=== PATIENT | female | born 1980 | race Caucasian/White ===

== ENCOUNTER 2023-12-03 14:47 | Outpatient (OUT) | payer OTHER, SELFPAY ==
--- NOTE | 2023-12-03 | XR_ITS ---
The [address] [address] Patient Name: EZRA STERN MRN: [id number] date: 1980 Sex: F Assigned Patient Location: [facility] Current Patient Location: Accession/Order Number: [id number] Exam Date: 12/03/2023 15:10 Report Date: 12/04/2023 08:06 At the request of: MILADYS COOK Procedure: XR ankle LT min 3V EXAMINATION: XR foot ISMAEL min 3V, XR ankle LT min 3V HISTORY: BILAT FOOT PAIN COMPARISON: No relevant comparison available. FINDINGS: RIGHT FOOT FINDINGS: BONES: No acute fracture or dislocation. Mild enthesopathic spurring plantar calcaneus SOFT TISSUES: Negative. No visible soft tissue swelling. OTHER: Negative. LEFT FOOT AND ANKLE FINDINGS: BONES: No acute fracture or dislocation. Mild enthesopathic spurring plantar calcaneus SOFT TISSUES: Lateral ankle soft tissue swelling OTHER: Negative. XR/XR ankle LT min 3V IMPRESSION: RIGHT CONCLUSION: Mild calcaneal enthesopathy LEFT CONCLUSION: Mild calcaneal enthesopathy, lateral ankle soft tissue swelling Electronically authenticated by: SHER LO Date: 12/04/2023 08:06
--- NOTE | 2023-12-03 | XR_ITS ---
The [address] [address] Patient Name: EZRA STERN MRN: [id number] date: 1980 Sex: F Assigned Patient Location: [facility] Current Patient Location: Accession/Order Number: [id number] Exam Date: 12/03/2023 15:10 Report Date: 12/04/2023 08:06 At the request of: MILADYS COOK Procedure: XR foot ISMAEL min 3V EXAMINATION: XR foot ISMAEL min 3V, XR ankle LT min 3V HISTORY: BILAT FOOT PAIN COMPARISON: No relevant comparison available. FINDINGS: RIGHT FOOT FINDINGS: BONES: No acute fracture or dislocation. Mild enthesopathic spurring plantar calcaneus SOFT TISSUES: Negative. No visible soft tissue swelling. OTHER: Negative. LEFT FOOT AND ANKLE FINDINGS: BONES: No acute fracture or dislocation. Mild enthesopathic spurring plantar calcaneus SOFT TISSUES: Lateral ankle soft tissue swelling OTHER: Negative. XR/XR foot ISMAEL min 3V IMPRESSION: RIGHT CONCLUSION: Mild calcaneal enthesopathy LEFT CONCLUSION: Mild calcaneal enthesopathy, lateral ankle soft tissue swelling Electronically authenticated by: SHER LO Date: 12/04/2023 08:06
== END 2023-12-03 14:48 | disposition home or self-care (01) ==
LOC: RAD 14:48
PROVIDERS: PCP Nurse Practitioner; Visit Provider Physician Assistant
DX: M25.572 Pain in left ankle and joints of left foot (principal); M72.2 Plantar fascial fibromatosis
CPT/HCPCS: 73610; 73630

== ENCOUNTER 2023-12-11 16:34 | Outpatient (RCR) | payer OTHER, SELFPAY | END 2024-01-09 15:48 | disposition home or self-care (01) | LOC: PT 16:34 | PROVIDERS: PCP Nurse Practitioner; Visit Provider Physician Assistant | DX: M72.2 Plantar fascial fibromatosis (principal) | CPT/HCPCS: 20561; 97035; 97110; 97140; 97161 ==

== ENCOUNTER 2024-02-26 08:27 | Outpatient (OUT) | payer OTHER, SELFPAY ==
--- OUTSIDE RECORDS SUMMARY | 2024-02-26 08:33 | XMS_ITS | CCD ---
Author Organization [facility] Care Team Providers Care Manager Event Name Role Phone MD Dylan Fuentes Primary Care UnavailMD Alfredo Stokes Attending Unavailable MD Alfredo Daly Attending Unavailable MD Dylan Fuentes Primary Care Unavailallen Reynoso CALL CENTER ANALYST-Savanah MUÑOZ Primary Care Provider MATTHEW JARA Referring Unavailable SAVANAH REYNOSO Primary Care Unavailable MATTHEW JARA Referring Unavailable SAVANAH REYNOSO Primary Care Unavailable MATTHEW JARA Referring Unavailable SAVANAH REYNOSO Primary Care Unavailable Medications Current Medications Medication Drug Class(es) Dates Sig (Normalized) Sig (Original) azelastine hydrochloride 0.5 mg/ml ophthalmic solution (4 sources) Histamine-1 Receptor Antagonist take 1 drop(s) into the eye(s) in the morning azelastine (OPTIVAR) 0.05 % ophthalmic solution Administer 1 drop to both eyes in the morning and 1 drop before bedtime. 0 Active cetirizine hydrochloride 10 mg oral tablet (4 sources) Histamine-1 Receptor Antagonist take 1 tablet by mouth in the morning cetirizine (ZyrTEC) 10 mg tablet Take 1 tablet (10 mg total) by mouth in the morning. 0 Active PARoxetine hydrochloride 10 mg oral tablet (4 sources) Serotonin Reuptake Inhibitor Start: 05-28-2023 take 1 tablet by mouth in the morning PARoxetine (PAXIL) 10 mg tablet Indications: Menopausal symptoms Take 1 tablet (10 mg total) by mouth in the morning. 30 tablet 2 05/28/2023 Active triamcinolone acetonide 0.055 mg/actuat metered dose nasal spray (4 sources) Corticosteroid take 2 spray(s) nasal route in the morning triamcinolone (NASACORT) 55 mcg nasal inhaler Administer 2 sprays into each nostril in the morning. 0 Active Completed/Discontinued Medications Medication Drug Class(es) Dates Sig (Normalized) Sig (Original) ferumoxytoL (FERAHEME) 510 mg in sodium chloride 0.9 % 100 mL IVPB (2 sources) Start: 01-01-2024 End: 01-01-2024 ferumoxytoL (FERAHEME) 510 mg in sodium chloride 0.9 % 100 mL IVPB Start: 12-25-2023 End: 12-25-2023 ferumoxytoL (FERAHEME) 510 m g in sodium chloride 0.9 % 100 mL IVPB 1000 ml sodium chloride 9 mg /ml injection (2 sources) Start: 01-01-2024 End: 01-01-2024 sodium chloride 0.9 % infusi on Start: 12-25-2023 End: 12-25-2023 sodium chloride 0.9 % infusi on Problems Active Problems Problem Classification Problem Date Documented Da te Episodic/Chronic Allergic reactions (4 sources) Allergic disorder; Translations: [Allergy, unspecified, initial encounter] 01-04-2021 Episodic Deficiency and other anemia (3 sources) Iron deficiency anemia due to blood loss; Translations: [Iron deficiency anemia secondary to blood loss (chronic)] 12-19-2023 Chronic Deficiency and other anemia (1 source) Iron deficiency anemia secondary to blood loss (chronic); Translations: [Iron deficiency anemia secondary to blood loss (chronic)] Onset: 12-13-2022 Chronic Other ear and sense organ disorders (4 sources) Deafness of left ear; Translations: [Unspecified hearing loss, left ear] 01-04-2021 Chronic Unclassified (1 source) Outpatient Infusion Onset: 12-25-2023 Past or Other Problems Problem Classification Problem Date Documented Da te Episodic/Chronic Deficiency and other anemia (4 sources) Anemia; Translations: [Anemia, unspecified] Onset: 12-13-2022 12-13-2022 Episodic Deficiency and other anemia (4 sources) Iron deficiency anemia; Translations: [Iron deficiency anemia, unspecified] Onset: 12-13-2022 12-13-2022 Episodic Deficiency and other anemia (1 source) Other iron deficiency anemias; Translations: [Other iron deficiency anemias] Onset: 12-13-2022 Episodic Mood disorders (4 sources) Mood disorders Onset: 05-16-2023 05-16-2023 Unclassified (4 sources) Onset: 05-16-2023 05-16-2023 Results Test Name Value Interpretation Reference Range Facil ity CBC AND AUTO DIFFon 12-17-19 24 ABSOLUTE BASOPHIL 0.1 X10E9/L Normal 0.0-0.2 [facility] Comment on above: Performed By: #### Angel MARIN, FEPR, 2275-4 #### [facility] ([id number]) [address], [facility] [address] [place] [address] ABSOLUTE NEUTROPHIL 3.3 X10E9/L Normal 1.5-6.6 [facility] Comment on above: Performed By: #### Angel MARIN, FEPR, 2275-4 #### [facility] ([id number]) [address], [facility] [address] [place] [address] Basophils/100 WBC (Bld) 1.0 % Normal [facility] Comment on above: Performed By: #### Angel MARIN, FEPR, 2275-4 #### [facility] ([id number]) [address], [facility] [address] [place] [address] Eosinophils (Bld) [#/Vol] 0.3 10*3/uL Normal 0.0-0.4 [facility] Comment on above: Performed By: #### Angel MARIN, FEPR, 2275-4 #### [facility] ([id number]) [address], [facility] [address] [place] [address] Eosinophils/100 WBC (Bld) 4.9 % Normal [facility] Comment on above: Performed By: #### Angel MARIN, FEPR, 2275-4 #### [facility] ([id number]) [address] [address] [place] [address] Erythrocyte distribution width (RBC) [Ratio] 15.4 % High 11.5-15.0 [facility] Comment on above: Performed By: #### Angel MARIN, FEPR, 2275-4 #### [facility] ([id number]) [address], [address] [place] [address] Hematocrit (Bld) [Volume fraction] 40.1 % Normal 35-47 [facility] Comment on above: Performed By: #### Angel MARIN, FEPR, 2275-4 #### [facility] ([id number]) [address], [address] [place] [address] Hemoglobin (Bld) [Mass/Vol] 13.1 g/dL Normal 11.7-15.5 [facility] Comment on above: Performed By: #### Angel MARIN, FEPR, 2275-4 #### [facility] ([id number]) [address], [address] [place] [address] Lymphocytes (Bld) [#/Vol] 1.8 10*3/uL Normal 1.0-3.5 [facility] Comment on above: Performed By: #### Angel MARIN, FEPR, 2275-4 #### [facility] ([id number]) [address], [address] [place] [address] Lymphocytes/100 WBC (Bld) 30.6 % Normal [facility] Comment on above: Performed By: #### Angel BCA, FEPR, 4 #### [facility] ([id number]) [address], [address] [place] [address] MCH (RBC) [Entitic mass] 27.9 pg Normal 27-34 [facility] Comment on above: Performed By: #### Angel BCA, FEPR, 2275-4 #### [facility] ([id number]) [address], [address] [place] [address] MCHC (RBC) [Mass/Vol] 32.7 g/dL Normal 32-36 [facility] Comment on above: Performed By: #### Angel BCA, FEPR, 2275-4 #### [facility] ([id number]) [address], [address] [place] [address] MCV (RBC) [Entitic vol] 85 fL Normal 80-100 [facility] Comment on above: Performed By: #### Angel MARIN, FEPR, 2276-03 #### [facility] ([id number]) [address], [address] [place] [address] Monocytes (Bld) [#/Vol] 0.5 10*3/uL Normal 0-0.9 [facility] Comment on above: Performed By: #### Angel MARIN, FEPR, 2275- #### [facility] ([id number]) [address], [facility] [address] [place] [address] Monocytes/100 WBC (Bld) 8.5 % Normal [facility] Comment on above: Performed By: #### Angel MARIN, FEPR, 2276-03 #### [facility] ([id number]) [address], [facility] [address] [place] [address] Neutrophils/100 WBC (Bld) 55.0 % Normal [facility] Comment on above: Performed By: #### Angel MARIN, FEPR, 2276-03 #### [facility] ([id number]) [address], [address] [place] [address] Platelet mean volume (Bld) [Entitic vol] 9.5 fL Normal 7-12 [facility] Comment on above: Performed By: #### Angel MARIN, FEPR, 2276-03 #### [facility] ([id number]) [address], [facility] [address] [place] [address] Platelets (Bld) [#/Vol] 282 10*3/uL Normal 150-450 [facility] Comment on above: Performed By: #### Angel BCA, FEPR, 2276-03 #### [facility] ([id number]) [address] [place] [address] RBC COUNT 4.70 X10E12/L Normal 3.80-5.20 [facility] Comment on above: Performed By: #### C BCA, FEPR, 6-4 #### [facility] ([id number]) [address], [facility] [address] [place] [address] WBC (Bld) [#/Vol] 6.0 10*3/uL Normal 4.0-11.0 [facility] Comment on above: Performed By: #### C BCA, FEPR, 6-4 #### [facility] ([id number]) [address] [place] [address] FERRITINon 12-17-2023 Ferritin [Mass/Vol] 8 ng/mL Low 11-307 [facility] Comment on above: Performed By: #### C BCA, FEPR, 6-4 #### [facility] ([id number]) [address] [place] [address] IRON PROFILEon 12-17-2023 Iron [Mass/Vol] 30 ug/dL Low 50-170 [facility] Comment on above: Performed By: #### C BCA, FEPR, 6-4 #### [facility] ([id number]) [address], [address] [place] [address] IRON BINDING 465 ug/dL High 250-425 [facility] Comment on above: Performed By: #### Angel BCA, FEPR, 6-4 #### [facility] ([id number]) [address] [address] [place] [address] IRON SATURATION 6 % SATURATION Low 15-50 [facility] Comment on above: Performed By: #### C BCA, FEPR, 6-4 #### [facility] ([id number]) [address] [place] [address] CNOVon 06-27-2021 CNOV Office Visit ([facility] ) HILLARY STERN ([id number]) 1980 F Date Time Provider Department 06/27/21 11:00 AM EZRA HOGAN During your visit today, we recorded the following information about you: ADRIAN Khan, CCC-A 06/27/2021 1:14 PM Signed [facility] HEARING AID CHECK Name: Hillary Stern CCF#: [id number] Date of Service: 06/27/2021 Date of : 1980 Age: [age] year old RIGHT: AUDEO [id number] SN: [id number] Pediatric Critical Care Nurse/Dome: #2 small LEFT: CROS B-312 SN: [id number] Tubing/Dome: #2 small CERUSTOP Repair Warranty Expiration Date: ? Loss/Damage Expiration Date: ? Fitting Date: 1-2 years ago at an outside facility Fitting Roofer Metal: Outside gasket notcher Hillary was seen today for a hearing aid check/problem. The patient had complaints of hearing outside noises too much in the right ear which is bothersome to her. 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 Patient counseled re: the need to wear the device daily and consistently. Right aid adjusted, increased noise reduction and adjusted for sound relax. RIGHT EAR: Otoscopic inspection revealed clear ear canal, Tympanic Membrane intact. LEFT EAR: Otoscopic inspection revealed clear ear canal, Tympanic Membrane intact. Hillary was taken to the Funeral Home Attendant to cover today's appointment fee of $50.00. Recommendations 1. Patient advised to wear the aid daily. 2. Return in 2-3 weeks for follow up HAC if needed. Betty Khan, KOSTAS/A Clinical Roofer Metal Referring Provider: SELF [200] Allergies As of Date: 06/27/2021 (Not on File) Date Reviewed: Never Reviewed Reason for Visit: Problem With Hearing Aid(s) [1124] Hearing Aid Check [1340] Primary Visit Diagnosis:Sensorineur al hearing loss, asymmetrical [H90.3] Problem List As Of Date: 06/27/2021 (None) Encounter Status:Closed by EZRA HOGAN on 06/27/21 [facility] CNOVon 06-07-2021 CNOV Office Visit ([facility] ) HILLARY STERN ([id number]) 1980 F Date Time Provider Department 06/07/21 10:00 AM LATRICE HOUSTON During your visit today, we recorded the following information about you: ADRIAN Mcneil 06/07/2021 11:14 AM Signed [facility] AUDIOLOGIC EVALUATION REPORT Name: Hillary Stern CC#: [id number] Date of Service: 06/07/2021 Date of : 1980 Age: [age] year old Referred by: Antwon Sarah NP [address] [facility] [address] Referred for: Evaluation of the cause of disorder of hearing, tinnitus, or balance. Referral documented: No referral on file Patient's major complaints: Ms. Stern was seen today because she feels her hearing in her right ear is getting worse. She has long-standing profound hearing loss in her left ear and a prior audio evaluation from 2008 showed a moderate rising to mild sensorineural hearing loss in the right ear. She has a CROS hearing aid that she received several years ago and she wears it but finds wind noise bothersome. She also frequently adjusts her hair and can hear that easily with the hearing aid in. She denied tinnitus, dizziness, ear infections, and noise exposure. The remaining case history was unremarkable. Hillary was seen for an initial audiologic evaluation. See SmartForm Audiogram for additional reported history and symptoms. INTERPRETATION OF HEARING STATUS RIGHT EAR: Sensorineural hearing loss LEFT EAR: Sensorineural hearing loss TESTING, AND RESULTS Following is a brief interpretation of the obtained findings from the audiologic evaluation. Refer to the Auditory Test Record for complete audiometric results. The patient was counseled about the test findings and appropriate audiologic recommendations were made. SUMMARY: Audiogram can be viewed under Forms/Audiology/Smart Form. OTOSCOPIC INSPECTION RIGHT EAR: Otoscopic inspection revealed ear canal was clear with an identifiable cone of light. LEFT EAR: Otoscopic inspection revealed ear canal was clear with an identifiable cone of light. ACOUSTIC IMMITTANCE RESULTS RIGHT EAR PROBE EAR: Tympanometry: Normal ME function. Acoustic Reflex Pattern (ipsi is right stimulus ear; contralateral is left stimulus ear): Did not test Acoustic Reflex Decay (left stimulus ear): Did not test. LEFT EAR PROBE EAR: Tympanometry: Normal ME function. Acoustic Reflex Pattern (ipsi is left stimulus ear; contralateral is right stimulus ear): Did not test Acoustic Reflex Decay (right stimulus ear):Did not test. AUDIOMETRIC RESULTS RIGHT EAR: Hearing Sensitivity: Moderate rising to mild sensorineural hearing loss. Word Recognition Score: Excellent (90-100%). Words were presented at 70 dB HL NU-6 word list (25 words) was used. LEFT EAR: Hearing Sensitivity: Profound sensorineural hearing loss. Word Recognition Score: Did not test. Hearing loss is consistent with results obtained in 2009. MANAGEMENT PLAN: -- Continue with current amplification. -- Annual audiologic evaluation Adrian Mcneil CCC-A Roofer Metal TEIXEIRA Abbrev- iation Definition Degree of hearing sensitivity dB range WNL within normal limits WNL 0 - 20 SNHL sensorineural hearing loss Mild 20-40 CHL conductive hearing loss Moderate 40-55 MHL mixed hearing loss Moderately-Severe 55-70 WRS word recognition score Severe 70-90 ME middle ear Profound 90 + TM tympanic membrane Referring Provider: ANTWON SARAH [[id number]] Allergies As of Date: 06/07/2021 (Not on File) Date Reviewed: Never Reviewed Reason for Visit: Hearing Loss [1119] Primary Visit Diagnosis:Sensorineur al hearing loss, asymmetrical [H90.5] Problem List As Of Date: 06/07/2021 (None) Classic SmartForms filed during this visit: Audiometry Encounter Status:Closed by LATRICE HOUSTON on 06/07/21 Normal [facility] Vital Signs Date Time Vital Sign Value Performing Clinician Facility 01-01-2024 15:42-0500 Body temperature 98.2 [degF] Pfo 3 [facility] 01-01-2024 15:42-0500 Diastolic blood pressure 73 mm[Hg] Pfo 3 [facility] 01-01-2024 15:42-0500 Heart rate 72 /min Pfo 3 [facility] 01-01-2024 15:42-0500 Respiratory rate 16 /min Pfo 3 [facility] 01-01-2024 15:42-0500 SaO2% (BldA) [Mass fraction] 100 % Pfo 3 [facility] 01-01-2024 15:42-0500 Systolic blood pressure 111 mm[Hg] Pfo 3 [facility] 01-01-2024 14:53-0500 Body height 157.5 cm Pfo 3 [facility] 01-01-2024 14:53-0500 Body mass index (BMI) [Ratio] 31.45 kg/m2 Pfo 3 [facility] 01-01-2024 14:53-0500 Body weight 78.02 kg Pfo 3 [facility] 12-25-2023 15:57-0500 Diastolic blood pressure 73 mm[Hg] Pfo 3 [facility] 12-25-2023 15:57-0500 Heart rate 76 /min Pfo 3 [facility] 12-25-2023 15:57-0500 Respiratory rate 16 /min Pfo 3 [facility] 12-25-2023 15:57-0500 Systolic blood pressure 113 mm[Hg] Pfo 3 [facility] 12-25-2023 15:12-0500 Body height 157.5 cm Pfo 3 [facility] 12-25-2023 15:12-0500 Body mass index (BMI) [Ratio] 31.83 kg/m2 Pfo 3 [facility] 12-25-2023 15:12-0500 Body temperature 98.49 [degF] Pfo 3 [facility] 12-25-2023 15:12-0500 Body weight 78.93 kg Pfo 3 [facility] 12-25-2023 15:12-0500 SaO2% (BldA) [Mass fraction] 100 % Pfo 3 [facility] Encounters Encounter Date Encounter Type Care Provider Facility Start: 01-01-2024 End: 01-02-2024 ambulatory Pfo Infusion Chair 3 Ifrah L Avila [facility] Comment on above: Iron deficiency anem ia due to chronic blood loss (Primary Dx) Start: 12-25-2023 End: 01-02-2024 ambulatory Pfo Infusion Chair 3 Ifrah Rauschn [facility] Comment on above: Iron deficiency anem ia due to chronic blood loss (Primary Dx) Start: 12-19-2023 Orders Only Roxana Humphrey RN Ifrah L [facility] Comment on above: Iron deficiency anem ia due to chronic blood loss (Primary Dx) Start: 12-17-2023 End: 12-18-2023 ambulatory MATTHEW Manning [facility] Start: 11-22-2022 End: 11-23-2022 ambulatory MD Alfredo Daly Facility:[facility] Start: 10-18-2022 End: 10-19-2022 ambulatory MD Dylan Fuentes Facility:[facility] Procedures Date Procedure Procedure Detail Performing Clinician Start: 05-16-2023 Adult depression scr eening assessment Roxana Humphrey RN Start: 05-10-2023 Mammography Roxana gramajo RN Start: 05-08-2022 Microscopic observat ion [Identifier] in Cervix by Cyto stain Roxana Humphrey RN Plan of Treatment Date Care Activity Detail Author Start: 05-08-2025 Screening for malign ant neoplasm of cervix Pap Smear [facility] Start: 01-01-2025 Adult BMI Screening Adult BMI Screen ing [facility] Start: 12-25-2024 Tobacco Screening Tobacco Screening [facility] Start: 05-16-2024 Adult BMI Follow Up Plan Adult BMI Follow Up Plan [facility] Start: 05-16-2024 Adult BMI Screening Adult BMI Screen ing [facility] Start: 05-16-2024 Depression Screening Depression Scre ening [facility] Start: 05-16-2024 Tobacco Screening Tobacco Screening [facility] Start: 05-10-2024 Screening for malign ant neoplasm of breast Mammogram [facility] Start: 05-07-2024 End: 05-07-2024 Patient encounter procedure 05/07/2024 9:15 AM EDT Office Visit Ifrah Gramajo [facility] [address] [place] [address] Matthew Jara MD [address] [facility] [address] [place] [address] Ifrah Gramajo [facility] Start: 04-01-2024 End: 12-19-2024 CBC W Auto Differential panel - Blood CBC auto differential Lab Routine Iron deficiency anemia due to chronic blood loss Expected: 04/01/2024, Expires: 12/19/2024 [facility] Work Phone: Comment on above: Expected: 04/01/2024 , Expires: 12/19/2024 Start: 04-01-2024 End: 04-01-2025 Iron and TIBC Iron and TIBC Lab Routine Iron deficiency anemia due to chronic blood loss Expected: 04/01/2024, Expires: 04/01/2025 [facility] Comment on above: Expected: 04/01/2024 , Expires: 04/01/2025 Start: 01-01-2024 End: 01-01-2024 ambulatory 01/01/2024 3:00 PM EST Infusion Ifrah Gramajo [facility] [place] [address] Ifrah Orantes Pettis [facility] Start: 08-02-2023 COVID-19 Vaccine ( season) COVID-19 Vaccine ( season) [facility] Start: 08-02-2023 Influenza vaccination Influenza Vacc ine [facility] Start: 02-19-2021 DTaP,Tdap and Td Vaccines (2 - Td or Tdap) DTaP,Tdap and Td Vaccines (2 - Td or Tdap) [facility] End: 12-19-2024 Ferritin [Mass/volume] in Serum or Plasma Ferritin Lab Routine Iron deficiency anemia due to chronic blood loss 1 Occurrences starting 12/19/2023 until 12/19/2024 [facility] Comment on above: 1 Occurrences starti ng 12/19/2023 until 12/19/2024 Immunizations Immunization Date Immunization Notes Care Provider Vero bob 11-11-2022 influenza virus vacc ine, unspecified formulation Roxana Humphrey RN [facility] 12-09-2021 Seasonal, quadrivale nt, recombinant, injectable influenza vaccine, preservative free Roxana Humphrey RN [facility] Work Phone: 09-03-2019 influenza, injectabl e, quadrivalent, preservative free Roxana Humphrey RN [facility] 09-03-2018 influenza, injectabl e, quadrivalent, preservative free Roxana Humphrey RN [facility] 09-03-2018 seasonal influenza, intradermal, preservative free Roxana Humphrey RN [facility] 02-19-2011 tetanus toxoid, redu noemy diphtheria toxoid, and acellular pertussis vaccine, adsorbed Roxana Humphrey RN [facility] Payers Date Payer Category Payer Unknown [employer] [id number] 2023-Present [phone] [address] [place] [address] [id number] 2023 Unknown [id number] 2022 Private Health Insurance 1980 Unknown [id number] 1980 Unknown [id number] 1980 Unknown [id number] 1980 Unknown [id number] 1980 Unknown [id number] Social History Date Type Detail Facility Start: 02-01-2023 Tobacco smoking stat us SCIS Never smoked tobacco [facility] Start: 02-01-2023 Tobacco use and exposure Smoke less tobacco non-user [facility] Start: 05-16-2023 End: 12-25-2023 Alcohol intake Current drinker of alcohol (finding) [facility] Start: 01-04-2021 End: 05-08-2022 History of Social function [facility] Work Phone: Start: 01-04-2021 End: 05-08-2022 Alcohol Use Disorder Identification Test - Consumption [AUDIT-C] [facility] Work Phone: How often to you hav e a drink containing alcohol? 2-4 times a month [facility] Work Phone: How many standard dr inks containing alcohol do you have on a typical day? 1 or 2 [facility] How often do you hav e 6 or more drinks on 1 occasion? Never [facility] Adolescent depressio n screening assessment 2 [facility] Start: 01-04-2021 Alcohol Comment socially [facility] Start: 1980 Sex Assigned At Not on file P [facility] Clinical Notes 06-07-2021 to 01-01-2024 Brent Parra RN - 01/01/2024 3:00 PM Kadeem Zimmerman RN - 12/25/2023 3:00 PM Amairani Humphrey RN - 12/19/2023 8:54 AM EST Note Date & Type Note Facility 01-01-2024 History of Present illness Narrative Patient is here for IV Feraheme as scheduled. She has received in the past and denies any issues from medication. PIV initiated in LAC without incident. Brisk blood return verified and line flushes with ease. NS initiated as mainline at KVO rate. Feraheme infused over 30 minutes without incident and patient tolerated well. Upon completion, IV flushed and patient declined to remain on unit for 30 minutes post infusion for observation. VS stable. PIV discontinued and pressure dressing applied. Patient discharged in stable condition to private vehicle. documented in this encounter [facility] 12-25-2023 History of Present illness Narrative Patient is here for IV Feraheme as scheduled. She has received in the past and denies any issues from medication. PIV initiated in left forearm without incident. Brisk blood return verified and line flushes with ease. NS initiated as mainline at KVO rate. Feraheme infused over 30 minutes without incident and patient tolerated well. Upon completion, IV flushed and patient declined to remained on unit for 30 minutes post infusion for observation. VS stable. PIV discontinued and pressure dressing applied. Treatment calendar provided. Patient discharged in stable condition to private vehicle. documented in this encounter [facility] 12-19-2023 History of Present illness Narrative Reviewed labs with patient. She would like to have iv iron again. Message sent to Dr. Jara to order. Will call to schedule once approved by insurance. Follow up scheduled with Dr. Jara in May. She will get labs rechecked prior. documented in this encounter [facility] 06-27-2021 Note HNO ID: [id number] Author: ADRIAN Khan, [facility] Service: ? Author Type: [employer] Type: Progress Notes Filed: 06/27/2021 1:14 PM Note Text: Head and Neck [place] HEARING AID CHECK Name: Hillary Stern CCF#: [id number] Date of Service: 06/27/2021 Date of : 1980 Age: [age] year old RIGHT: AUDEO [id number] SN: [id number] Pediatric Critical Care Nurse/Dome: #2 small LEFT: CROS B-312 SN: [id number] Tubing/Dome: #2 small CERUSTOP Repair Warranty Expiration Date: ? Loss/Damage Expiration Date: ? Fitting Date: 1-2 years ago at an outside facility Fitting Roofer Metal: Outside gasket notcher Hillary was seen today for a hearing aid check/problem. The patient had complaints of hearing outside noises too much in the right ear which is bothersome to her. 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 Patient counseled re: the need to wear the device daily and consistently. Right aid adjusted, increased noise reduction and adjusted for sound relax. RIGHT EAR: Otoscopic inspection revealed clear ear canal, Tympanic Membrane intact. LEFT EAR: Otoscopic inspection revealed clear ear canal, Tympanic Membrane intact. Hillary was taken to the Funeral Home Attendant to cover today's appointment fee of $50.00. Recommendations 1. Patient advised to wear the aid daily. 2. Return in 2-3 weeks for follow up HAC if needed. Betty Khan, KOSTAS/A Clinical Roofer [employer] [facility] 06-07-2021 Note HNO ID: [id number] Author: ADRIAN Mcneil Service: ? Author Type: [employer]er [employer] Type: Progress Notes Filed: 06/07/2021 11:14 AM Note Text: Head and Neck [place] AUDIOLOGIC EVALUATION REPORT Name: Hillary Stern CC#: [id number] Date of Service: 06/07/2021 Date of : 1980 Age: [age] year old Referred by: Antwon Sarah NP [id number] [facility] [id number] Referred for: Evaluation of the cause of disorder of hearing, tinnitus, or balance. Referral documented: No referral on file Patient's major complaints: Ms. Stern was seen today because she feels her hearing in her right ear is getting worse. She has long-standing profound hearing loss in her left ear and a prior audio evaluation from 2008 showed a moderate rising to mild sensorineural hearing loss in the right ear. She has a CROS hearing aid that she received several years ago and she wears it but finds wind noise bothersome. She also frequently adjusts her hair and can hear that easily with the hearing aid in. She denied tinnitus, dizziness, ear infections, and noise exposure. The remaining case history was unremarkable. Hillary was seen for an initial audiologic evaluation. See SmartForm Audiogram for additional reported history and symptoms. INTERPRETATION OF HEARING STATUS RIGHT EAR: Sensorineural hearing loss LEFT EAR: Sensorineural hearing loss TESTING, AND RESULTS Following is a brief interpretation of the obtained findings from the audiologic evaluation. Refer to the Auditory Test Record for complete audiometric results. The patient was counseled about the test findings and appropriate audiologic recommendations were made. SUMMARY: Audiogram can be viewed under Forms/Audiology/SmartForm. OTOSCOPIC INSPECTION RIGHT EAR: Otoscopic inspection revealed ear canal was clear with an identifiable cone of light. LEFT EAR: Otoscopic inspection revealed ear canal was clear with an identifiable cone of light. ACOUSTIC IMMITTANCE RESULTS RIGHT EAR PROBE EAR: Tympanometry: Normal ME function. Acoustic Reflex Pattern (ipsi is right stimulus ear; contralateral is left stimulus ear): Did not test Acoustic Reflex Decay (left stimulus ear): Did not test. LEFT EAR PROBE EAR: Tympanometry: Normal ME function. Acoustic Reflex Pattern (ipsi is left stimulus ear; contralateral is right stimulus ear): Did not test Acoustic Reflex Decay (right stimulus ear):Did not test. AUDIOMETRIC RESULTS RIGHT EAR: Hearing Sensitivity: Moderate rising to mild sensorineural hearing loss. Word Recognition Score: Excellent (90-100%). Words were presented at 70 dB HL NU-6 word list (25 words) was used. LEFT EAR: Hearing Sensitivity: Profound sensorineural hearing loss. Word Recognition Score: Did not test. Hearing loss is consistent with results obtained in 2009. MANAGEMENT PLAN: -- Continue with current amplification. -- Annual audiologic evaluation Adrian Mcneil, KOST[facility]-A [employer]er [employer] TEIXEIRA Abbrev- iation Definition Degree of hearing sensitivity dB range WNL within normal limits WNL 0 - 20 SNHL sensorineural hearing loss Mild 20-40 CHL conductive hearing loss Moderate 40-55 MHL mixed hearing loss Moderately-Severe 55-70 WRS word recognition score Severe 70-90 ME middle ear Profound 90 + TM tympanic membrane [facility] Evaluation note Diagnosis Iron deficiency anemia due to chronic blood loss- Primary Iron deficiency anemia secondary to blood loss (chronic) [facility] Diagnosis Iron deficiency anemia due to chronic blood loss- Primary Iron deficiency anemia secondary to blood loss (chronic) [facility] Diagnosis Iron deficiency anemia due to chronic blood loss- Primary Iron deficiency anemia secondary to blood loss (chronic) [facility] filedocumented in this encounter [facility] on filedocumented in this encounter [facility] Summary Purpose Family History No Family History Records FoundNo Family History Records FoundNo Family History Records Found Advance Directives No Advanced Directives Records FoundNo Advanced Directives Records FoundNo Advanced Directives Records Found Additional Source Comments INFORMATION SOURCE (unrecogn ized section and content) DATE CREATED AUTHOR 01/04/2022 [facility] DATE CREATED AUTHOR AUTHOR'S ORGANIZ ATION 11/29/2022 [facility] DATE CREATED AUTHOR AUTHOR'S ORGANIZ ATION 01/05/2024 [facility] Care Teams (unrecognized sec tion and content) Manager Event Relationship Specialty Start Date End Date [facility] [address] [place] [address] PCP - General Nurse Practitioner 12/17/23 Manager Event Relationship Specialty Start Date End Date Savanah Reynoso APRNTONI [address] [place] [address] PCP - General Nurse Practitioner 12/17/23 Manager Event Relationship Specialty Start Date End Date Savanah Reynoso APRNTONI [address] [place] [address] PCP - General Nurse Practitioner 12/17/23 Manager Event Relationship Specialty Start Date End Date [facility] [address] [place] [address] PCP - General Nurse Practitioner 12/17/23 Reason for Visit (unrecogniz ed section and content) Reason Comments Outpatient Infusion Feraheme Specialty Diagnoses / Procedures Referred By Contac t Referred To Contact Diagnoses Iron deficiency anemia due to chronic blood loss Procedures LA FERUMOXYTOL, NON-ESRD Matthew Jara MD [address] [place] [address] Pfo Med Onc [facility] [place] [address] Referral ID Status Reason Start Date Expiration Date V isits Requested Visits Authorized [id number] Authorized 12/19/2023 12/18/2024 2 2 Reason Comments Outpatient Infusion feraheme FOR RECORDS PERTAINING TO PATIENTS WHO ARE OR HAVE BEEN ENROLLED IN A CHEMICAL DEPENDENCY/SUBSTANCEABUSE PROGRAM, SOME INFORMATION MAY BE OMITTED. This clinical summary was aggregated from multiple sources. Caution should be exercised in using it in the provision of clinical care. This summary normalizes information from multiple sources, and as a consequence, information in this document may materially change the coding, format and clinical context of patient data. In addition, data may be omitted in some cases. CLINICAL DECISIONS SHOULD BE BASED ON THE PRIMARY CLINICAL RECORDS. [employer] provides no warranty or guarantee of the accuracy or completeness of information in this document.
--- NOTE | 2024-02-26 08:36 | MR_ITS ---
The [address] [address] Patient Name: EZRA STERN MRN: [id number] date: 1980 Sex: F Assigned Patient Location: MRI Current Patient Location: MRI Accession/Order Number: [id number] Exam Date: 02/26/2024 08:45 Report Date: 02/26/2024 12:45 At the request of: MILADYS COOK Procedure: MR ankle RT wo con EXAM: MR ankle RT wo con REASON FOR EXAM: Plantar Fascial Fibromatosis M72.2. TECHNIQUE: Multiplanar, multisequence imaging of the right ankle was performed without contrast COMPARISON: Radiographs 12/03/2023. FINDINGS: There is fusiform thickening and intermediate signal of the Achilles tendon consistent with tendinosis. No tear identified. There is moderate thickening and intermediate signal involving the medial cord of the plantar fascia with mild surrounding edema. A discrete tear not identified. Inferior calcaneal spur is noted. No masslike thickening of the plantar fascia identified to suggest plantar fibromatosis. Laterally, the peroneal tendons demonstrate grossly normal thickness and signal without tendinosis or tear. The superficial peroneal retinaculum is intact. Lateral ligaments are grossly intact. Medially, the medial flexor tendons demonstrate normal thickness and signal without tendinosis or tear. The deep deltoid ligament is intact. The spring ligament is intact. Anteriorly, the anterior extensor tendons demonstrate normal thickness and signal without tendinosis or tear. The bone marrow signal is without fracture or displaced fracture. There is bone marrow edema involving the third metatarsal base and proximal diaphysis. This could potentially reflect a low-grade stress response due to altered biomechanics. The talar dome appears congruent. The subtalar joints intact. The sinus tarsi is mildly edematous. The midfoot is congruent with mild joint space narrowing marginal osteophytes of the talonavicular joint. The plantar musculature demonstrates normal bulk and signal. Remaining soft tissues are unremarkable. MR/MR ankle RT wo con IMPRESSION: 1. Moderate chronic plantar fasciopathy without evidence of acute tear. No masslike thickening identified to suggest fibromatosis. 2. Partially imaged bone marrow edema involving the proximal third metatarsal, this could be degenerative or could reflect a low-grade stress response potentially due to altered biomechanics. 3. Achilles tendinosis without tear. 4. Mild midfoot osteoarthritis Electronically authenticated by: LISET GARCIA Date: 02/26/2024 12:45
== END 2024-02-26 08:28 | disposition home or self-care (01) ==
LOC: MRI 08:30
PROVIDERS: PCP Nurse Practitioner; Visit Provider Physician Assistant
DX: M72.2 Plantar fascial fibromatosis (principal)
CPT/HCPCS: 73721

== ENCOUNTER 2024-04-28 09:59 | Outpatient (OUT) | payer OTHER, SELFPAY ==
--- NOTE | 2024-04-28 10:27 | PM.PRESUREVA ---
History of Present Illness History of Present Illness Chief complaint: plantar fasciitis right foot, rt ankle contracture Narrative: Patient presents for preadmission testing. The patient reports a long history of right foot and heel pain. She has more pain after resting after longer periods of standing and activity. The patient states she has used prednisone, ibuprofen, meloxicam, injections, physical therapy, and home exercise programs along with shoe modification but is still having intermittent pain. She denies numbness, tingling, weakness, or any other complaints. Review of Systems ROS Narrative REVIEW OF SYSTEMS: Negative except as stated in HPI, ten or more systems reviewed. Constitutional: No fever, chills, weakness ENT: No sore throat or epistaxis Cardiovascular: No edema, chest pain, palpitations, or activity intolerance Respiratory: No shortness of breath, cough, or wheezing Gastrointestinal: No abdominal pain, constipation, diarrhea, or vomiting Genitourinary: No dysuria or hematuria Neurological: No numbness, tingling, weakness, or headache Psychiatric: No mood changes PFSH PFS Medical History (Updated 04/28/24 @ 10:15 by Roxana Rene NP) COVID-19 ?U07.1 - COVID-19 (ICD-10) Seasonal allergies ?J30.2 - Other seasonal allergic rhinitis (ICD-10) Right foot pain ?M79.671 - Pain in right foot (ICD-10) Contracture, right ankle ?M24.571 - Contracture, right ankle (ICD-10) Plantar fasciitis of right foot ?M72.2 - Plantar fascial fibromatosis (ICD-10) Carpal tunnel syndrome ?G56.00 - Carpal tunnel syndrome, unspecified upper limb (ICD-10) Deafness in left ear ?H91.92 - Unspecified hearing loss, left ear (ICD-10) GERD (gastroesophageal reflux disease) ?K21.9 - Gastro-esophageal reflux disease without esophagitis (ICD-10) Anemia ?D64.9 - Anemia, unspecified (ICD-10) Surgical History (Updated 04/28/24 @ 10:07 by Roxana Rene NP) History of carpal tunnel release ?Z98.890 - Other specified postprocedural states (ICD-10) Family History (Updated 04/28/24 @ 10:15 by Roxana Rene NP) Other Family history of cancer Family history of diabetes mellitus Family history of hypertension Family history of myocardial infarction Family history of stroke Heart disease Social History (Updated 04/28/24 @ 10:11 by Roxana Rene NP) Within the past year, how often did you have a drink containing alcohol: monthly or less Smoking status: Never smoker Non-prescribed substance use: denies use 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 Highest level of school completed/degree received: Master's degree Meds Home Medications and Allergies Home Medications ?Medication ?Instructions ?Recorded ?Confirmed ?Type azelastine 0.05 % eye drops drp ophthalmic (eye) DAILY 04/28/24 History cetirizine 10 mg tablet 10 mg PO DAILY 04/28/24 04/28/24 History fluticasone propionate 50 1 spray intranasal DAILY PRN 04/28/24 04/28/24 History mcg/actuation nasal allergy symptoms spray,suspension (24 Hour Allergy Relief) Allergies Allergy/AdvReac Type Severity Reaction Status Date / Time No Known Drug Allergies Allergy Verified 04/28/24 10:09 Exam Narrative Exam Narrative: Constitutional: Awake, alert, comfortable, well-appearing, nontoxic, interactive, vital signs as charted Head: Normocephalic, atraumatic Neck: Supple, normal appearance, normal range of motion, no meningeal signs, no lymphadenopathy Respiratory: No respiratory distress, breath sounds clear Cardiovascular: Regular rate and rhythm, strong and regular heart tones Musculoskeletal: Normal gait, no swelling or edema, tenderness with palpation of the right medial instep of the foot, good capillary refill, sensation intact Skin: No rashes or induration, no lesions, only visible skin inspected Neuro: No neurological deficits, normal sensation Psychiatric: Oriented ?3, normal affect Assessment and Plan Assessment and Plan (1) Plantar fasciitis of right foot: (2) Contracture, right ankle: (3) Right foot pain: Plan Right endoscopic plantar fasciotomy and gastrocnemius recession scheduled with Dr. Fields May 11, 2024.
[2024-04-28 10:34] LABS: Basophils Absolute Auto 0.1 10^3/uL (0.0-0.1); Basophils Percent Auto 0.7 % (0.2-2.0); Eosinophils Absolute Auto 0.3 10^3/uL (0.0-0.7); Eosinophils Percent Auto 3.5 % (0.9-7.0); Hematocrit 41.6 % (36.0-48.0); Hemoglobin 14.1 g/dL (12.0-16.0); Immature Granulocytes Abs Auto 0.02 10^3/uL (0.00-0.03); Immature Granulocytes Pct Auto 0.3 % (0.0-0.5); Lymphocytes Absolute Auto 1.7 10^3/uL (1.2-3.8); Lymphocytes Percent Auto 22.9 % (20.5-60.0); Mean Corpuscular HGB Conc 33.9 g/dL (29.9-35.2); Mean Corpuscular Hemoglobin 32.9 pg (26.7-34.0); Mean Platelet Volume 10.5 fL (9.5-13.5); Monocytes Absolute Auto 0.5 10^3/uL (0.3-0.8); Monocytes Percent Auto 6.4 % (1.7-12.0); Neutrophils Absolute Auto 4.9 10^3/uL (1.4-6.5); Neutrophils Percent Auto 66.2 % (43.0-75.0); Platelet Count 270 10^3/uL (150-450); Red Blood Count 4.29 10^6/uL (4.20-5.40); Red Cell Distribution Width 13.2 % (11.0-15.0); White Blood Count 7.5 10^3/uL (4.0-11.0)
== END 2024-04-28 10:00 | disposition home or self-care (01) ==
LOC: PST 10:00
PROVIDERS: PCP Nurse Practitioner; Visit Provider Podiatrist Foot & Ankle Surgery
DX: Z01.812 Encounter for preprocedural laboratory examination (principal); Z01.818 Encounter for other preprocedural examination; M72.2 Plantar fascial fibromatosis; M24.571 Contracture, right ankle
CPT/HCPCS: 85025; G0463

== ENCOUNTER 2024-05-11 06:20 | Day surgery (SDC) | payer OTHER, SELFPAY ==
[2024-04-28 10:24] VITALS: BP 116/72; PULSE 77; TEMP 36.3; O2SAT 97; BMI 32.2
[2024-05-11] VITALS (8 sets, daily range): BP systolic 95–116; BP diastolic 64–84; PULSE 65–78; TEMP 36.1–36.3; O2SAT 94–100
--- OUTSIDE RECORDS SUMMARY | 2024-05-11 06:22 | XMS_ITS ---
Patient Summarization (C-CDA 2.1 CCD) Created on: May 11, 2024 HILLARY STERN : 1980 Sex: Undifferentiated Author Organization Sample organization Care Team Providers Care Belt And Link Shop Supervisor Name Role Phone MD Dylan Fuentes Primary Care UnavailMD Alfredo Stokes Attending Unavailable MD Alfredo Daly Attending Unavailable MD Dylan Fuentes Primary Care Unavailaleln Reynoso COLLEGE OR UNIVERSITY DEPARTMENT HEAD-Savanah MUÑOZ Primary Care Provider MATTHEW JARA Attending Unavailable ANTWON SARAH Referring Unavailable SAVANAH REYNOSO Primary Care Unavailable MATTHEW JARA Referring Unavailable SAVANAH REYNOSO Primary Care Unavailable MATTHEW JARA Referring Unavailable SAVANAH REYNOSO Primary Care Unavailable MATTHEW JARA Referring Unavailable SAVANAH REYNOSO Primary Care Unavailable Encounters Encounter Date Encounter Type Care Provider Facility Start: 02-07-2024 End: 03-02-2024 ambulatory [facility] Start: 01-01-2024 End: 01-02-2024 ambulatory Pfo Infusion Chair 3 Ifrah Gramajo [facility] Comment on above: Iron deficiency anem ia due to chronic blood loss (Primary Dx) Start: 12-25-2023 End: 01-02-2024 ambulatory Pfo Infusion Chair 3 Ifrah Gramajo [facility] Comment on above: Iron deficiency anem ia due to chronic blood loss (Primary Dx) Start: 12-19-2023 Orders Only Roxana Orantes Maury [facility] On[facility] Comment on above: Iron deficiency anem ia due to chronic blood loss (Primary Dx) Start: 12-17-2023 End: 12-18-2023 ambulatory [facility] Start: 11-22-2022 End: 11-23-2022 ambulatory MD Alfredo Daly Facility:[facility] Start: 10-18-2022 End: 10-19-2022 ambulatory MD Dylan Fuentes Facility:[facility] Immunizations Immunization Date Immunization Notes Care Provider Vero bob 11-11-2022 influenza virus vacc ine, unspecified formulation Roxana Humphrey RN [facility] 12-09-2021 Seasonal, quadrivale nt, recombinant, injectable influenza vaccine, preservative free Roxana Humphrey RN [facility] Work Phone: 09-03-2019 influenza, injectabl e, quadrivalent, preservative free Roxana Humphrey RN [facility] 09-03-2018 influenza, injectabl e, quadrivalent, preservative free Roxana Humphrey RN [facility] 09-03-2018 seasonal influenza, intradermal, preservative free Roxana Humphrey RN [facility] 02-19-2011 tetanus toxoid, redu noemy diphtheria toxoid, and acellular pertussis vaccine, adsorbed Roxana Humphrey RN [facility] Medications Current Medications Medication Drug Class(es) Dates [...] 12-25-2023 sodium chloride 0.9 % infusi on Payers Date Payer Category Payer Unknown [employer] [id number] 2023-Present [phone] [address] [place] [address] [id number] 2023 Unknown [id number] 2022 Private Health Insurance 1980 Unknown [id number] 1980 Unknown [id number] 1980 Unknown [id number] 1980 Unknown [id number] 1980 Unknown [id number] 1980 Unknown [id number] Plan of Treatment Date Care Activity Detail Author Start: 05-08-2025 Screening for malign ant neoplasm of cervix Pap Smear [facility] Start: 01-01-2025 Adult BMI Screening Adult BMI Screen ing [facility] Start: 12-25-2024 Tobacco Screening Tobacco Screening [facility] Start: 05-16-2024 Adult BMI Follow Up Plan Adult BMI Follow Up Plan [facility] Start: 05-16-2024 Adult BMI Screening Adult BMI Screen ing [facility] Start: 05-16-2024 Depression Screening Depression Scre ening [facility] Start: 05-16-2024 Tobacco Screening Tobacco Screening [facility] Start: 05-10-2024 Screening for malign ant neoplasm of breast Mammogram [facility] Start: 05-07-2024 End: 05-07-2024 Patient encounter procedure 05/07/2024 9:15 AM EDT Office Visit Ifrah Gramajo [facility] [address] [place] [phone] Matthew Jara MD [address] [place] [address] [address] [place] [address] Ifrah Gramajo [facility] Start: 04-01-2024 End: 12-19-2024 CBC W Auto Differential panel - Blood CBC auto differential Lab Routine Iron deficiency anemia due to chronic blood loss Expected: 04/01/2024, Expires: 12/19/2024 [facility] Work Phone: Comment on above: Expected: 04/01/2024 , Expires: 12/19/2024 Start: 04-01-2024 End: 04-01-2025 Iron and TIBC Iron and TIBC Lab Routine Iron deficiency anemia due to chronic blood loss Expected: 04/01/2024, Expires: 04/01/2025 [facility] Comment on above: Expected: 04/01/2024 , Expires: 04/01/2025 Start: 01-01-2024 End: 01-01-2024 ambulatory 01/01/2024 3:00 PM EST Infusion Ifrah Gramajo [facility] [address] [place] [phone] [facility] Start: 08-02-2023 COVID-19 Vaccine ( season) COVID-19 Vaccine () [facility] Start: 08-02-2023 Influenza vaccination Influenza Vacc ine [facility] Start: 02-19-2021 DTaP,Tdap and Td Vaccines (2 - Td or Tdap) DTaP,Tdap and Td Vaccines (2 - Td or Tdap) [facility] End: 12-19-2024 Ferritin [Mass/volume] in Serum or Plasma Ferritin Lab Routine Iron deficiency anemia due to chronic blood loss 1 Occurrences starting 12/19/2023 until 12/19/2024 [facility] Comment on above: 1 Occurrences starti ng 12/19/2023 until 12/19/2024 Problems Active Problems Problem Classification Problem Date [...] 05-16-2023 Unclassified (4 sources) Onset: 05-16-2023 05-16-2023 Procedures Date Procedure Procedure Detail Performing Clinician Start: 05-16-2023 Adult depression scr eening assessment Roxana Humphrey RN Start: 05-10-2023 Mammography Roxana gramajo RN Start: 05-08-2022 Microscopic observat ion [Identifier] in Cervix by Cyto stain Roxana Humphrey RN Results Test Name Value Interpretation Reference Range Facil ity CBC AND AUTO DIFFon 12-17-19 ABSOLUTE BASOPHIL 0.1 X10E9/L Normal 0.0-0.2 [facility] Comment on above: Performed By: #### Angel BCA, FEPR, 6-4 #### [facility] ([id number]) [address], [address] [place] [address] ABSOLUTE NEUTROPHIL 3.3 X10E9/L Normal 1.5-6.6 [facility] Comment on above: Performed By: #### Angel BCA, FEPR, 2275-4 #### [facility] ([id number]) [address], [address] [place] [address] Basophils/100 WBC (Bld) 1.0 % Normal [facility] Comment on above: Performed By: #### Angel BCA, FEPR, 2275-4 #### [facility] ([id number]) [address], [address] [place] [address] Eosinophils (Bld) [#/Vol] 0.3 10*3/uL Normal 0.0-0.4 [facility] Comment on above: Performed By: #### Angel BCA, FEPR, 2275-4 #### [facility] ([id number]) [address], [address] [place] [address] Eosinophils/100 WBC (Bld) 4.9 % Normal [facility] Comment on above: Performed By: #### Angel BCA, FEPR, 2275-4 #### [facility] ([id number]) [address], [address] [place] [address] Erythrocyte distribution width (RBC) [Ratio] 15.4 % High 11.5-15.0 [facility] Comment on above: Performed By: #### MENA Ortiz BCA, 2275-4 #### [facility] ([id number]) [address], [address] [place] [address] Hematocrit (Bld) [Volume fraction] 40.1 % Normal 35-47 [facility] Comment on above: Performed By: #### Angel MARIN FEPR, 2275-4 #### [facility] ([id number]) [address], [facility] [address] [place] [address] Hemoglobin (Bld) [Mass/Vol] 13.1 g/dL Normal 11.7-15.5 [facility] Comment on above: Performed By: #### Angel MARIN FEPR, 2275-4 #### [facility] ([id number]) [address], [facility] [address] [place] [address] Lymphocytes (Bld) [#/Vol] 1.8 10*3/uL Normal 1.0-3.5 [facility] Comment on above: Performed By: #### Angel MARIN FEPR, 4 #### [facility] ([id number]) [address] [address] [place] [address] Lymphocytes/100 WBC (Bld) 30.6 % Normal [facility] Comment on above: Performed By: #### Angel MARIN FEPR, 4 #### [facility] ([id number]) [address], [address] [place] [address] MCH (RBC) [Entitic mass] 27.9 pg Normal 27-34 [facility] Comment on above: Performed By: #### Angel MARIN FEPR, 4 #### [facility] ([id number]) [address], [address] [place] [address] MCHC (RBC) [Mass/Vol] 32.7 g/dL Normal 32-36 [facility] Comment on above: Performed By: #### Angel MARIN FEPR, 2275- #### [facility] ([id number]) [address], [address] [place] [address] MCV (RBC) [Entitic vol] 85 fL Normal 80-100 [facility] Comment on above: Performed By: #### Angel MARIN, FEPR, 2275-4 #### [facility] ([id number]) [address], [address] [place] [address] Monocytes (Bld) [#/Vol] 0.5 10*3/uL Normal 0-0.9 [facility] Comment on above: Performed By: #### Angel MARIN, FEPR, 2275- #### [facility] ([id number]) [address], [address] [place] [address] Monocytes/100 WBC (Bld) 8.5 % Normal [facility] Comment on above: Performed By: #### Angel MARIN, FEPR, 2276-03 #### [facility] ([id number]) [address], [address] [place] [address] Neutrophils/100 WBC (Bld) 55.0 % Normal [facility] Comment on above: Performed By: #### Angel MARIN FEPR, 2275- #### [facility] ([id number]) [address], [address] [place] [address] Platelet mean volume (Bld) [Entitic vol] 9.5 fL Normal 7-12 [facility] Comment on above: Performed By: #### Angel MARIN, FEPR, 2275- #### [facility] ([id number]) [address], [address] [place] [address] Platelets (Bld) [#/Vol] 282 10*3/uL Normal 150-450 [facility] Comment on above: Performed By: #### Angel MARIN, FEPR, 6-4 #### [facility] ([id number]) [address], [address] [place] [address] RBC COUNT 4.70 X10E12/L Normal 3.80-5.20 [facility] Comment on above: Performed By: #### C BCA, FEPR, 2275-4 #### [facility] ([id number]) [address], [address] [place] [address] WBC (Bld) [#/Vol] 6.0 10*3/uL Normal 4.0-11.0 [facility] Comment on above: Performed By: #### C BCA, FEPR, 2275-4 #### [facility] ([id number]) [address], [address] [place] [address] FERRITINon 12-17-2023 Ferritin [Mass/Vol] 8 ng/mL Low 11-307 [facility] Comment on above: Performed By: #### C BCA, FEPR, 4 #### [facility] ([id number]) [address], [address] [place] [address] IRON PROFILEon 12-17-2023 Iron [Mass/Vol] 30 ug/dL Low 50-170 [facility] Comment on above: Performed By: #### C BCA, FEPR, 2275-4 #### [facility] ([id number]) [address], [address] [place] [address] IRON BINDING 465 ug/dL High 250-425 [facility] Comment on above: Performed By: #### C BCA, FEPR, 2275-4 #### [facility] ([id number]) [address], [address] [place] [address] IRON SATURATION 6 % SATURATION Low 15-50 [facility] Comment on above: Performed By: #### C BCA, FEPR, 2275-4 #### [facility] ([id number]) [address] [facility], [address] [place] [address] Son 06-27-2021 CN Office Visit ([facility] ) HILLARY STERN ([id number]) 1980 F Date Time Provider Department 06/27/21 11:00 AM MAIDA HOGAN [facility] During your visit today, we recorded the following information about you: Maida Mcclain AUD, CCC-A 06/27/2021 1:14 PM Signed [facility] [place] HEARING AID CHECK Name: Hillary Aleta CCF#: [id number] Date of Service: 06/27/2021 Date of : 1980 Age: [age] year old RIGHT: AUDEO [id number] SN: [id number] Supervisor Beam Department/Dome: #2 small LEFT: CROS [id number] SN: [id number] Tubing/Dome: #2 small CERUSTOP Repair Warranty Expiration Date: ? Loss/Damage Expiration Date: ? Fitting Date: 1-2 years ago at an outside facility Fitting Generator Operator Straight Bevel Gear: Outside database management specialist Hillary was seen today for a hearing [...] Membrane intact. Hillary was taken to the Vocal Music Teacher to cover today's appointment fee of $50.00. Recommendations 1. Patient advised to wear the aid daily. 2. Return in 2-3 weeks for follow up HAC if needed. 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] Problem List As Of Date: 06/27/2021 (None) Encounter Status:Closed by MAIDA HOGAN on 06/27/21 Normal [facility] CNOVon 06-07-2021 CNOV Office Visit ([facility] ) HILLARY STERN ([id number]) 1980 F Date Time Provider Department 06/07/21 10:00 AM [facility] During your visit today, we recorded the following information about you: ADRIAN Mcneil 06/07/2021 11:14 AM Signed [facility] [place] AUDIOLOGIC EVALUATION REPORT Name: Hillary Stern [facility]#: [id number] Date of Service: 06/07/2021 Date of : 1980 Age: [age] year old Referred by: Antwon Sarah NP [address] [facility] [address] Referred for: Evaluation of the cause of [...] loss is consistent with results obtained in 2008. MANAGEMENT PLAN: -- Continue with current amplification. -- Annual audiologic evaluation Adrian Mcneil, [facility]-A Generator Operator Straight Bevel Gear TEIXEIRA Abbrev- iation Definition Degree of hearing sensitivity dB range WNL within normal limits WNL 0 - 20 SNHL sensorineural hearing loss Mild 20-40 CHL conductive hearing loss Moderate 40-55 MHL mixed hearing loss Moderately-Severe 55-70 WRS word recognition score Severe 70-90 ME middle ear Profound 90 + TM tympanic membrane Referring Provider: ANTWON SARAH [[id number]] Allergies As of Date: 06/07/2021 (Not on File) Date Reviewed: Never Reviewed Reason for Visit: Hearing Loss [1119] Primary Visit Diagnosis:Sensorineur al hearing loss, asymmetrical [H90.5] Problem List As Of Date: 06/07/2021 (None) Classic SmartForms filed during this visit: Audiometry Encounter Status:Closed by LATRICE [place] on 06/07/21 [facility] Social History Date Type Detail Facility Start: 05-16-2023 End: 12-25-2023 Alcohol intake Current drinker of alcohol (finding) [facility] Start: 02-01-2023 Tobacco smoking stat [facility] Never smoked tobacco [facility] Start: 02-01-2023 Tobacco use and exposure Smoke less tobacco non-user [facility] Start: 01-04-2021 End: 05-08-2022 History of Social function [facility] Work Phone: Start: 01-04-2021 End: 05-08-2022 Alcohol Use Disorder Identification Test - Consumption [AUDIT-C] [facility] Work Phone: Start: 01-04-2021 Alcohol Comment socially [facility] Start: 1980 Sex Assigned At Not on file P [facility] How often to you hav e a drink containing alcohol? 2-4 times a month [facility] Work Phone: How many standard dr inks containing alcohol do you have on a typical day? 1 or 2 [facility] How often do you hav e 6 or more drinks on 1 occasion? Never [facility] Adolescent depressio n screening assessment 2 [facility] Vital Signs Date Time Vital Sign Value Performing Clinician Facility 01-01-2024 15:42-0500 Body temperature 98.2 [degF] Pfo 3 [facility] 01-01-2024 15:42-0500 Diastolic blood pressure 73 mm[Hg] Pfo 3 [facility] 01-01-2024 15:42-0500 Heart rate 72 /min Pfo 3 [facility] 01-01-2024 15:42-0500 Respiratory rate 16 /min Pfo 3 [facility] 01-01-2024 15:42-0500 SaO2% (BldA) [Mass fraction] 100 % Pfo 3 [facility] 01-01-2024 15:42-0500 Systolic blood pressure 111 mm[Hg] Pfo 3 [facility] 01-01-2024 14:53-0500 Body height 157.5 cm Pfo 3 [facility] 01-01-2024 14:53-0500 Body mass index (BMI) [Ratio] 31.45 kg/m2 Pfo 3 [facility] 01-01-2024 14:53-0500 Body weight 78.02 kg Pfo 3 [facility] 12-25-2023 15:57-0500 Diastolic blood pressure 73 mm[Hg] Pfo 3 [facility] 12-25-2023 15:57-0500 Heart rate 76 /min Pfo 3 [facility] 12-25-2023 15:57-0500 Respiratory rate 16 /min Pfo 3 [facility] 12-25-2023 15:57-0500 Systolic blood pressure 113 mm[Hg] Pfo 3 [facility] 12-25-2023 15:12-0500 Body height 157.5 cm Pfo 3 [facility] 12-25-2023 15:12-0500 Body mass index (BMI) [Ratio] 31.83 kg/m2 Pfo 3 [facility] 12-25-2023 15:12-0500 Body temperature 98.49 [degF] Pfo 3 [facility] 12-25-2023 15:12-0500 Body weight 78.93 kg Pfo 3 [facility] 12-25-2023 15:12-0500 SaO2% (BldA) [Mass fraction] 100 % Pfo 3 [facility] Clinical Notes 06-07-2021 to 01-01-2024 Brent Parra, RN - 01/01/2024 3:00 PM Kadeem Zimmerman [...] to private vehicle. documented in this encounter [facility] 12-25-2023 History of Present illness Narrative [...] to private vehicle. [facility]-19-2023 History of Present illness Narrative Reviewed labs with patient. She would like to have iv iron again. Message sent to Dr. Jara to order. Will call to schedule once approved by insurance. Follow up scheduled with Dr. Jara in May. She will get labs rechecked prior. documented [facility] this [facility] 06-27-2021 Note HNO ID: [id number] Author: ADRIAN Khan, [facility] Service: ? Author Type: Generator Operator Straight Bevel Gear Type: Progress Notes Filed: 06/27/2021 1:14 PM Note Text: [facility] [place] HEARING AID CHECK Name: Hillarylaura Stern CCF#: [id number] Date of Service: 06/27/2021 Date of : 1980 Age: [age] year old RIGHT: AUDEO [id number] SN: [id number] Supervisor Beam Department/Dome: #2 small LEFT: CROS B-312 SN: [id number] Tubing/Dome: #2 small CERUSTOP Repair Warranty Expiration Date: ? Loss/Damage Expiration Date: ? Fitting Date: 1-2 years ago at an outside facility Fitting Generator Operator Straight Bevel Gear: Outside database management specialist Hillary was seen today for a hearing [...] Membrane intact. Hillary was taken to the Vocal Music Teacher to cover today's appointment fee of $50.00. Recommendations 1. Patient advised to wear the aid daily. 2. Return in 2-3 weeks for follow up HAC if needed. Betty Khan, [facility]/A Clinical Generator Operator Straight Bevel Gear [facility] 06-07-2021 Note HNO ID: [id number] Author: ADRIAN Mcneil Service: ? Author Type: Generator Operator Straight Bevel Gear Type: Progress Notes Filed: 06/07/2021 11:14 AM Note Text: [facility] [place] AUDIOLOGIC EVALUATION REPORT Name: Hillary Stern CC#: [id number] Date of Service: 06/07/2021 Date of : 1980 Age: [age] year old Referred by: Antwon Sarah, LOUANN [address] [facility] [address] Referred for: Evaluation of the cause of disorder of hearing, tinnitus, or balance. Referral documented: No referral on file Patient's major complaints: Ms. Stern was seen today because she feels her hearing in her right ear is getting worse. She has long-standing profound hearing loss in her left ear and a prior audio evaluation from 2009 showed a moderate rising to mild sensorineural [...] amplification. -- Annual audiologic evaluation Adrian Mcneil, [facility] Generator Operator Straight Bevel Gear TEIXEIRA Abbrev- iation Definition Degree of hearing sensitivity dB range WNL within normal limits WNL 0 - 20 SNHL sensorineural hearing loss Mild 20-40 CHL conductive hearing loss Moderate 40-55 MHL mixed hearing loss Moderately-Severe 55-70 WRS word recognition score Severe 70-90 ME middle ear Profound 90 + TM tympanic membrane [facility] Evaluation note Diagnosis Iron deficiency anemia due to chronic blood loss- Primary Iron deficiency anemia secondary to blood loss (chronic) [facility] Diagnosis Iron deficiency anemia due to chronic blood loss- Primary Iron deficiency anemia secondary to blood loss (chronic) [facility] Diagnosis Iron deficiency anemia due to chronic blood loss- Primary Iron deficiency anemia secondary to blood loss (chronic) [facility] filedocumented in this encounter [facility] filedocumented in this encounter [facility] Summary Purpose Family History No Family History Records FoundNo Family History Records FoundNo Family History Records Found Advance Directives No Advanced Directives Records FoundNo Advanced Directives Records FoundNo Advanced Directives Records Found Additional Source Comments INFORMATION SOURCE (unrecogn ized section and content) DATE CREATED AUTHOR 01/04/2022 [facility] DATE CREATED AUTHOR AUTHOR'S ORGANIZ ATION 11/29/[address] [facility] DATE CREATED AUTHOR AUTHOR'S ORGANIZ ATION 03/02/2024 [facility] Care Teams (unrecognized sec tion and content) Belt And Link Shop Supervisor Relationship Specialty Start Date End Date Savanah Reynoso APRN-HEAD LOADER [address] [place] [phone] PCP - General Nurse Practitioner 12/17/23 [employer] Link [employer] Supervisor Relationship Specialty Start Date End Date Savanah Reynoso APRN-HEAD LOADER [address] [place] [id number] PCP - General Nurse Practitioner 12/17/23 [employer] And Link Shop Supervisor Relationship Specialty Start Date End Date Savanah Reynoso APRN-HEAD LOADER [address] [place] [phone] PCP - General Nurse Practitioner 12/17/23 [employer] And Link Shop Supervisor Relationship Specialty Start Date End Date LupillolisaileanaSavanah cheek, [employer] HEAD-HEAD LOADER [address] [place] [address] PCP - General Nurse Practitioner 12/17/23 Reason for Visit (unrecogniz ed section and content) Reason Comments Outpatient Infusion [facility] Specialty Diagnoses / Procedures Referred By Contac t Referred To Contact Diagnoses Iron deficiency anemia due to chronic blood loss Procedures AL FERUMOXYTOL, NON-ESRD Matthew Jara MD [address] [address] [place] [address] Pfo Med Onc [address] [place] [phone] Referral ID Status Reason Start Date Expiration Date V isits Requested Visits Authorized [id number] Authorized 12/19/2023 12/18/2024 2 2 Reason Comments [...] BE BASED ON THE PRIMARY CLINICAL RECORDS. [facility]. provides no warranty or guarantee of the accuracy or completeness of information in this document.
[2024-05-11 06:29] LABS: Basophils Absolute Auto 0.1 10^3/uL (0.0-0.1); Basophils Percent Auto 1.1 % (0.2-2.0); Eosinophils Absolute Auto 0.3 10^3/uL (0.0-0.7); Eosinophils Percent Auto 6.3 % (0.9-7.0); Hematocrit 40.9 % (36.0-48.0); Hemoglobin 13.9 g/dL (12.0-16.0); Immature Granulocytes Abs Auto 0.01 10^3/uL (0.00-0.03); Immature Granulocytes Pct Auto 0.2 % (0.0-0.5); Mean Corpuscular Hemoglobin 32.8 pg (26.7-34.0); Mean Corpuscular Volume 96.5 fL (81.0-99.0); Mean Platelet Volume 9.9 fL (9.5-13.5); Monocytes Absolute Auto 0.5 10^3/uL (0.3-0.8); Monocytes Percent Auto 8.9 % (1.7-12.0); Neutrophils Absolute Auto 2.6 10^3/uL (1.4-6.5); Neutrophils Percent Auto 47.5 % (43.0-75.0); Platelet Count 251 10^3/uL (150-450); Red Blood Count 4.24 10^6/uL (4.20-5.40); Red Cell Distribution Width 12.9 % (11.0-15.0); White Blood Count 5.4 10^3/uL (4.0-11.0)
[2024-05-11 06:51] LABS: Glucometer 97 mg/dL (74-106)
[2024-05-11] MEDS: LACTATED RINGER'S SOLUTION 1,000 ML 50 ML IV (06:58)
[2024-05-11 07:12] LABS: HCG Qualitative NEGATIVE (NEGATIVE)
[2024-05-11] MEDS: CEFAZOLIN SODIUM/DEXTROSE,ISO 2 GM/50 ML PIGGYBACK IV (07:29)
[2024-05-11] MEDS: LIDOCAINE HCL 1% 100 MG/10 ML MDV INJ (08:14)
[2024-05-11] MEDS: BUPIVACAINE HCL 0.5% PF 50 MG/10 ML VIAL INJ (08:15)
[2024-05-11] MEDS: BETAMETHASONE ACE/BETAMETHASONE SOD PHOS 30 MG/5 ML 6 MG INJ (08:16)
[2024-05-11 08:53] LABS: Glucometer 81 mg/dL (74-106)
--- NOTE | 2024-05-11 09:00 | PM.ORONB ---
Brief Operative Note Date of procedure: 05/11/24 Pre-op diagnosis general: Right plantar fasciitis and equinus Post-op diagnosis: same as pre-op Procedure: Procedures performed: Endoscopic plantar fasciotomy and Letty gastrocnemius recession, right Indications for procedure: Patient is a 43-year-old female who has had persistent right heel pain for at least a year and relates to similar symptoms on and off for several years. Patient had failed to respond to corticosteroid injections, physical therapy, home stretching, shoe and activity modifications as well as NSAIDs including ibuprofen and meloxicam. An MRI was obtained which confirmed thickening of the proximal medial band of the plantar fascia with associated bone marrow edema of the calcaneus near the plantar fascial attachment. Due to failure to respond to nonsurgical care patient elected to undergo the above procedures. Intraoperative findings: Medial band of the plantar fascia was significantly thickened and scarred as compared to the central band. Reduced ankle joint dorsiflexion with no perceivable Achilles tendon thickening or irregularity. Procedure in detail: Patient was identified in preoperative holding by myself which time correct side and site were marked and consent was reviewed. Preoperative antibiotics were started and patient was brought to the operating theater placed on table in supine position. General anesthesia was performed and the right lower extremity was prepped and draped in usual sterile fashion with a thigh tourniquet placed. Formal timeout was performed and the operative extremity was exsanguinated and tourniquet inflated. A longitudinal incision over the medial aspect of the calf to see her breadths posterior to the posterior aspect of tibia was performed. Combination sharp and blunt dissection with all bleeders being coagulated gained access to the gastrocnemius aponeurosis. Once the aponeurosis was isolated a speculum was inserted from the medial to lateral position just superficial to the aponeurosis. The speculum allowed full visualization of the aponeurosis and the foot was held in maximal dorsiflexed position. A fifteen blade was used to transversely incise the gastrocnemius fascia to two separate location (one proximal and one distal) followed by release of the soleus fascia. 10 degrees of ankle joint dorsiflexion was obtained. The area was flushed with copious sterile saline and skin was closed in layers. Stab incision over the medial aspect of the in-step at the glabrous skin junction was used followed by blunt dissection and the medial band of the plantar fascia was identified. Trochar and cannula were then placed medial to lateral. A lateral stab incision was made to allow passage of the trochar and cannula. Camera was inserted into the lateral portal and a hook blade was placed into the medial portal. 50% of the plantar fascia was released and healthy muscle was noted. The site was flushed with saline and instrumentation was removed. Closure with nylon suture was then undertaken. Tourniquet was deflated with a prompt hyperemic response A dry sterile dressing was placed followed by CAM boot. Patient tolerated the procedure and anesthesia well and patient was transported to the recovery room with vital signs stable and brisk capillary refill to the right toes. Postoperative plan: Discharge home under family's care Weightbearing as tolerated in cam boot Patient should sleep in night splint or cam boot for the next 2 to 3 weeks Prescriptions were sent to her pharmacy electronically by Dr. Smith Daily dressing change after washing the areas with soap and water Patient is to follow-up in 1 week Anesthesia: General-LMA Surgeon: [employer] Associate Merchant: Alber Smith Estimated blood loss (mL): 10 Pathology: none sent Condition: stable Disposition: PACU
--- NOTE | 2024-05-11 09:21 | PC.NURSE ---
CAM boot applied by doctor; ice placed behind knee and extremity elevated
--- NOTE | 2024-05-11 09:28 | PC.NURSE ---
Up to bathroom with CAM boot on; voids without difficulty and returns to cart
[2024-05-11] MEDS: OXYCODONE HCL/ACETAMINOPHEN 5MG/325MG 1 TAB PO (09:31)
== END 2024-05-11 10:01 | disposition home or self-care (01) ==
PROVIDERS: Anesthesiology; PCP Nurse Practitioner; Visit Provider Podiatrist Foot & Ankle Surgery
PROC: (CPT 1464; principal; 2024-05-11 07:30)
DX: M72.2 Plantar fascial fibromatosis (principal); M24.571 Contracture, right ankle
CPT/HCPCS: 27687; 29893; 36415; 82948; 84703; 85025; J0702; J1094; J2704

== ENCOUNTER 2024-12-28 15:10 | Outpatient (REF) | payer OTHER, SELFPAY ==
--- OUTSIDE RECORDS SUMMARY | 2024-12-31 15:15 | XMS_ITS | CCD ---
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 Name Role Phone MD Dylan Fuentes Primary Care Unavailabl MD Alfredo Balderrama Attending Unavailable MD Alfredo Daly Attending Unavailable MD Dylan Fuentes Primary Care Unavailabl e [employer] REHAB THERAPY MANAGER-TOLL TEST DESK WORKER, Savanah Saul Primary Care Provider Aicchip SCALE ADJUSTER, Savanah Unavailable Spencer Mane MD Primary Care Provider [employer] REHAB THERAPY MANAGER-TOLL TEST DESK WORKER, Savanah Saul Primary Care Provider MATTHEW JARA [...] Gillian Attending Unavailable Gillian Hay Admitting Unavailable Gillian Hay DO Attending Provider [phone] Medications Current Medications Medication Drug Class(es) Dates [...] once daily cholecalciferol (Vitamin D-3) 50 MCG (1999 UT) tablet Indications: Vitamin D deficiency Take 1 tablet (50 mcg) by mouth Daily 30 tablet 2 10/19/2024 11/18/2024 Active 1 ml EPINEPHrine 1 mg/ml injection (1 source) alpha-Adrenergic Agonist, beta-Adrenergic Agonist, Catecholamine Start: 4 End: 4 0.3 mg, intramuscular, Every 5 min PRN, [...] oral tablet (6 sources) Start: 4 End: 4 take 1 tablet by mouth at mealtime [...] [Unspecified hearing loss, 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 Other ear and sense organ disorders [...] Interpretation and review of laboratory results Normal [facility] Work Phone: Preg Test, Ur Negative Negative [facility] Work Phone: [facility] Work Phone: URINALYSISon 11-30-2024 Bilirubin Ql (U) Negative Normal NEG [facility] Comment on above: Performed By: #### C BCA, FEPR, 2275-4 #### [facility] ([id number]) [address], [address] [place] [address] BLOOD/HGB Negative Normal NEG [facility] Comment on above: Performed By: #### C BCA, FEPR, 2275- #### [facility] ([id number]) [address], [address] [place] [address] Color (U) YELLOW Normal YELLOW [facility] Comment on above: Performed By: #### C BCA, FEPR, 2275-4 #### [facility] ([id number]) [address], [address] [place] [address] Glucose Ql (U) Negative Normal NEG [facility] Comment on above: Performed By: #### C BCA, FEPR, 2275-4 #### [facility] ([id number]) [address], [address] [place] [address] Ketones Ql (U) Negative Normal NEG [facility] Comment on above: Performed By: #### C BCA, FEPR, 2276-03 #### [facility] ([id number]) [address], [address] [place] [address] Leukocyte esterase Test strip Ql (U) Trace Abnormal NEG [facility] Comment on above: Performed By: #### Angel BCA, FEPR, 2275-4 #### [facility] ([id number]) [address], [address] [place] [address] MUCOUS PRESENT Abnormal NONE [facility] Comment on above: Performed By: #### C BCA, FEPR, 2275-4 #### [facility] ([id number]) [address], [address] [place] [address] Nitrite Ql (U) Negative Normal NEG [facility] Comment on above: Performed By: #### C BCA, FEPR, 2275- #### [facility] ([id number]) [address], [address] [place] [address] pH (U) 5.5 [pH] Normal 5.0-8.5 [facility] Comment on above: Performed By: #### Angel MARIN, FEPR, 6-4 #### [facility] ([id number]) [address], [address] [place] [address] Protein Ql (U) Negative Normal NEG [facility] Comment on above: Performed By: #### Angel MARIN, FEPR, 2275-4 #### [facility] ([id number]) [address], [address] [place] [address] R.B.CELLS <1 Normal 0-5 [facility] Comment on above: Performed By: #### Angel MARIN FEPR, 2275-4 #### [facility] ([id number]) [address], [address] [place] [address] Specific gravity (U) [Rel density] 1.015 Normal 1.003-1.035 [facility] Comment on above: Performed By: #### Angel MARIN, FEPR, 2275-4 #### [facility] ([id number]) [address], [address] [place] [address] SQUAMOUS EPITHELIUM 3 /hpf Normal 0-5 [facility] Comment on above: Performed By: #### Angel MARIN, FEPR, 2275-4 #### [facility] ([id number]) [address], [address] [place] [address] TURBIDITY CLEAR Normal CLEAR [facility] Comment on above: Performed By: #### Angel MARIN, FEPR, 2275-4 #### [facility] ([id number]) [address], [address] [place] [address] Urobilinogen (U) [Mass/Vol] mg/dL Normal <1.1 [facility] Comment on above: Performed By: #### C BCA, FEPR, 2276-4 #### [facility] ([id number]) [address], [address] [place] [address] W.B.CELLS 1 /hpf Normal 0-5 [facility] Comment on above: Performed By: #### C BCA, FEPR, 2275-4 #### [facility] ([id number]) [address], [address] [place] [address] 25-hydroxyvitamin D3 [Mass/V ol]on 10-17-2024 Vitamin D+Metabolites [Mass/Vol] 24 ng/mL Low 30 - 100 ng/mL [facility] Comment on above: Vitamin D status 25 [place] Vitamin D Deficiency <20 ng/mL Insufficiency 20-29 ng/mL Sufficiency 30-100 ng/mL Toxicity >100 ng/mL NOTE: A pediatric reference range has not been established by the parts runner of this kit. The [employer] recommends a Vitamin D level of = or >20ng/mL in infants and children. PERFORMED AT [facility] [address],[place] [address] CBC AND AUTO DIFFon 10-17-20 24 ABSOLUTE BASOPHIL 0.0 X10E9/L Normal 0.0-0.2 [facility] Comment on above: Performed By: #### C BCA, CMP, FEPR, 89908-6, 20151-7, 3034-6, THYR, 2276-4, 2-9, 43976-4, HA1C #### [facility] ([id number]) [address], [address] [place] [address] ABSOLUTE NEUTROPHIL 2.6 X10E9/L Normal 1.5-6.6 [facility] Comment on above: Performed By: #### C BCA, CMP, FEPR, 05042-5, 22630-7, 3034-6, THYR, 2276-4, 2132-9, 12520-2, HA1C #### [facility] ([id number]) [address], [address] [place] [address] Basophils/100 WBC (Bld) 0.6 % Normal [facility] Comment on above: Performed By: #### C BCA, CMP, FEPR, 52212-5, 40752-7, 3034-6, THYR, 2276-4, 2-9, 29349-6, HA1C #### [facility] ([id number]) [address], [address] [place] [address] Eosinophils (Bld) [#/Vol] 0.2 10*3/uL Normal 0.0-0.4 [facility] Comment on above: Performed By: #### C BCA, CMP, FEPR, 29150-2, 67470-9, 3034-6, THYR, 2276-4, 2-9, 47736-8, HA1C #### [facility] ([id number]) [address], [address] [place] [address] Eosinophils/100 WBC (Bld) 4.7 % Normal [facility] Comment on above: Performed By: #### C BCA, CMP, FEPR, 27660-7, 78650-8, 3034-6, THYR, 2276-4, 2-9, 14240-3, HA1C #### [facility] ([id number]) [address], [address] [place] [address] Erythrocyte distribution width (RBC) [Ratio] 13.4 % Normal 11.5-15.0 [facility] Comment on above: Performed By: #### C BCA, CMP, FEPR, 70571-3, 69058-4, 3034-6, THYR, 2276-4, 2132-9, 97745-2, HA1C #### [facility] ([id number]) [address], [address] [place] [address] Hematocrit (Bld) [Volume fraction] 41.4 % Normal 35-47 [facility] Comment on above: Performed By: #### C BCA, CMP, FEPR, 32368-4, 07751-9, 3034-6, THYR, 2276-4, 2132-9, 79503-8, HA1C #### [facility] ([id number]) [address], [address] [place] [address] Hemoglobin (Bld) [Mass/Vol] 14.1 g/dL Normal 11.7-15.5 [facility] Comment on above: Performed By: #### C BCA, CMP, FEPR, 76612-3, 29868-6, 3034-6, THYR, 2276-4, 2-9, 35261-0, HA1C #### [facility] ([id number]) [address], [address] [place] [address] Lymphocytes (Bld) [#/Vol] 1.3 10*3/uL Normal 1.0-3.5 [facility] Comment on above: Performed By: #### C BCA, CMP, FEPR, 24869-6, 01192-7, 3034-6, THYR, 2276-4, 2132-9, 63892-0, HA1C #### [facility] ([id number]) [address] [place] [address] Lymphocytes/100 WBC (Bld) 28.1 % Normal [facility] Comment on above: Performed By: #### C BCA, CMP, FEPR, 02885-9, 54601-6, 3034-6, THYR, 2276-4, 2-9, 41956-9, HA1C #### [facility] ([id number]) [address], [address] [place] [address] MCH (RBC) [Entitic mass] 31.8 pg Normal 27-34 [facility] Comment on above: Performed By: #### C BCA, CMP, FEPR, 33485-2, 77311-0, 3034-6, THYR, 2276-4, 2-9, 50438-0, HA1C #### [facility] ([id number]) [address], [address] [place] [address] MCHC (RBC) [Mass/Vol] 34.1 g/dL Normal 32-36 [facility] Comment on above: Performed By: #### C BCA, CMP, FEPR, 24206-7, 58365-2, 3034-6, THYR, 2276-4, 2131-9, 25695-0, HA1C #### [facility] ([id number]) [address], [address] [place] [address] MCV (RBC) [Entitic vol] 93 fL Normal 80-100 [facility] Comment on above: Performed By: #### C BCA, CMP, FEPR, 14144-3, 30892-2, 3034-6, THYR, 2276-4, 2131-9, 47363-2, HA1C #### [facility] ([id number]) [address], [address] [place] [address] Monocytes (Bld) [#/Vol] 0.4 10*3/uL Normal 0-0.9 [facility] Comment on above: Performed By: #### C BCA, CMP, FEPR, 08107-7, 38022-7, 3034-6, THYR, 2276-4, 2131-9, 02501-9, HA1C #### [facility] ([id number]) [address], [address] [place] [address] Monocytes/100 WBC (Bld) 9.2 % Normal [facility] Comment on above: Performed By: #### C BCA, CMP, FEPR, 93092-5, 68741-5, 3034-6, THYR, 2276-4, 2-9, 38432-0, HA1C #### [facility] ([id number]) [address], [address] [place] [address] Neutrophils/100 WBC (Bld) 57.4 % Normal [facility] Comment on above: Performed By: #### C BCA, CMP, FEPR, 25617-6, 10655-2, 3034-6, THYR, 2276-4, 2131-9, 77174-1, HA1C #### [facility] ([id number]) [address], [address] [place] [address] Platelet mean volume (Bld) [Entitic vol] 9.4 fL Normal 7-12 [facility] Comment on above: Performed By: #### C BCA, CMP, FEPR, 81201-1, 77896-1, 3034-6, THYR, 2276-4, 2131-9, 26458-4, HA1C #### [facility] ([id number]) [address], [address] [place] [address] Platelets (Bld) [#/Vol] 254 10*3/uL Normal 150-450 [facility] Comment on above: Performed By: #### C BCA, CMP, FEPR, 25142-6, 82784-0, 3034-6, THYR, 2276-4, 2131-9, 16392-7, HA1C #### [facility] ([id number]) [address], [address] [place] [address] RBC COUNT 4.44 X10E12/L Normal 3.80-5.20 [facility] Comment on above: Performed By: #### C BCA, CMP, FEPR, 54026-9, 57433-0, 3034-6, THYR, 2276-4, 2131-9, 85214-9, HA1C #### [facility] ([id number]) [address], [address] [place] [address] WBC (Bld) [#/Vol] 4.6 10*3/uL Normal 4.0-11.0 [facility] Comment on above: Performed By: #### C BCA, CMP, FEPR, 79581-2, 02916-1, 3034-6, THYR, 2276-4, 2132-9, 04563-5, HA1C #### [facility] ([id number]) [address], [address] [place] [address] CBC W Auto Differential pane l (Bld)on 10-17-2024 ABSOLUTE BASOPHIL 0 [facility] Comment on above: PERFORMED AT [facility] [address],[place] [address] Basophils/100 WBC (Bld) 0.6 % [facility] Eosinophils (Bld) [#/Vol] 0.2 10*3/[facility]L [facility] Eosinophils/100 WBC (Bld) 4.7 % [facility] Erythrocyte distribution width (RBC) [Ratio] 13.4 % 11.5 - 15.0 % [facility] Hematocrit (Bld) [Volume fraction] 41.4 % 35 - 47 % [facility] Hemoglobin (Bld) [Mass/Vol] 14.1 g/dL 11.7 - 15.5 g/dL [facility] Lymphocytes (Bld) [#/Vol] 1.3 10*3/uL [facility] Lymphocytes/100 WBC (Bld) 28.1 % [facility] MCH (RBC) [Entitic mass] 31.8 pg 27 - 34 pg [facility] MCHC (RBC) [Mass/Vol] 34.1 g/dL 32 - 36 g/dL [facility] MCV (RBC) [Entitic vol] 93 fL 80 - 100 fL [facility] Monocytes (Bld) [#/Vol] 0.4 10*3/uL [facility] Monocytes/100 WBC (Bld) 9.2 % [facility] Neutrophils (Bld) [#/Vol] 2.6 10*3/uL [facility] Neutrophils/100 WBC (Bld) 57.4 % [facility] Platelet mean volume (Bld) [Entitic vol] 9.4 fL 7 - 12 fL [facility] Platelets (Bld) [#/Vol] 254 10*3/uL [facility] RBC (Bld) [#/Vol] 4.44 10*6/uL [facility] WBC corrected for nucl RBC Auto (Bld) [#/Vol] 4.6 [facility] COMPREHENSIVE METABOLIC PANE Flo 10-17-2024 Albumin [Mass/Vol] 4.2 g/dL Normal 3.2-5.3 [facility] Comment on above: Performed By: #### C BCA, CMP, FEPR, 34728-7, 91087-1, 3034-6, THYR, 2276-4, 2132-9, 08491-7, HA1C #### [facility] ([id number]) [address], [address] [place] [address] ALP [Catalytic activity/Vol] 55 U/L Normal 39-130 [facility] Comment on above: Performed By: #### C BCA, CMP, FEPR, 12681-5, 76777-4, 3034-6, THYR, 2276-4, 2132-9, 22882-2, HA1C #### [facility] ([id number]) [address], [address] [place] [address] ALT [Catalytic activity/Vol] 14 U/L Normal 0-31 [facility] Comment on above: Performed By: #### C BCA, CMP, FEPR, 58332-6, 17174-8, 3034-6, THYR, 2276-4, 2132-9, 79652-4, HA1C #### [facility] ([id number]) [address], [address] [place] [address] Anion gap [Moles/Vol] 7 mmol/L Normal 5-15 [facility] Comment on above: Performed By: #### C BCA, CMP, FEPR, 09830-7, 08751-9, 3034-6, THYR, 2276-4, 2132-9, 31654-8, HA1C #### [facility] ([id number]) [address], [address] [place] [address] AST [Catalytic activity/Vol] 17 U/L Normal 0-41 [facility] Comment on above: Performed By: #### C BCA, CMP, FEPR, 45249-5, 64958-3, 3034-6, THYR, 2276-4, 2-9, 39120-6, HA1C #### [facility] ([id number]) [address], [address] [place] [address] Bilirubin [Mass/Vol] 0.3 mg/dL Normal 0.3-1.2 [facility] Comment on above: Performed By: #### C BCA, CMP, FEPR, 28527-1, 74134-5, 3034-6, THYR, 6-4, 2131-9, 98259-2, HA1C #### [facility] ([id number]) [address], [address] [place] [address] Calcium [Mass/Vol] 9.2 mg/dL Normal 8.5-10.5 [facility] Comment on above: Performed By: #### C BCA, CMP, FEPR, 99457-1, 46192-9, 4-6, THYR, 6-4, 2131-9, 31267-8, HA1C #### [facility] ([id number]) [address], [address] [place] [address] Chloride [Moles/Vol] 106 mmol/L Normal 98-109 [facility] Comment on above: Performed By: #### C BCA, CMP, FEPR, 01601-2, 22259-4, 3034-6, THYR, 2276-4, 2131-9, 56207-6, HA1C #### [facility] ([id number]) [address], [address] [place] [address] CO2 [Moles/Vol] 26 mmol/L Normal 22-32 [facility] Comment on above: Performed By: #### C BCA, CMP, FEPR, 65716-8, 37389-0, 3034-6, THYR, 2276-4, 2132-9, 18424-8, HA1C #### [facility] ([id number]) [address], [address] [place] [address] Creatinine [Mass/Vol] 0.85 mg/dL Normal 0.40-1.00 [facility] Comment on above: Result Comment: METH OD TRACEABLE TO IDMS STANDARD Performed By: #### C BCA, CMP, FEPR, 80124-2, 14589-3, 3034-6, THYR, 2276-4, 2132-9, 03458-0, HA1C #### [facility] ([id number]) [address], [address] [place] [address] GFR/1.73 sq M.predicted among non-blacks MDRD (S/P/Bld) [Vol rate/Area] 88 mL/min/{1.73_m2} Normal >59 [facility] Comment on above: Result Comment: Reported eGFR is based on the CKD-EPI 2020 equation that does not use a race coefficient. Performed By: #### C BCA, CMP, FEPR, 59805-9, 16020-2, 3034-6, THYR, 2276-4, 2-9, 28407-5, HA1C #### [facility] ([id number]) [address], [address] [place] [address] Glucose [Mass/Vol] 97 mg/dL Normal 65-99 [facility] Comment on above: Performed By: #### C BCA, CMP, FEPR, 39730-9, 58302-4, 3034-6, THYR, 2276-4, 2132-9, 09905-2, HA1C #### [facility] ([id number]) [address] [place] [address] Potassium [Moles/Vol] 4.1 mmol/L Normal 3.5-5.0 [facility] Comment on above: Performed By: #### C BCA, CMP, FEPR, 16294-5, 83768-7, 3034-6, THYR, 2276-4, 2132-9, 61853-8, HA1C #### [facility] ([id number]) [address], [address] [place] [address] Protein [Mass/Vol] 6.9 g/dL Normal 6.0-8.0 [facility] Comment on above: Performed By: #### C BCA, CMP, FEPR, 04108-5, 21568-0, 3034-6, THYR, 2276-4, 2132-9, 79981-0, HA1C #### [facility] ([id number]) [address] [place] [address] Sodium [Moles/Vol] 139 mmol/L Normal 134-146 [facility] Comment on above: Performed By: #### C BCA, CMP, FEPR, 47536-7, 99166-0, 3034-6, THYR, 2276-4, 2132-9, 36878-4, HA1C #### [facility] ([id number]) [address] [place] [address] Urea nitrogen [Mass/Vol] 15 mg/dL Normal 5-23 [facility] Comment on above: Performed By: #### C BCA, CMP, FEPR, 85597-5, 33967-9, 3034-6, THYR, 2276-4, 2132-9, 34396-3, HA1C #### [facility] ([id number]) [address], [address] [place] [address] Comprehensive metabolic pane flo 10-17-2024 Albumin [Mass/Vol] 4.2 g/dL 3.2 - 5.3 g/dL [facility] ALP [Catalytic activity/Vol] 55 U/L 39 - 130 U/L [facility] ALT No additional P-5'-P [Catalytic activity/Vol] 14 U/L 0 - 31 U/L [facility] Anion gap [Moles/Vol] 7 mmol/L 5 - 15 mmol/L [facility] AST [Catalytic activity/Vol] 17 U/L 0 - 41 U/L [facility] Bilirubin [Mass/Vol] 0.3 mg/dL 0.3 - 1 .2 mg/dL [facility] Calcium [Mass/Vol] 9.2 mg/dL 8.5 - 10. 5 mg/dL [facility] Chloride [Moles/Vol] 106 mmol/L 98 - 10 9 mmol/L [facility] CO2 [Moles/Vol] 26 mmol/L 22 - 32 mmol/L [facility] Creatine [Mass/Vol] 0.85 mg/dL 0.40 - 1 .00 mg/dL [facility] Comment on above: METHOD TRACEABLE TO IDID STANDARD GFR/1.73 sq M.predicted among non-blacks MDRD (S/P/Bld) [Vol rate/Area] 88 mL/min/{1.73_m2} - PINF [facility] Comment on above: Reported eGFR is based on the CKD-EPI 2020 equation that does not use a race coefficient. PERFORMED AT [address],[place] [address] Glucose [Mass/Vol] 97 mg/dL 65 - 99 mg/dL [facility] Potassium [Moles/Vol] 4.1 mmol/L 3.5 - 5.0 mmol/L [facility] Protein [Mass/Vol] 6.9 g/dL 6.0 - 8.0 g/dL [facility] Sodium [Moles/Vol] 139 mmol/L 134 - 146 mmol/L [facility] Urea nitrogen [Mass/Vol] 15 mg/dL 5 - 23 mg/dL [facility] FERRITINon 10-17-2024 Ferritin [Mass/Vol] 12 ng/mL Normal 11-307 [facility] Comment on above: Performed By: #### C BCA, FEPR, 2276-4 #### [facility] ([id number]) [address] [place] [address], [address] [place] [address] Ferritinon 10-17-2024 Ferritin [Mass/Vol] 12 ng/mL 11 - 307 ng/mL [facility] Comment on above: PERFORMED AT [address],[place] [address] HGB A1C (GLYCO-HGB)on 2023 Glucose [Mass/Vol] 100 mg/dL Normal [facility] Comment on above: Performed By: #### Angel MARIN, MENA, 2276-4 #### [facility] ([id number]) [address], [address] [place] [address] HbA1c (Bld) [Mass fraction] 5.1 % Normal 4.4-5.6 [facility] Comment on above: Result Comment: NOTE ADA Guidelines Result HgbA1c Normal : less than 5.7 % Prediabetes : 5.7 % to 6.4 % Diabetes : > 6.4 % Use with caution in patients with abnormal hemoglobin variants as the half-life of red blood cells and in vivo glycation rates are affected. Performed By: #### C TANIA, FEPR, 2276-4 #### [facility] ([id number]) [address], [address] [place] [address] HbA1c (Bld) [Mass fraction]o n 10-17-2024 Average glucose Estimated from glycated hemoglobin (Bld) [Mass/Vol] 100 mg/dL [facility] Comment on above: PERFORMED AT [facility] [address] [address] Hemoglobin A1con 10-17-2024 HbA1c (Bld) [Mass fraction] 5.1 % 4.4 - 5.6 % [facility] Comment on above: NOTE ADA Guidelines Result HgbA1c Normal : less than 5.7 % Prediabetes : 5.7 % to 6.4 % Diabetes : > 6.4 % Use with caution in patients with abnormal hemoglobin variants as the half-life of red blood cells and in vivo glycation rates are affected. IRON PROFILEon 10-17-2024 Iron [Mass/Vol] 37 ug/dL Low 50-170 [facility] Comment on above: Performed By: #### C BCA, CMP, FEPR, 89029-0, 95035-8, 3034-6, THYR, 2276-4, 2132-9, 48524-6, HA1C #### [facility] ([id number]) [address], [address] [place] [address] IRON BINDING 386 ug/dL Normal 250-425 [facility] Comment on above: Performed By: #### C BCA, CMP, FEPR, 62977-6, 04068-7, 3034-6, THYR, 2276-4, 2-9, 14135-0, HA1C #### [facility] ([id number]) [address], [address] [place] [address] IRON SATURATION 10 % SATURATION Low 15-50 [facility] Comment on above: Performed By: #### C BCA, CMP, FEPR, 87844-2, 79800-9, 3034-6, THYR, 2276-4, 2-9, 43149-3, HA1C #### [facility] ([id number]) [address], [address] [place] [address] Iron and Iron binding capaci ty panelon 10-17-2024 Iron [Mass/Vol] 37 ug/dL Low 50 - 170 ug/dL [facility] Iron binding capacity [Mass/Vol] 386 ug/dL 250 - 425 ug/dL [facility] Iron saturation [Mass fraction] 10 Low [facility] Comment on above: PERFORMED AT [facility] [address],[place] [address] Lipid 1996 panelon Cholesterol [Mass/Vol] 134 mg/dL Low 150 - 200 mg/dL [facility] Cholesterol in HDL [Mass/Vol] 41 mg/dL 39 - PINF mg/dL [facility] Comment on above: HDL <40 mg/dL - High Risk HDL > or = 40mg/dL- Desirable HDL >60 mg/dL - Negative Risk Cholesterol in HDL/Total Cholesterol [Mass ratio] 3.3 {ratio} 1.0 - 5.0 [facility] Comment on above: PERFORMED AT [place] [address] [facility]. [address],[place] [address] Cholesterol in LDL [Mass/Vol] 80 mg/dL NINF - 130 mg/dL [facility] Comment on above: LDL <100 mg/dL - Desirable LDL >160 mg/dL - High Risk Cholesterol in VLDL [Mass/Vol] 13 mg/dL 0 - 30 mg/dL [facility] Triglyceride [Mass/Vol] 63 mg/dL 27 - 150 mg/dL [facility] Cholesterol [Mass/Vol] 134 mg/dL Low 150-200 [facility] Comment on above: Performed By: #### C BCA, CMP, FEPR, 26472-1, 21201-4, 3034-6, THYR, 2276-4, 2-9, 02442-1, HA1C #### [facility] ([id number]) [address] [place] [address], [facility] [address] [place] [address] Cholesterol in HDL [Mass/Vol] 41 mg/dL Normal >39 [facility] Comment on above: Result Comment: HDL <40 mg/dL - High Risk HDL > or = 40mg/dL- Desirable HDL >60 mg/dL - Negative Risk Performed By: #### C BCA, CMP, FEPR, 87950-1, 67360-6, 3034-6, THYR, 2276-4, 2132-9, 79847-4, HA1C #### [facility] ([id number]) [facility], [address] [place] [address] Cholesterol in LDL [Mass/Vol] 80 mg/dL Normal <130 [facility] Comment on above: Result Comment: LDL <100 mg/dL - Desirable LDL >160 mg/dL - High Risk Performed By: #### C BCA, CMP, FEPR, 76251-7, 30010-3, 3034-6, THYR, 2276-4, 2132-9, 60070-9, HA1C #### [facility] ([id number]) [address], [address] [place] [address] Cholesterol in VLDL [Mass/Vol] 13 mg/dL Normal 0-30 [facility] Comment on above: Performed By: #### C BCA, CMP, FEPR, 55868-3, 76575-7, 3034-6, THYR, 2276-4, 2132-9, 45204-0, HA1C #### [facility] ([id number]) [address], [address] [place] [address] CHOLESTEROL:HDL 3.3 Normal 1.0-5.0 [facility] Comment on above: Performed By: #### C BCA, CMP, FEPR, 17213-3, 91954-4, 3034-6, THYR, 2276-4, 2132-9, 00708-5, HA1C #### [facility] ([id number]) [address], [address] [place] [address] Triglyceride [Mass/Vol] 63 mg/dL Normal 27-150 [facility] Comment on above: Performed By: #### C BCA, CMP, FEPR, 19004-2, 95960-6, 3034-6, THYR, 2276-4, 2132-9, 41988-4, HA1C #### [facility] ([id number]) [address], [address] [place] [address] MAGNESIUMon 10-17-2024 Magnesium [Mass/Vol] 1.8 mg/dL Normal 1.8-2.6 [facility] Comment on above: Performed By: #### Angel MARIN FEPR, 6-4 #### [facility] ([id number]) [address], [address] [place] [address] Magnesiumon 10-17-2024 Magnesium [Mass/Vol] 1.8 mg/dL 1.8 - 2 .6 mg/dL [facility] Comment on above: PERFORMED AT [facility] [address],[place] [address] No Panel Informationon 10-17 Interpretation and review of laboratory results Abnormal [facility] THYROID PROFILEon 10-17-2024 Free T4 [Mass/Vol] 0.90 ng/dL Normal 0.61-1.60 [facility] Comment on above: Performed By: #### Angel MARIN, FEPR, 2275-4 #### [facility] ([id number]) [address], [address] [place] [address] TSH 0.50 uIU/mL Normal 0.49-4.67 [facility] Comment on above: Performed By: #### Angel MARIN, FEPR, 2275-4 #### [facility] ([id number]) [address], [address] [place] [address] TRANSFERRINon 10-17-2024 Transferrin [Mass/Vol] 276 mg/dL Normal 168-336 [facility] Comment on above: Performed By: #### Angel MARIN, FEPR, 2275-4 #### [facility] ([id number]) [address], [address] [place] [address] TSHon 10-17-2024 Free T4 [Mass/Vol] 0.9 ng/dL 0.61 - 1. 60 ng/dL [facility] Comment on above: PERFORMED AT [facility] [address],[place] [address] TSH Qn 0.5 m[IU]/L [facility] Transferrinon 10-17-2024 Transferrin [Mass/Vol] 276 mg/dL 168 - 336 mg/dL [facility] Comment on above: PERFORMED AT [facility] [address],[place] [address] URINALYSISon 10-17-2024 Bilirubin Ql (U) Negative Normal NEG [facility] Comment on above: Performed By: #### C TANIA, FEPR, 6-4 #### [facility] ([id number]) [address], [address] [place] [address] BLOOD/HGB Large Abnormal NEG [facility] Comment on above: Performed By: #### Angel MARIN, FEPR, 6-4 #### [facility] ([id number]) [address], [address] [place] [address] Color (U) ORANGE Abnormal YELLOW [facility] Comment on above: Performed By: #### Angel BCA, FEPR, 6-4 #### [facility] ([id number]) [address], [address] [place] [address] Glucose Ql (U) Negative Normal NEG [facility] Comment on above: Performed By: #### Angel BCA, FEPR, 6-4 #### [facility] ([id number]) [address], [address] [place] [address] Ketones Ql (U) Negative Normal NEG [facility] Comment on above: Performed By: #### Angel BCA, FEPR, 6-4 #### [facility] ([id number]) [address], [address] [place] [address] Leukocyte esterase Test strip Ql (U) Negative Normal NEG [facility] Comment on above: Performed By: #### Angel BCA, FEPR, 6-4 #### [facility] ([id number]) [address], [address] [place] [address] MUCOUS PRESENT Abnormal NONE [facility] Comment on above: Performed By: #### C TANIA, FEPR, 6-4 #### [facility] ([id number]) [address], [address] [place] [address] Nitrite Ql (U) Negative Normal NEG [facility] Comment on above: Performed By: #### Angel BCA, FEPR, 2275-4 #### [facility] ([id number]) [address], [address] [place] [address] pH (U) 5.5 [pH] Normal 5.0-8.5 [facility] Comment on above: Performed By: #### Angel MARIN, FEPR, 2275-4 #### [facility] ([id number]) [address], [address] [place] [address] Protein Ql (U) 50 mg/dL Abnormal NEG [facility] Comment on above: Performed By: #### Angel MARIN, FEPR, 2275- #### [facility] ([id number]) [address], [facility] [address] [place] [address] R.B.CELLS 5 /hpf Normal 0-5 [facility] Comment on above: Performed By: #### Angel MARIN, FEPR, 2275-4 #### [facility] ([id number]) [address], [address] [place] [address] Specific gravity (U) [Rel density] 1.029 Normal 1.003-1.035 [facility] Comment on above: Performed By: #### Angel MARIN, FEPR, 2275-4 #### [facility] ([id number]) [address] [address] [place] [address] SQUAMOUS EPITHELIUM 4 /hpf Normal 0-5 [facility] Comment on above: Performed By: #### Angel MARIN, FEPR, 2275-4 #### [facility] ([id number]) [address], [address] [place] [address] TURBIDITY CLEAR Normal CLEAR [facility] Comment on above: Performed By: #### Angel MARIN, FEPR, 2276-4 #### [facility] ([id number]) [address], [address] [place] [address] Urobilinogen (U) [Mass/Vol] mg/dL Normal <1.1 [facility] Comment on above: Performed By: #### Angel MARIN, FEPR, 2276-4 #### [facility] ([id number]) [address], [address] [place] [address] W.B.CELLS 4 /hpf Normal 0-5 [facility] Comment on above: Performed By: #### Angel MARIN, FEPR, 2276-4 #### [facility] ([id number]) [address], [address] [place] [address] Urinalysis, manual onlyon Bilirubin Ql (U) Negative [...] [facility] Comment on above: PERFORMED AT [facility] [address],[place] [address] VITAMIN B12on 10-17-2024 Cobalamin (Vitamin B12) [Mass/Vol] 307 pg/mL Normal 180-914 [facility] Comment on above: Performed By: #### C TANIA, FEPR, 2276-4 #### [facility] ([id number]) [address], [address] [place] [address] Vitamin B12on 10-17-2024 Cobalamin (Vitamin B12) [Mass/Vol] 307 pg/mL 180 - 914 pg/mL [facility] Comment on above: PERFORMED AT [facility] [address],[place] [address] Vitamin D+Metabolites [Mass/ Vol]on 10-17-2024 VITAMIN D 25 HYD TOT 24.0 ng/mL Low 30-100 [facility] Comment on above: Result Comment: Vitamin D status 25 [place] Vitamin D Deficiency <20 ng/mL Insufficiency 20-29 ng/mL Sufficiency 30-100 ng/mL Toxicity >100 ng/mL NOTE: A pediatric reference range has not been established by the parts runner of this kit. The [employer] recommends a Vitamin D level of = or >20ng/mL in infants and children. Performed By: #### C TANIA, FEPR, 6-4 #### [facility] ([id number]) [address], [address] [place] [address] CBC AND AUTO DIFFon 06-08-20 24 ABSOLUTE BASOPHIL 0.1 X10E9/L Normal 0.0-0.2 [facility] Comment on above: Performed By: #### C TANIA, FEPR, 2276-4 #### [facility] ([id number]) [address], [address] [place] [address] ABSOLUTE NEUTROPHIL 6.5 X10E9/L Normal 1.5-6.6 [facility] Comment on above: Performed By: #### C TANIA, FEPR, 6-4 #### [facility] ([id number]) [address], [address] [place] [address] Basophils/100 WBC (Bld) 0.7 % Normal [facility] Comment on above: Performed By: #### C TANIA, FEPR, 2275-4 #### [facility] ([id number]) [address], [address] [place] [address] Eosinophils (Bld) [#/Vol] 0.1 10*3/uL Normal 0.0-0.4 [facility] Comment on above: Performed By: #### Angel MARIN, FEPR, 2275- #### [facility] ([id number]) [address], [address] [place] [address] Eosinophils/100 WBC (Bld) 1.5 % Normal [facility] Comment on above: Performed By: #### Angel MARIN, FEPR, 4 #### [facility] ([id number]) [address], [address] [place] [address] Erythrocyte distribution width (RBC) [Ratio] 13.2 % Normal 11.5-15.0 [facility] Comment on above: Performed By: #### Angel MARIN, FEPR, 2275-4 #### [facility] ([id number]) [address], [address] [place] [address] Hematocrit (Bld) [Volume fraction] 41.6 % Normal 35-47 [facility] Comment on above: Performed By: #### Angel MARIN, FEPR, 4 #### [facility] ([id number]) [address], [address] [place] [address] Hemoglobin (Bld) [Mass/Vol] 14.4 g/dL Normal 11.7-15.5 [facility] Comment on above: Performed By: #### Angel MARIN FEPR, 2276-03 #### [facility] ([id number]) [address] [address] [place] [address] Lymphocytes (Bld) [#/Vol] 1.2 10*3/uL Normal 1.0-3.5 [facility] Comment on above: Performed By: #### Angel MARIN, FEPR, 2275-4 #### [facility] ([id number]) [address], [facility] [address] [place] [address] Lymphocytes/100 WBC (Bld) 14.5 % Normal [facility] Comment on above: Performed By: #### Angel MARIN FEPR, 2276-03 #### [facility] ([id number]) [address], [facility] [address] [place] [address] MCH (RBC) [Entitic mass] 33.1 pg Normal 27-34 [facility] Comment on above: Performed By: #### Angel MARIN, FEPR, 2276-03 #### [facility] ([id number]) [address], [address] [place] [address] MCHC (RBC) [Mass/Vol] 34.6 g/dL Normal 32-36 [facility] Comment on above: Performed By: #### Angel MARIN FEPR, 2276-03 #### [facility] ([id number]) [address], [address] [place] [address] MCV (RBC) [Entitic vol] 96 fL Normal 80-100 [facility] Comment on above: Performed By: #### Angel MARIN, FEPR, 4 #### [facility] ([id number]) [address], [address] [place] [address] Monocytes (Bld) [#/Vol] 0.5 10*3/uL Normal 0-0.9 [facility] Comment on above: Performed By: #### Angel MARIN FEPR, 2275-4 #### [facility] ([id number]) [address], [address] [place] [address] Monocytes/100 WBC (Bld) 5.6 % Normal [facility] Comment on above: Performed By: #### C BCA, FEPR, 2275-4 #### [facility] ([id number]) [address], [address] [place] [address] Neutrophils/100 WBC (Bld) 77.7 % Normal [facility] Comment on above: Performed By: #### C BCA, FEPR, 2275-4 #### [facility] ([id number]) [address], [address] [place] [address] Platelet mean volume (Bld) [Entitic vol] 8.9 fL Normal 7-12 [facility] Comment on above: Performed By: #### Angel BCA, FEPR, 2275-4 #### [facility] ([id number]) [address], [address] [place] [address] Platelets (Bld) [#/Vol] 264 10*3/uL Normal 150-450 [facility] Comment on above: Performed By: #### Angel BCA, FEPR, 2275-4 #### [facility] ([id number]) [address], [address] [place] [address] RBC COUNT 4.36 X10E12/L Normal 3.80-5.20 [facility] Comment on above: Performed By: #### C BCA, FEPR, 2275-4 #### [facility] ([id number]) [address], [address] [place] [address] WBC (Bld) [#/Vol] 8.4 10*3/uL Normal 4.0-11.0 [facility] Comment on above: Performed By: #### Angel BCA, FEPR, 2275- #### [facility] ([id number]) [address], [address] [place] [address] FERRITINon 06-08-2024 Ferritin [Mass/Vol] 26 ng/mL Normal 11-307 [facility] Comment on above: Performed By: #### C BCA, FEPR, 6-4 #### [facility] ([id number]) [address], [address] [place] [address] IRON PROFILEon 06-08-2024 Iron [Mass/Vol] 92 ug/dL Normal 50-170 [facility] Comment on above: Performed By: #### C BCA, FEPR, 6-4 #### [facility] ([id number]) [address], [facility] [address] [place] [address] IRON BINDING 354 ug/dL Normal 250-425 [facility] Comment on above: Performed By: #### C BCA, FEPR, 6-4 #### [facility] ([id number]) [address], [address] [place] [address] IRON SATURATION 26 % SATURATION Normal 15-50 [facility] Comment on above: Performed By: #### C BCA, FEPR, 6-4 #### [facility] ([id number]) [address] [address] [place] [address] CBC AND AUTO DIFFon 12-17-19 24 ABSOLUTE BASOPHIL 0.1 X10E9/L Normal 0.0-0.2 [facility] Comment on above: Performed By: #### C BCA, FEPR, 6-4 #### [facility] ([id number]) [address] [address] [place] [address] ABSOLUTE NEUTROPHIL 3.3 X10E9/L Normal 1.5-6.6 [facility] Comment on above: Performed By: #### C BCA, FEPR, 6-4 #### [facility] ([id number]) [address], [address] [place] [address] Basophils/100 WBC (Bld) 1.0 % Normal [facility] Comment on above: Performed By: #### C BCA, FEPR, 2275-4 #### [facility] ([id number]) [address], [facility] [address] [place] [address] Eosinophils (Bld) [#/Vol] 0.3 10*3/uL Normal 0.0-0.4 [facility] Comment on above: Performed By: #### C BCA, FEPR, 2275-4 #### [facility] ([id number]) [address], [facility] [address] [place] [address] Eosinophils/100 WBC (Bld) 4.9 % Normal [facility] Comment on above: Performed By: #### Angel MARIN, FEPR, 4 #### [facility] ([id number]) [address], [address] [place] [address] Erythrocyte distribution width (RBC) [Ratio] 15.4 % High 11.5-15.0 [facility] Comment on above: Performed By: #### Angel BCA, FEPR, 4 #### [facility] ([id number]) [address] [address] [place] [address] Hematocrit (Bld) [Volume fraction] 40.1 % Normal 35-47 [facility] Comment on above: Performed By: #### Angel BCA, FEPR, 2275-4 #### [facility] ([id number]) [address], [facility] [address] [place] [address] Hemoglobin (Bld) [Mass/Vol] 13.1 g/dL Normal 11.7-15.5 [facility] Comment on above: Performed By: #### Angel BCA, FEPR, 2275-4 #### [facility] ([id number]) [address], [address] [place] [address] Lymphocytes (Bld) [#/Vol] 1.8 10*3/uL Normal 1.0-3.5 [facility] Comment on above: Performed By: #### MENA Ortiz BCA, 2275- #### [facility] ([id number]) [address], [address] [place] [address] Lymphocytes/100 WBC (Bld) 30.6 % Normal [facility] Comment on above: Performed By: #### MENA Ortiz BCA, 2275- #### [facility] ([id number]) [address], [address] [place] [address] MCH (RBC) [Entitic mass] 27.9 pg Normal 27-34 [facility] Comment on above: Performed By: #### MENA Ortiz BCA, 2275- #### [facility] ([id number]) [address], [address] [place] [address] MCHC (RBC) [Mass/Vol] 32.7 g/dL Normal 32-36 [facility] Comment on above: Performed By: #### MENA Ortiz BCA, 2276-03 #### [facility] ([id number]) [address], [address] [place] [address] MCV (RBC) [Entitic vol] 85 fL Normal 80-100 [facility] Comment on above: Performed By: #### MENA Ortiz BCA, 2276-03 #### [facility] ([id number]) [address], [address] [place] [address] Monocytes (Bld) [#/Vol] 0.5 10*3/uL Normal 0-0.9 [facility] Comment on above: Performed By: #### Angel MARIN FEPR, 2275- #### [facility] ([id number]) [address], [address] [place] [address] Monocytes/100 WBC (Bld) 8.5 % Normal [facility] Comment on above: Performed By: #### C BCA, FEPR, 6-4 #### [facility] ([id number]) [address], [facility] [address] [place] [address] Neutrophils/100 WBC (Bld) 55.0 % Normal [facility] Comment on above: Performed By: #### Angel BCA, FEPR, 2275-4 #### [facility] ([id number]) [address], [facility] [address] [place] [address] Platelet mean volume (Bld) [Entitic vol] 9.5 fL Normal 7-12 [facility] Comment on above: Performed By: #### Angel BCA, FEPR, 2275-4 #### [facility] ([id number]) [address], [facility] [address] [place] [address] Platelets (Bld) [#/Vol] 282 10*3/uL Normal 150-450 [facility] Comment on above: Performed By: #### Angel BCA, FEPR, 2275-4 #### [facility] ([id number]) [address], [facility] [address] [place] [address] RBC COUNT 4.70 X10E12/L Normal 3.80-5.20 [facility] Comment on above: Performed By: #### Angel BCA, FEPR, 2275-4 #### [facility] ([id number]) [address], [facility] [address] [place] [address] WBC (Bld) [#/Vol] 6.0 10*3/uL Normal 4.0-11.0 [facility] Comment on above: Performed By: #### Angel BCA, FEPR, 2275-4 #### [facility] ([id number]) [address], [address] [place] [address] FERRITINon 12-17-2023 Ferritin [Mass/Vol] 8 ng/mL Low 11-307 [facility] Comment on above: Performed By: #### C BCA, FEPR, 2276-4 #### [facility] ([id number]) [address], [address] [place] [address] IRON PROFILEon 12-17-2023 Iron [Mass/Vol] 30 ug/dL Low 50-170 [facility] Comment on above: Performed By: #### C BCA, FEPR, 2276-4 #### [facility] ([id number]) [address], [address] [place] [address] IRON BINDING 465 ug/dL High 250-425 [facility] Comment on above: Performed By: #### C BCA, FEPR, 2276-4 #### [facility] ([id number]) [address], [address] [place] [address] IRON SATURATION 6 % SATURATION Low 15-50 [facility] Comment on above: Performed By: #### C BCA, FEPR, 2276-4 #### [facility] ([id number]) [address], [address] [place] [address] CNOVon 06-27-2021 CNOV Office Visit ([facility] ) HILLARY STERN ([id number]) 1980 F Date Time Provider Department 06/27/21 11:00 AM EZRA HOGAN [facility] During your visit today, we recorded the following information about you: ADRIAN Khan, CCC-A 06/27/2021 1:14 PM Signed [facility] [place] [place] HEARING AID CHECK Name: Hillary Stern [facility]#: [id number] Date of Service: 06/27/2021 Date of : 1980 Age: [age] year old RIGHT: AUDEO [id number] SN: [id number] 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 Loss/Damage Expiration Date: ? 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 Hillary was taken to the Patient Financial Rep to cover today's appointment fee of $50.00. Recommendations 1. Patient advised to wear the aid daily. 2. Return in 2-3 weeks for follow up HAC if needed. 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] Problem List As Of Date: 06/27/2021 (None) Encounter Status:Closed by EZRA HOGAN on 06/27/21 Normal [facility] CNOVon 06-07-2021 CNOV Office Visit ([facility] ) HILLARY STERN ([id number]) 1980 F Date Time Provider Department 06/07/21 10:00 AM [facility] During your visit today, we recorded the following information about you: Latrice ADRIAN [place] 06/07/2021 11:14 AM Signed [place] AUDIOLOGIC EVALUATION REPORT Name: Hillary Stren CC#: [id number] Date of Service: 06/07/2021 Date of : 1980 Age: [age] year old Referred by: Antwon Sarah, SCALE ADJUSTER [address] [facility] [address] Referred for: Evaluation of the cause of [...] amplification. -- Annual audiologic evaluation Adrian Mcneil, [facility] Clinical Application Manager TEIXEIRA Abbrev- iation Definition Degree of hearing sensitivity dB range WNL within normal limits WNL 0 - 20 SNHL sensorineural hearing loss Mild 20-40 CHL conductive hearing loss Moderate 40-55 MHL mixed hearing loss Moderately-Severe 55-70 WRS word recognition score Severe 70-90 ME middle ear Profound 90 + TM tympanic membrane Referring Provider: ANTWON SARAH [[id number]] Allergies As of Date: 06/07/2021 (Not on File) Date Reviewed: Never Reviewed Reason for Visit: Hearing Loss [1119] Primary Visit Diagnosis:Sensorineur al hearing loss, asymmetrical [H90.5] Problem List As Of Date: 06/07/2021 (None) Classic SmartForms filed during this visit: Audiometry Encounter Status:Closed by LATRICE HOUSTON on 06/07/21 Normal [facility] Vital Signs Date Time Vital Sign Value Performing Clinician Facility 12-28-2024 16:17-0500 Body mass index (BMI) [Ratio] 33.03 kg/m2 [employer] Work Phone: [facility] 12-28-2024 16:17-0500 Body weight 81.92 kg [employer] Work Phone: [facility] 12-28-2024 16:17-0500 Diastolic blood pressure 84 mm[Hg] [employer] Work Phone: [facility] 12-28-2024 16:17-0500 Systolic blood pressure 120 mm[Hg] Gillian Satnam DO Work Phone: [facility] 12-08-2024 13:24-0500 Body mass index (BMI) [Ratio] 32.37 kg/m2 Gillian Satnam DO Work Phone: [facility] 12-08-2024 13:24-0500 Body weight 80.29 kg Gillian Satnam DO Work Phone: [facility] 12-08-2024 13:24-0500 Diastolic blood pressure 72 mm[Hg] Gillian Satnam DO Work Phone: [facility] 12-08-2024 13:24-0500 Systolic blood pressure 130 mm[Hg] Gillian Satnam DO Work Phone: [facility] 11-20-2024 08:05-0500 Body height 157.5 cm Pfo 2 [facility] 11-20-2024 08:05-0500 Body mass index (BMI) [Ratio] 32.07 kg/m2 Pfo 2 [facility] 11-20-2024 08:05-0500 Body temperature 97.2 [degF] Pfo 2 [facility] 11-20-2024 08:05-0500 Body weight 79.56 kg Pfo 2 [facility] 11-20-2024 08:05-0500 Diastolic blood pressure 62 mm[Hg] Pfo 2 [facility] 11-20-2024 08:05-0500 Heart rate 73 /min Pfo 2 [facility] 11-20-2024 08:05-0500 Respiratory rate 18 /min Pfo 2 [facility] 11-20-2024 08:05-0500 SaO2% (BldA) [Mass fraction] 100 % Pfo 2 [facility] 11-20-2024 08:05-0500 Systolic blood pressure 117 mm[Hg] Pfo 2 [facility] 11-13-2024 08:50-0500 Diastolic blood pressure 74 mm[Hg] Pfo 2 [facility] 11-13-2024 08:50-0500 Heart rate 76 /min Pfo 2 [facility] 11-13-2024 08:50-0500 Respiratory rate 16 /min Pfo 2 [facility] 11-13-2024 08:50-0500 Systolic blood pressure 112 mm[Hg] Pfo 2 [facility] 11-13-2024 08:07-0500 Body temperature 97.9 [degF] Pfo 2 [facility] 11-13-2024 08:07-0500 SaO2% (BldA) [Mass fraction] 100 % Pfo 2 [facility] 11-03-2024 15:57-0500 Body height 157.5 cm Savanah Wesleyhuangz SCALE ADJUSTER Work Phone: [facility] 11-03-2024 15:57-0500 Body mass index (BMI) [Ratio] 31.97 kg/m2 Savanahjackelyn Wesleyhuangz SCALE ADJUSTER Work Phone: [facility] 11-03-2024 15:57-0500 Body temperature 97.81 [degF] Savanah Lupillohuangz SCALE ADJUSTER Work Phone: [facility] 11-03-2024 15:57-0500 Body weight 79.29 kg Savanah Tapanholz SCALE ADJUSTER Work Phone: [facility] 11-03-2024 15:57-0500 Diastolic blood pressure 88 mm[Hg] Savanah Tapanholz SCALE ADJUSTER Work Phone: [facility] 11-03-2024 15:57-0500 Heart rate 84 /min Savanah Tapanholz SCALE ADJUSTER Work Phone: [facility] 11-03-2024 15:57-0500 Respiratory rate 20 /min Savanah Lupillohholz SCALE ADJUSTER Work Phone: [facility] 11-03-2024 15:57-0500 SaO2% (BldA) [Mass fraction] 99 % Savanah Lupillolisaholz SCALE ADJUSTER Work Phone: [facility] 11-03-2024 15:57-0500 Systolic blood pressure 132 mm[Hg] Savanah Aichholz SCALE ADJUSTER Work Phone: [facility] 10-06-2024 15:48-0500 Body height 157.5 cm Savanah Reynoso SCALE ADJUSTER Work Phone: [facility] 10-06-2024 15:48-0500 Body mass index (BMI) [Ratio] 31.79 kg/m2 Savanah Reynoso SCALE ADJUSTER Work Phone: [facility] 10-06-2024 15:48-0500 Body temperature 98.01 [degF] Savanah Reynoso SCALE ADJUSTER Work Phone: [facility] 10-06-2024 15:48-0500 Body weight 78.83 kg Savanah Reynoso SCALE ADJUSTER Work Phone: [facility] 10-06-2024 15:48-0500 Diastolic blood pressure 84 mm[Hg] Savanah Reynoso SCALE ADJUSTER Work Phone: [facility] 10-06-2024 15:48-0500 Heart rate 78 /min Savanah Reynoso SCALE ADJUSTER Work Phone: [facility] 10-06-2024 15:48-0500 Respiratory rate 18 /min Savanah Reynoso SCALE ADJUSTER Work Phone: [facility] 10-06-2024 15:48-0500 SaO2% (BldA) [Mass fraction] 98 % Savanah Reynoso SCALE ADJUSTER Work Phone: [facility] 10-06-2024 15:48-0500 Systolic blood pressure 128 mm[Hg] Savanah Reynoso SCALE ADJUSTER Work Phone: [facility] 01-01-2024 15:42-0500 Body temperature 98.2 [degF] Pfo 3 [facility] 01-01-2024 15:42-0500 Diastolic blood pressure 73 mm[Hg] Pfo 3 [facility] 01-01-2024 15:42-0500 Heart rate 72 /min Pfo 3 [facility] 01-01-2024 15:42-0500 Respiratory rate 16 /min Pfo 3 [facility] 01-01-2024 15:42-0500 SaO2% (BldA) [Mass fraction] 100 % Pfo 3 [facility] 01-01-2024 15:42-0500 Systolic blood pressure 111 mm[Hg] Pfo 3 [facility] 01-01-2024 14:53-0500 Body height 157.5 cm Pfo 3 [facility] 01-01-2024 14:53-0500 Body mass index (BMI) [Ratio] 31.45 kg/m2 Pfo 3 [facility] 01-01-2024 14:53-0500 Body weight 78.02 kg Pfo 3 [facility] 12-25-2023 15:57-0500 Diastolic blood pressure 73 mm[Hg] Pfo 3 [facility] 12-25-2023 15:57-0500 Heart rate 76 /min Pfo 3 [facility] 12-25-2023 15:57-0500 Respiratory rate 16 /min Pfo 3 [facility] 12-25-2023 15:57-0500 Systolic blood pressure 113 mm[Hg] Pfo 3 [facility] 12-25-2023 15:12-0500 Body height 157.5 cm Pfo 3 [facility] 12-25-2023 15:12-0500 Body mass index (BMI) [Ratio] 31.83 kg/m2 Pfo 3 [facility] 12-25-2023 15:12-0500 Body temperature 98.49 [degF] Pfo 3 [facility] 12-25-2023 15:12-0500 Body weight 78.93 kg Pfo 3 [facility] 12-25-2023 15:12-0500 SaO2% (BldA) [Mass fraction] 100 % Pfo 3 [facility] Encounters Encounter Date Encounter Type Care Provider Facility Start: 12-28-2024 End: 12-28-2024 Patient encounter procedure Gillian Hay BIMA Phone: [facility] Comment on above: Pre-op examination; Menorrhagia with regular cycle; Abnormal uterine bleeding; Pelvic pain in female Start: 12-28-2024 End: 12-28-2024 Preprocedural examination done Gillian Julian Phone: [facility] Start: 12-28-2024 End: 12-28-2024 ambulatory GILLIAN SATNAM Not Available Start: 12-28-2024 End: 12-28-2024 Departed Referred Gillian Satnam DO Work Phone: [facility] Start: 12-08-2024 End: 12-08-2024 Bamboo flowsheet Gillian [...] Available Start: 11-30-2024 End: 11-30-2024 ambulatory SAVANAH REYNOSO [facility] Start: 11-20-2024 End: 11-20-2024 ambulatory Pfo Infusion Chair 2 Ifrah Gramajo [facility] Comment on above: Iron deficiency anem ia due to chronic blood loss (Primary Dx) Start: 11-13-2024 End: 11-13-2024 ambulatory Pfo Infusion Chair 2 Ifrah Gramajo [facility] Comment on above: Iron deficiency anem ia due to chronic blood loss (Primary Dx) Start: 11-05-2024 End: 11-05-2024 Orders Only Matthew Jara MD Work Phone: Ifrah Gramajo [facility] Comment on above: Iron deficiency anem ia due to chronic blood loss (Primary Dx) Start: 11-03-2024 End: 11-03-2024 Office outpatient visit 15 minutes Savanah Reynoso SCALE ADJUSTER Work Phone: [facility] Comment on above: Iron deficiency anem ia, unspecified iron deficiency anemia type (Primary Dx); Vitamin D deficiency; Dizziness and giddiness Start: 11-03-2024 End: 11-03-2024 ambulatory SAVANAH REYNOSO Not Available Start: 11-03-2024 End: 11-03-2024 Bamboo flowsheet Savanah Reynoso SCALE ADJUSTER Work Phone: [facility] Start: 11-03-2024 End: 11-03-2024 Bamboo flowsheet Savanah Reynoso SCALE ADJUSTER Work Phone: [facility] Start: 10-20-2024 End: 10-20-2024 Refill Savanah Reynoso SCALE ADJUSTER Work Phone: [facility] Comment on above: Acute cystitis witho ut hematuria (Primary Dx) Yeast infection of t he vagina (Primary Dx) Start: 10-19-2024 End: 10-19-2024 Orders Only Savanah Reynoso SCALE ADJUSTER Work Phone: [facility] Comment on above: Iron deficiency anem ia, unspecified iron deficiency anemia type (Primary Dx); Asymptomatic microscopic hematuria; Vitamin D deficiency Start: 10-17-2024 End: 10-17-2024 External Result Encounter Savanah Reynoso SCALE ADJUSTER Work Phone: [facility] Unsolicited Start: 10-17-2024 End: 10-17-2024 External Result Encounter Savanah Reynoso SCALE ADJUSTER Work Phone: [facility] Unsolicited Start: 10-17-2024 End: 10-17-2024 ambulatory SAVANAH REYNOSO [facility] Start: 10-06-2024 End: 10-06-2024 Office outpatient visit 25 minutes Savanah Reynoso SCALE ADJUSTER Work Phone: [facility] Comment on above: Dizziness and giddin ess (Primary Dx); Other fatigue; Iron deficiency anemia, unspecified iron deficiency anemia type Start: 10-06-2024 End: 10-06-2024 ambulatory SAVANAH REYNOSO Not Available Start: 10-06-2024 End: 10-06-2024 Bamboo flowsheet Savanah Reynoso SCALE ADJUSTER Work Phone: [facility] Start: 10-06-2024 End: 10-06-2024 Bamboo flowsheet Savanah Angeles SCALE ADJUSTER Work Phone: [facility] Start: 07-16-2024 End: 07-16-2024 ambulatory SAVANAH ANGELES Not Available Start: 06-12-2024 End: 06-12-2024 ambulatory [facility] Start: 06-08-2024 End: 06-08-2024 [facility] Start: 02-07-2024 End: 03-02-2024 [facility] Start: 01-01-2024 End: 01-02-2024 ambulatory Pfo Infusion Chair 3 [facility] Comment on above: Iron deficiency anem ia due to chronic blood loss (Primary Dx) Start: 12-25-2023 End: 01-02-2024 ambulatory Pfo Infusion Chair 3 [facility] Comment on above: Iron deficiency anem ia due to chronic blood loss (Primary Dx) Start: 12-19-2023 Orders Only Roxana Humphrey RN [facility] Comment on above: Iron deficiency anem ia due to chronic blood loss (Primary Dx) Start: 12-17-2023 End: 12-17-2023 ambulatory [facility] Start: 11-22-2022 End: 11-23-2022 ambulatory MD Alfredo Daly Facility:[facility] Start: 10-18-2022 End: 10-19-2022 ambulatory MD Dylan Fuentes Facility:[facility] Procedures Date Procedure Procedure Detail Performing Clinician Start: 12-30-2024 Urine test visual color cmprsn meths Gillian Satnam DO Work Phone: Start: 10-17-2024 Complete blood count with white cell differential, automated Savanah Reynoso SCALE ADJUSTER Work Phone: Start: 10-17-2024 Comprehensive metabo lic panel Savanah Reynoso SCALE ADJUSTER Work Phone: Start: 10-17-2024 Lipid panel Savanah hernandezham SCALE ADJUSTER Work Phone: Start: 10-17-2024 Urnls dip stick/tabl et rgnt non-auto w/o micrscp Savanah Reynoso SCALE ADJUSTER Work Phone: Start: 06-12-2024 Follow-up visit Follow-up MATTHEW JARA Start: 05-16-2023 Adult depression scr eening assessment Roxana Humphrey RN Start: 05-10-2023 Mammography Roxana gramajo RN Start: 05-08-2022 Microscopic observat ion [Identifier] in Cervix by Cyto stain Roxana Humphrey RN Plan of Treatment Date Care Activity Detail Author Start: 06-12-2025 Adult [facility] Start: 05-08-2025 Screening for malign ant neoplasm of cervix [facility] Start: 01-19-2025 End: 10-19-2025 25-hydroxyvitamin D3 [Mass/volume] in Serum or Plasma Vitamin D 25 hydroxy Lab Routine Vitamin D deficiency Expected: 01/19/2025 (Approximate), Expires: 10/19/2025 [facility] Comment on above: Expected: 01/19/2025 (Approximate), Expires: 10/19/2025 Start: 01-19-2025 End: 10-19-2025 CBC W Auto Differential panel - Blood CBC and differential Lab Routine Iron deficiency anemia, unspecified iron deficiency anemia type Expected: 01/19/2025 (Approximate), Expires: 10/19/2025 [facility] Comment on above: Expected: 01/19/2025 (Approximate), Expires: 10/19/2025 Start: 01-19-2025 End: 10-19-2025 Iron + transferrin + TIBC Iron + transferrin + TIBC Lab Routine Iron deficiency anemia, unspecified iron deficiency anemia type Expected: 01/19/2025 (Approximate), Expires: 10/19/2025 [facility] Comment on above: Expected: 01/19/2025 (Approximate), Expires: 10/19/2025 Start: 01-12-2025 End: 01-12-2025 Professional / ancillary services management 01/12/2025 9:30 AM EST Ancillary Procedure [facility] [address] [place] [id number] [facility] Start: 01-06-2025 End: 01-06-2025 Patient encounter procedure 01/06/2025 6:00 PM EST Office Visit [facility] [address] [place] [address] Savanah Reynoso, SCALE ADJUSTER [address] [place] [address] [facility] Start: 01-01-2025 Adult BMI Screening Adult BMI Screen ing [facility] Start: 12-25-2024 Tobacco Screening Tobacco Screening [facility] Start: 12-21-2024 Screening for malign ant neoplasm of cervix [facility] Start: 12-08-2024 End: 12-08-2025 US Pelvis US Pelvis w/ TV Imaging Routine Menorrhagia with regular cycle Expected: 12/08/2024, Expires: 12/08/2025 [facility] Work Phone: Comment on above: Expected: 12/08/2024 , Expires: 12/08/2025 Start: 12-08-2024 End: 12-08-2024 Patient encounter procedure [facility] Comment on above: Perimenopausal sympt oms Start: 11-20-2024 End: 11-20-2024 ambulatory 11/20/2024 8:00 AM EST Infusion Ifrah L [facility] [address] [place] [address] Ifrah [facility] Start: 11-18-2024 End: 10-19-2025 Urinalysis complete panel - Urine Urinalysis with reflex microscopic (clean catch) Lab Routine Asymptomatic microscopic hematuria Expected: 11/18/2024 (Approximate), Expires: 10/19/2025 [facility] Work Phone: Comment on above: Expected: 11/18/2024 (Approximate), Expires: 10/19/2025 Start: 11-13-2024 End: 11-13-2024 ambulatory 11/13/2024 8:00 AM EST Infusion Ifrah Orantes Turner [facility] [address] [place] [address] Ifrah Gramajo [facility] Start: 11-03-2024 End: 11-03-2024 Patient encounter procedure [facility] Comment on above: Vitamin D deficiency (Primary Dx); Dizziness and giddiness Start: 10-06-2024 End: 10-06-2024 Patient encounter procedure 10/06/2024 3:40 PM EST Office Visit [facility] [address] [place] [address] Savanah Reynoso NP [address] [place] [address] [facility] Comment on above: Arrived Start: 10-06-2024 End: 10-06-2025 25-hydroxyvitamin D3 [Mass/volume] in Serum or Plasma Vitamin D 25 hydroxy Lab Routine Other fatigue Dizziness and giddiness Expected: 10/06/2024 (Approximate), Expires: 10/06/2025 [facility] Comment on above: Expected: 10/06/2024 (Approximate), Expires: 10/06/2025 Start: 10-06-2024 End: 10-06-2025 CBC W Auto Differential panel - Blood CBC and differential Lab Routine Iron deficiency anemia, unspecified iron deficiency anemia type Expected: 10/06/2024 (Approximate), Expires: 10/06/2025 [facility] Work Phone: Comment on above: Expected: 10/06/2024 (Approximate), Expires: 10/06/2025 Start: 10-06-2024 End: 10-06-2025 Cobalamin (Vitamin B12) [Mass/volume] in Serum or Plasma Vitamin B12 Lab Routine Iron deficiency anemia, unspecified iron deficiency anemia type Expected: 10/06/2024 (Approximate), Expires: 10/06/2025 [facility] Comment on above: Expected: 10/06/2024 (Approximate), Expires: 10/06/2025 Start: 10-06-2024 End: 10-06-2025 Comprehensive metabolic 2000 panel - Serum or Plasma Comprehensive metabolic panel Lab Routine Other fatigue Dizziness and giddiness Expected: 10/06/2024 (Approximate), Expires: 10/06/2025 [facility] Comment on above: Expected: 10/06/2024 (Approximate), Expires: 10/06/2025 Start: 10-06-2024 End: 10-06-2025 Ferritin [Mass/volume] in Serum or Plasma Ferritin Lab Routine Iron deficiency anemia, unspecified iron deficiency anemia type Expected: 10/06/2024 (Approximate), Expires: 10/06/2025 [facility] Comment on above: Expected: 10/06/2024 (Approximate), Expires: 10/06/2025 Start: 10-06-2024 End: 10-06-2025 Iron + transferrin + TIBC Iron + transferrin + TIBC Lab Routine Iron deficiency anemia, unspecified iron deficiency anemia type Expected: 10/06/2024 (Approximate), Expires: 10/06/2025 [facility] Comment on above: Expected: 10/06/2024 (Approximate), Expires: 10/06/2025 Start: 10-06-2024 End: 10-06-2025 Lipid 1996 panel - Serum or Plasma Lipid panel Lab Routine Other fatigue Expected: 10/06/2024 (Approximate), Expires: 10/06/2025 [facility] Comment on above: Expected: 10/06/2024 (Approximate), Expires: 10/06/2025 Start: 10-06-2024 End: 10-06-2025 Magnesium [Mass/volume] in Serum or Plasma Magnesium Lab Routine Other fatigue Dizziness and giddiness Expected: 10/06/2024 (Approximate), Expires: 10/06/2025 [facility] Comment on above: Expected: 10/06/2024 (Approximate), Expires: 10/06/2025 Start: 10-06-2024 End: 10-06-2025 Thyrotropin [Units/volume] in Serum or Plasma TSH Lab Routine Other fatigue Dizziness and giddiness Expected: 10/06/2024 (Approximate), Expires: 10/06/2025 [facility] Comment on above: Expected: 10/06/2024 (Approximate), Expires: 10/06/2025 Start: 10-06-2024 End: 10-06-2025 Thyroxine (T4) free [Mass/volume] in Serum or Plasma T4, free Lab Routine Other fatigue Dizziness and giddiness Expected: 10/06/2024 (Approximate), Expires: 10/06/2025 [facility] Comment on above: Expected: 10/06/2024 (Approximate), Expires: 10/06/2025 Start: 10-06-2024 End: 10-06-2025 Urinalysis complete panel - Urine Urinalysis with reflex microscopic (clean catch) Lab Routine Other fatigue Iron deficiency anemia, unspecified iron deficiency anemia type Expected: 10/06/2024 (Approximate), Expires: 10/06/2025 [facility] Comment on above: Expected: 10/06/2024 (Approximate), Expires: 10/06/2025 Start: 08-02-2024 COVID-19 Vaccine ( season) COVID-19 Vaccine ( season) [facility] Start: 08-02-2024 Influenza vaccination Influenza Vacc ine [facility] Start: 05-16-2024 Adult BMI Follow Up Plan Adult BMI Follow Up Plan [facility] Start: 05-16-2024 Adult BMI Screening Adult BMI Screen ing [facility] Start: 05-16-2024 Depression Screening Depression Scre ening [facility] Start: 05-16-2024 Tobacco Screening Tobacco Screening [facility] Start: 05-10-2024 Screening for malign ant neoplasm of breast Mammogram [facility] Start: 05-07-2024 End: 05-07-2024 Patient encounter procedure 05/07/2024 9:15 AM EDT Office Visit Ifrah Gramajo [facility] [address] [place] [phone] Matthew Jara MD [address] [facility] [address] [place] [address] Ifrah Gramajo [facility] Start: 04-01-2024 End: 12-19-2024 CBC W Auto Differential panel - Blood CBC auto differential Lab Routine Iron deficiency anemia due to chronic blood loss Expected: 04/01/2024, Expires: 12/19/2024 [facility] Work Phone: Comment on above: Expected: 04/01/2024 , Expires: 12/19/2024 Start: 04-01-2024 End: 04-01-2025 Iron and TIBC Iron and TIBC Lab Routine Iron deficiency anemia due to chronic blood loss Expected: 04/01/2024, Expires: 04/01/2025 [facility] Comment on above: Expected: 04/01/2024 , Expires: 04/01/2025 Start: 01-01-2024 End: 01-01-2024 ambulatory 01/01/2024 3:00 PM EST Infusion Ifrah L [facility] [place] [address] Ifrah L [facility] Start: 08-02-2023 COVID-19 Vaccine ( season) COVID-19 Vaccine ( season) [facility] Start: 08-02-2023 Influenza vaccination Influenza Vacc ine [facility] Start: 02-19-2021 DTaP,Tdap and Td Vaccines (2 - Td or Tdap) DTaP,Tdap and Td Vaccines (2 - Td or Tdap) [facility] Start: 2002 Screening for malign ant neoplasm of cervix Pap Smear [facility] Endometrial biopsy Endometrial b iopsy Procedures Routine Menorrhagia with regular cycle Abnormal uterine bleeding Pelvic pain in female Ordered: 12/28/2024 [facility] [employer] Work Phone: Comment on above: Ordered: 12/28/2024 End: 12-19-2024 Ferritin [Mass/volume] in Serum or Plasma Ferritin Lab Routine Iron deficiency anemia due to chronic blood loss 1 Occurrences starting 12/19/2023 until 12/19/2024 [facility] Comment on above: 1 Occurrences starti ng 12/19/2023 until 12/19/2024 End: 11-14-2024 Oxygen Therapy - Maintain SpO2: 90% or greater; *SENIOR ASSISTANT MANAGER Guidelines for O2: Yes; Document: [email or web address] ders/Respiratory%[email or web address] 20Guidelines/CPG%20Oxyge [email or web address] Oxygen Therapy - Maintain SpO2: 90% or greater; *SENIOR ASSISTANT MANAGER Guidelines for O2: Yes; Document: [email or web address]/Respiratory%20Ca [email or web address]/CPG%20O [email or web address] Respiratory Care STAT Iron deficiency anemia due to chronic blood loss As Needed for 1 Occurrences starting 11/13/2024 until 11/14/2024 [facility] Work Phone: Comment on above: As Needed for 1 Occu rrences starting 11/13/2024 until 11/14/2024 Immunizations Immunization Date Immunization Notes Care Provider [facility] 11-11-2022 Seasonal, quadrivale nt, recombinant, injectable influenza vaccine, preservative free Savanah Reynoso SCALE ADJUSTER Work Phone: [facility] 11-11-2022 influenza virus vaccine, unspecified formulation Roxana Humphrey RN [facility] 12-09-2021 Seasonal, quadrivale nt, recombinant, injectable influenza vaccine, preservative free Roxana Humphrey RN [facility] Work Phone: 09-03-2019 influenza, injectabl e, quadrivalent, preservative free Roxana Humphrey RN [facility] 09-03-2018 influenza, injectabl e, quadrivalent, preservative free Roxana Humphrey RN [facility] 09-03-2018 seasonal influenza, intradermal, preservative free Roxana Humphrey RN [facility] 02-19-2011 tetanus toxoid, redu noemy diphtheria toxoid, and acellular pertussis vaccine, adsorbed Roxana Humphrey RN [facility] Payers Date Payer Category Payer Self-pay 2024 Managed Care Other (unspecified) [employer] [id number] 2023 Unknown [employer] M [place] [employer] [id number] 2023- [phone] [address] [place] [address] [id number] 2023 Unknown [id number] 2022 Private Health Insurance 1980 Unknown [id number] 2.16840.1.641050.3.579.2. 196 1981 Unknown [id number] 2.16840.1.226787.3.579.2. 196 1981 Unknown [id number] 2.16840.1.462850.3.579.2. 1285 1981 Unknown [id number] 2.16840.1.818443.3.579.2. 128 1981 Unknown [id number] 2.16840.1.488628.3.579.2. 1285 1981 Unknown [id number] 2.16840.1.574785.3.579.2. 128 1981 Unknown [id number] 2.16840.1.644995.3.579.2. 1285 1981 Unknown [id number] 2.16840.1.060509.3.579.2. 1285 1981 Unknown [id number] 2.16840.1.745255.3.579.2. 128 1981 Unknown [id number] 2.16.840.1.689985.3.579.2. 1286 1981 Unknown [id number] 2.16.840.1.410314.3.579.2. 1286 1981 Unknown [id number] 2.16.840.1.501680.3.579.2. 1286 1981 Unknown [id number] 2.16.840.1.627257.3.579.2. 1259 1981 Unknown [id number] 2.16.840.1.356478.3.579.2. 1259 1981 Unknown [id number] 2.16.840.1.949353.3.579.2. 9 1981 Unknown [id number] 2.16.840.1.692301.3.579.2. 9 1981 Unknown [id number] 2.16.840.1.084794.3.579.2. 1259 Unknown [facility] [place] [place] [id number] Social History Date Type Detail Facility Start: 02-01-2023 End: 10-08-2023 Tobacco smoking status NHIS Never smoked tobacco [facility] Start: 02-01-2023 End: 10-08-2023 Tobacco use and exposure Smokeless tobacco non-user [facility] Start: 05-16-2023 End: 11-20-2024 Alcohol intake Current drinker of alcohol (finding) [facility] Start: 05-08-2022 End: 11-03-2024 History of Social function [facility] Work Phone: Start: 05-08-2022 End: 11-03-2024 Alcohol Use Disorder Identification Test - Consumption [AUDIT-C] [facility] Work Phone: How often to you hav e a drink containing alcohol? 2-4 times a month [facility] Work Phone: How many standard dr inks containing alcohol do you have on a typical day? 1 or 2 [facility] How often do you hav e 6 or more drinks on 1 occasion? Never [facility] Adolescent depressio n screening assessment 2 [facility] Start: 01-04-2021 Alcohol Comment socially [facility] Start: 1980 Sex Assigned At Not on file [facility] Start: 07-16-2024 End: 12-28-2024 Alcoholic beverage intake Ex-drinker (finding) [facility] Start: 02-13-2023 Gender identity Identifies as female gender (finding) [facility] Start: 07-07-2015 End: 12-30-2024 Sex Female (finding) [facility] Tobacco smoking stat [facility] Unknown if ever smoked [facility] Work Phone: Start: 1980 Sex Assigned At Female [facility] Clinical Notes 06-07-2021 to 12-28-2024 Mary Beth [...] on 01/22/[address] Hay at [facility]. MEDICATIONS Current Outpatient Medications Medication Instructions azelastine [...] nursing note reviewed. Exam conducted with a meat wrapper present. Vitals: Estimated body mass index is [...] reviewed, and patient is to proceed to [facility] OR. Follow Up: Patient is to follow up between 1-2 weeks post op to assess proper healing and recovery from procedure. Documented by: Faye Ayala LPN on behalf of Gillian Hay D.O. documented in this encounter [facility] 12-08-2024 History of Present illness Narrative Reason [...] nursing note reviewed. Exam conducted with a meat wrapper present. Vitals: Estimated body mass index is 32.37 kg/m as calculated from the following: Height as of 24: 5' 2 . Weight as of this [...] Gillian Hay DO documented in this encounter [facility] 11-20-2024 History of Present illness Narrative Patient here for feraheme as scheduled. Patient has had iron before and denies any issues. IV started, blood return noted and flushed. Feraheme given over 30 minutes per order, patient tolerated well. IV flushed, discontinued, and pressure dressing applied. Patient discharged in stable condition documented in this encounter [facility] 11-13-2024 History of Present illness Narrative Patient [...] vehicle. documented in this encounter [facility] 11-03-2024 History of Present illness Narrative Associated [...] used to take IV iron infusions at [facility] Would like a referral back to there. Also reports that she saw an ortho at [facility] in the past that said it looked [...] pt sign record release for [facility] in [place] to get records Vitamin D deficiency - Primary Level 10/17/24, started on supplement Associated Problem(s): Dizziness and giddiness No acute findings in labs to suggest cause of dizziness, does have some low iron Resolved Remote hx of possible abnormal MRI brain, will have pt sign record release for [facility] in [place] to get records Associated Problem(s): Vitamin D deficiency Level 10/17/24 24, started on supplement documented in this encounter [facility] 11-03-2024 Instructions Savanah Reynoso NP - 11/03/2024 3:40 PM EST Iron: will refer to Hematolgy at [facility] doctor Dr Jara Obtain copies of records from [facility], please sign a record release documented in this encounter [facility] 10-06-2024 History of Present illness Narrative Associated [...] ct/mri done a couple years ago at [facility] in [place] where she was told she had a [...] D 25 hydroxy documented in this encounter [facility] 01-01-2024 History of Present illness Narrative Patient [...] vehicle. documented in this encounter [facility] 12-25-2023 History of Present illness Narrative Patient [...] vehicle. documented in this encounter [facility] 12-19-2023 History of Present illness Narrative Reviewed labs with patient. She would like to have iv iron again. Message sent to Dr. Jara to order. Will call to schedule once approved by insurance. Follow up scheduled with Dr. Jara in May. She will get labs rechecked prior. documented in this encounter [facility] 06-27-2021 Note HNO ID: [id number] Author: ADRIAN Khan, KOSTAS-Jackelyn Service: ? Author Type: Clinical Application Manager Type: Progress Notes Filed: 06/27/2021 1:14 PM Note Text: [facility] HEARING AID CHECK Name: Hillary Stern CCF#: [id number] Date of Service: 06/27/2021 Date of : 1980 Age: [age] year old RIGHT: AUDEO [id number] SN: [id number] Real Estate Economist/Dome: #2 small LEFT: CROS [id number] SN: [id number] Tubing/Dome: #2 small CERUSTOP Repair Warranty Expiration Date: ? Loss/Damage Expiration Date: ? 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 Hillary was taken to the Patient Financial Rep to cover today's appointment fee of $50.00. Recommendations 1. Patient advised to wear the aid daily. 2. Return in 2-3 weeks for follow up HAC if needed. Betty Khan, KOSTAS/A Clinical Clinical Application Manager [facility] 06-07-2021 Note HNO ID: [id number] Author: ADRIAN Mcneil Service: ? Author Type: Clinical Application Manager Type: Progress Notes Filed: 06/07/2021 11:14 AM Note Text: [facility] AUDIOLOGIC EVALUATION REPORT Name: Hillary Stern CCF#: [id number] Date of Service: 06/07/2021 Date of : 1980 Age: [age] year old Referred by: Antwon Sarah, SCALE ADJUSTER [address] [facility] [id number] Referred for: Evaluation of the cause of [...] -- Annual audiologic evaluation Adrian Mcneil, KOSTAS-A Clinical Application Manager TEIXEIRA Abbrev- iation Definition Degree of hearing sensitivity dB range WNL within normal limits WNL 0 - 20 SNHL sensorineural hearing loss Mild 20-40 CHL conductive hearing loss Moderate 40-55 MHL mixed hearing loss Moderately-Severe 55-70 WRS word recognition score Severe 70-90 ME middle ear Profound 90 + TM tympanic membrane [facility] Evaluation note Diagnosis Iron deficiency anemia due to chronic blood loss- Primary Iron deficiency anemia secondary to blood loss (chronic) [facility] Diagnosis Iron deficiency anemia due to chronic blood loss- Primary Iron deficiency anemia secondary to blood loss (chronic) [facility] Diagnosis Iron deficiency anemia due to chronic blood loss- Primary Iron deficiency anemia secondary to blood loss (chronic) documented in this encounter [facility]* Diagnosis Seasonal allergic rhinitis, unspecified [...] without hematuria- Primary [facility] Diagnosis Seasonal allergic rhinitis, unspecified trigger- Primary Encounter for screening mammogram for malignant neoplasm of breast Dizziness and giddiness- Primary Other fatigue Iron deficiency anemia, unspecified iron deficiency anemia type Perimenopausal symptoms Yeast infection of the vagina- Primary Candidiasis of vulva and vagina [facility] Diagnosis Seasonal allergic rhinitis, unspecified trigger- Primary Encounter for screening mammogram for malignant neoplasm of breast Dizziness and giddiness- Primary Other fatigue Iron deficiency anemia, unspecified iron deficiency anemia type Perimenopausal symptoms Iron deficiency anemia, unspecified iron deficiency anemia type- Primary Asymptomatic microscopic hematuria Vitamin D deficiency [facility] Diagnosis Seasonal allergic rhinitis, unspecified trigger- Primary Encounter for screening mammogram for malignant neoplasm of breast Dizziness and giddiness- Primary Other fatigue Iron deficiency anemia, unspecified iron deficiency anemia type Perimenopausal symptoms Iron deficiency anemia, unspecified iron deficiency anemia type- Primary Vitamin D deficiency Dizziness and giddiness documented in this encounter [facility]* Diagnosis Iron deficiency anemia due to chronic blood loss- Primary Iron deficiency anemia secondary to blood loss (chronic) [facility] Diagnosis Iron deficiency anemia due to chronic blood loss- Primary Iron deficiency anemia secondary to blood loss (chronic) [facility] Diagnosis Iron deficiency anemia due to chronic blood loss- Primary Iron deficiency anemia secondary to blood loss (chronic) documented in this encounter [facility]* Diagnosis Seasonal allergic rhinitis, unspecified [...] with regular cycle documented in this encounter [facility]* Diagnosis Seasonal allergic rhinitis, unspecified [...] female genital organs documented in this encounter [facility] noteNo assessment information available[facility] Work Phone: InstructionsNot on filedocumented in this encounter [facility] filedocumented in this encounter [facility] filed[facility] in [facility] Summary Purpose Family History No Family History Records FoundNo Family History Records FoundNo Family History Records FoundNo Family History Records FoundNo Family History Records Found Advance Directives No Advanced Directives Records FoundNo Advanced Directives Records FoundNo Advanced Directives Records FoundNo Advanced Directives Records FoundNo Advanced Directives Records Found Additional Source Comments INFORMATION SOURCE (unrecogn ized section and content) DATE CREATED AUTHOR 01/04/2022 [facility] DATE CREATED AUTHOR AUTHOR'S ORGANIZ ATION 11/29/2022 [facility] DATE CREATED AUTHOR AUTHOR'S ORGANIZ ATION 12/01/2024 [facility] DATE CREATED AUTHOR AUTHOR'S ORGANIZ ATION 12/29/2024 [facility] DATE CREATED AUTHOR AUTHOR'S ORGANIZ ATION 12/30/2024 [facility] Care Teams (unrecognized sec tion and content) Mechanical Product Design Engineer Relationship Specialty Start Date End Date Savanah Reynoso APRN-TOLL TEST DESK WORKER [address] [place] [address] PCP - General Nurse Practitioner 12/17/23 Mechanical Product Design Engineer Relationship Specialty Start Date End Date Savanah Reynoso APRN-TOLL TEST DESK WORKER [address] [place] [address] PCP - General Nurse Practitioner 12/17/23 Mechanical Product Design Engineer Relationship Specialty Start Date End Date Savanah Reynoso APRNTONI [address] [place] [address] PCP - General Nurse Practitioner 12/17/23 Mechanical Product Design Engineer Relationship Specialty Start Date End Date Savanah Reynoso APRN-TOLL TEST DESK WORKER [address] [place] [address] PCP - General Nurse Practitioner 12/17/23 Mechanical Product Design Engineer Relationship Specialty Start Date End Date Spencer Mane MD [address] [place] [address] PCP - General Family Medicine 07/16/24 Savanah Reynoso NP [address] [place] [phone] Referring Physician Nurse Practitioner 06/28/23 Mechanical Product Design Engineer Relationship Specialty Start Date End Date Spencer Mane MD [address] [place] [phone] PCP - General Family Medicine 07/16/24 Savanah Reynoso NP [address] [place] [phone] Referring Physician Nurse Practitioner 06/28/23 Mechanical Product Design Engineer Relationship Specialty Start Date End Date Spencer Mane MD [address] [place] [phone] PCP - General Family Medicine 07/16/24 Savanah Reynoso NP [address] [place] [phone] Referring Physician Nurse Practitioner 06/28/23 Mechanical Product Design Engineer Relationship Specialty Start Date End Date Spencer Mane MD [address] [place] [phone] PCP - General Family Medicine 07/16/24 Savanah Reynoso NP [address] [place] [phone] Referring Physician Nurse Practitioner 06/28/23 Mechanical Product Design Engineer Relationship Specialty Start Date End Date Spencer Mane MD [address] [place] [phone] PCP - General Family Medicine 07/16/24 Savanah Reynoso NP [address] [place] [address] Referring Physician Nurse Practitioner 06/28/23 Mechanical Product Design Engineer Relationship Specialty Start Date End Date Spencer Mane MD [address] [place] [phone] PCP - General Family Medicine 07/16/24 Savanah Reynoso NP [address] [place] [phone] Referring Physician Nurse Practitioner 06/28/23 Mechanical Product Design Engineer Relationship Specialty Start Date End Date Spencer Mane MD [address] [place] [phone] PCP - General Family Medicine 07/16/24 Savanah Reynoso NP [address] [place] [phone] Referring Physician Nurse Practitioner 06/28/23 Mechanical Product Design Engineer Relationship Specialty Start Date End Date Savanah Reynoso APRN-TOLL TEST DESK WORKER PCP - General Nurse Practitioner 12/17/23 Mechanical Product Design Engineer Relationship Specialty Start Date End Date Savanah Reynoso APRN-TOLL TEST DESK WORKER PCP - General Nurse Practitioner 12/17/23 Mechanical Product Design Engineer Relationship Specialty Start Date End Date Savanah Reynoso J, REHAB THERAPY MANAGER-TOLL TEST DESK WORKER PCP - General Nurse Practitioner 12/17/23 Mechanical Product Design Engineer Relationship Specialty Start Date End Date Spencer Mane MD [address] [place] [phone] PCP - General Family Medicine 07/16/24 Savanah Reynoso NP [address] [place] [phone] Referring Physician Nurse Practitioner 06/28/23 Mechanical Product Design Engineer Relationship Specialty Start Date End Date Spencer Mane MD [address] [place] [phone] PCP - General Family Medicine 07/16/24 Savanah Reynoso NP [address] [place] [phone] Referring Physician Nurse Practitioner 06/28/23 Team Status: Inactive Member Role Status Dates Gillian Hay DO Attending Provider Active Start : December 28, 2024 End: December 28, 2024 Reason for Visit (unrecogniz ed section and content) Reason Comments Outpatient Infusion Feraheme Specialty Diagnoses / Procedures Referred By Contac t Referred To Contact Diagnoses Iron deficiency anemia due to chronic blood loss Procedures ID FERUMOXYTOL, NON-ESRD Matthew Jara MD [address] [place] [id number] Pfo Med Onc [address] [place] [phone] Referral ID Status Reason Start Date Expiration Date V isits Requested Visits Authorized [id number] Authorized 12/19/2023 12/18/2024 2 2 Reason Comments Outpatient Infusion feraheme Reason Comments Iron Deficiency Specialty Diagnoses / Procedures Referred By Contac t Referred To Contact Diagnoses Iron deficiency anemia due to chronic blood loss Procedures ID FERUMOXYTOL, NON-ESRD Matthew Jara MD [address] [place] [address] Phone: tel: fax: [facility] Medical Oncology [address] [place] [phone] Phone: tel: fax: Referral ID Status Reason Start Date Expiration Date V isits Requested Visits Authorized [id number] Authorized 11/05/2024 11/05/2025 2 2 Reason Comments Menopause Pt present today for perimenopausal symptoms Specialty Diagnoses / Procedures Referred By Contac t Referred To Contact Obstetrics and Gynecology Diagnoses Perimenopausal symptoms Procedures ID OFFICE/OUTPATIENT NEW HIGH MDM 60 MINUTES Savanah Reynoso, LOUANN [address] [place] [address] Phone: tel: fax: Gillian Hay, [address] [place] [address] Phone: tel: fax: Referral ID Status Reason Start Date Expiration Date V isits Requested Visits Authorized [id number] Closed Specialty Services Required 10/06/2024 04/04/2025 1 1 Reason Comments Pre-op Visit Endometrial Biopsy Goals (unrecognized section and content) Goals may be documented in a n alternate section FOR RECORDS PERTAINING TO PATIENTS WHO ARE [...] BE BASED ON THE PRIMARY CLINICAL RECORDS. [facility], [facility]. provides no warranty or guarantee of the accuracy or completeness of information in this document.
== END 2024-12-28 15:11 | disposition home or self-care (01) ==
LOC: LAB 15:10
PROVIDERS: PCP Nurse Practitioner; Visit Provider Obstetrics & Gynecology
DX: N92.0 Excessive and frequent menstruation with regular cycle (principal)
CPT/HCPCS: 88305

== ENCOUNTER 2024-12-31 07:04 | Outpatient (OUT) | payer OTHER, SELFPAY ==
--- NOTE | 2024-12-31 07:06 | US_ITS ---
The [address] [address] Patient Name: EZRA STERN MRN: [id number] date: 1980 Sex: F Assigned Patient Location: Current Patient Location: Accession/Order Number: [id number] Exam Date: 12/31/2024 07:07 Report Date: 12/31/2024 07:54 At the request of: GILLIAN DUDLEY Procedure: US pelvis w/ transvaginal EXAMINATION: US pelvis w/ transvaginal HISTORY: Menorrhagia with regular cycle COMPARISON: No relevant comparison available. TECHNIQUE: Transabdominal and/or transvaginal sonographic examination was performed as indicated by examination type. FINDINGS: UTERUS: Normal size and appearance. Uterus size: 10.6 x 6.5 x 6.2 cm ENDOMETRIUM: Thickened, but normal homogeneous echotexture. Endometrial thickness: 15.4 mm RIGHT OVARY: Normal size and appearance. Duplex Doppler demonstrates normal waveform and flow; resistive index 0.5. Ovary size: 2.8 x 1.5 x 1.4 cm LEFT OVARY: Normal size and appearance. Duplex Doppler demonstrates normal waveform and flow; resistive index 0.4. Ovary size: 2.7 x 1.7 x 2.2 cm CUL-DE-SAC: Unremarkable. No significant free fluid. BLADDER: Unremarkable. OTHER: None. US/US pelvis w/ transvaginal IMPRESSION: 1. Endometrial thickness just exceeds upper limits of normal, but is otherwise normal echotexture. Endometrial hyperplasia? 2. Otherwise no suspicious findings. Electronically authenticated by: SHANIA LENTZ Date: 12/31/2024 07:54
--- OUTSIDE RECORDS SUMMARY | 2024-12-31 07:07 | XMS_ITS | CCD ---
Author Organization [facility] Care Team Providers Care Primer Supervisor Name Role Phone MD Dylan Fuentes Primary Care Unavailabl MD Alfredo Balderrama Attending Unavailable MD Alfredo Daly Attending Unavailable MD Dylan Fuentes Primary Care Unavailabl e Aichholz MAGNETIC PROSPECTOR-RESIDENT ENGINEER, Savanah Saul Primary Care Provider Aicchip CARPENTER LABOR SUPERVISOR, Savanah Unavailable Spencer Mane MD Primary Care Provider Aichholham MAGNETIC PROSPECTOR-RESIDENT ENGINEER, Savanah Saul Primary Care Provider MATTHEW JARA Attending Unavailable ANTWON SARAH Referring Unavailable AICHHOLZ, SAVANAH J Primary Care Unavailable ESTEFANI, MATTHEW N Referring Unavailable AICHHOLZ, SAVANAH J Primary Care Unavailable MATTHEW JARA N Referring Unavailable AICHHOLZ, SAVANAH J Primary Care Unavailable MATTHEW JARA Attending Unavailable ANTWON SARAH Referring Unavailable AICHHOLZ, SAVANAH J Primary Care Unavailable AICHHOLZ, SAVANAH J Referring Unavailable AICHHOLZ, SAVANAH J Primary Care Unavailable MATTHEW JARA N Referring Unavailable AICHHOLZ, SAVANAH J Primary Care Unavailable ESTEFANI, MATTHEW N Referring Unavailable AICHHOLZ, SAVANAH J Primary Care Unavailable MATTHEW JARA N Referring Unavailable AICHHOLZ, SAVANAH J Primary Care Unavailable ESTEFANI, MATTHEW N Referring Unavailable AICHHOLZ, SAVANAH J Primary Care Unavailable AICHHOLZ, SAVANAH J Referring Unavailable AICHHOLZ, SAVANAH J Primary Care Unavailable GILLIAN HAY Attending Unavailable AICHHOLZ, SAVANAH Attending Unavailable AICHHOLZ, SAVANAH Attending Unavailable AICHHOLZ, SAVANAH Attending Unavailable PIPPA HAYY Attending Unavailable AICHHOLZ, SAVANAH Referring Unavailable Satnam, Gillian Attending Unavailable Gillian Hay Admitting Unavailable Medications Current Medications Medication Drug Class(es) Dates Sig (Normalized) Sig (Original) azelastine hydrochloride 0.5 mg/ml ophthalmic solution (20 sources) Histamine-1 Receptor Antagonist take 1 drop(s) into the eye(s) in the morning azelastine (Optivar) 0.05 % ophthalmic solution Administer 1 drop into affected eye(s) in the morning and 1 drop in the evening. Active cetirizine hydrochloride 10 mg oral tablet (20 sources) Histamine-1 Receptor Antagonist take 1 tablet by mouth in the morning cetirizine (ZyrTEC) 10 MG tablet Take 10 mg by mouth in the morning. Active cholecalciferol 0.05 mg oral tablet (6 sources) Vitamin D Start: 4 End: 4 take 1 tablet by mouth once daily cholecalciferol (Vitamin D-3) 50 MCG (2000 UT) tablet Indications: Vitamin D deficiency Take 1 tablet (50 mcg) by mouth Daily 30 tablet 2 10/19/2024 11/18/2024 Active 1 ml EPINEPHrine 1 mg/ml injection (1 source) alpha-Adrenergic Agonist, beta-Adrenergic Agonist, Catecholamine Start: 4 End: 0.3 mg, intramuscular, Every 5 min PRN, emergency use for dypsnea, wheezing, stridor, or hypotension (at least 30% decrease in systolic BP) (from treatment/therapy plan)., Starting on Sat11/13/24 at 0800, For 3 doses, Give IM into the anterolateral aspect of the middle third of the thigh (preferred) up to 3 doses (total of 0.9 mg). Activate emergency response Look-alike/sound-al carlos medication - verify indication for use. ferrous sulfate 325 mg delayed release oral tablet (6 sources) Start: 4 End: take 1 tablet by mouth at mealtime ferrous sulfate 325 (65 Fe) MG EC tablet Indications: Iron deficiency anemia, unspecified iron deficiency anemia type Take 1 tablet (325 mg) by mouth in the morning. Take with meals. Do not crush, chew, or split.. 30 tablet 2 10/19/2024 11/18/2024 Active methylPREDNISolone 125 mg injection (1 source) Corticosteroid Start: 4 End: 4 125 mg, intravenous, As needed, emergency use for adverse reactions (from treatment/therapy plan)., Starting on Sat11/13/24 at 0800, For 2 doses, Should not be used as initial management of anaphylaxis but may prevent a prolonged or recurrent reaction. May alter blood glucose or insulin requirements. Look-alike/sound-al carlos medication - verify indication for use. PARoxetine hydrochloride 10 mg oral tablet (4 sources) Serotonin Reuptake Inhibitor Start: 3 take 1 tablet by mouth in the morning PARoxetine (PAXIL) 10 mg tablet Indications: Menopausal symptoms Take 1 tablet (10 mg total) by mouth in the morning. 30 tablet 2 05/28/2023 Active 125 ml sodium chloride 9 mg/ml prefilled syringe (6 sources) Start: 4 3 mL, intravenous, As needed, line care, Starting on Sat11/20/24 at 0759 Start: 11-13-2024 3 mL, intraven ous, As needed, line care, Starting on Sat11/13/24 at 0800 Start: 11-13-2024 End: 11-14-2024 500 mL, intravenous, at 3,00 0 mL/hr, Administer over 10 Minutes, As needed, decrease of systolic BP greater than 30% from baseline., Starting on Sat11/13/24 at 0800, For 1 dose, wide open off of the IV pump. Call provider for additional bolus', if needed. Start: 11-13-2024 take 25 mL intraveno usly every hour as needed 25 mL/hr, intravenous, Continuous PRN, When mainline IV needed., Starting on Sat11/13/24 at 0800, Match IVF to base solution of product being administered to ensure compatibility. Start: 01-01-2024 End: 01-01-2024 sodium chloride 0.9 % infusi on Start: 12-25-2023 End: 12-25-2023 sodium chloride 0.9 % infusi on triamcinolone acetonide 0.055 mg/actuat metered dose nasal spray (20 sources) Corticosteroid take 2 spray(s) nasal route in the morning triamcinolone (Nasacort) 55 MCG/ACT nasal inhaler Administer 2 sprays into each nostril in the morning. Active Completed/Discontinued Medications Medication Drug Class(es) Dates Sig (Normalized) Sig (Original) ferumoxytoL (FERAHEME) 510 mg in sodium chloride 0.9 % 100 mL IVPB (4 sources) Start: 11-20-2024 End: 11-20-2024 510 mg, intravenous, at 234 mL/hr, Administer over 30 Minutes, Once, On Sat11/20/24 at 0800, For 1 dose, Patient in reclined or semi-reclined position. Monitor for at least 30 min after infusion. AVOID the use of H1 antihistamines, such as diphenhydramine, as this may worsen hypersensitivity reactions., Indications: iron deficiency anemia Start: 11-13-2024 End: 11-13-2024 510 mg, intravenous, at 234 mL/hr, Administer over 30 Minutes, Once, On Sat11/13/24 at 0815, For 1 dose, Patient in reclined or semi-reclined position. Monitor for at least 30 min after infusion. AVOID the use of H1 antihistamines, such as diphenhydramine, as this may worsen hypersensitivity reactions., Indications: iron deficiency anemia Start: 01-01-2024 End: 01-01-2024 ferumoxytoL (FERAHEME) 510 m g in sodium chloride 0.9 % 100 mL IVPB Start: 12-25-2023 End: 12-25-2023 ferumoxytoL (FERAHEME) 510 m g in sodium chloride 0.9 % 100 mL IVPB fluconazole 150 mg oral tablet (3 sources) Azole Antifungal Start: 10-20-2024 End: 11-03-2024 fluconazole (Diflucan) 150 MG tablet Indications: Yeast infection of the vagina One time dose, repeat again in 3 days 2 tablet 10/20/2024 11/03/2024 Discontinued (Therapy completed) nitrofurantoin, macrocrystals 25 mg / nitrofurantoin, monohydrate 75 mg oral capsule (4 sources) Nitrofuran Antibacterial Start: 10-20-2024 End: 11-03-2024 take 1 capsule by mouth in the morning nitrofurantoin, macrocrystal-monoh ydrate, (Macrobid) 100 MG capsule Indications: Acute cystitis without hematuria Take 1 capsule (100 mg) by mouth in the morning and 1 capsule (100 mg) before bedtime. Do all this for 7 days. 14 capsule 10/20/2024 11/03/2024 Discontinued (Therapy completed) Problems Active Problems Problem Classification Problem Date Documented Date Episodic/Chronic Abdominal pain (1 source) Pain in female pelvis; Translations: [Pelvic and perineal pain] 12-28-2024 Episodic Conditions associated with dizziness or vertigo (17 sources) Dizziness and giddiness; Translations: [Dizziness and giddiness] Onset: 10-06-2024 10-06-2024 Episodic Deficiency and other anemia (6 sources) Iron deficiency anemia due to blood loss; Translations: [Iron deficiency anemia secondary to blood loss (chronic)] 12-19-2023 Chronic Deficiency and other anemia (1 source) Iron deficiency anemia secondary to blood loss (chronic); Translations: [Iron deficiency anemia secondary to blood loss (chronic)] Onset: 12-13-2022 Chronic Deficiency and other anemia (1 source) Iron deficiency anemia, unspecified; Translations: [Iron deficiency anemia, unspecified] Onset: 10-17-2024 Episodic Genitourinary symptoms and ill-defined conditions (12 sources) Asymptomatic microscopic hematuria; Translations: [Asymptomatic microscopic hematuria] Onset: 10-19-2024 10-19-2024 Episodic Malaise and fatigue (15 sources) Fatigue; Translations: [Other fatigue] Onset: 10-06-2024 10-06-2024 Episodic Menopausal disorders (11 sources) Menopause finding; Translations: [Menopausal and female climacteric states] Onset: 10-06-2024 10-06-2024 Chronic Menstrual disorders (15 sources) Menorrhagia; Translations: [Excessive and frequent menstruation with regular cycle] Onset: 10-08-2023 10-08-2023 Chronic Nutritional deficiencies (12 sources) Vitamin D deficiency; Translations: [Vitamin D deficiency, unspecified] Onset: 10-19-2024 10-19-2024 Chronic Other congenital anomalies (13 sources) Congenital anomaly of inner ear; 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] Onset: 10-08-2023 10-08-2023 Chronic Other ear and sense organ disorders (20 sources) Deafness of left ear; Translations: [Unspecified hearing loss, left ear] Onset: 10-08-2023 1 Chronic Other ear and sense organ disorders (13 sources) Congenital deafness; Translations: [Unspecified sensorineural hearing loss] Onset: 10-08-2023 10-08-2023 Chronic Other ear and sense organ disorders (13 sources) Sensorineural hearing loss; Translations: [Unspecified sensorineural hearing loss] Onset: 10-08-2023 10-08-2023 Chronic Other female genital disorders (1 source) Abnormal uterine bleeding; Translations: [Abnormal uterine and vaginal bleeding, unspecified] 12-28-2024 Chronic Other nervous system disorders (13 sources) Chronic pain; Translations: [Other chronic pain] Onset: 10-08-2023 Resolved: 10-08-2023 10-08-2023 Chronic Other upper respiratory disease (13 sources) Seasonal allergic rhinitis; Translations: [Other seasonal allergic rhinitis] Onset: 10-08-2023 10-08-2023 Chronic Unclassified (1 source) Outpatient Infusion Onset: 11-13-2024 Urinary tract infections (9 sources) Acute cystitis; Translations: [Acute cystitis without hematuria] Onset: 10-20-2024 10-20-2024 Episodic Past or Other Problems Problem Classification Problem Date Documented Da te Episodic/Chronic Allergic reactions (20 sources) Allergic disorder; Translations: [Allergy, unspecified, initial encounter] Onset: 10-08-2023 01-04-2021 Episodic Deficiency and other anemia (20 sources) Anemia; Translations: [Anemia, unspecified] Onset: 12-13-2022 Resolved: 11-03-2024 12-13-2022 Episodic Deficiency and other anemia (20 sources) Iron deficiency anemia; Translations: [Iron deficiency anemia, unspecified] Onset: 12-13-2022 12-13-2022 Episodic Deficiency and other anemia (13 sources) Microcytic hypochromic anemia; Translations: [Iron deficiency anemia, unspecified] Onset: 10-08-2023 10-08-2023 Episodic Deficiency and other anemia (1 source) Other iron deficiency anemias; Translations: [Other iron deficiency anemias] Onset: 12-13-2022 Episodic Mood disorders (7 sources) Mood disorders Onset: 05-16-2023 05-16-2023 Mycoses (14 sources) Candidiasis of vagina; Translations: [Yeast infection of the vagina] Onset: 02-27-2024 02-27-2024 Episodic Other ear and sense organ disorders (13 sources) Tinnitus; Translations: [Tinnitus, unspecified ear] Onset: 10-08-2023 10-08-2023 Episodic Other ear and sense organ disorders (13 sources) Does use hearing aid; Translations: [Presence of external hearing-aid] Onset: 10-08-2023 Resolved: 10-08-2023 10-08-2023 Episodic Other nervous system disorders (13 sources) Skin sensation disturbance; Translations: [Other disturbances of skin sensation] Onset: 10-08-2023 Resolved: 10-08-2023 10-08-2023 Episodic Other screening for suspected conditions (not mental disorders or infectious disease) (13 sources) Patient encounter status; Translations: [Encounter for screening mammogram for malignant neoplasm of breast] Onset: 07-16-2024 07-16-2024 Episodic Other skin disorders (13 sources) Skin tag; Translations: [Other hypertrophic disorders of the skin] Onset: 10-08-2023 Resolved: 10-08-2023 10-08-2023 Episodic Residual codes; unclassified (10 sources) Cancer cervix screening - not needed; Translations: [Procedure and treatment not carried out for other reasons] Onset: 10-06-2024 Resolved: 10-06-2024 10-06-2024 Episodic Spondylosis; intervertebral disc disorders; other back problems (20 sources) Acute back pain with sciatica; Translations: [Lumbago with sciatica, right side] Onset: 10-08-2023 10-08-2023 Episodic Unclassified (7 sources) Onset: 05-16-2023 05-16-2023 Results Test Name Value Interpretation Reference Range Facility HCG ( test) Ql (U)O rdered By: Shima Tubbs on 12-30-2024 Interpretation and review of laboratory results Normal [facility] Work Phone: Preg Test, Ur Negative Negative [facility] Work Phone: [facility] Work Phone: URINALYSISon 11-30-2024 Bilirubin Ql (U) Negative Normal NEG [facility] Comment on above: Performed By: #### C BCA, FEPR, 2275- #### [facility] ([id number]) [address], [address] [place] [address] BLOOD/HGB Negative Normal NEG [facility] Comment on above: Performed By: #### C BCA, FEPR, 2275-4 #### [facility] ([id number]) [address], [address] [place] [address] Color (U) YELLOW Normal YELLOW [facility] Comment on above: Performed By: #### C BCA, FEPR, 2275-4 #### [facility] ([id number]) [address], [address] [place] [address] Glucose Ql (U) Negative Normal NEG [facility] Comment on above: Performed By: #### C BCA, FEPR, 2275- #### [facility] ([id number]) [address], [address] [place] [address] Ketones Ql (U) Negative Normal NEG [facility] Comment on above: Performed By: #### C BCA, FEPR, 2276-03 #### [facility] ([id number]) [address], [address] [place] [address] Leukocyte esterase Test strip Ql (U) Trace Abnormal NEG [facility] Comment on above: Performed By: #### C BCA, FEPR, 2275-4 #### [facility] ([id number]) [address], [address] [place] [address] MUCOUS PRESENT Abnormal NONE [facility] Comment on above: Performed By: #### C BCA, FEPR, 2275-4 #### [facility] ([id number]) [address], [address] [place] [address] Nitrite Ql (U) Negative Normal NEG [facility] Comment on above: Performed By: #### C BCA, FEPR, 2275-4 #### [facility] ([id number]) [address], [address] [place] [address] pH (U) 5.5 [pH] Normal 5.0-8.5 [facility] Comment on above: Performed By: #### C TANIA FEPR, 6-4 #### [facility] ([id number]) [address], [address] [place] [address] Protein Ql (U) Negative Normal NEG [facility] Comment on above: Performed By: #### C TANIA FEPR, 2275-4 #### [facility] ([id number]) [address], [address] [place] [address] R.B.CELLS <1 Normal 0-5 [facility] Comment on above: Performed By: #### Angel MARIN FEPGary, 2275-4 #### [facility] ([id number]) [address], [address] [place] [address] Specific gravity (U) [Rel density] 1.015 Normal 1.003-1.035 [facility] Comment on above: Performed By: #### Angel MARIN FEPR, 2275-4 #### [facility] ([id number]) [address], [address] [place] [address] SQUAMOUS EPITHELIUM 3 /hpf Normal 0-5 [facility] Comment on above: Performed By: #### Angel MARIN FEPR, 2275-4 #### [facility] ([id number]) [address], [address] [place] [address] TURBIDITY CLEAR Normal CLEAR [facility] Comment on above: Performed By: #### Angel MARIN FEPR, 2275-4 #### [facility] ([id number]) [address], [address] [place] [address] Urobilinogen (U) [Mass/Vol] mg/dL Normal <1.1 [facility] Comment on above: Performed By: #### Angel MARIN, FEPR, 2275-4 #### [facility] ([id number]) [address], [address] [place] [address] W.B.CELLS 1 /hpf Normal 0-5 [facility] Comment on above: Performed By: #### C BCA, FEPR, 6-4 #### [facility] ([id number]) [address], [facility] [address] [place] [address] 25-hydroxyvitamin D3 [Mass/V ol]on 10-17-2024 Vitamin D+Metabolites [Mass/Vol] 24 ng/mL Low 30 - 100 ng/mL [facility] Comment on above: Vitamin D status 25 [place] Vitamin D Deficiency <20 ng/mL Insufficiency 20-29 ng/mL Sufficiency 30-100 ng/mL Toxicity >100 ng/mL NOTE: A pediatric reference range has not been established by the pawn broker of this kit. The [place] [employer] recommends a Vitamin D level of = or >20ng/mL in infants and children. PERFORMED AT [facility] [address],[place] [address] CBC AND AUTO DIFFon 10-17-20 24 ABSOLUTE BASOPHIL 0.0 X10E9/L Normal 0.0-0.2 [facility] Comment on above: Performed By: #### C BCA, CMP, FEPR, 98940-7, 37883-9, 4-6, THYR, 2275-4, 2131-9, 93335-7, HA1C #### [facility] ([id number]) [address], [address] [place] [address] ABSOLUTE NEUTROPHIL 2.6 X10E9/L Normal 1.5-6.6 [facility] Comment on above: Performed By: #### C BCA, CMP, FEPR, 55107-1, 04611-6, 4-6, THYR, 2275-, 2132-9, 54117-9, HA1C #### [facility] ([id number]) [address], [address] [place] [address] Basophils/100 WBC (Bld) 0.6 % Normal [facility] Comment on above: Performed By: #### C BCA, CMP, FEPR, 72735-1, 86170-5, 3034-6, THYR, 2276-4, 2-9, 10095-4, HA1C #### [facility] ([id number]) [address], [address] [place] [address] Eosinophils (Bld) [#/Vol] 0.2 10*3/uL Normal 0.0-0.4 [facility] Comment on above: Performed By: #### C BCA, CMP, FEPR, 12045-8, 80755-1, 3034-6, THYR, 2276-4, 2-9, 99398-7, HA1C #### [facility] ([id number]) [address], [address] [place] [address] Eosinophils/100 WBC (Bld) 4.7 % Normal [facility] Comment on above: Performed By: #### C BCA, CMP, FEPR, 72742-5, 62313-4, 3034-6, THYR, 2276-4, 2-9, 46527-7, HA1C #### [facility] ([id number]) [address], [address] [place] [address] Erythrocyte distribution width (RBC) [Ratio] 13.4 % Normal 11.5-15.0 [facility] Comment on above: Performed By: #### C BCA, CMP, FEPR, 45274-9, 74912-4, 3034-6, THYR, 2276-4, 2132-9, 49272-7, HA1C #### [facility] ([id number]) [address], [address] [place] [address] Hematocrit (Bld) [Volume fraction] 41.4 % Normal 35-47 [facility] Comment on above: Performed By: #### C BCA, CMP, FEPR, 44483-6, 17681-4, 3034-6, THYR, 2276-4, 2-9, 40367-9, HA1C #### [facility] ([id number]) [address], [address] [place] [address] Hemoglobin (Bld) [Mass/Vol] 14.1 g/dL Normal 11.7-15.5 [facility] Comment on above: Performed By: #### C BCA, CMP, FEPR, 84115-8, 22926-5, 3034-6, THYR, 6-4, 2131-9, 09424-5, HA1C #### [facility] ([id number]) [address], [address] [place] [address] Lymphocytes (Bld) [#/Vol] 1.3 10*3/uL Normal 1.0-3.5 [facility] Comment on above: Performed By: #### C BCA, CMP, FEPR, 11157-0, 46204-6, 4-6, THYR, 6-4, 2131-9, 87209-9, HA1C #### [facility] ([id number]) [address], [address] [place] [address] Lymphocytes/100 WBC (Bld) 28.1 % Normal [facility] Comment on above: Performed By: #### C BCA, CMP, FEPR, 85730-0, 74967-3, 3034-6, THYR, 6-4, 2131-9, 34722-5, HA1C #### [facility] ([id number]) [address], [address] [place] [address] MCH (RBC) [Entitic mass] 31.8 pg Normal 27-34 [facility] Comment on above: Performed By: #### C BCA, CMP, FEPR, 98625-7, 47013-8, 3034-6, THYR, 2276-4, 2132-9, 21675-6, HA1C #### [facility] ([id number]) [address], [address] [place] [address] MCHC (RBC) [Mass/Vol] 34.1 g/dL Normal 32-36 [facility] Comment on above: Performed By: #### C BCA, CMP, FEPR, 77160-7, 35927-0, 3034-6, THYR, 2276-4, 2132-9, 39622-9, HA1C #### [facility] ([id number]) [address], [address] [place] [address] MCV (RBC) [Entitic vol] 93 fL Normal 80-100 [facility] Comment on above: Performed By: #### C BCA, CMP, FEPR, 73455-3, 38506-9, 3034-6, THYR, 2276-4, 2-9, 52178-4, HA1C #### [facility] ([id number]) [address], [address] [place] [address] Monocytes (Bld) [#/Vol] 0.4 10*3/uL Normal 0-0.9 [facility] Comment on above: Performed By: #### C BCA, CMP, FEPR, 33533-9, 38606-5, 3034-6, THYR, 2276-4, 2-9, 53374-0, HA1C #### [facility] ([id number]) [address], [address] [place] [address] Monocytes/100 WBC (Bld) 9.2 % Normal [facility] Comment on above: Performed By: #### C BCA, CMP, FEPR, 31783-2, 75415-2, 3034-6, THYR, 2276-4, 2132-9, 03530-1, HA1C #### [facility] ([id number]) [address], [address] [place] [address] Neutrophils/100 WBC (Bld) 57.4 % Normal [facility] Comment on above: Performed By: #### C BCA, CMP, FEPR, 54888-4, 88592-5, 3034-6, THYR, 2276-4, 2132-9, 21836-5, HA1C #### [facility] ([id number]) [address], [address] [place] [address] Platelet mean volume (Bld) [Entitic vol] 9.4 fL Normal 7-12 [facility] Comment on above: Performed By: #### C BCA, CMP, FEPR, 27589-7, 10202-6, 3034-6, THYR, 2276-4, 2132-9, 46066-0, HA1C #### [facility] ([id number]) [address] [place] [address] Platelets (Bld) [#/Vol] 254 10*3/uL Normal 150-450 [facility] Comment on above: Performed By: #### C BCA, CMP, FEPR, 74341-1, 38290-4, 3034-6, THYR, 2276-4, 2132-9, 50501-6, HA1C #### [facility] ([id number]) [address], [address] [place] [address] RBC COUNT 4.44 X10E12/L Normal 3.80-5.20 [facility] Comment on above: Performed By: #### C BCA, CMP, FEPR, 46627-2, 90145-0, 3034-6, THYR, 2276-4, 2132-9, 86348-8, HA1C #### [facility] ([id number]) [address], [address] [place] [address] WBC (Bld) [#/Vol] 4.6 10*3/uL Normal 4.0-11.0 [facility] Comment on above: Performed By: #### C BCA, CMP, FEPR, 24302-7, 21019-7, 3034-6, THYR, 2276-4, 2132-9, 29048-4, HA1C #### [facility] ([id number]) [address] [place] [address] CBC W Auto Differential pane l (Bld)on 10-17-2024 ABSOLUTE BASOPHIL 0 [facility] Comment on above: PERFORMED AT [facility] [address],[place] [address] Basophils/100 WBC (Bld) 0.6 % [facility] Eosinophils (Bld) [#/Vol] 0.2 10*3/uL [facility] Eosinophils/100 WBC (Bld) 4.7 % [facility] Erythrocyte distribution width (RBC) [Ratio] 13.4 % 11.5 - 15.0 % [facility] Hematocrit (Bld) [Volume fraction] 41.4 % 35 - 47 % [facility] Hemoglobin (Bld) [Mass/Vol] 14.1 g/dL 11.7 - 15.5 g/dL [facility] Lymphocytes (Bld) [#/Vol] 1.3 10*3/uL [facility] Lymphocytes/100 WBC (Bld) 28.1 % [facility] MCH (RBC) [Entitic mass] 31.8 pg 27 - 34 pg [facility] MCHC (RBC) [Mass/Vol] 34.1 g/dL 32 - 36 g/dL [facility] MCV (RBC) [Entitic vol] 93 fL 80 - 100 fL [facility] Monocytes (Bld) [#/Vol] 0.4 10*3/uL [facility] Monocytes/100 WBC (Bld) 9.2 % [facility] Neutrophils (Bld) [#/Vol] 2.6 10*3/uL [facility] Neutrophils/100 WBC (Bld) 57.4 % [facility] Platelet mean volume (Bld) [Entitic vol] 9.4 fL 7 - 12 fL [facility] Plate[facility] (Bld) [#/Vol] 254 10*3/uL [facility] RBC (Bld) [#/Vol] 4.44 10*6/uL [facility] WBC corrected for nucl RBC Auto (Bld) [#/Vol] 4.6 [facility] COMPREHENSIVE METABOLIC PANE Flo 10-17-2024 Albumin [Mass/Vol] 4.2 g/dL Normal 3.2-5.3 [facility] Comment on above: Performed By: #### C BCA, CMP, FEPR, 84110-7, 10695-0, 3034-6, THYR, 2276-4, 2132-9, 26895-4, HA1C #### [facility] ([id number]) [address], [address] [place] [address] ALP [Catalytic activity/Vol] 55 U/L Normal 39-130 [facility] Comment on above: Performed By: #### C BCA, CMP, FEPR, 32808-9, 07790-3, 3034-6, THYR, 2276-4, 2132-9, 39093-8, HA1C #### [facility] ([id number]) [address], [address] [place] [address] ALT [Catalytic activity/Vol] 14 U/L Normal 0-31 [facility] Comment on above: Performed By: #### C BCA, CMP, FEPR, 67620-4, 55958-3, 3034-6, THYR, 2276-4, 2132-9, 00496-7, HA1C #### [facility] ([id number]) [address], [address] [place] [address] Anion gap [Moles/Vol] 7 mmol/L Normal 5-15 [facility] Comment on above: Performed By: #### C BCA, CMP, FEPR, 54516-1, 05543-0, 3034-6, THYR, 2276-4, 2132-9, 65217-5, HA1C #### [facility] ([id number]) [address], [address] [place] [address] AST [Catalytic activity/Vol] 17 U/L Normal 0-41 [facility] Comment on above: Performed By: #### C BCA, CMP, FEPR, 08491-6, 44996-5, 3034-6, THYR, 2276-4, 2131-9, 63687-8, HA1C #### [facility] ([id number]) [address], [address] [place] [address] Bilirubin [Mass/Vol] 0.3 mg/dL Normal 0.3-1.2 [facility] Comment on above: Performed By: #### C BCA, CMP, FEPR, 63808-5, 23548-7, 3034-6, THYR, 2276-4, 2131-9, 07391-9, HA1C #### [facility] ([id number]) [address], [address] [place] [address] Calcium [Mass/Vol] 9.2 mg/dL Normal 8.5-10.5 [facility] Comment on above: Performed By: #### C BCA, CMP, FEPR, 05911-1, 45944-1, 3034-6, THYR, 2276-4, 2131-9, 59856-0, HA1C #### [facility] ([id number]) [address], [address] [place] [address] Chloride [Moles/Vol] 106 mmol/L Normal 98-109 [facility] Comment on above: Performed By: #### C BCA, CMP, FEPR, 80374-8, 34202-4, 3034-6, THYR, 2276-4, 2131-9, 91904-7, HA1C #### [facility] ([id number]) [address], [address] [place] [address] CO2 [Moles/Vol] 26 mmol/L Normal 22-32 [facility] Comment on above: Performed By: #### C BCA, CMP, FEPR, 67945-7, 61582-5, 3034-6, THYR, 2276-4, 2-9, 55976-1, HA1C #### [facility] ([id number]) [address], [address] [place] [address] Creatinine [Mass/Vol] 0.85 mg/dL Normal 0.40-1.00 [facility] Comment on above: Result Comment: METH OD TRACEABLE TO IDMS STANDARD Performed By: #### C BCA, CMP, FEPR, 26162-1, 39043-9, 3034-6, THYR, 2276-4, 2131-9, 91396-5, HA1C #### [facility] ([id number]) [address], [address] [place] [address] GFR/1.73 sq M.predicted among non-blacks MDRD (S/P/Bld) [Vol rate/Area] 88 mL/min/{1.73_m2} Normal >59 [facility] Comment on above: Result Comment: Reported eGFR is based on the CKD-EPI 2020 equation that does not use a race coefficient. Performed By: #### C BCA, CMP, FEPR, 66133-5, 39268-6, 3034-6, THYR, 2276-4, 2131-9, 81295-6, HA1C #### [facility] ([id number]) [address], [address] [place] [address] Glucose [Mass/Vol] 97 mg/dL Normal 65-99 [facility] Comment on above: Performed By: #### C BCA, CMP, FEPR, 35269-6, 38498-9, 3034-6, THYR, 2276-4, 2-9, 34819-2, HA1C #### [facility] ([id number]) [address], [address] [place] [address] Potassium [Moles/Vol] 4.1 mmol/L Normal 3.5-5.0 [facility] Comment on above: Performed By: #### C BCA, CMP, FEPR, 18333-0, 05520-1, 3034-6, THYR, 2276-4, 2132-9, 29999-6, HA1C #### [facility] ([id number]) [address], [address] [place] [address] Protein [Mass/Vol] 6.9 g/dL Normal 6.0-8.0 [facility] Comment on above: Performed By: #### C BCA, CMP, FEPR, 46605-3, 07160-3, 3034-6, THYR, 2276-4, 2132-9, 05644-3, HA1C #### [facility] ([id number]) [address] [facility], [address] [place] [address] Sodium [Moles/Vol] 139 mmol/L Normal 134-146 [facility] Comment on above: Performed By: #### C BCA, CMP, FEPR, 89115-5, 29248-8, 3034-6, THYR, 2276-4, 2132-9, 25427-9, HA1C #### [facility] ([id number]) [address] [facility], [address] [place] [address] Urea nitrogen [Mass/Vol] 15 mg/dL Normal 5-23 [facility] Comment on above: Performed By: #### C BCA, CMP, FEPR, 53990-6, 34518-6, 3034-6, THYR, 2276-4, 2132-9, 82618-0, HA1C #### [facility] ([id number]) [address], [address] [place] [address] Comprehensive metabolic pane flo 10-17-2024 Albumin [Mass/Vol] 4.2 g/dL 3.2 - 5.3 g/dL [facility] ALP [Catalytic activity/Vol] 55 U/L 39 - 130 U/L [facility] ALT No additional P-5'-P [Catalytic activity/Vol] 14 U/L 0 - 31 U/L [facility] Anion gap [Moles/Vol] 7 mmol/L 5 - 15 mmol/L [facility] AST [Catalytic activity/Vol] 17 U/L 0 - 41 U/L [facility] Bilirubin [Mass/Vol] 0.3 mg/dL 0.3 - 1 .2 mg/dL [facility] Calcium [Mass/Vol] 9.2 mg/dL 8.5 - 10. 5 mg/dL [facility] Chloride [Moles/Vol] 106 mmol/L 98 - 10 9 mmol/L [facility] CO2 [Moles/Vol] 26 mmol/L 22 - 32 mmol/L [facility] Creatine [Mass/Vol] 0.85 mg/dL 0.40 - 1 .00 mg/dL [facility] Comment on above: METHOD TRACEABLE TO IDID STANDARD GFR/1.73 sq M.predicted among non-blacks MDRD (S/P/Bld) [Vol rate/Area] 88 mL/min/{1.73_m2} - PINF [facility] Comment on above: Reported eGFR is based on the CKD-EPI 2020 equation that does not use a race coefficient. PERFORMED AT [address],[place] [address] Glucose [Mass/Vol] 97 mg/dL 65 - 99 mg/dL [facility] Potassium [Moles/Vol] 4.1 mmol/L 3.5 - 5.0 mmol/L [facility] Protein [Mass/Vol] 6.9 g/dL 6.0 - 8.0 g/dL NO [facility] Sodium [Moles/Vol] 139 mmol/L 134 - 146 mmol/L [facility] Urea nitrogen [Mass/Vol] 15 mg/dL 5 - 23 mg/dL [facility] FERRITINon 10-17-2024 Ferritin [Mass/Vol] 12 ng/mL Normal 11-307 [facility] Comment on above: Performed By: #### C BCA, FEPR, 2276-4 #### [facility] ([id number]) [facility] [place] [address] Ferritinon 10-17-2024 Ferritin [Mass/Vol] 12 ng/mL 11 - 307 ng/mL [facility] Comment on above: PERFORMED AT [address],[place] [address] HGB A1C (GLYCO-HGB)on 2023 Glucose [Mass/Vol] 100 mg/dL Normal [facility] Comment on above: Performed By: #### C TANIA, FEPR, 2276-4 #### [facility] ([id number]) [address], [address] [place] [address] HbA1c (Bld) [Mass fraction] 5.1 % Normal 4.4-5.6 [facility] Comment on above: Result Comment: NOTE ADA Guidelines Result HgbA1c Normal : less than 5.7 % Prediabetes : 5.7 % to 6.4 % Diabetes : > 6.4 % Use with caution in patients with abnormal hemoglobin variants as the half-life of red blood cells and in vivo glycation rates are affected. Performed By: #### C TANIA, FEPR, 2276-4 #### [facility] ([id number]) [address], [address] [place] [address] HbA1c (Bld) [Mass fraction]o n 10-17-2024 Average glucose Estimated from glycated hemoglobin (Bld) [Mass/Vol] 100 mg/dL [facility] Comment on above: PERFORMED AT [facility] [address] [facility],[place] [address] Hemoglobin A1con 10-17-2024 HbA1c (Bld) [Mass fraction] 5.1 % 4.4 - 5.6 % [facility] Comment on above: NOTE ADA Guidelines Result HgbA1c Normal : less than 5.7 % Prediabetes : 5.7 % to 6.4 % Diabetes : > 6.4 % Use with caution in patients with abnormal hemoglobin variants as the half-life of red blood cells and in vivo glycation rates are affected. IRON PROFILEon 10-17-2024 Iron [Mass/Vol] 37 ug/dL Low 50-170 [facility] Comment on above: Performed By: #### C TANIA, CMP, FEPR, 41185-2, 13201-0, 3034-6, THYR, 2276-4, 2132-9, 71849-5, HA1C #### [facility] ([id number]) [address], [address] [place] [address] IRON BINDING 386 ug/dL Normal 250-425 [facility] Comment on above: Performed By: #### C BCA, CMP, FEPR, 19256-6, 94953-9, 3034-6, THYR, 2276-4, 2132-9, 78857-9, HA1C #### [facility] ([id number]) [address], [address] [place] [address] IRON SATURATION 10 % SATURATION Low 15-50 [facility] Comment on above: Performed By: #### C BCA, CMP, FEPR, 67277-4, 05754-9, 3034-6, THYR, 2276-4, 2-9, 72100-1, HA1C #### [facility] ([id number]) [address], [address] [place] [address] Iron and Iron binding capaci ty panelon 10-17-2024 Iron [Mass/Vol] 37 ug/dL Low 50 - 170 ug/dL [facility] Iron binding capacity [Mass/Vol] 386 ug/dL 250 - 425 ug/dL [facility] Iron saturation [Mass fraction] 10 Low [facility] Comment on above: PERFORMED AT [facility] [address],[place] [address] Lipid 1996 panelon Cholesterol [Mass/Vol] 134 mg/dL Low 150 - 200 mg/dL [facility] Cholesterol in HDL [Mass/Vol] 41 mg/dL 39 - PINF mg/dL [facility] Comment on above: HDL <40 mg/dL - High Risk HDL > or = 40mg/dL- Desirable HDL >60 mg/dL - Negative Risk Cholesterol in HDL/Total Cholesterol [Mass ratio] 3.3 {ratio} 1.0 - 5.0 [facility] Comment on above: PERFORMED AT [place] [address] [facility],[place] [address] Cholesterol in LDL [Mass/Vol] 80 mg/dL NINF - 130 mg/dL [facility] Comment on above: LDL <100 mg/dL - Desirable LDL >160 mg/dL - High Risk Cholesterol in VLDL [Mass/Vol] 13 mg/dL 0 - 30 mg/dL [facility] Triglyceride [Mass/Vol] 63 mg/dL 27 - 150 mg/dL [facility] Cholesterol [Mass/Vol] 134 mg/dL Low 150-200 [facility] Comment on above: Performed By: #### C TANIA, CMP, FEPR, 82584-4, 32435-7, 4-6, THYR, 6-4, 2132-08, 12381-0, HA1C #### [facility] ([id number]) [address] [place] [address], [address] [place] [address] Cholesterol in HDL [Mass/Vol] 41 mg/dL Normal >39 [facility] Comment on above: Result Comment: HDL <40 mg/dL - High Risk HDL > or = 40mg/dL- Desirable HDL >60 mg/dL - Negative Risk Performed By: #### C BCA, CMP, FEPR, 55887-5, 29881-1, 4-6, THYR, 6-4, 9, 95138-5, HA1C #### [facility] ([id number]) [facility], [address] [place] [address] Cholesterol in LDL [Mass/Vol] 80 mg/dL Normal <130 [facility] Comment on above: Result Comment: LDL <100 mg/dL - Desirable LDL >160 mg/dL - High Risk Performed By: #### C BCA, CMP, FEPR, 39179-1, 58755-4, 3034-6, THYR, 2276-4, 2132-9, 00047-8, HA1C #### [facility] ([id number]) [address], [address] [place] [address] Cholesterol in VLDL [Mass/Vol] 13 mg/dL Normal 0-30 [facility] Comment on above: Performed By: #### C BCA, CMP, FEPR, 83852-0, 09642-3, 3034-6, THYR, 2276-4, 2132-9, 79908-8, HA1C #### [facility] ([id number]) [address], [address] [place] [address] CHOLESTEROL:HDL 3.3 Normal 1.0-5.0 [facility] Comment on above: Performed By: #### C BCA, CMP, FEPR, 03217-4, 21976-3, 3034-6, THYR, 2276-4, 2132-9, 77886-8, HA1C #### [facility] ([id number]) [address], [address] [place] [address] Triglyceride [Mass/Vol] 63 mg/dL Normal 27-150 [facility] Comment on above: Performed By: #### C BCA, CMP, FEPR, 09609-9, 98891-8, 3034-6, THYR, 2276-4, 2132-9, 28876-6, HA1C #### [facility] ([id number]) [address], [address] [place] [address] MAGNESIUMon 10-17-2024 Magnesium [Mass/Vol] 1.8 mg/dL Normal 1.8-2.6 [facility] Comment on above: Performed By: #### Angel MARIN, FEPR, 6-4 #### [facility] ([id number]) [address], [address] [place] [address] Magnesiumon 10-17-2024 Magnesium [Mass/Vol] 1.8 mg/dL 1.8 - 2 .6 mg/dL [facility] Comment on above: PERFORMED AT [facility] [address],[place] [address] No Panel Informationon 10-17 Interpretation and review of laboratory results Abnormal [facility] THYROID PROFILEon 10-17-2024 Free T4 [Mass/Vol] 0.90 ng/dL Normal 0.61-1.60 [facility] Comment on above: Performed By: #### Angel MARIN, FEPR, 6-4 #### [facility] ([id number]) [address], [address] [place] [address] TSH 0.50 uIU/mL Normal 0.49-4.67 [facility] Comment on above: Performed By: #### Angel MARIN, FEPR, 6-4 #### [facility] ([id number]) [address], [address] [place] [address] TRANSFERRINon 10-17-2024 Transferrin [Mass/Vol] 276 mg/dL Normal 168-336 [facility] Comment on above: Performed By: #### Angel MARIN, FEPR, 6-4 #### [facility] ([id number]) [address], [address] [place] [address] TSHon 10-17-2024 Free T4 [Mass/Vol] 0.9 ng/dL 0.61 - 1. 60 ng/dL [facility] Comment on above: PERFORMED AT [facility] [address],[place] [address] TSH Qn 0.5 m[IU]/L [facility] re Transferrinon 10-17-2024 Transferrin [Mass/Vol] 276 mg/dL 168 - 336 mg/dL [facility] Comment on above: PERFORMED AT [facility] [address],[place] [address] URINALYSISon 10-17-2024 Bilirubin Ql (U) Negative Normal NEG [facility] Comment on above: Performed By: #### C BCA, FEPR, 6-4 #### [facility] ([id number]) [address], [address] [place] [address] BLOOD/HGB Large Abnormal NEG [facility] Comment on above: Performed By: #### Angel BCA, FEPR, 2275-4 #### [facility] ([id number]) [address], [address] [place] [address] Color (U) ORANGE Abnormal YELLOW [facility] Comment on above: Performed By: #### Angel BCA, FEPR, 2275-4 #### [facility] ([id number]) [address], [address] [place] [address] Glucose Ql (U) Negative Normal NEG [facility] Comment on above: Performed By: #### C BCA, FEPR, 2275-4 #### [facility] ([id number]) [address], [address] [place] [address] Ketones Ql (U) Negative Normal NEG [facility] Comment on above: Performed By: #### Angel BCA, FEPR, 2275-4 #### [facility] ([id number]) [address], [address] [place] [address] Leukocyte esterase Test strip Ql (U) Negative Normal NEG [facility] Comment on above: Performed By: #### C BCA, FEPR, 2275-4 #### [facility] ([id number]) [address], [address] [place] [address] MUCOUS PRESENT Abnormal NONE [facility] Comment on above: Performed By: #### C BCA, FEPR, 2275-4 #### [facility] ([id number]) [address], [address] [place] [address] Nitrite Ql (U) Negative Normal NEG [facility] Comment on above: Performed By: #### C TANIA, FEPR, 2275-4 #### [facility] ([id number]) [address], [address] [place] [address] pH (U) 5.5 [pH] Normal 5.0-8.5 [facility] Comment on above: Performed By: #### Angel MARIN, FEPR, 2275-4 #### [facility] ([id number]) [address], [address] [place] [address] Protein Ql (U) 50 mg/dL Abnormal NEG [facility] Comment on above: Performed By: #### Angel MARIN, FEPR, 2275-4 #### [facility] ([id number]) [address] [place] [address] R.B.CELLS 5 /hpf Normal 0-5 [facility] Comment on above: Performed By: #### Angel MARIN, FEPR, 4 #### [facility] ([id number]) [address] [place] [address] Specific gravity (U) [Rel density] 1.029 Normal 1.003-1.035 [facility] Comment on above: Performed By: #### Angel MARIN, FEPR, 2275-4 #### [facility] ([id number]) [address], [address] [place] [address] SQUAMOUS EPITHELIUM 4 /hpf Normal 0-5 [facility] Comment on above: Performed By: #### Angel AMRIN, FEPR, 2275-4 #### [facility] ([id number]) [address] [place] [address] TURBIDITY CLEAR Normal CLEAR [facility] Comment on above: Performed By: #### C BCA, FEPR, 2276-4 #### [facility] ([id number]) [address] [place] [address] Urobilinogen (U) [Mass/Vol] mg/dL Normal <1.1 [facility] Comment on above: Performed By: #### C TANIA, FEPR, 2276-4 #### [facility] ([id number]) [address], [address] [place] [address] W.B.CELLS 4 /hpf Normal 0-5 [facility] Comment on above: Performed By: #### Angel BCA, FEPR, 2276-4 #### [facility] ([id number]) [address] [place] [address] Urinalysis, manual onlyon Bilirubin Ql (U) Negative Negative [facility] Color (U) ORANGE Abnormal YELLOW [facility] Epithelial cells Auto (Urine sed) [#/Area] 4 [facility] Glucose (U) [Mass/Vol] Negative Negative mg/dL [facility] Hemoglobin Auto test strip Ql (U) Large Abnormal Negative [facility] Ketones (U) [Mass/Vol] Negative Negative mg/dL [facility] Leukocyte esterase Auto test strip Ql (U) Negative Negative [facility] Mucus Ql (Urine sed) PRESENT Abnormal NONE [facility] Nitrite Auto test strip Ql (U) Negative Negative [facility] pH (U) 5.5 [pH] 5.0 - 8.5 [facility] Protein (U) [Mass/Vol] 50 mg/dL Abnormal Negative [facility] RBC Auto (Urine sed) [#/Area] 5 [facility] Specific gravity Refractometry automated (U) [Rel density] 1.029 1.003 - 1.035 [facility] Turbidity Ql (U) CLEAR CLEAR [facility] Urobilinogen Qn (U) <1.1 NINF [facility] WBC Auto (Urine sed) [#/Area] 4 [facility] Comment on above: PERFORMED AT [facility] [address],[place] [address] VITAMIN B12on 10-17-2024 Cobalamin (Vitamin B12) [Mass/Vol] 307 pg/mL Normal 180-914 [facility] Comment on above: Performed By: #### MENA Ortiz BCA, 6-4 #### [facility] ([id number]) [address] [place] [address] Vitamin B12on 10-17-2024 Cobalamin (Vitamin B12) [Mass/Vol] 307 pg/mL 180 - 914 pg/mL [facility] Comment on above: PERFORMED AT [facility] [address],[place] [address] Vitamin D+Metabolites [Mass/ Vol]on 10-17-2024 VITAMIN D 25 HYD TOT 24.0 ng/mL Low 30-100 [facility] Comment on above: Result Comment: Vitamin D status 25 [place] Vitamin D Deficiency <20 ng/mL Insufficiency 20-29 ng/mL Sufficiency 30-100 ng/mL Toxicity >100 ng/mL NOTE: A pediatric reference range has not been established by the pawn broker of this kit. The [employer] recommends a Vitamin D level of = or >20ng/mL in infants and children. Performed By: #### MENA Ortiz BCA, 6-4 #### [facility] ([id number]) [address] [place] [address] CBC AND AUTO DIFFon 06-08-20 24 ABSOLUTE BASOPHIL 0.1 X10E9/L Normal 0.0-0.2 [facility] Comment on above: Performed By: #### MENA Ortiz BCA, 6-4 #### [facility] ([id number]) [address] [place] [address] ABSOLUTE NEUTROPHIL 6.5 X10E9/L Normal 1.5-6.6 [facility] Comment on above: Performed By: #### C BCA, FEPR, 2275- #### [facility] ([id number]) [address] [place] [address] Basophils/100 WBC (Bld) 0.7 % Normal [facility] Comment on above: Performed By: #### C BCA, FEPR, 2275-4 #### [facility] ([id number]) [address] [place] [address] Eosinophils (Bld) [#/Vol] 0.1 10*3/uL Normal 0.0-0.4 [facility] Comment on above: Performed By: #### C BCA, FEPR, 2275-4 #### [facility] ([id number]) [address] [place] [address] Eosinophils/100 WBC (Bld) 1.5 % Normal [facility] Comment on above: Performed By: #### C BCA, FEPR, 4 #### [facility] ([id number]) [address], [address] [place] [address] Erythrocyte distribution width (RBC) [Ratio] 13.2 % Normal 11.5-15.0 [facility] Comment on above: Performed By: #### Angel BCA, FEPR, 2275-4 #### [facility] ([id number]) [address], [address] [place] [address] Hematocrit (Bld) [Volume fraction] 41.6 % Normal 35-47 [facility] Comment on above: Performed By: #### C BCA, FEPR, 2275-4 #### [facility] ([id number]) [address], [address] [place] [address] Hemoglobin (Bld) [Mass/Vol] 14.4 g/dL Normal 11.7-15.5 [facility] Comment on above: Performed By: #### Angel BCA, FEPR, 2276-03 #### [facility] ([id number]) [address], [facility] [address] [place] [address] Lymphocytes (Bld) [#/Vol] 1.2 10*3/uL Normal 1.0-3.5 [facility] Comment on above: Performed By: #### Angel MARIN, FEPR, 2275- #### [facility] ([id number]) [address], [facility] [address] [place] [address] Lymphocytes/100 WBC (Bld) 14.5 % Normal [facility] Comment on above: Performed By: #### Angel MARIN, FEPR, 2276-03 #### [facility] ([id number]) [address], [facility] [address] [place] [address] MCH (RBC) [Entitic mass] 33.1 pg Normal 27-34 [facility] Comment on above: Performed By: #### Angel MARIN, FEPR, 2276-03 #### [facility] ([id number]) [address], [address] [place] [address] MCHC (RBC) [Mass/Vol] 34.6 g/dL Normal 32-36 [facility] Comment on above: Performed By: #### Angel MARIN, FEPR, 2276-03 #### [facility] ([id number]) [address], [facility] [address] [place] [address] MCV (RBC) [Entitic vol] 96 fL Normal 80-100 [facility] Comment on above: Performed By: #### Angel MARIN, FEPR, 2276-03 #### [facility] ([id number]) [address] [place] [address] Monocytes (Bld) [#/Vol] 0.5 10*3/uL Normal 0-0.9 [facility] Comment on above: Performed By: #### Angel MARIN, FEPR, 2276-03 #### [facility] ([id number]) [address], [address] [place] [address] Monocytes/100 WBC (Bld) 5.6 % Normal [facility] Comment on above: Performed By: #### Angel BCA, FEPR, 2275-4 #### [facility] ([id number]) [address], [address] [place] [address] Neutrophils/100 WBC (Bld) 77.7 % Normal [facility] Comment on above: Performed By: #### C BCA, FEPR, 2275-4 #### [facility] ([id number]) [address], [address] [place] [address] Platelet mean volume (Bld) [Entitic vol] 8.9 fL Normal 7-12 [facility] Comment on above: Performed By: #### Angel MARIN, FEPR, 2275-4 #### [facility] ([id number]) [address], [address] [place] [address] Platelets (Bld) [#/Vol] 264 10*3/uL Normal 150-450 [facility] Comment on above: Performed By: #### Angel BCA, FEPR, 2275-4 #### [facility] ([id number]) [address], [address] [place] [address] RBC COUNT 4.36 X10E12/L Normal 3.80-5.20 [facility] Comment on above: Performed By: #### Angel BCA, FEPR, 2275-4 #### [facility] ([id number]) [address], [address] [place] [address] WBC (Bld) [#/Vol] 8.4 10*3/uL Normal 4.0-11.0 [facility] Comment on above: Performed By: #### Angel BCA, FEPR, 2275-4 #### [facility] ([id number]) [address], [address] [place] [address] FERRITINon 06-08-2024 Ferritin [Mass/Vol] 26 ng/mL Normal 11-307 [facility] Comment on above: Performed By: #### Angle BCA, FEPR, 6-4 #### [facility] ([id number]) [address], [facility] [address] [place] [address] IRON PROFILEon 06-08-2024 Iron [Mass/Vol] 92 ug/dL Normal 50-170 [facility] Comment on above: Performed By: #### C BCA, FEPR, 2275-4 #### [facility] ([id number]) [address], [facility] [address] [place] [address] IRON BINDING 354 ug/dL Normal 250-425 [facility] Comment on above: Performed By: #### Angel BCA, FEPR, 2275-4 #### [facility] ([id number]) [address], [address] [address] IRON SATURATION 26 % SATURATION Normal 15-50 [facility] Comment on above: Performed By: #### Angel BCA, FEPR, 6-4 #### [facility] ([id number]) [address] [place] [address] CBC AND AUTO DIFFon 16 24 ABSOLUTE BASOPHIL 0.1 X10E9/L Normal 0.0-0.2 [facility] Comment on above: Performed By: #### Angel BCA, FEPR, 6-4 #### [facility] ([id number]) [address] [address] ABSOLUTE NEUTROPHIL 3.3 X10E9/L Normal 1.5-6.6 [facility] Comment on above: Performed By: #### C BCA, FEPR, 6-4 #### [facility] ([id number]) [address] [place] [address] Basophils/100 WBC (Bld) 1.0 % Normal [facility] Comment on above: Performed By: #### Angel MARIN FEPR, 6-4 #### [facility] ([id number]) [address] [place] [address] Eosinophils (Bld) [#/Vol] 0.3 10*3/uL Normal 0.0-0.4 [facility] Comment on above: Performed By: #### Angel MARIN FEPR, 2275-4 #### [facility] ([id number]) [address] [place] [address] Eosinophils/100 WBC (Bld) 4.9 % Normal [facility] Comment on above: Performed By: #### Angel MARIN, FEPR, 2275-4 #### [facility] ([id number]) [address], [facility] [address] [place] [address] Erythrocyte distribution width (RBC) [Ratio] 15.4 % High 11.5-15.0 [facility] Comment on above: Performed By: #### Angel MARIN, FEPR, 2275-4 #### [facility] ([id number]) [address] [place] [address] Hematocrit (Bld) [Volume fraction] 40.1 % Normal 35-47 [facility] Comment on above: Performed By: #### Angel MARIN, FEPR, 2275-4 #### [facility] ([id number]) [address] [place] [address] Hemoglobin (Bld) [Mass/Vol] 13.1 g/dL Normal 11.7-15.5 [facility] Comment on above: Performed By: #### Angel MARIN, FEPR, 2275-4 #### [facility] ([id number]) [address] [place] [address] Lymphocytes (Bld) [#/Vol] 1.8 10*3/uL Normal 1.0-3.5 [facility] Comment on above: Performed By: #### Angel MARIN FEPR, 2276-03 #### [facility] ([id number]) [address] [place] [address] Lymphocytes/100 WBC (Bld) 30.6 % Normal [facility] Comment on above: Performed By: #### Angel MARIN FEPR, 2276-03 #### [facility] ([id number]) [address] [place] [address] MCH (RBC) [Entitic mass] 27.9 pg Normal 27-34 [facility] Comment on above: Performed By: #### Angel MARIN FEPR, 2276-03 #### [facility] ([id number]) [address] [place] [address] MCHC (RBC) [Mass/Vol] 32.7 g/dL Normal 32-36 [facility] Comment on above: Performed By: #### Angel MARIN FEPR, 2276-03 #### [facility] ([id number]) [address] [place] [address] MCV (RBC) [Entitic vol] 85 fL Normal 80-100 [facility] Comment on above: Performed By: #### Angel MARIN FEPR, 2276-03 #### [facility] ([id number]) [address] [place] [address] Monocytes (Bld) [#/Vol] 0.5 10*3/uL Normal 0-0.9 [facility] Comment on above: Performed By: #### Angel MARIN, FEPR, 2276-03 #### [facility] ([id number]) [address], [address] [place] [address] Monocytes/100 WBC (Bld) 8.5 % Normal [facility] Comment on above: Performed By: #### C BCA, FEPR, 2275-4 #### [facility] ([id number]) [address], [facility] [address] [place] [address] Neutrophils/100 WBC (Bld) 55.0 % Normal [facility] Comment on above: Performed By: #### Angel BCA, FEPR, 2275-4 #### [facility] ([id number]) [address] [place] [address] Platelet mean volume (Bld) [Entitic vol] 9.5 fL Normal 7-12 [facility] Comment on above: Performed By: #### Angel MARIN, FEPR, 2275-4 #### [facility] ([id number]) [address] [place] [address] Platelets (Bld) [#/Vol] 282 10*3/uL Normal 150-450 [facility] Comment on above: Performed By: #### Angel BCA, FEPR, 4 #### [facility] ([id number]) [address] [place] [address] RBC COUNT 4.70 X10E12/L Normal 3.80-5.20 [facility] Comment on above: Performed By: #### Angel BCA, FEPR, 2275-4 #### [facility] ([id number]) [address] [place] [address] WBC (Bld) [#/Vol] 6.0 10*3/uL Normal 4.0-11.0 [facility] Comment on above: Performed By: #### Angel BCA, FEPR, 2275-4 #### [facility] ([id number]) [address] [place] [address] FERRITINon 12-17-2023 Ferritin [Mass/Vol] 8 ng/mL Low 11-307 [facility] Comment on above: Performed By: #### Angel BCA, FEPR, 2275-4 #### [facility] ([id number]) [address] [place] [address] IRON PROFILEon 12-17-2023 Iron [Mass/Vol] 30 ug/dL Low 50-170 [facility] Comment on above: Performed By: #### C BCA, FEPR, 2276-4 #### [facility] ([id number]) [address] [place] [address] IRON BINDING 465 ug/dL High 250-425 [facility] Comment on above: Performed By: #### C BCA, FEPR, 2276-4 #### [facility] ([id number]) [address] [place] [address] IRON SATURATION 6 % SATURATION Low 15-50 [facility] Comment on above: Performed By: #### C BCA, FEPR, 2276-4 #### [facility] ([id number]) [address] [place] [address] CNOVon 06-27-2021 CNOV Office Visit ([facility] ) HILLARY STERN ([id number]) 1980 F Date Time Provider Department 06/27/21 11:[address] 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 Loss/Damage Expiration Date: ? Fitting Date: 1-2 years ago at an outside facility Fitting Account Specialist: Outside c.o.d. 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 Hillary was taken to the Mate Chief to cover today's appointment fee of $50.00. Recommendations 1. Patient advised to wear the aid daily. 2. Return in 2-3 weeks for follow up HAC if needed. 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] Problem List As Of Date: 06/27/2021 (None) Encounter Status:Closed by EZRA HOGAN on 06/27/21 [facility] CNOVon 06-07-2021 [facility] HILLARY STERN ([id number]) 1980 F Date Time Provider Department 06/07/21 10:00 AM LATRICE HOUSTON During your visit today, we recorded the following information about you: ADRIAN Mcneil 06/07/2021 11:14 AM Signed [facility] AUDIOLOGIC EVALUATION REPORT Name: Hillary Stern PSYCHIATRIC#: [id number] Date of Service: 06/07/2021 Date of : 1980 Age: [age] year old Referred by: Antwon Sarah, [employer] SUPERVISOR [address] [facility] [address] Referred for: Evaluation of the cause of [...] amplification. -- Annual audiologic evaluation Adrian Mcneil, [facility]-A Account Specialist TEIXEIRA Abbrev- iation Definition Degree of hearing sensitivity dB range WNL within normal limits WNL 0 - 20 SNHL sensorineural hearing loss Mild 20-40 CHL conductive hearing loss Moderate 40-55 MHL mixed hearing loss Moderately-Severe 55-70 WRS word recognition score Severe 70-90 ME middle ear Profound 90 + TM tympanic membrane Referring Provider: ANTWON SARAH [[id number]] Allergies As of Date: 06/07/2021 (Not on File) Date Reviewed: Never Reviewed Reason for Visit: Hearing Loss [1119] Primary Visit Diagnosis:Sensorineur al hearing loss, asymmetrical [H90.5] Problem List As Of Date: 06/07/2021 (None) Classic SmartForms filed during this visit: Audiometry Encounter Status:Closed by LATRICE HOUSTON on 06/07/21 Normal [facility] Vital Signs Date Time Vital Sign Value Performing Clinician Facility 12-28-2024 16:17-0500 Body mass index (BMI) [Ratio] 33.03 kg/m2 [email or web address] Work Phone: [facility] 12-28-2024 16:17-0500 Body weight 81.92 kg [email or web address] Work Phone: [facility] 12-28-2024 16:17-0500 Diastolic blood pressure 84 mm[Hg] [email or web address] Work Phone: [facility] 12-28-2024 16:17-0500 Systolic blood pressure 120 mm[Hg] [email or web address] Work Phone: [facility] 12-08-2024 13:24-0500 Body mass index (BMI) [Ratio] 32.37 kg/m2 Gillian Satnam DO Work Phone: [facility] 12-08-2024 13:24-0500 Body weight 80.29 kg Gillian Satnam DO Work Phone: [facility] 12-08-2024 13:24-0500 Diastolic blood pressure 72 mm[Hg] Gillian Satnam DO Work Phone: [facility] 12-08-2024 13:24-0500 Systolic blood pressure 130 mm[Hg] Gillian Satnam DO Work Phone: [facility] 11-20-2024 08:05-0500 Body height 157.5 cm Pfo 2 [facility] 11-20-2024 08:05-0500 Body mass index (BMI) [Ratio] 32.07 kg/m2 Pfo 2 [facility] 11-20-2024 08:05-0500 Body temperature 97.2 [degF] Pfo 2 [facility] 11-20-2024 08:05-0500 Body weight 79.56 kg Pfo 2 [facility] 11-20-2024 08:05-0500 Diastolic blood pressure 62 mm[Hg] Pfo 2 [facility] 11-20-2024 08:05-0500 Heart rate 73 /min Pfo 2 [facility] 11-20-2024 08:05-0500 Respiratory rate 18 /min Pfo 2 [facility] 11-20-2024 08:05-0500 SaO2% (BldA) [Mass fraction] 100 % Pfo 2 [facility] 11-20-2024 08:05-0500 Systolic blood pressure 117 mm[Hg] Pfo 2 [facility] 11-13-2024 08:50-0500 Diastolic blood pressure 74 mm[Hg] Pfo 2 [facility] 11-13-2024 08:50-0500 Heart rate 76 /min Pfo 2 [facility] 11-13-2024 08:50-0500 Respiratory rate 16 /min Pfo 2 [facility] 11-13-2024 08:50-0500 Systolic blood pressure 112 mm[Hg] Pfo 2 [facility] 11-13-2024 08:07-0500 Body temperature 97.9 [degF] Pfo 2 [facility] 11-13-2024 08:07-0500 SaO2% (BldA) [Mass fraction] 100 % Pfo 2 [facility] 11-03-2024 15:57-0500 Body height 157.5 cm Savanah Lupillohuangz [employer] SUPERVISOR Work Phone: [facility] 11-03-2024 15:57-0500 Body mass index (BMI) [Ratio] 31.97 kg/m2 Savanah Lupillolisaholz [employer] SUPERVISOR Work Phone: [facility] 11-03-2024 15:57-0500 Body temperature 97.81 [degF] Savanah Lupillohholz [employer] SUPERVISOR Work Phone: [facility] 11-03-2024 15:57-0500 Body weight 79.29 kg Savanah Lupillohholz [employer] SUPERVISOR Work Phone: [facility] 11-03-2024 15:57-0500 Diastolic blood pressure 88 mm[Hg] Savanah Lupillohholz [employer] SUPERVISOR Work Phone: [facility] 11-03-2024 15:57-0500 Heart rate 84 /min Savanah Aichholz [employer] SUPERVISOR Work Phone: [facility] 11-03-2024 15:57-0500 Respiratory rate 20 /min Savanah Aichholz [employer] SUPERVISOR Work Phone: [facility] 11-03-2024 15:57-0500 SaO2% (BldA) [Mass fraction] 99 % Savanah Aichholz [employer]OR SUPERVISOR Work Phone: [facility] 11-03-2024 15:57-0500 Systolic blood pressure 132 mm[Hg] Savanah Aichholz [employer]OR SUPERVISOR Work Phone: [facility] 10-06-2024 15:48-0500 Body height 157.5 cm Savanah Aichholz [employer] SUPERVISOR Work Phone: [facility] 10-06-2024 15:48-0500 Body mass index (BMI) [Ratio] 31.79 kg/m2 Savanah Reynoso [employer] SUPERVISOR Work Phone: [facility] 10-06-2024 15:48-0500 Body temperature 98.01 [degF] Savanah Reynoso [employer] SUPERVISOR Work Phone: [facility] 10-06-2024 15:48-0500 Body weight 78.83 kg Savanah Reynoso [employer] SUPERVISOR Work Phone: [facility] 10-06-2024 15:48-0500 Diastolic blood pressure 84 mm[Hg] Savanah Reynoso [employer] SUPERVISOR Work Phone: [facility] 10-06-2024 15:48-0500 Heart rate 78 /min Savanah Reynoso [employer] SUPERVISOR Work Phone: [facility] 10-06-2024 15:48-0500 Respiratory rate 18 /min Savanah Reynoso [employer] SUPERVISOR Work Phone: [facility] 10-06-2024 15:48-0500 SaO2% (BldA) [Mass fraction] 98 % Savanah eRynoso [employer]OR SUPERVISOR Work Phone: [facility] 10-06-2024 15:48-0500 Systolic blood pressure 128 mm[Hg] Savanah Reynoso [employer]OR SUPERVISOR Work Phone: [facility] 01-01-2024 15:42-0500 Body temperature 98.2 [degF] Pfo 3 [facility] 01-01-2024 15:42-0500 Diastolic blood pressure 73 mm[Hg] Pfo 3 [facility] 01-01-2024 15:42-0500 Heart rate 72 /min Pfo 3 [facility] 01-01-2024 15:42-0500 Respiratory rate 16 /min Pfo 3 [facility] 01-01-2024 15:42-0500 SaO2% (BldA) [Mass fraction] 100 % Pfo 3 [facility] 01-01-2024 15:42-0500 Systolic blood pressure 111 mm[Hg] Pfo 3 [facility] 01-01-2024 14:53-0500 Body height 157.5 cm Pfo 3 [facility] 01-01-2024 14:53-0500 Body mass index (BMI) [Ratio] 31.45 kg/m2 Pfo 3 [facility] 01-01-2024 14:53-0500 Body weight 78.02 kg Pfo 3 [facility] 12-25-2023 15:57-0500 Diastolic blood pressure 73 mm[Hg] Pfo 3 [facility] 12-25-2023 15:57-0500 Heart rate 76 /min Pfo 3 [facility] 12-25-2023 15:57-0500 Respiratory rate 16 /min Pfo 3 [facility] 12-25-2023 15:57-0500 Systolic blood pressure 113 mm[Hg] Pfo 3 [facility] 12-25-2023 15:12-0500 Body height 157.5 cm Pfo 3 [facility] 12-25-2023 15:12-0500 Body mass index (BMI) [Ratio] 31.83 kg/m2 Pfo 3 [facility] 12-25-2023 15:12-0500 Body temperature 98.49 [degF] Pfo 3 [facility] 12-25-2023 15:12-0500 Body weight 78.93 kg Pfo 3 [facility] 12-25-2023 15:12-0500 SaO2% (BldA) [Mass fraction] 100 % Pfo 3 [facility] Encounters Encounter Date Encounter Type Care Provider Facility Start: 12-28-2024 End: 12-28-2024 Patient encounter procedure Consultant Marketplace[employer] DO Work Phone: [facility] Comment on above: Pre-op examination; Menorrhagia with regular cycle; Abnormal uterine bleeding; Pelvic pain in female Start: 12-28-2024 End: 12-28-2024 Preprocedural examination done Consultant [employer] DO Work Phone: [facility] Start: 12-28-2024 End: 12-28-2024 ambulatory GILLIAN SATNAM Not Available Start: 12-08-2024 End: 12-08-2024 Bamboo flowsheet Gillian Satnam DO Work Phone: [facility] Start: 12-08-2024 End: 12-08-2024 Bamboo flowsheet Gillian Satnam DO Work Phone: [facility] Start: 12-08-2024 End: 12-08-2024 Office outpatient visit 15 minutes Gillian Satnam DO Work Phone: [facility] Comment on above: Perimenopausal sympt oms; History of recurrent UTI (urinary tract infection); Menorrhagia with regular cycle Start: 12-08-2024 End: 12-08-2024 ambulatory GILLIAN SATNAM Not Available Start: 11-30-2024 End: 11-30-2024 ambulatory SAVANAH SAULADRIENNE [facility] Start: 11-20-2024 End: 11-20-2024 ambulatory Pfo Infusion Chair 2 [facility] Comment on above: Iron deficiency anem ia due to chronic blood loss (Primary Dx) Start: 11-13-2024 End: 11-13-2024 ambulatory Pfo Infusion Chair 2 [facility] Comment on above: Iron deficiency anem ia due to chronic blood loss (Primary Dx) Start: 11-05-2024 End: 11-05-2024 Orders Only Matthew Jara MD Work Phone: [facility] Comment on above: Iron deficiency anem ia due to chronic blood loss (Primary Dx) Start: 11-03-2024 End: 11-03-2024 Office outpatient visit 15 minutes Savanah Reynoso [employer] SUPERVISOR Work Phone: [facility] Comment on above: Iron deficiency anem ia, unspecified iron deficiency anemia type (Primary Dx); Vitamin D deficiency; Dizziness and giddiness Start: 11-03-2024 End: 11-03-2024 ambulatory SAVANAH REYNOSO Not Available Start: 11-03-2024 End: 11-03-2024 Bamboo flowsheet Savanah Reynoso [employer] SUPERVISOR Work Phone: [facility] Start: 11-03-2024 End: 11-03-2024 Bamboo flowsheet Savanah Reynoso [employer]OR SUPERVISOR Work Phone: [facility] Start: 10-20-2024 End: 10-20-2024 Refill Savanah Reynoso [employer] SUPERVISOR Work Phone: [facility] Comment on above: Acute cystitis witho ut hematuria (Primary Dx) Yeast infection of t he vagina (Primary Dx) Start: 10-19-2024 End: 10-19-2024 Orders Only Savanah Reynoso [employer] SUPERVISOR Work Phone: [facility] Comment on above: Iron deficiency anem ia, unspecified iron deficiency anemia type (Primary Dx); Asymptomatic microscopic hematuria; Vitamin D deficiency Start: 10-17-2024 End: 10-17-2024 External Result Encounter Savanah Reynoso [employer] SUPERVISOR Work Phone: [facility] Unsolicited Start: 10-17-2024 End: 10-17-2024 External Result Encounter Savanah Reynoso [employer] SUPERVISOR Work Phone: [facility] Unsolicited Start: 10-17-2024 End: 10-17-2024 ambulatory SAVANAH REYNOSO [facility] Start: 10-06-2024 End: 10-06-2024 Office outpatient visit 25 minutes Savanah Reynoso [employer] SUPERVISOR Work Phone: [facility] Comment on above: Dizziness and giddin ess (Primary Dx); Other fatigue; Iron deficiency anemia, unspecified iron deficiency anemia type Start: 10-06-2024 End: 10-06-2024 ambulatory SAVANAH REYNOSO Not Available Start: 10-06-2024 End: 10-06-2024 Bamboo flowsheet Savanah Reynoso [employer] SUPERVISOR Work Phone: [facility] Start: 10-06-2024 End: 10-06-2024 Bamboo flowsheet Savanah Reynoso [employer] SUPERVISOR Work Phone: [facility] Start: 07-16-2024 End: 07-16-2024 ambulatory SAVANAH REYNOSO Not Available Start: 06-12-2024 End: 06-12-2024 [facility] Start: 06-08-2024 End: 06-08-2024 [facility] Start: 02-07-2024 End: 03-02-2024 ambulatory [facility] Start: 01-01-2024 End: 01-02-2024 ambulatory Pfo Infusion Chair 3 [facility] Comment on above: Iron deficiency anem ia due to chronic blood loss (Primary Dx) Start: 12-25-2023 End: 01-02-2024 ambulatory Pfo Infusion Chair 3 [facility] Comment on above: Iron deficiency anem ia due to chronic blood loss (Primary Dx) Start: 12-19-2023 Orders Only Roxana Humphrey RN [facility] Comment on above: Iron deficiency anem ia due to chronic blood loss (Primary Dx) Start: 12-17-2023 End: 12-17-2023 [facility] Start: 11-22-2022 End: 11-23-2022 ambulatory MD Alfredo Daly Facility:[facility] Start: 10-18-2022 End: 10-19-2022 ambulatory MD Dylan Fuentes Facility:[facility] Procedures Date Procedure Procedure Detail Performing Clinician Start: 12-30-2024 Urine test visual color cmprsn meths Gillian Satnam DO Work Phone: Start: 10-17-2024 Complete blood count with white cell differential, automated Savanah Reynoso [employer] SUPERVISOR Work Phone: Start: 10-17-2024 Comprehensive metabo lic panel Savanah Reynoso [employer] SUPERVISOR Work Phone: Start: 10-17-2024 Lipid panel Savanah avila [employer] SUPERVISOR Work Phone: Start: 10-17-2024 Urnls dip stick/tabl et rgnt non-auto w/o micrscp Savanah Reynoso [employer] SUPERVISOR Work Phone: Start: 06-12-2024 Follow-up visit Follow-up MATTHEW JARA Start: 05-16-2023 Adult depression scr eening assessment Roxana Humphrey RN Start: 05-10-2023 Mammography Roxana gramajo RN Start: 05-08-2022 Microscopic observat ion [Identifier] in Cervix by Cyto stain Roxana Humphrey RN Plan of Treatment Date Care Activity Detail Author Start: 06-12-2025 Adult [facility] Start: 05-08-2025 Screening for malign ant neoplasm of cervix [facility] Start: 01-19-2025 End: 10-19-2025 25-hydroxyvitamin D3 [Mass/volume] in Serum or Plasma Vitamin D 25 hydroxy Lab Routine Vitamin D deficiency Expected: 01/19/2025 (Approximate), Expires: 10/19/2025 [facility] Comment on above: Expected: 01/19/2025 (Approximate), Expires: 10/19/2025 Start: 01-19-2025 End: 10-19-2025 CBC W Auto Differential panel - Blood CBC and differential Lab Routine Iron deficiency anemia, unspecified iron deficiency anemia type Expected: 01/19/2025 (Approximate), Expires: 10/19/2025 [facility] Comment on above: Expected: 01/19/2025 (Approximate), Expires: 10/19/2025 Start: 01-19-2025 End: 10-19-2025 Iron + transferrin + TIBC Iron + transferrin + TIBC Lab Routine Iron deficiency anemia, unspecified iron deficiency anemia type Expected: 01/19/2025 (Approximate), Expires: 10/19/2025 [facility] Comment on above: Expected: 01/19/2025 (Approximate), Expires: 10/19/2025 Start: 01-12-2025 End: 01-12-2025 Professional / ancillary services management 01/12/2025 9:30 AM EST Ancillary Procedure [facility] [address] [place] [id number] [facility] Start: 01-06-2025 End: 01-06-2025 Patient encounter procedure 01/06/2025 6:00 PM EST Office Visit [facility] [address] [place] [address] Savanah Reynoso, [employer] [address] [place] [address] [facility] Start: 01-01-2025 Adult BMI Screening Adult BMI Screen ing [facility] Start: 12-25-2024 Tobacco Screening Tobacco Screening [facility] Start: 12-21-2024 Screening for malign ant neoplasm of cervix [facility] Start: 12-08-2024 End: 12-08-2025 US Pelvis US Pelvis w/ TV Imaging Routine Menorrhagia with regular cycle Expected: 12/08/2024, Expires: 12/08/2025 [facility] Work Phone: Comment on above: Expected: 12/08/2024 , Expires: 12/08/2025 Start: 12-08-2024 End: 12-08-2024 Patient encounter procedure [facility] Comment on above: Perimenopausal sympt oms Start: 11-20-2024 End: 11-20-2024 ambulatory 11/20/2024 8:00 AM EST Infusion Ifrah Gramajo [facility] [address] [place] [phone] Ifrah Orantes Mcminn [facility] Start: 11-18-2024 End: 10-19-2025 Urinalysis complete panel - Urine Urinalysis with reflex microscopic (clean catch) Lab Routine Asymptomatic microscopic hematuria Expected: 11/18/2024 (Approximate), Expires: 10/19/2025 [facility] Work Phone: Comment on above: Expected: 11/18/2024 (Approximate), Expires: 10/19/2025 Start: 11-13-2024 End: 11-13-2024 ambulatory 11/13/2024 8:00 AM EST Infusion Ifrah Gramajo [facility] [address] [place] [phone] Ifrah Lamberto [facility] Start: 11-03-2024 End: 11-03-2024 Patient encounter procedure [facility] Comment on above: Vitamin D deficiency (Primary Dx); Dizziness and giddiness Start: 10-06-2024 End: 10-06-2024 Patient encounter procedure 10/06/2024 3:40 PM EST Office Visit [facility] [address] [place] [address] Savanah Reynoso NP [address] [place] [address] Arrived [facility] Comment on above: Arrived Start: 10-06-2024 End: 10-06-2025 25-hydroxyvitamin D3 [Mass/volume] in Serum or Plasma Vitamin D 25 hydroxy Lab Routine Other fatigue Dizziness and giddiness Expected: 10/06/2024 (Approximate), Expires: 10/06/2025 [facility] Comment on above: Expected: 10/06/2024 (Approximate), Expires: 10/06/2025 Start: 10-06-2024 End: 10-06-2025 CBC W Auto Differential panel - Blood CBC and differential Lab Routine Iron deficiency anemia, unspecified iron deficiency anemia type Expected: 10/06/2024 (Approximate), Expires: 10/06/2025 [facility] Work Phone: Comment on above: Expected: 10/06/2024 (Approximate), Expires: 10/06/2025 Start: 10-06-2024 End: 10-06-2025 Cobalamin (Vitamin B12) [Mass/volume] in Serum or Plasma Vitamin B12 Lab Routine Iron deficiency anemia, unspecified iron deficiency anemia type Expected: 10/06/2024 (Approximate), Expires: 10/06/2025 [facility] Comment on above: Expected: 10/06/2024 (Approximate), Expires: 10/06/2025 Start: 10-06-2024 End: 10-06-2025 Comprehensive metabolic 2000 panel - Serum or Plasma Comprehensive metabolic panel Lab Routine Other fatigue Dizziness and giddiness Expected: 10/06/2024 (Approximate), Expires: 10/06/2025 [facility] Comment on above: Expected: 10/06/2024 (Approximate), Expires: 10/06/2025 Start: 10-06-2024 End: 10-06-2025 Ferritin [Mass/volume] in Serum or Plasma Ferritin Lab Routine Iron deficiency anemia, unspecified iron deficiency anemia type Expected: 10/06/2024 (Approximate), Expires: 10/06/2025 [facility] Comment on above: Expected: 10/06/2024 (Approximate), Expires: 10/06/2025 Start: 10-06-2024 End: 10-06-2025 Iron + transferrin + TIBC Iron + transferrin + TIBC Lab Routine Iron deficiency anemia, unspecified iron deficiency anemia type Expected: 10/06/2024 (Approximate), Expires: 10/06/2025 [facility] Comment on above: Expected: 10/06/2024 (Approximate), Expires: 10/06/2025 Start: 10-06-2024 End: 10-06-2025 Lipid 1996 panel - Serum or Plasma Lipid panel Lab Routine Other fatigue Expected: 10/06/2024 (Approximate), Expires: 10/06/2025 [facility] Comment on above: Expected: 10/06/2024 (Approximate), Expires: 10/06/2025 Start: 10-06-2024 End: 10-06-2025 Magnesium [Mass/volume] in Serum or Plasma Magnesium Lab Routine Other fatigue Dizziness and giddiness Expected: 10/06/2024 (Approximate), Expires: 10/06/2025 [facility] Comment on above: Expected: 10/06/2024 (Approximate), Expires: 10/06/2025 Start: 10-06-2024 End: 10-06-2025 Thyrotropin [Units/volume] in Serum or Plasma TSH Lab Routine Other fatigue Dizziness and giddiness Expected: 10/06/2024 (Approximate), Expires: 10/06/2025 [facility] Comment on above: Expected: 10/06/2024 (Approximate), Expires: 10/06/2025 Start: 10-06-2024 End: 10-06-2025 Thyroxine (T4) free [Mass/volume] in Serum or Plasma T4, free Lab Routine Other fatigue Dizziness and giddiness Expected: 10/06/2024 (Approximate), Expires: 10/06/2025 [facility] Comment on above: Expected: 10/06/2024 (Approximate), Expires: 10/06/2025 Start: 10-06-2024 End: 10-06-2025 Urinalysis complete panel - Urine Urinalysis with reflex microscopic (clean catch) Lab Routine Other fatigue Iron deficiency anemia, unspecified iron deficiency anemia type Expected: 10/06/2024 (Approximate), Expires: 10/06/2025 [facility] Comment on above: Expected: 10/06/2024 (Approximate), Expires: 10/06/2025 Start: 08-02-2024 COVID-19 Vaccine ( season) COVID-19 Vaccine () [facility] Start: 08-02-2024 Influenza vaccination Influenza Vacc ine [facility] Start: 05-16-2024 Adult BMI Follow Up Plan Adult BMI Follow Up Plan [facility] Start: 05-16-2024 Adult BMI Screening Adult BMI Screen ing [facility] Start: 05-16-2024 Depression Screening Depression Scre ening [facility] Start: 05-16-2024 Tobacco Screening Tobacco Screening [facility] Start: 05-10-2024 Screening for malign ant neoplasm of breast Mammogram [facility] Start: 05-07-2024 End: 05-07-2024 Patient encounter procedure 05/07/2024 9:15 AM EDT Office Visit Ifrah Gramajo [facility] [address] [place] [phone] Matthew Jara MD [facility] [address] [place] [address] Ifrah Gramajo [facility] Start: 04-01-2024 End: 12-19-2024 CBC W Auto Differential panel - Blood CBC auto differential Lab Routine Iron deficiency anemia due to chronic blood loss Expected: 04/01/2024, Expires: 12/19/2024 [facility] Work Phone: Comment on above: Expected: 04/01/2024 , Expires: 12/19/2024 Start: 04-01-2024 End: 04-01-2025 Iron and TIBC Iron and TIBC Lab Routine Iron deficiency anemia due to chronic blood loss Expected: 04/01/2024, Expires: 04/01/2025 [facility] Comment on above: Expected: 04/01/2024 , Expires: 04/01/2025 Start: 01-01-2024 End: 01-01-2024 ambulatory 01/01/2024 3:00 PM EST Infusion Ifrah L [facility] [address] [place] [address] Ifrah L Mcminn [facility] Start: 08-02-2023 COVID-19 Vaccine ( season) COVID-19 Vaccine () [facility] Start: 08-02-2023 Influenza vaccination Influenza Vacc ine [facility] Start: 02-19-2021 DTaP,Tdap and Td Vaccines (2 - Td or Tdap) DTaP,Tdap and Td Vaccines (2 - Td or Tdap) [facility] Start: 2002 Screening for malign ant neoplasm of cervix Pap Smear [facility] Endometrial biopsy Endometrial b iopsy Procedures Routine Menorrhagia with regular cycle Abnormal uterine bleeding Pelvic pain in female Ordered: 12/28/2024 [facility] Work Phone: Comment on above: Ordered: 12/28/2024 End: 12-19-2024 Ferritin [Mass/volume] in Serum or Plasma Ferritin Lab Routine Iron deficiency anemia due to chronic blood loss 1 Occurrences starting 12/19/2023 until 12/19/2024 [facility] Comment on above: 1 Occurrences starti ng 12/19/2023 until 12/19/2024 End: 11-14-2024 Oxygen Therapy - Maintain SpO2: 90% or greater; *SPREADER Guidelines for O2: Yes; Document: [email or web address]/Or ders/Respiratory%20Care% 20Guidelines/CPG%20Oxyge [id number] Oxygen Therapy - Maintain SpO2: 90% or greater; *SPREADER Guidelines for O2: Yes; Document: [email or web address]_Reference/ Orders/Respiratory%20Ca re%20Guidelines/CPG%20O [email or web address] Respiratory Care STAT Iron deficiency anemia due to chronic blood loss As Needed for 1 Occurrences starting 11/13/2024 until 11/14/2024 [facility]: Comment on above: As Needed for 1 Occu rrences starting 11/13/2024 until 11/14/2024 Immunizations Immunization Date Immunization Notes Care Provider Fa [facility] 11-11-2022 Seasonal, quadrivale nt, recombinant, injectable influenza vaccine, preservative free Savanah Reynoso [employer] Work Phone: [facility] 11-11-2022 influenza virus vaccine, unspecified formulation Roxana Humphrey RN [facility] 12-09-2021 Seasonal, quadrivale nt, recombinant, injectable influenza vaccine, preservative free Roxana Humphrey RN [facility] Work Phone: 09-03-2019 influenza, injectabl e, quadrivalent, preservative free Roxana Humphrey RN [facility] 09-03-2018 influenza, injectabl e, quadrivalent, preservative free Roxana Humphrey RN [facility] 09-03-2018 seasonal influenza, intradermal, preservative free Roxana Humphrey RN [facility] 02-19-2011 tetanus toxoid, redu noemy diphtheria toxoid, and acellular pertussis vaccine, adsorbed Roxana Humphrey RN [facility] Payers Date Payer Category Payer Self-pay 2024 Managed Care Other (unspecified) [employer] [id number] 2023 Unknown [employer] Sanjay DIALLO [id number] 2023-Present [phone] [address] [place] [address] [id number] 2023 Unknown [id number] 2022 Private Health Insurance 1981 Unknown [id number] [id number]. 196 1981 Unknown [id number] 2.16840.1.393982.3.579.2. 196 1981 Unknown [id number] 2.16840.1.496409.3.579.2. 1286 1981 Unknown [id number] 2.16.840.1.161098.3.579.2. 128 1981 Unknown [id number] 2.16.840.1.783040.3.579.2. 1285 1981 Unknown [id number] 2.16.840.1.338980.3.579.2. 1285 1981 Unknown [id number] 2.16.840.1.446773.3.579.2. 128 1981 Unknown [id number] 2.16.840.1.867008.3.579.2. 128 1981 Unknown [id number] 2.16.840.1.022490.3.579.2. 1285 1981 Unknown [id number] 2.16.840.1.657889.3.579.2. 1286 1981 Unknown [id number] 2.16.840.1.364084.3.579.2. 1286 1981 Unknown [id number] 2.16.840.1.591852.3.579.2. 1286 1981 Unknown [id number] 2.16.840.1.522999.3.579.2. 1259 1981 Unknown [id number] 2.16.840.1.323656.3.579.2. 1259 1981 Unknown [id number] 2.16.840.1.203596.3.579.2. 1259 1981 Unknown [id number] 2.16.840.1.815397.3.579.2. 1259 1981 Unknown [id number] 2.16.840.1.325955.3.579.2. 1259 Social History Date Type Detail Facility Start: 02-01-2023 End: 10-08-2023 Tobacco smoking status NHIS Never smoked tobacco [facility] Start: 02-01-2023 End: 10-08-2023 Tobacco use and exposure Smokeless tobacco non-user [facility] Start: 05-16-2023 End: 11-20-2024 Alcohol intake Current drinker of alcohol (finding) [facility] Start: 05-08-2022 End: 11-03-2024 History of Social function [facility] Work Phone: Start: 05-08-2022 End: 11-03-2024 Alcohol Use Disorder Identification Test - Consumption [AUDIT-C] [facility] Work Phone: How often to you hav e a drink containing alcohol? 2-4 times a month [facility] Work Phone: How many standard dr inks containing alcohol do you have on a typical day? 1 or 2 [facility] How often do you hav e 6 or more drinks on 1 occasion? Never [facility] Adolescent depressio n screening assessment 2 [facility] Start: 01-04-2021 Alcohol Comment socially [facility] Start: 1980 Sex Assigned At Not on file [facility] Start: 07-16-2024 End: 12-28-2024 Alcoholic beverage intake Ex-drinker (finding) [facility] Start: 02-13-2023 Gender identity Identifies as female gender (finding) [facility] Start: 07-07-2015 Sex Female (finding) [facility] Clinical Notes 06-07-2021 to 12-28-2024 Mary Beth Ngo - 12/28/2024 3:30 PM Simona Gomez LPN - 12/08/2024 1:10 PM Sudhir Rollins RN - 11/20/2024 8:00 AM Kadeem Zimmerman RN - 11/13/2024 8:00 AM ESTPatient Instructions Note Date & Type Note Facility 12-28-2024 History of Present illness Narrative Reason for Appointment: Patient ID: Hillary Stern is a 44 y.o. female who presents for Pre-op Visit and Endometrial Biopsy Patient presents today for Pre Op appointment. Patient is scheduled to undergo Endometrial Ablation with [facility] on 01/22/[address] Hay at [facility]. 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 Iron deficiency anemia 12/13/2022 Menorrhagia with regular cycle 10/08/2023 Microcytic hypochromic anemia 10/08/2023 Sciatica of right side 10/08/2023 Seasonal allergic rhinitis 10/08/2023 Sensorineural hearing loss (SNHL) 10/08/2023 Tinnitus 10/08/2023 Yeast infection of the vagina 02/27/2024 Encounter for screening mammogram for malignant neoplasm of breast 07/16/2024 Other fatigue 10/06/2024 Dizziness and giddiness 10/06/2024 Perimenopausal symptoms 10/06/2024 Vitamin D deficiency 10/19/2024 Asymptomatic microscopic hematuria 10/19/2024 Acute cystitis without hematuria 10/20/2024 Resolved Ambulatory Problems Diagnosis Date Noted Absolute anemia 12/13/2022 Other chronic pain 10/08/2023 Other disturbances of skin sensation 10/08/2023 Skin tag 10/08/2023 Uses hearing aid 10/08/2023 Pap smear of cervix not needed 10/06/2024 Past Medical History: Diagnosis Date Acute conjunctivitis, unspecified acute conjunctivitis type, unspecified laterality Environmental allergies H/O being hospitalized Hayfever History of medical problems Sinusitis, unspecified chronicity, unspecified location HISTORY PAST MEDICAL HISTORY SOCIAL HISTORY Past Medical History: Diagnosis Date Acute conjunctivitis, unspecified acute conjunctivitis type, unspecified laterality Congenital deafness left ear Environmental allergies H/O being hospitalized childbirth x3 Hayfever History of medical problems of son (03/20/12), asthma attack Other chronic pain 10/08/2023 Other disturbances of skin sensation 10/08/2023 Seasonal allergic rhinitis unspecified trigger Sinusitis, unspecified chronicity, unspecified location Skin tag 10/08/2023 Social History Tobacco Use Smoking status: Never Smokeless tobacco: Never Substance Use Topics Alcohol use: Not Currently Alcohol/week: 0.0 - 1.0 standard drinks of alcohol Drug use: Never FAMILY HISTORY Family History Problem Relation Name Age of Onset Hypertension Mother Hyperlipidemia Mother Colon polyps Mother dysplastic Hearing loss Mother Hyperlipidemia Father Hypertension Father Heart failure Father Deafness Sister No Known Problems Sister Hypertension Maternal Grandmother Heart failure Maternal Grandmother Diabetes Maternal Grandmother Brain cancer Maternal Grandmother Cancer Maternal Grandfather Heart disease Maternal Grandfather Breast cancer Paternal Grandmother Stroke Paternal Grandfather Hypertension Mother's Sister Deafness Mother's Sister Asthma Child Hirschsprung's disease Child Deafness Child congenital, w/ cochlear implants Heart disease Father's Brother SURGICAL HISTORY Past Surgical History: Procedure Laterality Date CARPAL TUNNEL RELEASE x 2 REVIEW OF SYSTEMS Review of Systems: Review of Systems Constitutional: Negative. HENT: Negative. Eyes: Negative. Respiratory: Negative. Cardiovascular: Negative. Gastrointestinal: Negative. Genitourinary: Positive for menstrual problem and pelvic pain. Musculoskeletal: Negative. Skin: Negative. Neurological: Negative. All other systems reviewed and are negative. Hematological: Negative. Endocrine: Negative. Allergic/Immunologic: Negative. OBJECTIVE Objective: Physical Exam Constitutional: Appearance: Normal appearance. She is well-developed. Genitourinary: Vulva normal. Cardiovascular: Rate and Rhythm: Normal rate and regular rhythm. Pulmonary: Effort: Pulmonary effort is normal. Breath sounds: Normal breath sounds. Abdominal: General: Bowel sounds are normal. There is no distension. Palpations: Abdomen is soft. Tenderness: There is no abdominal tenderness. There is no guarding or rebound. Musculoskeletal: General: No swelling. Normal range of motion. Right lower leg: No edema. Left lower leg: No edema. Neurological: Mental Status: She is alert and oriented to person, place, and time. Skin: General: Skin is warm and dry. Psychiatric: Mood and Affect: Mood normal. Behavior: Behavior normal. Vitals and nursing note reviewed. Exam conducted with a sporting goods sales associate present. Vitals: Estimated body mass index is 32.37 kg/m as calculated from the following: Height as of 11/03/24: 5' 2 . Weight as of 12/08/24: 177 lb. BP: Patient's last menstrual period was 11/07/2024. ASSESSMENT & PLAN ICD-10-CM 1. Pre-op examination Z01.818 2. Menorrhagia with regular cycle N92.0 3. Abnormal uterine bleeding N93.9 4. Pelvic pain in female R10.2 EMBX: Patient was placed in dorsal lithotomy position with feet in stirrups. A sterile speculum was placed into the vagina and the cervix was visualized. The cervix was grasped with a single tooth tenaculum. The endometrial pipette was placed through the cervix into the uterus, endometrial curettage was performed and sampling was obtained, endometrial curettings were placed in formalin, and single tooth tenaculum was removed. Excellent hemostasis was assured. All instruments were removed from vagina. Pre Op: Patient is doing well but has complaints of bleeding and pelvic pain. Patient has tried hormone therapy in the past but all attempts to subside patients issues have failed. I have discussed conservative management vs. surgical management with the patient in detail and patient desires surgical management at this time. Patient will undergo Endometrial Ablation with [facility] on 01/22/2025. Surgical consents were signed, mmc was reviewed, and patient is to proceed to [facility] OR. Follow Up: Patient is to follow up between 1-2 weeks post op to assess proper healing and recovery from procedure. Documented by: Faye Ayala LPN on behalf of Gillian Hay D.O. documented in this encounter [facility] 12-08-2024 History of Present illness Narrative Reason for Appointment: Patient ID: Hillary Stern is a 44 y.o. female who presents for Menopause (Pt present today for perimenopausal symptoms) Patient presents today for Acute Visit. 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 Iron deficiency anemia 12/13/2022 Menorrhagia with regular cycle 10/08/2023 Microcytic hypochromic anemia 10/08/2023 Sciatica of right side 10/08/2023 Seasonal allergic rhinitis 10/08/2023 Sensorineural hearing loss (SNHL) 10/08/2023 Tinnitus 10/08/2023 Yeast infection of the vagina 02/27/2024 Encounter for screening mammogram for malignant neoplasm of breast 07/16/2024 Other fatigue 10/06/2024 Dizziness and giddiness 10/06/2024 Perimenopausal symptoms 10/06/2024 Vitamin D deficiency 10/19/2024 Asymptomatic microscopic hematuria 10/19/2024 Acute cystitis without hematuria 10/20/2024 Resolved Ambulatory Problems Diagnosis Date Noted Absolute anemia 12/13/2022 Other chronic pain 10/08/2023 Other disturbances of skin sensation 10/08/2023 Skin tag 10/08/2023 Uses hearing aid 10/08/2023 Pap smear of cervix not needed 10/06/2024 Past Medical History: Diagnosis Date Acute conjunctivitis, unspecified acute conjunctivitis type, unspecified laterality Environmental allergies H/O being hospitalized Hayfever History of medical problems Sinusitis, unspecified chronicity, unspecified location HISTORY PAST MEDICAL HISTORY SOCIAL HISTORY Past Medical History: Diagnosis Date Acute conjunctivitis, unspecified acute conjunctivitis type, unspecified laterality Congenital deafness left ear Environmental allergies H/O being hospitalized childbirth x3 Hayfever History of medical problems of son (03/20/12), asthma attack Other chronic pain 10/08/2023 Other disturbances of skin sensation 10/08/2023 Seasonal allergic rhinitis unspecified trigger Sinusitis, unspecified chronicity, unspecified location Skin tag 10/08/2023 Social History Tobacco Use Smoking status: Never Smokeless tobacco: Never Substance Use Topics Alcohol use: Not Currently Alcohol/week: 0.0 - 1.0 standard drinks of alcohol Drug use: Never FAMILY HISTORY Family History Problem Relation Name Age of Onset Hypertension Mother Hyperlipidemia Mother Colon polyps Mother dysplastic Hearing loss Mother Hyperlipidemia Father Hypertension Father Heart failure Father Deafness Sister No Known Problems Sister Hypertension Maternal Grandmother Heart failure Maternal Grandmother Diabetes Maternal Grandmother Brain cancer Maternal Grandmother Cancer Maternal Grandfather Heart disease Maternal Grandfather Breast cancer Paternal Grandmother Stroke Paternal Grandfather Hypertension Mother's Sister Deafness Mother's Sister Asthma Child Hirschsprung's disease Child Deafness Child congenital, w/ cochlear implants Heart disease Father's Brother SURGICAL HISTORY Past Surgical History: Procedure Laterality Date CARPAL TUNNEL RELEASE x 2 REVIEW OF SYSTEMS Review of Systems: Review of Systems Constitutional: Negative. HENT: Negative. Eyes: Negative. Respiratory: Negative. Cardiovascular: Negative. Gastrointestinal: Negative. Genitourinary: Positive for frequency and menstrual problem. Musculoskeletal: Negative. Skin: Negative. Neurological: Negative. All other systems reviewed and are negative. Hematological: Negative. Endocrine: Negative. Allergic/Immunologic: Negative. OBJECTIVE Objective: Physical Exam Constitutional: Appearance: Normal appearance. She is well-developed. Cardiovascular: Rate and Rhythm: Normal rate and regular rhythm. Pulmonary: Effort: Pulmonary effort is normal. Breath sounds: Normal breath sounds. Abdominal: General: Bowel sounds are normal. There is no distension. Palpations: Abdomen is soft. Tenderness: There is no abdominal tenderness. There is no guarding or rebound. Musculoskeletal: General: No swelling. Normal range of motion. Right lower leg: No edema. Left lower leg: No edema. Neurological: Mental Status: She is alert and oriented to person, place, and time. Skin: General: Skin is warm and dry. Psychiatric: Mood and Affect: Mood normal. Behavior: Behavior normal. Vitals and nursing note reviewed. Exam conducted with a sporting goods sales associate present. Vitals: Estimated body mass index is 32.37 kg/m as calculated from the following: Height as of 11/03/24: 5' 2 . Weight as of this encounter: 177 lb. BP: 130/72 Patient's last menstrual period was 11/07/2024. ASSESSMENT & PLAN ICD-10-CM 1. Perimenopausal symptoms N95.1 Ambulatory referral to Obstetrics / Gynecology 2. History of recurrent UTI (urinary tract infection) Z87.440 3. Menorrhagia with regular cycle N92.0 Pt has complaints of recurrent UTIs, hot flashes, night sweats, low iron, and heavy periods. Pt advised to use premarin cream pea sized amount over urethral opening. Pt has complaints of heavy periods, pt had vasectomy. Pt to be set up for ablation. Pt to return for embx/preop. Pt started Wellbutrin two weeks ago. Pt advised to bring in dosage next visit. Pt given ultrasound order to have obtained. Documented by Elvi Gomez LPN on behalf of: Gillian Hay DO documented in this encounter [facility] 11-20-2024 History of Present illness Narrative Patient here for feraheme as scheduled. Patient has had iron before and denies any issues. IV started, blood return noted and flushed. Feraheme given over 30 minutes per order, patient tolerated well. IV flushed, discontinued, and pressure dressing applied. Patient discharged in stable condition documented in this encounter [facility] 11-13-2024 History of Present illness Narrative Patient is here for IV Feraheme as scheduled. She has received in the past and denies any issues from medication. PIV initiated in right forearm without incident. Brisk blood return verified [...] to private vehicle. documented in this encounter [facility] 11-03-2024 History of Present illness Narrative Associated Problem(s): Iron deficiency anemia Would like referral to Hematology for possible iron infusion Pt is unable to tolerate the iron medication she has had infusions in the past and would rather go that route, she is continuing to take the vitamin d tho Pt states that she has been starting to get restless legs at night, she knows that has to do with her iron since that usually happens like it did before when her iron was low. Images from the original note were not included. Hillary Stern is a 43 y.o. female presents with chief complaint of Iron Deficiency HPI: Here for recheck and to review labs She denies any dizziness at all or balance issues what so ever She cannot tolerate oral iron, and used to take IV iron infusions at [facility] Would like a referral back to there. Also reports that she saw an ortho at [facility] in the past that said it looked like she had some iron issues with her bones as well, had an MRI brain, told white matter changes more than should be for her age, was supposed to see neurology, never fu on that. Somewhat vague history given for this SUBJECTIVE: MEDICATIONS: Current Outpatient Medications Medication Instructions azelastine (Optivar) 0.05 % ophthalmic solution 1 drop, Ophthalmic, 2 times daily cetirizine (ZYRTEC) 10 mg, Oral, Daily RT cholecalciferol (VITAMIN D-3) 50 mcg, Oral, Daily ferrous sulfate 325 mg, Oral, Daily with breakfast, Do not crush, chew, or split. triamcinolone (Nasacort) 55 MCG/ACT nasal inhaler 2 sprays, Each Nostril, Daily RT ALLERGIES: No Known Allergies REVIEW OF SYMPTOMS: Review of Systems Constitutional: Positive for fatigue. Negative for appetite change, chills and fever. HENT: Negative for congestion, ear pain and sore throat. Eyes: Negative for pain, discharge, redness and visual disturbance. Respiratory: Negative for cough, shortness of breath and wheezing. Cardiovascular: Negative for chest pain, palpitations and leg swelling. Gastrointestinal: Negative for abdominal pain, blood in stool, constipation, diarrhea, nausea and vomiting. Genitourinary: Negative for difficulty urinating, dysuria and frequency. Musculoskeletal: Negative for arthralgias, back pain, joint swelling and myalgias. Skin: Negative for rash and wound. Neurological: Negative for dizziness, tremors, seizures, syncope and headaches. Psychiatric/Behavioral: Negative for behavioral problems, self-injury and suicidal ideas. The patient is not nervous/anxious. Hematological: Does not bruise/bleed easily. Endocrine: Negative for polydipsia, polyphagia and polyuria. Allergic/Immunologic: Negative for environmental allergies and food allergies. PAST MEDICAL HISTORY Past Medical History: Diagnosis Date Acute conjunctivitis, unspecified acute conjunctivitis type, unspecified laterality Congenital deafness left ear Environmental allergies H/O being hospitalized childbirth x3 Hayfever History of medical problems of son (03/20/12), asthma attack Other chronic pain 10/08/2023 Other disturbances of skin sensation 10/08/2023 Seasonal allergic rhinitis unspecified trigger Sinusitis, unspecified chronicity, unspecified location Skin tag 10/08/2023 Past Surgical History: Procedure Laterality Date CARPAL TUNNEL RELEASE x 2 family history includes Asthma in her child; Brain cancer in her maternal grandmother; Breast cancer in her paternal grandmother; Cancer in her maternal grandfather; Colon polyps in her mother; Deafness in her child, mother's sister, and sister; Diabetes in her maternal grandmother; Hearing loss in her mother; Heart disease in her father's brother and maternal grandfather; Heart failure in her father and maternal grandmother; Hirschsprung's disease in her child; Hyperlipidemia in her father and mother; Hypertension in her father, maternal grandmother, mother, and mother's sister; No Known Problems in her sister; Stroke in her paternal grandfather. OBJECTIVE: Visit Vitals BP 132/88 (BP Location: Left arm, Patient Position: Sitting, BP Cuff Size: Adult long) Pulse 84 Temp 97.8 F (Temporal) Resp 20 Ht 5' 2 Wt 174 lb 12.8 oz SpO2 99% BMI 31.97 kg/m Smoking Status Never BSA 1.86 m Physical Exam Vitals and nursing note reviewed. Constitutional: General: She is not in acute distress. Appearance: Normal appearance. HENT: Head: Normocephalic and atraumatic. Right Ear: External ear normal. Left Ear: External ear normal. Nose: Nose normal. Mouth/Throat: Mouth: Mucous membranes are moist. Eyes: Extraocular Movements: Extraocular movements intact. Conjunctiva/sclera: Conjunctivae normal. Cardiovascular: Rate and Rhythm: Normal rate and regular rhythm. Pulses: Normal pulses. Heart sounds: Normal heart sounds. Pulmonary: Effort: Pulmonary effort is normal. Breath sounds: Normal breath sounds. Abdominal: General: Bowel sounds are normal. There is no distension. Palpations: Abdomen is soft. There is no mass. Tenderness: There is no abdominal tenderness. Musculoskeletal: General: Normal range of motion. Cervical back: Normal range of motion and neck supple. Right lower leg: No edema. Left lower leg: No edema. Skin: General: Skin is warm and dry. Capillary Refill: Capillary refill takes 2 to 3 seconds. Findings: No rash. Neurological: General: No focal deficit present. Mental Status: She is alert and oriented to person, place, and time. Psychiatric: Mood and Affect: Mood normal. Behavior: Behavior normal. Thought Content: Thought content normal. Judgment: Judgment normal. ASSESSMENT AND PLAN: Follow up in about 2 months (around 01/04/2025) for Recheck. Problem List Items Addressed This Visit Iron deficiency anemia Would like referral to Hematology for possible iron infusion Relevant Orders Ambulatory referral to Hematology / Oncology Dizziness and giddiness No acute findings in labs to suggest cause of dizziness, does have some low iron Resolved Remote hx of possible abnormal MRI brain, will have pt sign record release for [facility] in [place] to get records Vitamin D deficiency - Primary Level 10/17/24 24, started on supplement Associated Problem(s): Dizziness and giddiness No acute findings in labs to suggest cause of dizziness, does have some low iron Resolved Remote hx of possible abnormal MRI brain, will have pt sign record release for [facility] in [place] to get records Associated Problem(s): Vitamin D deficiency Level 10/17/24 24, started on supplement documented in this encounter [facility] 11-03-2024 Instructions Savanah Reynoso NP - 11/03/2024 3:40 PM EST Iron: will refer to Hematolgy at [facility] doctor Dr Jara Obtain copies of records from [facility], please sign a record release documented in this encounter [facility] 10-06-2024 History of Present illness Narrative Associated Problem(s): Other fatigue Check labs Associated Problem(s): Dizziness and giddiness No clear etiology, and has grossly normal neuro exam Start with labs If normal, consider neuro Associated Problem(s): Iron deficiency anemia No iron infusion for some time Check labs Pt has been having dizzy spells for a week in a half now mainly in the morning and a couple times at night. No other symptoms other than fatigue. Pt is wanting to get her iron checked, possible diabetes (maternal gma has diabetes and mother has pre diabetes) pt is also checking for pre menopause and labs like thyroid due to fatigue, spotting, gaining weight. Pt had gotten a ct/mri done a couple years ago at [facility] in [place] where she was told she had a lot of white tissue Images from the original note were not included. Hillary Stern is a 43 y.o. female presents with chief complaint of No chief complaint on file. HPI: Dizziness: no recent URI, no new meds, no stroke type symptoms Feels like on boat. No definitely related to position changes either +more stress recently as well Dizziness This is a new problem. The current episode started 1 to 4 weeks ago. The problem occurs intermittently. The problem has been waxing and waning. Associated symptoms include fatigue. Pertinent negatives include no abdominal pain, anorexia, arthralgias, change in bowel habit, chest pain, chills, congestion, coughing, diaphoresis, fever, headaches, joint swelling, myalgias, nausea, neck pain, numbness, rash, sore throat, swollen glands, urinary symptoms, vertigo, visual change, vomiting or weakness. Nothing aggravates the symptoms. She has tried nothing for the symptoms. SUBJECTIVE: MEDICATIONS: Current Outpatient Medications Medication Instructions azelastine (Optivar) 0.05 % ophthalmic solution 1 drop, Ophthalmic, 2 times daily cetirizine (ZYRTEC) 10 mg, Oral, Daily RT triamcinolone (Nasacort) 55 MCG/ACT nasal inhaler 2 sprays, Each Nostril, Daily RT ALLERGIES: No Known Allergies REVIEW OF SYMPTOMS: Review of Systems Constitutional: Positive for fatigue. Negative for chills, diaphoresis and fever. HENT: Positive for hearing loss. Negative for congestion and sore throat. Eyes: Negative. Respiratory: Negative. Negative for cough. Cardiovascular: Negative. Negative for chest pain. Gastrointestinal: Negative. Negative for abdominal pain, anorexia, change in bowel habit, nausea and vomiting. Genitourinary: Spotting between periods Musculoskeletal: Negative for arthralgias, joint swelling, myalgias and neck pain. Skin: Negative. Negative for rash. Neurological: Positive for dizziness. Negative for vertigo, weakness, numbness and headaches. Psychiatric/Behavioral: Negative. Hematological: Negative. PAST MEDICAL HISTORY Past Medical History: Diagnosis Date Acute conjunctivitis, unspecified acute conjunctivitis type, unspecified laterality Congenital deafness left ear Environmental allergies H/O being hospitalized childbirth x3 Hayfever History of medical problems of son (03/20/12), asthma attack Other chronic pain 10/08/2023 Other disturbances of skin sensation 10/08/2023 Seasonal allergic rhinitis unspecified trigger Sinusitis, unspecified chronicity, unspecified location Skin tag 10/08/2023 Past Surgical History: Procedure Laterality Date CARPAL TUNNEL RELEASE x 2 family history includes Asthma in her child; Brain cancer in her maternal grandmother; Breast cancer in her paternal grandmother; Cancer in her maternal grandfather; Colon polyps in her mother; Deafness in her child, mother's sister, and sister; Diabetes in her maternal grandmother; Hearing loss in her mother; Heart disease in her father's brother and maternal grandfather; Heart failure in her father and maternal grandmother; Hirschsprung's disease in her child; Hyperlipidemia in her father and mother; Hypertension in her father, maternal grandmother, mother, and mother's sister; No Known Problems in her sister; Stroke in her paternal grandfather. OBJECTIVE: Visit Vitals BP 128/84 (BP Location: Left arm, Patient Position: Sitting, BP Cuff Size: Adult long) Pulse 78 Temp 98 F (Temporal) Resp 18 Ht 5' 2 Wt 173 lb 12.8 oz SpO2 98% BMI 31.79 kg/m Smoking Status Never BSA 1.86 m Physical Exam Vitals and nursing note reviewed. Constitutional: General: She is not in acute distress. Appearance: Normal appearance. She is not ill-appearing. HENT: Head: Normocephalic and atraumatic. Right Ear: Tympanic membrane, ear canal and external ear normal. Left Ear: Tympanic membrane, ear canal and external ear normal. Nose: Nose normal. No congestion or rhinorrhea. Mouth/Throat: Mouth: Mucous membranes are moist. Pharynx: No oropharyngeal exudate or posterior oropharyngeal erythema. Eyes: General: No scleral icterus. Extraocular Movements: Extraocular movements intact. Conjunctiva/sclera: Conjunctivae normal. Pupils: Pupils are equal, round, and reactive to light. Neck: Vascular: No carotid bruit. Cardiovascular: Rate and Rhythm: Normal rate and regular rhythm. Pulses: Normal pulses. Heart sounds: Normal heart sounds. Pulmonary: Effort: Pulmonary effort is normal. Breath sounds: Normal breath sounds. No wheezing or rales. Abdominal: General: Bowel sounds are normal. There is no distension. Palpations: Abdomen is soft. There is no mass. Tenderness: There is no abdominal tenderness. Musculoskeletal: General: Normal range of motion. Cervical back: Normal range of motion and neck supple. Right lower leg: No edema. Left lower leg: No edema. Lymphadenopathy: Cervical: No cervical adenopathy. Skin: General: Skin is warm and dry. Capillary Refill: Capillary refill takes 2 to 3 seconds. Findings: No rash. Neurological: General: No focal deficit present. Mental Status: She is alert and oriented to person, place, and time. Cranial Nerves: No cranial nerve deficit. Gait: Gait normal. Deep Tendon Reflexes: Reflexes normal. Comments: Neg romberg, neg ulnar drift Psychiatric: Mood and Affect: Mood normal. Behavior: Behavior normal. Thought Content: Thought content normal. Judgment: Judgment normal. ASSESSMENT AND PLAN: No follow-ups on file. Problem List Items Addressed This Visit Iron deficiency anemia No iron infusion for some time Check labs Relevant Orders CBC and differential Iron + transferrin + TIBC Ferritin Urinalysis with reflex microscopic (clean catch) Vitamin B12 Other fatigue Check labs Relevant Orders Comprehensive metabolic panel Lipid panel TSH T4, free Urinalysis with reflex microscopic (clean catch) Magnesium Vitamin D 25 hydroxy Dizziness and giddiness - Primary No clear etiology, and has grossly normal neuro exam Start with labs If normal, consider neuro Relevant Orders Comprehensive metabolic panel TSH T4, free Magnesium Vitamin D 25 hydroxy documented in this encounter [facility] 01-01-2024 History of Present illness Narrative Patient [...] to private vehicle. documented in this encounter [facility] 12-25-2023 History of Present illness Narrative Patient [...] to private vehicle. documented in this encounter [facility] 12-19-2023 History of Present illness Narrative Reviewed labs with patient. She would like to have iv iron again. Message sent to Dr. Jara to order. Will call to schedule once approved by insurance. Follow up scheduled with Dr. Jara in May. She will get labs rechecked prior. documented in this encounter [facility] 06-27-2021 Note HNO ID: [id number] Author: ADRIAN Khan, [facility] Service: ? 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 Loss/Damage Expiration Date: ? Fitting Date: 1-2 years ago at an outside facility Fitting Account Specialist: Outside c.o.d. 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 Hillary was taken to the Mate Chief to cover today's appointment fee of $50.00. Recommendations 1. Patient advised to wear the aid daily. 2. Return in 2-3 weeks for follow up HAC if needed. Betty Khan, [facility]/A Clinical Account Specialist [facility] 06-07-2021 Note HNO ID: [id number] Author: ADRIAN Mcneil Service: ? Author Type: Account Specialist Type: Progress Notes Filed: 06/07/2021 11:14 AM Note Text: Head [facility] AUDIOLOGIC EVALUATION REPORT Name: Hillary Stern PSYCHIATRIC#: [id number] Date of Service: 06/07/2021 Date of : 1980 Age: [age] year old Referred by: Antwon Sarah NP [id number] [facility] [id number] Referred for: Evaluation of the cause of [...] amplification. -- Annual audiologic evaluation Adrian Mcneil, CCC-A Account Specialist TEIXEIRA Abbrev- iation Definition Degree of hearing sensitivity dB range WNL within normal limits WNL 0 - 20 SNHL sensorineural hearing loss Mild 20-40 CHL conductive hearing loss Moderate 40-55 MHL mixed hearing loss Moderately-Severe 55-70 WRS word recognition score Severe 70-90 ME middle ear Profound 90 + TM tympanic membrane [facility] Evaluation note Diagnosis Iron deficiency anemia due to chronic blood loss- Primary Iron deficiency anemia secondary to blood loss (chronic) documented in this encounter [facility]* Diagnosis Iron deficiency anemia due to chronic blood loss- Primary Iron deficiency anemia secondary to blood loss (chronic) documented in this encounter [facility]* Diagnosis Iron deficiency anemia due to chronic blood loss- Primary Iron deficiency anemia secondary to blood loss (chronic) documented in this encounter [facility]* Diagnosis Seasonal allergic rhinitis, unspecified trigger- Primary Encounter for screening mammogram for malignant neoplasm of breast Dizziness and giddiness- Primary Other fatigue Iron deficiency anemia, unspecified iron deficiency anemia type [facility] Diagnosis Seasonal allergic rhinitis, unspecified trigger- Primary Encounter for screening mammogram for malignant neoplasm of breast Dizziness and giddiness- Primary Other fatigue Iron deficiency anemia, unspecified iron deficiency anemia type Perimenopausal symptoms Acute cystitis without hematuria- Primary documented in this encounter [facility]* Diagnosis Seasonal allergic rhinitis, unspecified trigger- Primary Encounter for screening mammogram for malignant neoplasm of breast Dizziness and giddiness- Primary Other fatigue Iron deficiency anemia, unspecified iron deficiency anemia type Perimenopausal symptoms Yeast infection of the vagina- Primary Candidiasis of vulva and vagina documented in this encounter [facility]* Diagnosis Seasonal allergic rhinitis, unspecified trigger- Primary Encounter for screening mammogram for malignant neoplasm of breast Dizziness and giddiness- Primary Other fatigue Iron deficiency anemia, unspecified iron deficiency anemia type Perimenopausal symptoms Iron deficiency anemia, unspecified iron deficiency anemia type- Primary Asymptomatic microscopic hematuria Vitamin D deficiency documented in this encounter [facility]* Diagnosis Seasonal allergic rhinitis, unspecified trigger- Primary Encounter for screening mammogram for malignant neoplasm of breast Dizziness and giddiness- Primary Other fatigue Iron deficiency anemia, unspecified iron deficiency anemia type Perimenopausal symptoms Iron deficiency anemia, unspecified iron deficiency anemia type- Primary Vitamin D deficiency Dizziness and giddiness [facility] Diagnosis Iron deficiency anemia due to chronic blood loss- Primary Iron deficiency anemia secondary to blood loss (chronic) documented in this encounter [facility]* Diagnosis Iron deficiency anemia due to chronic blood loss- Primary Iron deficiency anemia secondary to blood loss (chronic) documented in this encounter [facility]* Diagnosis Iron deficiency anemia due to chronic blood loss- Primary Iron deficiency anemia secondary to blood loss (chronic) documented in this encounter [facility]* Diagnosis Seasonal allergic rhinitis, unspecified trigger- Primary Encounter for screening mammogram for malignant neoplasm of breast Dizziness and giddiness- Primary Other fatigue Iron deficiency anemia, unspecified iron deficiency anemia type Perimenopausal symptoms Iron deficiency anemia, unspecified iron deficiency anemia type- Primary Vitamin D deficiency Dizziness and giddiness Perimenopausal symptoms History of recurrent UTI (urinary tract infection) Menorrhagia with regular cycle [facility] Diagnosis Seasonal allergic rhinitis, unspecified trigger- Primary Encounter for screening mammogram for malignant neoplasm of breast Dizziness and giddiness- Primary Other fatigue Iron deficiency anemia, unspecified iron deficiency anemia type Perimenopausal symptoms Iron deficiency anemia, unspecified iron deficiency anemia type- Primary Vitamin D deficiency Dizziness and giddiness Pre-op examination Menorrhagia with regular cycle Abnormal uterine bleeding Unspecified disorder of menstruation and other abnormal bleeding from female genital tract Pelvic pain in female Unspecified symptom associated with female genital organs documented in this encounter [facility] HealthcareInstructionsNot on filedocumented in this encounterProMedimo Health SystemInstructionsNot on filedocumented in this encounterProMedimo Health SystemInstructionsNot on filedocumented in this encounterProFirelands Regional Medical Center SystemInstructionsNot on filedocumented in this encounterMetroHealth [facility] Summary Purpose Family History No Family History Records FoundNo Family History Records FoundNo Family History Records FoundNo Family History Records FoundNo Family History Records Found Advance Directives No Advanced Directives Records FoundNo Advanced Directives Records FoundNo Advanced Directives Records FoundNo Advanced Directives Records FoundNo Advanced Directives Records Found Additional Source Comments INFORMATION SOURCE (unrecogn ized section and content) DATE CREATED AUTHOR 01/04/2022 [facility] DATE CREATED AUTHOR AUTHOR'S ORGANIZ ATION 11/29/2022 [facility] DATE CREATED AUTHOR AUTHOR'S ORGANIZ ATION 12/01/2024 [facility] DATE CREATED AUTHOR AUTHOR'S ORGANIZ ATION 12/29/2024 [facility] DATE CREATED AUTHOR AUTHOR'S ORGANIZ ATION 12/30/2024 [facility] Care Teams (unrecognized sec tion and content) Primer Supervisor Relationship Specialty Start Date End Date Savanah Reynoso, MAGNETIC PROSPECTOR-RESIDENT ENGINEER [address] [place] [address] PCP - General Nurse Practitioner 12/17/23 Primer Supervisor Relationship Specialty Start Date End Date Savanah Reynoso, MAGNETIC PROSPECTOR-RESIDENT ENGINEER [address] [place] [address] PCP - General Nurse Practitioner 12/17/23 Primer Supervisor Relationship Specialty Start Date End Date Savanah Reynoso, MAGNETIC PROSPECTOR-RESIDENT ENGINEER [address] [place] [address] PCP - General Nurse Practitioner 12/17/23 Primer Supervisor Relationship Specialty Start Date End Date Savanah Reynoso, MAGNETIC PROSPECTOR-[facility] [address] [place] [address] PCP - General Nurse Practitioner 12/17/23 Primer Supervisor Relationship Specialty Start Date End Date Spencer Mane MD [address] [place] [address] PCP - General Family Medicine 07/16/24 Savanah Reynoso NP [address] [place] [address] Referring Physician Nurse Practitioner 06/28/23 Primer Supervisor Relationship Specialty Start Date End Date Spencer Mane MD [address] [place] [address] PCP - General Family Medicine 07/16/24 Savanah Reynoso NP [address] [place] [address] Referring Physician Nurse Practitioner 06/28/23 Primer Supervisor Relationship Specialty Start Date End Date Spencer Mane MD [address] [place] [address] PCP - General Family Medicine 07/16/24 Savanah Reynoso NP [address] [place] [address] Referring Physician Nurse Practitioner 06/28/23 Primer Supervisor Relationship Specialty Start Date End Date Spencer Mane MD [address] [place] [address] PCP - General Family Medicine 07/16/24 Savanah Reynoso NP [address] [place] [address] Referring Physician Nurse Practitioner 06/28/23 Primer Supervisor Relationship Specialty Start Date End Date Spencer Mane MD [address] [place] [phone] PCP - General Family Medicine 07/16/24 Savanah Reynoso NP [address] [place] [address] Referring Physician Nurse Practitioner 06/28/23 Primer Supervisor Relationship Specialty Start Date End Date Spencer Mane MD [address] [place] [address] PCP - General Family Medicine 07/16/24 Savanah Reynoso NP [address] [place] [phone] Referring Physician Nurse Practitioner 06/28/23 Primer Supervisor Relationship Specialty Start Date End Date Spencer Mane MD [address] [place] [phone] PCP - General Family Medicine 07/16/24 Savanah Reynoso NP [address] [place] [address] Referring Physician Nurse Practitioner 06/28/23 Primer Supervisor Relationship Specialty Start Date End Date Savanah Reynsoo APRN-RESIDENT ENGINEER PCP - General Nurse Practitioner 12/17/23 Primer Supervisor Relationship Specialty Start Date End Date Savanah Reynoso APRN-RESIDENT ENGINEER PCP - General Nurse Practitioner 12/17/23 Primer Supervisor Relationship Specialty Start Date End Date Savanah Reynoso APRN-RESIDENT ENGINEER PCP - General Nurse Practitioner 12/17/23 Primer Supervisor Relationship Specialty Start Date End Date Spencer Mane MD [address] [place] [address] PCP - General Family Medicine 07/16/24 Savanah Reynoso NP [address] [place] [address] Referring Physician Nurse Practitioner 06/28/23 Primer Supervisor Relationship Specialty Start Date End Date Spencer Mane MD [address] [place] [address] PCP - General Family Medicine 07/16/24 Savanah Reynoso NP [address] [place] [address] Referring Physician Nurse Practitioner 06/28/23 Reason for Visit (unrecogniz ed section and content) Reason Comments Outpatient Infusion [facility] Specialty Diagnoses / Procedures Referred By Contac t Referred To Contact Diagnoses Iron deficiency anemia due to chronic blood loss Procedures MI FERUMOXYTOL, NON-ESRD Matthew Jara MD [facility] [address] [place] [address] Pfo Med Onc [address] [place], [place] [id number] Referral ID Status Reason Start Date Expiration Date V isits Requested Visits Authorized [id number] Authorized 12/19/2023 12/18/2024 2 2 Reason Comments Outpatient Infusion feraheme Reason Comments Iron Deficiency Specialty Diagnoses / Procedures Referred By Contac t Referred To Contact Diagnoses Iron deficiency anemia due to chronic blood loss Procedures MI FERUMOXYTOL, NON-ESRD Matthew Jara MD [facility] [address] [place] [address] Phone: tel: fax: Ifrah Orantes [facility] [address] [place] [phone] Phone: tel: fax: Referral ID Status Reason Start Date Expiration Date V isits Requested Visits Authorized [id number] Authorized 11/05/2024 11/05/2025 2 2 Reason Comments Menopause Pt present today for perimenopausal symptoms Specialty Diagnoses / Procedures Referred By Contac t Referred To Contact Obstetrics and Gynecology Diagnoses Perimenopausal symptoms Procedures MI OFFICE/OUTPATIENT NEW HIGH MDM 60 MINUTES Savanah Reynoso, LOUANN [address] [place] [address] Phone: tel: fax: Gillian Hay, [address] [place] [address] Phone: tel: fax: Referral ID Status Reason Start Date Expiration Date V isits Requested Visits Authorized [id number] Closed Specialty Services Required 10/06/2024 04/04/2025 1 1 Reason Comments Pre-op Visit Endometrial Biopsy FOR RECORDS PERTAINING TO PATIENTS WHO ARE [...] BE BASED ON THE PRIMARY CLINICAL RECORDS. [employer] provides no warranty or guarantee of the accuracy or completeness of information in this document.
== END 2024-12-31 07:05 | disposition home or self-care (01) ==
LOC: US 07:04
PROVIDERS: PCP Nurse Practitioner; Visit Provider Obstetrics & Gynecology
DX: N92.0 Excessive and frequent menstruation with regular cycle (principal)
CPT/HCPCS: 76830; 76856

== ENCOUNTER 2025-01-12 09:15 | Outpatient (OUT) | payer OTHER, SELFPAY ==
[2025-01-12 09:43] LABS: Basophils Percent Auto 0.7 % (0.2-2.0); Eosinophils Absolute Auto 0.2 10^3/uL (0.0-0.7); Eosinophils Percent Auto 3.2 % (0.9-7.0); Hemoglobin 15.2 g/dL (12.0-16.0); Immature Granulocytes Abs Auto 0.01 10^3/uL (0.00-0.03); Immature Granulocytes Pct Auto 0.2 % (0.0-0.5); Lymphocytes Absolute Auto 1.4 10^3/uL (1.2-3.8); Lymphocytes Percent Auto 25.3 % (20.5-60.0); Mean Corpuscular HGB Conc 34.5 g/dL (29.9-35.2); Mean Corpuscular Hemoglobin 32.7 pg (26.7-34.0); Mean Corpuscular Volume 94.6 fL (81.0-99.0); Mean Platelet Volume 10.1 fL (9.5-13.5); Monocytes Absolute Auto 0.5 10^3/uL (0.3-0.8); Monocytes Percent Auto 8.5 % (1.7-12.0); Neutrophils Absolute Auto 3.5 10^3/uL (1.4-6.5); Neutrophils Percent Auto 62.1 % (43.0-75.0); Platelet Count 291 10^3/uL (150-450); Red Blood Count 4.65 10^6/uL (4.20-5.40); Red Cell Distribution Width 14.1 % (11.0-15.0); White Blood Count 5.7 10^3/uL (4.0-11.0)
== END 2025-01-12 09:16 | disposition home or self-care (01) ==
LOC: PST 09:15
PROVIDERS: PCP Nurse Practitioner; Visit Provider Obstetrics & Gynecology
DX: Z01.812 Encounter for preprocedural laboratory examination (principal); N92.0 Excessive and frequent menstruation with regular cycle; N93.9 Abnormal uterine and vaginal bleeding, unspecified; R10.2 Pelvic and perineal pain
CPT/HCPCS: 85025

== ENCOUNTER 2025-01-22 09:34 | Day surgery (SDC) | payer OTHER, SELFPAY ==
[2025-01-12 09:28] VITALS: BP 121/74; PULSE 72; TEMP 36.2; O2SAT 100; BMI 31.8
[2025-01-22] VITALS (9 sets, daily range): BP systolic 95–126; BP diastolic 58–93; PULSE 60–82; TEMP 36.1–36.3; O2SAT 98–100; BMI 32.7
--- OUTSIDE RECORDS SUMMARY | 2025-01-22 09:39 | XMS_ITS | CCD ---
Author Organization [facility] Care Team Providers Care Siene Maker Name Role Phone MD Dylan Fuentes Primary Care UnavailMD Alfredo Stokes Attending Unavailable MD Alfredo Daly Attending Unavailable MD Dylan Fuentes Primary Care Unavailabl e Aichholz WIRE COILER MACHINE OPERATOR, Savanah Unavailable Spencer Mane MD Primary Care Provider AMELIA JARA Attending Unavailable ANTWON SARAH Referring Unavailable AICHHOLZ, SAVANAH J Primary Care Unavailable ESTEFANIAMELIA Referring Unavailable AICHHOLZ, SAVANAH J Primary Care Unavailable ESTEFANI, AMELIA Manning Referring Unavailable AICHHOLZ, SAVANAH J Primary Care Unavailable ESTEFANIAMELIA Attending Unavailable SCHSHERRYCHTANTWON NUÑEZ Referring Unavailable AICHHOLZ, SAVANAH J Primary Care Unavailable AICHHOLZ, SAVANAH J Referring Unavailable AICHHOLZ, SAVANAH J Primary Care Unavailable ESTEFANI, AMELIA N Referring Unavailable AICHHOLZ, SAVANAH J Primary Care Unavailable ESTEFANI, AMELIA N Referring Unavailable AICHHOLZ, SAVANAH J Primary Care Unavailable ESTEFANI, AMELIA N Referring Unavailable AICHHOLZ, SAVANAH J Primary Care Unavailable ESTEFANI, AMELIA N Referring Unavailable AICHHOLZ, SAVANAH J Primary Care Unavailable AICHHOLZ, SAVANAH J Referring Unavailable AICHHOLZ, SAVANAH J Primary Care Unavailable GILLIAN HAY Attending Unavailable AICHHOLZ, SAVANAH Attending Unavailable AICHHOLZ, SAVANAH Attending Unavailable AICHHOLZ, SAVANAH Attending Unavailable PIPPA HAYY Attending Unavailable AICHHOLZ, SAVANAH Referring Unavailable Gillian Hay DO Attending Provider Gillian Hay Attending Unavailable Gillian Hay Admitting Unavailable Medications Current Medications Medication Drug Class(es) Dates Sig (Normalized) Sig (Original) azelastine hydrochloride 0.5 mg/ml ophthalmic solution (15 sources) Histamine-1 Receptor Antagonist take 1 drop(s) into the eye(s) in the morning azelastine (Optivar) 0.05 % ophthalmic solution Administer 1 drop into affected eye(s) in the morning and 1 drop in the evening. Active cetirizine hydrochloride 10 mg oral tablet (15 sources) Histamine-1 Receptor Antagonist take 1 tablet by mouth in the morning cetirizine (ZyrTEC) 10 MG tablet Take 10 mg by mouth in the morning. Active cholecalciferol 0.05 mg oral tablet (6 sources) Vitamin D Start: 10-19-2024 End: 11-18-2024 take 1 tablet by mouth once daily cholecalciferol (Vitamin D-3) 50 MCG (1999 UT) tablet Indications: Vitamin D deficiency Take 1 tablet (50 mcg) by mouth Daily 30 tablet 2 10/19/2024 11/18/2024 Active ferrous sulfate 325 mg delayed release oral tablet (6 sources) Start: 10-19-2024 End: 11-18-2024 take 1 tablet by mouth at mealtime ferrous sulfate 325 (65 Fe) MG EC tablet Indications: Iron deficiency anemia, unspecified iron deficiency anemia type Take 1 tablet (325 mg) by mouth in the morning. Take with meals. Do not crush, chew, or split.. 30 tablet 2 10/19/2024 11/18/2024 Active triamcinolone acetonide 0.055 mg/actuat metered dose nasal spray (15 sources) Corticosteroid take 2 spray(s) nasal route in the morning triamcinolone (Nasacort) 55 MCG/ACT nasal inhaler Administer 2 sprays into each nostril in the morning. Active Completed/Discontinued Medications Medication Drug Class(es) Dates Sig (Normalized) Sig (Original) fluconazole 150 mg oral tablet (3 sources) [...] Translations: [Pelvic and perineal pain] 12-28-2024 Episodic Deficiency and other anemia (1 source) Iron deficiency anemia secondary to blood loss (chronic); Translations: [Iron deficiency anemia secondary to blood loss (chronic)] Onset: 12-13-2022 Chronic Deficiency and other anemia (1 source) Iron deficiency anemia, unspecified; Translations: [Iron deficiency anemia, unspecified] Onset: 10-17-2024 Episodic Genitourinary symptoms and ill-defined conditions (14 sources) Asymptomatic microscopic hematuria; Translations: [Asymptomatic microscopic hematuria] Onset: 10-19-2024 10-19-2024 Episodic Menopausal disorders (13 sources) Menopause finding; Translations: [Menopausal and female climacteric states] Onset: 10-06-2024 10-06-2024 Chronic Menstrual disorders (17 sources) Menorrhagia; Translations: [Excessive and frequent menstruation with regular cycle] Onset: 10-08-2023 10-08-2023 Chronic Nutritional deficiencies (14 sources) Vitamin D deficiency; Translations: [Vitamin D deficiency, unspecified] Onset: 10-19-2024 10-19-2024 Chronic Other congenital anomalies (15 sources) Congenital anomaly of inner ear; 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] Onset: 10-08-2023 10-08-2023 Chronic Other ear and sense organ disorders (15 sources) Congenital deafness; Translations: [Unspecified sensorineural hearing loss] Onset: 10-08-2023 10-08-2023 Chronic Other ear and sense organ disorders (15 sources) Deafness of left ear; Translations: [Unspecified hearing loss, left ear] Onset: 10-08-2023 10-08-2023 Chronic Other ear and sense organ disorders (15 sources) Sensorineural hearing loss; Translations: [Unspecified sensorineural hearing loss] Onset: 10-08-2023 10-08-2023 Chronic Other female genital disorders (1 source) Abnormal uterine bleeding; Translations: [Abnormal uterine and vaginal bleeding, unspecified] 12-28-2024 Chronic Other nervous system disorders (15 sources) Chronic pain; Translations: [Other chronic pain] Onset: 10-08-2023 Resolved: 10-08-2023 10-08-2023 Chronic Other upper respiratory disease (15 sources) Seasonal allergic rhinitis; Translations: [Other seasonal allergic rhinitis] Onset: 10-08-2023 10-08-2023 Chronic Unclassified (1 source) Outpatient Infusion Onset: 11-13-2024 Urinary tract infections (11 sources) Acute cystitis; Translations: [Acute cystitis without hematuria] Onset: 10-20-2024 10-20-2024 Episodic Past or Other Problems Problem Classification Problem Date Documented Da te Episodic/Chronic Allergic reactions (15 sources) Allergic disorder; Translations: [Allergy, unspecified, initial encounter] Onset: 10-08-2023 10-08-2023 Episodic Conditions associated with dizziness or vertigo (19 sources) Dizziness and giddiness; Translations: [Dizziness and giddiness] Onset: 10-06-2024 10-06-2024 Episodic Deficiency and other anemia (15 sources) Anemia; Translations: [Anemia, unspecified] Onset: 12-13-2022 Resolved: 11-03-2024 10-08-2023 Episodic Deficiency and other anemia (20 sources) Iron deficiency anemia; Translations: [Iron deficiency anemia, unspecified] Onset: 12-13-2022 10-08-2023 Episodic Deficiency and other anemia (15 sources) Microcytic hypochromic anemia; Translations: [Iron deficiency anemia, unspecified] Onset: 10-08-2023 10-08-2023 Episodic Deficiency and other anemia (1 source) Other iron deficiency anemias; Translations: [Other iron deficiency anemias] Onset: 12-13-2022 Episodic Malaise and fatigue (17 sources) Fatigue; Translations: [Other fatigue] Onset: 10-06-2024 10-06-2024 Episodic Mycoses (16 sources) Candidiasis of vagina; Translations: [Yeast infection of the vagina] Onset: 02-27-2024 4 Episodic Other ear and sense organ disorders (15 sources) Tinnitus; Translations: [Tinnitus, unspecified ear] Onset: 10-08-2023 10-08-2023 Episodic Other ear and sense organ disorders (15 sources) Does use hearing aid; Translations: [Presence of external hearing-aid] Onset: 10-08-2023 Resolved: 10-08-2023 10-08-2023 Episodic Other nervous system disorders (15 sources) Skin sensation disturbance; Translations: [Other disturbances of skin sensation] Onset: 10-08-2023 Resolved: 10-08-2023 10-08-2023 Episodic Other screening for suspected conditions (not mental disorders or infectious disease) (15 sources) Patient encounter status; Translations: [Encounter for screening mammogram for malignant neoplasm of breast] Onset: 07-16-2024 07-16-2024 Episodic Other skin disorders (15 sources) Skin tag; Translations: [Other hypertrophic disorders of the skin] Onset: 10-08-2023 Resolved: 10-08-2023 10-08-2023 Episodic Residual codes; unclassified (12 sources) Cancer cervix screening - not needed; Translations: [Procedure and treatment not carried out for other reasons] Onset: 10-06-2024 Resolved: 10-06-2024 10-06-2024 Episodic Spondylosis; intervertebral disc disorders; other back problems (20 sources) Acute back pain with sciatica; Translations: [Lumbago with sciatica, right side] Onset: 10-08-2023 10-08-2023 Episodic Results Test Name Value Interpretation Reference Range Facility ALL CBC WITH AUTO DIFFon BASOPHILS ABSOLUTE AUTO [address] [facility] Basophils/100 WBC (Bld) 0.7 % 0.2 - 2.0 % [facility] Eosinophils/100 WBC (Bld) 3.2 % 0.9 - 7.0 % [facility] Erythrocyte distribution width (RBC) [Ratio] 14.1 % 11.0 - 15.0 % [facility] Hematocrit (Bld) [Volume fraction] 44 % 36.0 - 48.0 % [facility] Hemoglobin (Bld) [Mass/Vol] 15.2 g/dL 12.0 - 16.0 g/dL [facility] IMMATURE GRANULOCYTES ABS AUTO 0.01 [facility] Immature granulocytes/100 WBC (Bld) 0.2 % 0.0 - 0.5 % [facility] LYMPHOC[facility]TES ABSOLUTE AUTO 1.4 [facility] Lymphocytes/100 WBC (Bld) 25.3 % 20.5 - 60.0 % [facility] MCH (RBC) [Entitic mass] 32.7 pg 26. 7 - 34.0 pg [facility] MCHC (RBC) [Mass/Vol] 34.5 g/dL 29.9 - 35.2 g/dL [facility] MCV (RBC) [Entitic vol] 94.6 fL 81.0 - 99.0 fL [facility] MONOCYTES ABSOLUTE [facility] Monocytes/100 WBC (Bld) 8.5 % 1.7 - 12.0 % [facility] NEUTROPHILS ABSOLUTE AUTO 3.5 [facility] Neutrophils/100 WBC (Bld) 62.1 % 43.0 - 75.0 % [facility] Platelet mean volume (Bld) [Entitic vol] 10.1 fL 9.5 - 13.5 fL [facility] EO # 0.2 [facility] PLT 291 [facility] RBC 4.65 [facility] WBC 5.7 [facility] US PELVIS W/ TRANSVAGINALon 12-31-2024 [place] [address] Ultrasound Report Signed Patient: HILLARY STERN MR#: [id number] : 1980 Acct:[id number] Age/Sex: 44 / F ADM Date: 12/31/24 Loc: US Attending Dr: Gillian Hay D.O. Ordering Physician: Gillian Hay D.O. Date of Service: 12/31/24 Procedure(s): US pelvis w/ transvaginal Accession Number(s): [id number] cc: Savanah Reynoso WIRE COILER MACHINE OPERATOR; Gillian Hay D.O. [address] [address] Patient Name: HILLARY STERN MRN: [facility]:[id number] date: 1980 Sex: F Assigned Patient Location: US Current Patient Location: US Accession/Order Number: [id number] Exam Date: 12/31/2024 07:07 Report Date: 12/31/2024 07:54 At the request of: GILLIAN HAY Procedure: US pelvis w/ transvaginal EXAMINATION: US pelvis w/ transvaginal HISTORY: Menorrhagia with regular cycle COMPARISON: No relevant comparison available. TECHNIQUE: Transabdominal and/or transvaginal sonographic examination was performed as indicated by examination type. FINDINGS: UTERUS: Normal size and appearance. Uterus size: 10.6 x 6.5 x 6.2 cm ENDOMETRIUM: Thickened, but normal homogeneous echotexture. Endometrial thickness: 15.4 mm RIGHT OVARY: Normal size and appearance. Duplex Doppler demonstrates normal waveform and flow; resistive index 0.5. Ovary size: 2.8 x 1.5 x 1.4 cm LEFT OVARY: Normal size and appearance. Duplex Doppler demonstrates normal waveform and flow; resistive index 0.4. Ovary size: 2.7 x 1.7 x 2.2 cm CUL-DE-SAC: Unremarkable. No significant free fluid. BLADDER: Unremarkable. OTHER: None. US/US pelvis w/ transvaginal IMPRESSION: 1. Endometrial thickness just exceeds upper limits of normal, but is otherwise normal echotexture. Endometrial hyperplasia? 2. Otherwise no suspicious findings. Electronically authenticated by: GERALD RUSSELL Date: 12/31/2024 07:54 Dictated By: Gerald Russell M.D. Signed By: 12/31/24 0756 DD/ 0754 TD/TT: Security Operations Engineer: [facility] Radiology, Radiologist, MD - 12/31/2024 [place] [address] Ultrasound Report Signed Patient: HILLARY STERN MR#: [id number] : 1980 Acct:[id number] Age/Sex: 44 / F ADM Date: 12/31/24 Loc: US Attending Dr: Gillian Hay D.O. Ordering Physician: Gillian Hay D.O. Date of Service: 12/31/24 Procedure(s): US pelvis w/ transvaginal Accession Number(s): [id number] cc: Savanah Reynoso WIRE COILER MACHINE OPERATOR; Gillian Hay D.O. [facility] [place] [id number] Patient Name: HILLARY STERN MRN: [facility]:[id number] date: 1980 Sex: F Assigned Patient Location: Current Patient Location: Accession/Order Number: [id number] Exam Date: 12/31/2024 07:07 Report Date: 12/31/2024 07:54 At the request of: GILLIAN HAY Procedure: US pelvis w/ transvaginal EXAMINATION: US pelvis w/ transvaginal HISTORY: Menorrhagia with regular cycle COMPARISON: No relevant comparison available. TECHNIQUE: Transabdominal and/or transvaginal sonographic examination was performed as indicated by examination type. FINDINGS: UTERUS: Normal size and appearance. Uterus size: 10.6 x 6.5 x 6.2 cm ENDOMETRIUM: Thickened, but normal homogeneous echotexture. Endometrial thickness: 15.4 mm RIGHT OVARY: Normal size and appearance. Duplex Doppler demonstrates normal waveform and flow; resistive index 0.5. Ovary size: 2.8 x 1.5 x 1.4 cm LEFT OVARY: Normal size and appearance. Duplex Doppler demonstrates normal waveform and flow; resistive index 0.4. Ovary size: 2.7 x 1.7 x 2.2 cm CUL-DE-SAC: Unremarkable. No significant free fluid. BLADDER: Unremarkable. OTHER: None. US/US pelvis w/ transvaginal IMPRESSION: 1. Endometrial thickness just exceeds upper limits of normal, but is otherwise normal echotexture. Endometrial hyperplasia? 2. Otherwise no suspicious findings. Electronically authenticated by: GERALD RUSSELL Date: 12/31/2024 07:54 Dictated By: Gerald Russell M.D. Signed By: 12/31/24 0756 DD/ 0754 TD/TT: Security Operations Engineer: [facility] Radiology Study observation (narrative) [facility] US PELVIS W/ TRANSVAGINALOrd ered By: Radiologist Radiology on 12-31-2024 [facility] Work Phone: HCG ( test) Ql (U)O rdered By: Shima Tubbs on 12-30-2024 Interpretation and review of laboratory results Normal [facility] Work Phone: Preg Test, Ur Negative Negative [facility] Work Phone: [facility] Work Phone: Flo 12-28-2024 L Specimen: [id number] Received: 12/29/24 Status: CORBIN Chakraborty Num: [id number] Spec Type: Surgical Subm Dr: Gillian Hay Tissues: A Endometrium - Biopsy (EMBX) Procedures: HE/Emely Doshi/Ariel L4 Age/ Patient Sex Location Account Attending Physician Hillary Stern 44/F LABELL [id number] Gillian Hay SPEC NUM: [id number] RECD: 12/29/24 STATUS: CORBIN CHAKRABORTY NUM: [id number] CATHIE: 12/28/24- SUBM DR: Gillian Hay ENTERED: 12/29/[address] [facility] [address]: Vidal,Lab SPEC TYPE: Surgical DEPT: YVONNE HEBERT ENTERED BY: [id number] RECV BY: [id number] ORDERED: HE/2, Gross/Micro L4 ORDERED: HE/2, Gross/Micro L4 Pathological Diagnosis Endometrial biopsies: -Multiple strips of slightly unevenly developed secretory endometrium of the mid to late phase types, including 2 foci of very crowded hypersecretory glands, and 1 incidental adjacent gland of almost nonsecretory type but also with 1 identified mitosis, Otherwise without hyperplasia or atypia identified Clinical Information Menorrhagia Gross Description Part A is received in formalin labeled with the patients name, date of , and Embx are taylor-pink, focally erythematous, delicate tissue fragments, 2.5 x 1.5 x 0.3 cm in aggregate. The specimen is filtered and entirely submitted in a single cassette. (1, ns, .BS25-60 A) Microscopic Description Microscopic examinations are performed supporting the above interpretation Specimen: [id number] Received: 12/29/24 Status: CORBIN Chakraborty Num: [id number] Spec Type: Surgical Subm Dr: Gillian Hay Tissues: A Endometrium - Biopsy (EMBX) Procedures: HE/2, Gross/Micro L4 Patient: Hillary Stern [id number] (Continued) Specimen: [id number] Received: 12/29/24 (Continued) Signed (signatur e on file) Yury Castro MD 12/31/24 1450 Specimen: [id number] Received: 12/29/24 Status: CORBIN Chakraborty Num: [id number] Spec Type: Surgical Subm Dr: Gillian Hay Tissues: A Endometrium - Biopsy (EMBX) Procedures: ALLEN/Tico, Gross/Micro L4 Patient: Hillary Stern [id number] (Continued) Specimen: [id number] Received: 12/29/24 (Continued) CPT Codes 75984 Specimen: [id number] Received: 12/29/24 Status: CORBIN Chakraborty Num: [id number] Spec Type: Surgical Subm Dr: Gillian Hay Tissues: A Endometrium - Biopsy (EMBX) Procedures: HE/Tico, Gross/Micro L4 Patient: Hillary Stern [id number] (Continued) Signed (signatur e on file) Ramez-Amadeo Castro MD 12/31/24 1450 Normal [facility] URINALYSISon 11-30-2024 Bilirubin Ql (U) Negative Normal NEG [facility] Comment on above: Performed By: #### Angel MARIN FEPR, 6-4 #### [facility] ([id number]) [address], [address] [place] [address] BLOOD/HGB Negative Normal NEG [facility] Comment on above: Performed By: #### Angel MARIN FEPR, 6-4 #### [facility] ([id number]) [address], [address] [place] [address] Color (U) YELLOW Normal YELLOW [facility] Comment on above: Performed By: #### Angel MARIN, FEPR, 6-4 #### [facility] ([id number]) [address], [address] [place] [address] Glucose Ql (U) Negative Normal NEG [facility] Comment on above: Performed By: #### Angel MARIN, FEPR, 6-4 #### [facility] ([id number]) [address], [address] [place] [address] Ketones Ql (U) Negative Normal NEG [facility] Comment on above: Performed By: #### Angel MARIN, FEPR, 6-4 #### [facility] ([id number]) [address], [address] [place] [address] Leukocyte esterase Test strip Ql (U) Trace Abnormal NEG [facility] Comment on above: Performed By: #### Angel MARIN, FEPR, 6-4 #### [facility] ([id number]) [address], [address] [place] [address] MUCOUS PRESENT Abnormal NONE [facility] Comment on above: Performed By: #### C BCA, FEPR, 6-4 #### [facility] ([id number]) [address], [address] [place] [address] Nitrite Ql (U) Negative Normal NEG [facility] Comment on above: Performed By: #### C BCA, FEPR, 2275-4 #### [facility] ([id number]) [address], [address] [place] [address] pH (U) 5.5 [pH] Normal 5.0-8.5 [facility] Comment on above: Performed By: #### C BCA, FEPR, 2275-4 #### [facility] ([id number]) [address], [address] [place] [address] Protein Ql (U) Negative Normal NEG [facility] Comment on above: Performed By: #### Angel BCA, FEPR, 2275-4 #### [facility] ([id number]) [address], [address] [place] [address] R.B.CELLS <1 Normal 0-5 [facility] Comment on above: Performed By: #### C BCA, FEPR, 2275-4 #### [facility] ([id number]) [address], [address] [place] [address] Specific gravity (U) [Rel density] 1.015 Normal 1.003-1.035 [facility] Comment on above: Performed By: #### C BCA, FEPR, 2275-4 #### [facility] ([id number]) [address], [address] [place] [address] SQUAMOUS EPITHELIUM 3 /hpf Normal 0-5 [facility] Comment on above: Performed By: #### C BCA, FEPR, 2275-4 #### [facility] ([id number]) [address], [address] [place] [address] TURBIDITY CLEAR Normal CLEAR [facility] Comment on above: Performed By: #### C BCA, FEPR, 2275-4 #### [facility] ([id number]) [address], [facility] [address] [place] [address] Urobilinogen (U) [Mass/Vol] mg/dL Normal <1.1 [facility] Comment on above: Performed By: #### C BCA, FEPR, 2275-4 #### [facility] ([id number]) [address], [facility] [address] [place] [address] W.B.CELLS 1 /hpf Normal 0-5 [facility] Comment on above: Performed By: #### C BCA, FEPR, 2275-4 #### [facility] ([id number]) [address], [facility] [address] [place] [address] 25-hydroxyvitamin D3 [Mass/V ol]on 10-17-2024 Vitamin D+Metabolites [Mass/Vol] 24 ng/mL Low 30 - 100 ng/mL [facility] Comment on above: Vitamin D status 25 [place] Vitamin D Deficiency <20 ng/mL Insufficiency 20-29 ng/mL Sufficiency 30-100 ng/mL Toxicity >100 ng/mL NOTE: A pediatric reference range has not been established by the cut off worker of this kit. The [employer] recommends a Vitamin D level of = or >20ng/mL in infants and children. PERFORMED AT [facility] [address],[place] [address] CBC AND AUTO DIFFon 10-17-20 24 ABSOLUTE BASOPHIL 0.0 X10E9/L Normal 0.0-0.2 [facility] Comment on above: Performed By: #### C BCA, CMP, FEPR, 28350-9, 48902-4, 3034-6, THYR, 6-4, 2132-9, 79740-0, HA1C #### [facility] ([id number]) [address], [address] [place] [address] ABSOLUTE NEUTROPHIL 2.6 X10E9/L Normal 1.5-6.6 [facility] Comment on above: Performed By: #### C BCA, CMP, FEPR, 65276-0, 45722-8, 3034-6, THYR, 2276-4, 2131-9, 94557-3, HA1C #### [facility] ([id number]) [address], [address] [place] [address] Basophils/100 WBC (Bld) 0.6 % Normal P [facility] Comment on above: Performed By: #### C BCA, CMP, FEPR, 68724-3, 83320-2, 4-6, THYR, 6-4, 2131-9, 54593-3, HA1C #### [facility] ([id number]) [address], [address] [place] [address] Eosinophils (Bld) [#/Vol] 0.2 10*3/uL Normal 0.0-0.4 [facility] Comment on above: Performed By: #### C BCA, CMP, FEPR, 58818-0, 17784-3, 4-6, THYR, 6-4, 2131-9, 75793-3, HA1C #### [facility] ([id number]) [address], [address] [place] [address] Eosinophils/100 WBC (Bld) 4.7 % Normal [facility] Comment on above: Performed By: #### C BCA, CMP, FEPR, 37853-2, 91322-0, 4-6, THYR, 2276-4, 2131-9, 19171-4, HA1C #### [facility] ([id number]) [address], [address] [place] [address] Erythrocyte distribution width (RBC) [Ratio] 13.4 % Normal 11.5-15.0 [facility] Comment on above: Performed By: #### C BCA, CMP, FEPR, 75941-4, 36414-1, 3034-6, THYR, 2276-4, 2131-9, 48411-2, HA1C #### [facility] ([id number]) [address], [address] [place] [address] Hematocrit (Bld) [Volume fraction] 41.4 % Normal 35-47 [facility] Comment on above: Performed By: #### C BCA, CMP, FEPR, 69327-2, 03859-1, 3034-6, THYR, 2276-4, 2131-9, 82587-8, HA1C #### [facility] ([id number]) [address], [address] [place] [address] Hemoglobin (Bld) [Mass/Vol] 14.1 g/dL Normal 11.7-15.5 [facility] Comment on above: Performed By: #### C BCA, CMP, FEPR, 62626-9, 16286-0, 4-6, THYR, 2276-4, 2131-9, 06166-6, HA1C #### [facility] ([id number]) [address], [address] [place] [address] Lymphocytes (Bld) [#/Vol] 1.3 10*3/uL Normal 1.0-3.5 [facility] Comment on above: Performed By: #### C BCA, CMP, FEPR, 54262-1, 90815-8, 3034-6, THYR, 2276-4, 2-9, 63245-3, HA1C #### [facility] ([id number]) [address], [address] [place] [address] Lymphocytes/100 WBC (Bld) 28.1 % Normal [facility] Comment on above: Performed By: #### C BCA, CMP, FEPR, 29740-6, 43676-3, 3034-6, THYR, 2276-4, 2132-9, 47403-0, HA1C #### [facility] ([id number]) [address], [address] [place] [address] MCH (RBC) [Entitic mass] 31.8 pg Normal 27-34 [facility] Comment on above: Performed By: #### C BCA, CMP, FEPR, 66607-5, 93441-8, 3034-6, THYR, 2276-4, 2132-9, 04810-7, HA1C #### [facility] ([id number]) [address], [address] [place] [address] MCHC (RBC) [Mass/Vol] 34.1 g/dL Normal 32-36 [facility] Comment on above: Performed By: #### C BCA, CMP, FEPR, 51770-1, 53785-5, 3034-6, THYR, 2276-4, 2-9, 92913-2, HA1C #### [facility] ([id number]) [address], [address] [place] [address] MCV (RBC) [Entitic vol] 93 fL Normal 80-100 P [facility] Comment on above: Performed By: #### C BCA, CMP, FEPR, 56922-7, 17585-4, 3034-6, THYR, 2276-4, 2132-9, 28818-8, HA1C #### [facility] ([id number]) [address], [address] [place] [address] Monocytes (Bld) [#/Vol] 0.4 10*3/uL Normal 0-0.9 [facility] Comment on above: Performed By: #### C BCA, CMP, FEPR, 81580-1, 56140-4, 3034-6, THYR, 2276-4, 2132-9, 06087-5, HA1C #### [facility] ([id number]) [address], [address] [place] [address] Monocytes/100 WBC (Bld) 9.2 % Normal [facility] Comment on above: Performed By: #### C BCA, CMP, FEPR, 77745-2, 29884-3, 3034-6, THYR, 2276-4, 2132-9, 45039-1, HA1C #### [facility] ([id number]) [address], [address] [place] [address] Neutrophils/100 WBC (Bld) 57.4 % Normal [facility] Comment on above: Performed By: #### C BCA, CMP, FEPR, 68267-3, 77792-2, 3034-6, THYR, 2276-4, 2-9, 63441-7, HA1C #### [facility] ([id number]) [address], [address] [place] [address] Platelet mean volume (Bld) [Entitic vol] 9.4 fL Normal 7-12 [facility] Comment on above: Performed By: #### C BCA, CMP, FEPR, 86812-9, 13463-3, 3034-6, THYR, 2276-4, 2-9, 52278-3, HA1C #### [facility] ([id number]) [address], [address] [place] [address] Platelets (Bld) [#/Vol] 254 10*3/uL Normal 150-450 [facility] Comment on above: Performed By: #### C BCA, CMP, FEPR, 37828-2, 44354-5, 3034-6, THYR, 2276-4, 2132-9, 24138-5, HA1C #### [facility] ([id number]) [address], [address] [place] [address] RBC COUNT 4.44 X10E12/L Normal 3.80-5.20 [facility] Comment on above: Performed By: #### C BCA, CMP, FEPR, 97207-0, 40931-0, 3034-6, THYR, 2276-4, 2131-9, 10492-7, HA1C #### [facility] ([id number]) [address], [address] [place] [address] WBC (Bld) [#/Vol] 4.6 10*3/uL Normal 4.0-11.0 [facility] Comment on above: Performed By: #### C BCA, CMP, FEPR, 31335-6, 91180-0, 3034-6, THYR, 2276-4, 2131-9, 72837-8, HA1C #### [facility] ([id number]) [address], [address] [place] [address] CBC W Auto Differential pane l (Bld)on 10-17-2024 ABSOLUTE BASOPHIL 0 [facility] Comment on above: PERFORMED AT [facility] [address],[place] [address] Basophils/100 WBC (Bld) 0.6 % N [facility] Eosinophils (Bld) [#/Vol] 0.2 10*3/uL [facility] Eosinophils/100 WBC (Bld) 4.7 % [facility] Erythrocyte distribution width (RBC) [Ratio] 13.4 % 11.5 - 15.0 % [facility] Hematocrit (Bld) [Volume fraction] 41.4 % 35 - 47 % [facility] Hemoglobin (Bld) [Mass/Vol] 14.1 g/dL 11.7 - 15.5 g/dL [facility] Lymphocytes (Bld) [#/Vol] 1.3 10*3/uL [facility] Lymphocytes/100 [facility]BC (Bld) 28.1 % [facility] MCH (RBC) [Entitic mass] 31.8 pg 27 - [address] MCHC (RBC) [Mass/Vol] 34.1 g/dL 32 - 36 g/dL [facility] MCV (RBC) [Entitic vol] 93 fL 80 - 100 fL [facility] Monocytes (Bld) [#/Vol] 0.4 10*3/uL [facility] Monocytes/100 WBC (Bld) 9.2 % [facility] Neutrophils (Bld) [#/Vol] 2.6 10*3/uL [facility] Neutrophils/100 WBC (Bld) 57.4 % [facility] Platelet mean volume (Bld) [Entitic vol] 9.4 fL 7 - 12 fL [facility] Platelets (Bld) [#/Vol] 254 10*3/uL [facility] RBC (Bld) [#/Vol] 4.44 10*6/uL [facility] WBC corrected for nucl RBC Auto (Bld) [#/Vol] 4.6 [facility] COMPREHENSIVE METABOLIC PANE Flo 10-17-2024 Albumin [Mass/Vol] 4.2 g/dL Normal 3.2-5.3 [facility] Comment on above: Performed By: #### C BCA, CMP, FEPR, 19677-0, 32398-3, 3034-6, THYR, 2276-4, 2132-9, 80773-4, HA1C #### [facility] ([id number]) [address], [address] [place] [address] ALP [Catalytic activity/Vol] 55 U/L Normal 39-130 [facility] Comment on above: Performed By: #### C BCA, CMP, FEPR, 39266-3, 14953-3, 3034-6, THYR, 2276-4, 2132-9, 51146-0, HA1C #### [facility] ([id number]) [address], [address] [place] [address] ALT [Catalytic activity/Vol] 14 U/L Normal 0-31 [facility] Comment on above: Performed By: #### C BCA, CMP, FEPR, 62614-4, 73872-1, 3034-6, THYR, 2276-4, 2132-9, 24302-4, HA1C #### [facility] ([id number]) [address], [address] [place] [address] Anion gap [Moles/Vol] 7 mmol/L Normal 5-15 [facility] Comment on above: Performed By: #### C BCA, CMP, FEPR, 94450-0, 34021-9, 3034-6, THYR, 2276-4, 2-9, 10213-9, HA1C #### [facility] ([id number]) [address], [address] [place] [address] AST [Catalytic activity/Vol] 17 U/L Normal 0-41 [facility] Comment on above: Performed By: #### C BCA, CMP, FEPR, 42667-2, 49748-2, 3034-6, THYR, 2276-4, 2-9, 84122-5, HA1C #### [facility] ([id number]) [address], [address] [place] [address] Bilirubin [Mass/Vol] 0.3 mg/dL Normal 0.3-1.2 [facility] Comment on above: Performed By: #### C BCA, CMP, FEPR, 01400-9, 36901-7, 3034-6, THYR, 2276-4, 2-9, 12100-9, HA1C #### [facility] ([id number]) [address], [address] [place] [address] Calcium [Mass/Vol] 9.2 mg/dL Normal 8.5-10.5 [facility] Comment on above: Performed By: #### C BCA, CMP, FEPR, 25297-1, 47310-1, 3034-6, THYR, 2276-4, 2-9, 49362-6, HA1C #### [facility] ([id number]) [address], [address] [place] [address] Chloride [Moles/Vol] 106 mmol/L Normal 98-109 [facility] Comment on above: Performed By: #### C BCA, CMP, FEPR, 56291-7, 32432-2, 3034-6, THYR, 2276-4, 2132-9, 66207-6, HA1C #### [facility] ([id number]) [address], [address] [place] [address] CO2 [Moles/Vol] 26 mmol/L Normal 22-32 [facility] Comment on above: Performed By: #### C BCA, CMP, FEPR, 41006-6, 66392-1, 3034-6, THYR, 2276-4, 2131-9, 81289-2, HA1C #### [facility] ([id number]) [address] [place] [address] Creatinine [Mass/Vol] 0.85 mg/dL Normal 0.40-1.00 [facility] Comment on above: Result Comment: METH OD TRACEABLE TO IDMS STANDARD Performed By: #### C BCA, CMP, FEPR, 16831-6, 42280-1, 3034-6, THYR, 6-4, 2131-9, 91839-1, HA1C #### [facility] ([id number]) [address] [place] [address] GFR/1.73 sq M.predicted among non-blacks MDRD (S/P/Bld) [Vol rate/Area] 88 mL/min/{1.73_m2} Normal >59 [facility] Comment on above: Result Comment: Reported eGFR is based on the CKD-EPI 2020 equation that does not use a race coefficient. Performed By: #### C BCA, CMP, FEPR, 85050-7, 30725-1, 3034-6, THYR, 2276-4, 2-9, 52040-3, HA1C #### [facility] ([id number]) [address], [address] [place] [address] Glucose [Mass/Vol] 97 mg/dL Normal 65-99 [facility] Comment on above: Performed By: #### C BCA, CMP, FEPR, 49755-8, 75729-5, 3034-6, THYR, 2276-4, 2132-9, 23144-3, HA1C #### [facility] ([id number]) [address], [address] [place] [address] Potassium [Moles/Vol] 4.1 mmol/L Normal 3.5-5.0 [facility] Comment on above: Performed By: #### C BCA, CMP, FEPR, 45385-5, 40041-6, 3034-6, THYR, 2276-4, 2132-9, 24759-6, HA1C #### [facility] ([id number]) [address], [address] [place] [address] Protein [Mass/Vol] 6.9 g/dL Normal 6.0-8.0 [facility] Comment on above: Performed By: #### C BCA, CMP, FEPR, 33761-1, 30576-2, 3034-6, THYR, 2276-4, 2132-9, 92456-9, HA1C #### [facility] ([id number]) [address], [address] [place] [address] Sodium [Moles/Vol] 139 mmol/L Normal 134-146 [facility] Comment on above: Performed By: #### C BCA, CMP, FEPR, 00534-8, 76559-3, 3034-6, THYR, 2276-4, 2-9, 89716-8, HA1C #### [facility] ([id number]) [address], [address] [place] [address] Urea nitrogen [Mass/Vol] 15 mg/dL Normal 5-23 [facility] Comment on above: Performed By: #### C BCA, CMP, FEPR, 38942-7, 26027-1, 3034-6, THYR, 2276-4, 2132-9, 35664-5, HA1C #### [facility] ([id number]) [address], [address] [place] [address] Comprehensive metabolic pane flo 10-17-2024 Albumin [Mass/Vol] 4.2 g/dL 3.2 - 5.3 g/dL [facility] ALP [Catalytic activity/Vol] 55 U/L 39 - 130 U/L [facility] ALT No additional P-5'-P [Catalytic activity/Vol] 14 U/L 0 - 31 U/L [facility] Anion gap [Moles/Vol] 7 mmol/L 5 - 15 mmol/L [facility] AST [Catalytic activity/Vol] 17 U/L 0 - 41 U/L [facility] Bilirubin [Mass/Vol] 0.3 mg/dL 0.3 - 1 .2 mg/dL [facility] Calcium [Mass/Vol] 9.2 mg/dL 8.5 - 10. 5 mg/dL [facility] Chloride [Moles/Vol] 106 mmol/L 98 - 10 9 mmol/L [facility] CO2 [Moles/Vol] 26 mmol/L 22 - 32 mmol/L [facility] Creatine [Mass/Vol] 0.85 mg/dL 0.40 - 1 .00 mg/dL [facility] Comment on above: METHOD TRACEABLE TO IDKY STANDARD GFR/1.73 sq M.predicted among non-blacks MDRD (S/P/Bld) [Vol rate/Area] 88 mL/min/{1.73_m2} [facility] Comment on above: Reported eGFR is based on the CKD-EPI 2020 equation that does not use a race coefficient. PERFORMED AT [facility] [address],[place] [address] Glucose [Mass/Vol] 97 mg/dL 65 - 99 mg/dL [facility] Potassium [Moles/Vol] 4.1 mmol/L 3.5 - 5.0 mmol/L [facility] Protein [Mass/Vol] 6.9 g/dL 6.0 - 8.0 g/dL [facility] Sodium [Moles/Vol] 139 mmol/L 134 - 146 mmol/L [facility] Urea nitrogen [Mass/Vol] 15 mg/dL 5 - 23 mg/d L [facility] FERRITINon 10-17-2024 Ferritin [Mass/Vol] 12 ng/mL Normal 11-307 [facility] Comment on above: Performed By: #### C BCA, FEPR, 2276-4 #### [facility] ([id number]) [address], [address] [place] [address] Ferritinon 10-17-2024 Ferritin [Mass/Vol] 12 ng/mL 11 - 307 ng/mL [facility] Comment on above: PERFORMED AT [address] [facility] [address],[place] [address] HGB A1C (GLYCO-HGB)on 2023 Glucose [Mass/Vol] 100 mg/dL Normal [facility] Comment on above: Performed By: #### Angel MARIN, FEPR, 2276-4 #### [facility] ([id number]) [facility] [place] [address] HbA1c (Bld) [Mass fraction] 5.1 % Normal 4.4-5.6 [facility] Comment on above: Result Comment: NOTE ADA Guidelines Result HgbA1c Normal : less than 5.7 % Prediabetes : 5.7 % to 6.4 % Diabetes : > 6.4 % Use with caution in patients with abnormal hemoglobin variants as the half-life of red blood cells and in vivo glycation rates are affected. Performed By: #### Angel MARIN, FEPR, 2276-4 #### [facility] ([id number]) [facility] [address] [place] [address] HbA1c (Bld) [Mass fraction]o n 10-17-2024 Average glucose Estimated from glycated hemoglobin (Bld) [Mass/Vol] 100 mg/dL [facility] Comment on above: PERFORMED AT [address],[place] [address] Hemoglobin A1con 10-17-2024 HbA1c (Bld) [Mass fraction] 5.1 % 4.4 - 5.6 % [facility] Comment on above: NOTE ADA Guidelines Result HgbA1c Normal : less than 5.7 % Prediabetes : 5.7 % to 6.4 % Diabetes : > 6.4 % Use with caution in patients with abnormal hemoglobin variants as the half-life of red blood cells and in vivo glycation rates are affected. IRON PROFILEon 10-17-2024 Iron [Mass/Vol] 37 ug/dL Low 50-170 [facility] Comment on above: Performed By: #### C BCA, CMP, FEPR, 98603-6, 42873-9, 3034-6, THYR, 2276-4, 2132-9, 19453-3, HA1C #### [facility] ([id number]) [address] [facility] [facility] [address] [place] [address] IRON BINDING 386 ug/dL Normal 250-425 [facility] Comment on above: Performed By: #### C BCA, CMP, FEPR, 43759-1, 36645-1, 3034-6, THYR, 2276-4, 2132-9, 26136-8, HA1C #### [facility] ([id number]) [address], [address] [place] [address] IRON SATURATION 10 % SATURATION Low 15-50 [facility] Comment on above: Performed By: #### C BCA, CMP, FEPR, 56897-9, 39030-2, 3034-6, THYR, 2276-4, 2132-9, 58897-9, HA1C #### [facility] ([id number]) [address], [address] [place] [address] Iron and Iron binding capaci ty panelon 10-17-2024 Iron [Mass/Vol] 37 ug/dL Low 50 - 170 ug/dL [facility] Iron binding capacity [Mass/Vol] 386 ug/dL 250 - 425 ug/dL [facility] Iron saturation [Mass fraction] 10 Low [facility] Comment on above: PERFORMED AT [facility] [address] [address] Lipid 1996 panelon Cholesterol [Mass/Vol] 134 mg/dL Low 150 - 200 mg/dL [facility] Cholesterol in HDL [Mass/Vol] 41 mg/dL 39 - PINF mg/dL [facility] Comment on above: HDL <40 mg/dL - High Risk HDL > or = 40mg/dL- Desirable HDL >60 mg/dL - Negative Risk Cholesterol in HDL/Total Cholesterol [Mass ratio] 3.3 {ratio} 1.0 - 5.0 [facility] Comment on above: PERFORMED AT [facility] [address] [facility],[place] [address] Cholesterol in LDL [Mass/Vol] 80 mg/dL NINF - 130 mg/dL [facility] Comment on above: LDL <100 mg/dL - Desirable LDL >160 mg/dL - High Risk Cholesterol in VLDL [Mass/Vol] 13 mg/dL 0 - 30 mg/dL [facility] Triglyceride [Mass/Vol] 63 mg/dL 27 - 150 mg/dL [facility] Cholesterol [Mass/Vol] 134 mg/dL Low 150-200 [facility] Comment on above: Performed By: #### C BCA, CMP, FEPR, 39724-9, 50376-2, 3034-6, THYR, 2276-4, 2132-9, 05880-3, HA1C #### [facility] ([id number]) [address], [address] [place] [address] Cholesterol in HDL [Mass/Vol] 41 mg/dL Normal >39 [facility] Comment on above: Result Comment: HDL <40 mg/dL - High Risk HDL > or = 40mg/dL- Desirable HDL >60 mg/dL - Negative Risk Performed By: #### C BCA, CMP, FEPR, 74489-9, 47889-3, 3034-6, THYR, 2276-4, 2132-9, 63900-1, HA1C #### [facility] ([id number]) [address], [address] [place] [address] Cholesterol in LDL [Mass/Vol] 80 mg/dL Normal <130 [facility] Comment on above: Result Comment: LDL <100 mg/dL - Desirable LDL >160 mg/dL - High Risk Performed By: #### C BCA, CMP, FEPR, 56373-3, 36633-1, 3034-6, THYR, 2276-4, 2132-9, 31313-9, HA1C #### [facility] ([id number]) [address], [address] [place] [address] Cholesterol in VLDL [Mass/Vol] 13 mg/dL Normal 0-30 [facility] Comment on above: Performed By: #### C BCA, CMP, FEPR, 55201-6, 86891-7, 3034-6, THYR, 2276-4, 2132-9, 18710-8, HA1C #### [facility] ([id number]) [address], [address] [place] [address] CHOLESTEROL:HDL 3.3 Normal 1.0-5.0 [facility] Comment on above: Performed By: #### C BCA, CMP, FEPR, 46125-4, 54487-9, 3034-6, THYR, 2276-4, 2132-9, 32330-0, HA1C #### [facility] ([id number]) [address] [place] [address] Triglyceride [Mass/Vol] 63 mg/dL Normal 27-150 [facility] Comment on above: Performed By: #### C BCA, CMP, FEPR, 01953-1, 66871-8, 3034-6, THYR, 2276-4, 2131-9, 58276-1, HA1C #### [facility] ([id number]) [address], [address] [place] [address] MAGNESIUMon 10-17-2024 Magnesium [Mass/Vol] 1.8 mg/dL Normal 1.8-2.6 [facility] Comment on above: Performed By: #### C BCA, FEPR, 2275-4 #### [facility] ([id number]) [address], [address] [place] [address] Magnesiumon 10-17-2024 Magnesium [Mass/Vol] 1.8 mg/dL 1.8 - 2 .6 mg/dL [facility] Comment on above: PERFORMED AT [facility] [address],[place] [address] No Panel Informationon 10-17 Interpretation and review of laboratory results Abnormal [facility] THYROID PROFILEon 10-17-2024 Free T4 [Mass/Vol] 0.90 ng/dL Normal 0.61-1.60 [facility] Comment on above: Performed By: #### C BCA, FEPR, 2275-4 #### [facility] ([id number]) [address] [place] [address] TSH 0.50 uIU/mL Normal 0.49-4.67 [facility] Comment on above: Performed By: #### C BCA, FEPR, 2275-4 #### [facility] ([id number]) [address] [place] [address] TRANSFERRINon 10-17-2024 Transferrin [Mass/Vol] 276 mg/dL Normal 168-336 [facility] Comment on above: Performed By: #### C BCA, FEPR, 6-4 #### [facility] ([id number]) [address] [place] [address] TSHon 10-17-2024 Free T4 [Mass/Vol] 0.9 ng/dL 0.61 - 1. 60 ng/dL [facility] Comment on above: PERFORMED AT [facility] [address],[place] [address] TSH Qn 0.5 m[IU]/L [facility] Transferrinon 10-17-2024 Transferrin [Mass/Vol] 276 mg/dL 168 - 336 mg/dL [facility] Comment on above: PERFORMED AT [facility] [address],[place] [address] URINALYSISon 10-17-2024 Bilirubin Ql (U) Negative Normal NEG [facility] Comment on above: Performed By: #### C BCA, FEPR, 6-4 #### [facility] ([id number]) [address], [address] [place] [address] BLOOD/HGB Large Abnormal NEG [facility] Comment on above: Performed By: #### C BCA, FEPR, 6-4 #### [facility] ([id number]) [address] [place] [address] Color (U) ORANGE Abnormal YELLOW [facility] Comment on above: Performed By: #### C BCA, FEPR, 6-4 #### [facility] ([id number]) [address] [place] [address] Glucose Ql (U) Negative Normal NEG [facility] Comment on above: Performed By: #### C BCA, FEPR, 6-4 #### [facility] ([id number]) [address] [place] [address] Ketones Ql (U) Negative Normal NEG [facility] Comment on above: Performed By: #### C BCA, FEPR, 2276-4 #### [facility] ([id number]) [address] [place] [address] Leukocyte esterase Test strip Ql (U) Negative Normal NEG [facility] Comment on above: Performed By: #### CRISTINA Ortiz BCAR, 6-4 #### [facility] ([id number]) [address] [facility] [address] [place] [address] MUCOUS PRESENT Abnormal NONE [facility] Comment on above: Performed By: #### Angel MARIN FEPR, 2275-4 #### [facility] ([id number]) [address] [address] [place] [address] Nitrite Ql (U) Negative Normal NEG [facility] Comment on above: Performed By: #### Angel MARIN FEPR, 2275-4 #### [facility] ([id number]) [address] [address] [place] [address] pH (U) 5.5 [pH] Normal 5.0-8.5 [facility] Comment on above: Performed By: #### Angel MARIN FEPR, 2275-4 #### [facility] ([id number]) [address] [facility] [address] [place] [address] Protein Ql (U) 50 mg/dL Abnormal NEG [facility] Comment on above: Performed By: #### Angel MARIN FEPR, 2275-4 #### [facility] ([id number]) [address] [address] R.B.CELLS 5 /hpf Normal 0-5 [facility] Comment on above: Performed By: #### Angel MARIN FEPR, 2275-4 #### [facility] ([id number]) [address] [address] [place] [address] Specific gravity (U) [Rel density] 1.029 Normal 1.003-1.035 [facility] Comment on above: Performed By: #### Angel MARIN FEPR, 2275-4 #### [facility] ([id number]) [address], [address] [place] [address] SQUAMOUS EPITHELIUM 4 /hpf Normal 0-5 [facility] Comment on above: Performed By: #### Angel BCA, FEPR, 2276-4 #### [facility] ([id number]) [address], [address] [place] [address] TURBIDITY CLEAR Normal CLEAR [facility] Comment on above: Performed By: #### Angel BCA, FEPR, 6-4 #### [facility] ([id number]) [address], [address] [place] [address] Urobilinogen (U) [Mass/Vol] mg/dL Normal <1.1 [facility] Comment on above: Performed By: #### Angel MARIN, FEPR, 6-4 #### [facility] ([id number]) [address], [address] [place] [address] W.B.CELLS 4 /hpf Normal 0-5 [facility] Comment on above: Performed By: #### Angel BCA, FEPR, 6-4 #### [facility] ([id number]) [address], [address] [place] [address] Urinalysis, manual onlyon Bilirubin Ql (U) Negative Negative [facility] Color (U) ORANGE Abnormal YELLOW [facility] Epithelial cells Auto (Urine sed) [#/Area] 4 [facility] Glucose (U) [Mass/Vol] Negative Negat jan mg/dL [facility] Hemoglobin Auto test strip Ql (U) Large Abnormal Negative [facility] Ketones (U) [Mass/Vol] Negative Negat jan mg/dL [facility] Leukocyte esterase Auto test strip Ql (U) Negative Negative [facility] Mucus Ql (Urine sed) PRESENT Abnormal NONE [facility] Nitrite Auto test strip Ql (U) Negative Negative [facility] pH (U) 5.5 [pH] 5.0 - 8.5 [facility] Protein (U) [Mass/Vol] 50 mg/dL Abnormal Negative [facility] RBC Auto (Urine sed) [#/Area] 5 [facility] Specific gravity Refractometry automated (U) [Rel density] 1.029 1.003 - 1.035 [facility] Turbidity Ql (U) CLEAR CLEAR [facility] Urobilinogen Qn (U) <1.1 NINF [facility] WBC Auto (Urine sed) [#/Area] 4 [facility] Comment on above: PERFORMED AT [facility] [address],[place] [address] VITAMIN B12on 10-17-2024 Cobalamin (Vitamin B12) [Mass/Vol] 307 pg/mL Normal 180-914 [facility] Comment on above: Performed By: #### C MENA MARIN, 2276-4 #### [facility] ([id number]) [facility] [place] [address] Vitamin B12on 10-17-2024 Cobalamin (Vitamin B12) [Mass/Vol] 307 pg/mL 180 - 914 pg/mL [facility] Comment on above: PERFORMED AT [place] [address],[place] [address] Vitamin D+Metabolites [Mass/ Vol]on 10-17-2024 VITAMIN D 25 HYD TOT 24.0 ng/mL Low 30-100 [facility] Comment on above: Result Comment: Vitamin D status 25 [place] Vitamin D Deficiency <20 ng/mL Insufficiency 20-29 ng/mL Sufficiency 30-100 ng/mL Toxicity >100 ng/mL NOTE: A pediatric reference range has not been established by the cut off worker of this kit. The [place] recommends a Vitamin D level of = or >20ng/mL in infants and children. Performed By: #### C MENA MARIN, 2276-4 #### [facility] ([id number]) [address], [address] [place] [address] CBC AND AUTO DIFFon 06-08-20 24 ABSOLUTE BASOPHIL 0.1 X10E9/L Normal 0.0-0.2 [facility] Comment on above: Performed By: #### C TANIA, FEPR, 2275- #### [facility] ([id number]) [address], [address] [place] [address] ABSOLUTE NEUTROPHIL 6.5 X10E9/L Normal 1.5-6.6 [facility] Comment on above: Performed By: #### C TANIA, FEPR, 2275-4 #### [facility] ([id number]) [address] [place] [address] Basophils/100 WBC (Bld) 0.7 % Normal [facility] Comment on above: Performed By: #### C TANIA, FEPR, 2276-03 #### [facility] ([id number]) [address], [address] [place] [address] Eosinophils (Bld) [#/Vol] 0.1 10*3/uL Normal 0.0-0.4 [facility] Comment on above: Performed By: #### C TANIA, FEPR, 2276-03 #### [facility] ([id number]) [address], [address] [place] [address] Eosinophils/100 WBC (Bld) 1.5 % Normal [facility] Comment on above: Performed By: #### C TANIA, FEPR, 2276-03 #### [facility] ([id number]) [address], [address] [place] [address] Erythrocyte distribution width (RBC) [Ratio] 13.2 % Normal 11.5-15.0 [facility] Comment on above: Performed By: #### C TANIA, FEPR, 2276-03 #### [facility] ([id number]) [address], [address] [place] [address] Hematocrit (Bld) [Volume fraction] 41.6 % Normal 35-47 [facility] Comment on above: Performed By: #### Angel MARIN FEPR, 2276-03 #### [facility] ([id number]) [address] [address] [place] [address] Hemoglobin (Bld) [Mass/Vol] 14.4 g/dL Normal 11.7-15.5 [facility] Comment on above: Performed By: #### Angel MARIN, FEPR, 2275-4 #### [facility] ([id number]) [address], [facility] [address] [place] [address] Lymphocytes (Bld) [#/Vol] 1.2 10*3/uL Normal 1.0-3.5 [facility] Comment on above: Performed By: #### Angel MARIN, FEPR, 2276-03 #### [facility] ([id number]) [address] [address] [place] [address] Lymphocytes/100 WBC (Bld) 14.5 % Normal [facility] Comment on above: Performed By: #### Angel MARIN, FEPR, 2276-03 #### [facility] ([id number]) [address], [facility] [address] [place] [address] MCH (RBC) [Entitic mass] 33.1 pg Normal 27-34 [facility] Comment on above: Performed By: #### Angel MARIN FEPR, 2276-03 #### [facility] ([id number]) [address], [address] [place] [address] MCHC (RBC) [Mass/Vol] 34.6 g/dL Normal 32-36 [facility] Comment on above: Performed By: #### Angel MARIN FEPR, 2276-03 #### [facility] ([id number]) [address] [address] [place] [address] MCV (RBC) [Entitic vol] 96 fL Normal 80-100 [facility] Comment on above: Performed By: #### C BCA, FEPR, 2276-03 #### [facility] ([id number]) [address], [address] [place] [address] Monocytes (Bld) [#/Vol] 0.5 10*3/uL Normal 0-0.9 [facility] Comment on above: Performed By: #### C BCA, FEPR, 2275-4 #### [facility] ([id number]) [address], [address] [place] [address] Monocytes/100 WBC (Bld) 5.6 % Normal [facility] Comment on above: Performed By: #### C BCA, FEPR, 2275- #### [facility] ([id number]) [address], [address] [place] [address] Neutrophils/100 WBC (Bld) 77.7 % Normal [facility] Comment on above: Performed By: #### C BCA, FEPR, 2275-4 #### [facility] ([id number]) [address], [address] [place] [address] Platelet mean volume (Bld) [Entitic vol] 8.9 fL Normal 7-12 [facility] Comment on above: Performed By: #### C BCA, FEPR, 2275- #### [facility] ([id number]) [address], [address] [place] [address] Platelets (Bld) [#/Vol] 264 10*3/uL Normal 150-450 [facility] Comment on above: Performed By: #### C BCA, FEPR, 2275-4 #### [facility] ([id number]) [address], [address] [place] [address] RBC COUNT 4.36 X10E12/L Normal 3.80-5.20 [facility] Comment on above: Performed By: #### C BCA, FEPR, 2275-4 #### [facility] ([id number]) [address], [address] [place] [address] WBC (Bld) [#/Vol] 8.4 10*3/uL Normal 4.0-11.0 [facility] Comment on above: Performed By: #### C BCA, FEPR, 6-4 #### [facility] ([id number]) [address] [address] [place] [address] FERRITINon 06-08-2024 Ferritin [Mass/Vol] 26 ng/mL Normal 11-307 [facility] Comment on above: Performed By: #### C BCA, FEPR, 6-4 #### [facility] ([id number]) [address] [address] [place] [address] IRON PROFILEon 06-08-2024 Iron [Mass/Vol] 92 ug/dL Normal 50-170 [facility] Comment on above: Performed By: #### C BCA, FEPR, 6-4 #### [facility] ([id number]) [address] [address] [place] [address] IRON BINDING 354 ug/dL Normal 250-425 [facility] Comment on above: Performed By: #### C BCA, FEPR, 6-4 #### [facility] ([id number]) [address] [address] [place] [address] IRON SATURATION 26 % SATURATION Normal 15-50 [facility] Comment on above: Performed By: #### C BCA, FEPR, 6-4 #### [facility] ([id number]) [address] [address] [place] [address] CBC AND AUTO DIFFon 12-17-19 24 ABSOLUTE BASOPHIL 0.1 X10E9/L Normal 0.0-0.2 [facility] Comment on above: Performed By: #### C BCA, FEPR, 6-4 #### [facility] ([id number]) [address] [place] [address] ABSOLUTE NEUTROPHIL 3.3 X10E9/L Normal 1.5-6.6 [facility] Comment on above: Performed By: #### C TANIA, FEPR, 2275-4 #### [facility] ([id number]) [address], [address] [place] [address] Basophils/100 WBC (Bld) 1.0 % Normal [facility] Comment on above: Performed By: #### C TANIA, FEPR, 2275-4 #### [facility] ([id number]) [address], [address] [place] [address] Eosinophils (Bld) [#/Vol] 0.3 10*3/uL Normal 0.0-0.4 [facility] Comment on above: Performed By: #### Angel MARIN, FEPR, 2275-4 #### [facility] ([id number]) [address], [address] [place] [address] Eosinophils/100 WBC (Bld) 4.9 % Normal [facility] Comment on above: Performed By: #### Angel MARIN, FEPR, 2276-03 #### [facility] ([id number]) [address], [address] [place] [address] Erythrocyte distribution width (RBC) [Ratio] 15.4 % High 11.5-15.0 [facility] Comment on above: Performed By: #### Angel MARIN, FEPR, 2275- #### [facility] ([id number]) [address], [address] [place] [address] Hematocrit (Bld) [Volume fraction] 40.1 % Normal 35-47 [facility] Comment on above: Performed By: #### Angel MARIN, FEPR, 2275-4 #### [facility] ([id number]) [address], [address] [place] [address] Hemoglobin (Bld) [Mass/Vol] 13.1 g/dL Normal 11.7-15.5 [facility] Comment on above: Performed By: #### Angel MARIN FEPR, 2275-4 #### [facility] ([id number]) [address], [facility] [address] [place] [address] Lymphocytes (Bld) [#/Vol] 1.8 10*3/uL Normal 1.0-3.5 [facility] Comment on above: Performed By: #### Angel MARIN FEPR, 2275-4 #### [facility] ([id number]) [address], [facility] [address] [place] [address] Lymphocytes/100 WBC (Bld) 30.6 % Normal [facility] Comment on above: Performed By: #### Angel MARIN FEPR, 2275-4 #### [facility] ([id number]) [address], [address] [place] [address] MCH (RBC) [Entitic mass] 27.9 pg Normal 27-34 [facility] Comment on above: Performed By: #### Angel MARIN FEPR, 2276-03 #### [facility] ([id number]) [address], [facility] [address] [place] [address] MCHC (RBC) [Mass/Vol] 32.7 g/dL Normal 32-36 [facility] Comment on above: Performed By: #### Angel MARIN FEPR, 4 #### [facility] ([id number]) [address], [address] [place] [address] MCV (RBC) [Entitic vol] 85 fL Normal 80-100 [facility] Comment on above: Performed By: #### Angel MARIN, FEPR, 4 #### [facility] ([id number]) [address], [address] [place] [address] Monocytes (Bld) [#/Vol] 0.5 10*3/uL Normal 0-0.9 [facility] Comment on above: Performed By: #### C TANIA, FEPR, 6-4 #### [facility] ([id number]) [address], [address] [place] [address] Monocytes/100 WBC (Bld) 8.5 % Normal P [facility] Comment on above: Performed By: #### Angel MARIN, FEPR, 2275-4 #### [facility] ([id number]) [address], [address] [place] [address] Neutrophils/100 WBC (Bld) 55.0 % Normal [facility] Comment on above: Performed By: #### Angel MARIN, FEPR, 2275- #### [facility] ([id number]) [address], [address] [place] [address] Platelet mean volume (Bld) [Entitic vol] 9.5 fL Normal 7-12 [facility] Comment on above: Performed By: #### Angel MARIN, FEPR, 2275-4 #### [facility] ([id number]) [address], [address] [place] [address] Platelets (Bld) [#/Vol] 282 10*3/uL Normal 150-450 [facility] Comment on above: Performed By: #### Angel MARIN, FEPR, 2275-4 #### [facility] ([id number]) [address], [address] [place] [address] RBC COUNT 4.70 X10E12/L Normal 3.80-5.20 [facility] Comment on above: Performed By: #### Angel BCA, FEPR, 2275-4 #### [facility] ([id number]) [address], [address] [place] [address] WBC (Bld) [#/Vol] 6.0 10*3/uL Normal 4.0-11.0 [facility] Comment on above: Performed By: #### Angel BCA, FEPR, 2276-4 #### [facility] ([id number]) [address], [facility] [address] [place] [address] FERRITINon 12-17-2023 Ferritin [Mass/Vol] 8 ng/mL Low 11-307 [facility] Comment on above: Performed By: #### Angel BCA, FEPR, 2276-4 #### [facility] ([id number]) [address], [facility] [address] [place] [address] IRON PROFILEon 12-17-2023 Iron [Mass/Vol] 30 ug/dL Low 50-170 [facility] Comment on above: Performed By: #### Angel BCA, FEPR, 2276-4 #### [facility] ([id number]) [address], [facility] [address] [place] [address] IRON BINDING 465 ug/dL High 250-425 [facility] Comment on above: Performed By: #### Angel BCA, FEPR, 2276-4 #### [facility] ([id number]) [address], [facility] [address] [place] [address] IRON SATURATION 6 % SATURATION Low 15-50 [facility] Comment on above: Performed By: #### Angel BCA, FEPR, 2276-4 #### [facility] ([id number]) [address], [facility] [address] [place] [address] CNOVon 06-27-2021 CNOV Office Visit ([facility]) ---- HILLARY STERN ([id number]) 1980 F Date Time Provider Department 06/27/21 11:00 EZRA SAMAYOA [facility] During your visit today, we recorded the following information about you: ADRIAN Khan, CCC-A 06/27/2021 1:14 PM Signed [facility] HEARING AID CHECK Name: Hillary Stern CCF#: [id number] Date of Service: 06/27/2021 Date of : 1980 Age: [age] year old RIGHT: AUDEO [id number] SN: [id number] Complaint Evaluation Officer/Dome: #2 small LEFT: CROS B-312 SN: [id number] Tubing/Dome: #2 small CERUSTOP Repair Warranty Expiration Date: ? Loss/Damage Expiration Date: ? 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 Hillary was taken to the [place]ervoir Engineering Manager to cover today's appointment fee of $50.00. Recommendations 1. Patient advised to wear the aid daily. 2. Return in 2-3 weeks for follow up HAC if needed. Betty Khan, [facility]A Clinical Cattle Rancher Referring Provider: SELF [200] Allergies As of Date: 06/27/2021 (Not on File) Date Reviewed: Never Reviewed Reason for Visit: Problem With Hearing Aid(s) [1124] Hearing Aid Check [1340] Primary Visit Diagnosis:Sensorine ural hearing loss, asymmetrical [H90.3] Problem List As Of Date: 06/27/2021 (None) Encounter Status:Closed by EZRA HOGAN on 06/27/21 Normal [facility] CNOVon 06-07-2021 CNOV Office Visit ([facility]) ---- HILLARY STERN ([id number]) 1980 F Date Time Provider Department 06/07/21 10:00 AM [facility] During your visit today, we recorded the following information about you: ADRIAN Mcneil 06/07/2021 11:14 AM Signed [facility] AUDIOLOGIC EVALUATION REPORT Name: Hillary Stern CC#: [id number] Date of Service: 06/07/2021 Date of : 1980 Age: [age] year old Referred by: Antwon Sarah, WIRE COILER MACHINE OPERATOR [address] [facility] [address] Referred for: Evaluation of the cause of [...] made. SUMMARY: Audiogram can be viewed under Forms/Audiology/[facility] rtForm. OTOSCOPIC INSPECTION RIGHT EAR: Otoscopic inspection revealed [...] amplification. -- Annual audiologic evaluation Adrian Mcneil, [facility]A Cattle Rancher TEIXEIRA Abbrev- iation Definition Degree of hearing sensitivity dB range WNL within normal limits WNL 0 - 20 SNHL sensorineural hearing loss Mild 20-40 CHL conductive hearing loss Moderate 40-55 MHL mixed hearing loss Moderately-Severe 55-70 WRS word recognition score Severe 70-90 ME middle ear Profound 90 + TM tympanic membrane Referring Provider: ANTWON SARAH [[id number]] Allergies As of Date: 06/07/2021 (Not on File) Date Reviewed: Never Reviewed Reason for Visit: Hearing Loss [1119] Primary Visit Diagnosis:Sensorine ural hearing loss, asymmetrical [H90.5] Problem List As Of Date: 06/07/2021 (None) Classic SmartForms filed during this visit: Audiometry Encounter Status:Closed by LATRICE HOUSTON on 06/07/21 Normal [facility] Vital Signs Date Time Vital Sign Value Performing Clinician Faci lity 12-28-2024 16:17-0500 Body mass index (BMI) [Ratio] 33.03 kg/m2 Gillian Hay DO Work Phone: [facility] 12-28-2024 16:17-0500 Body weight 81.92 kg Gillian Satnam DO Work Phone: [facility] 12-28-2024 16:17-0500 Diastolic blood pressure 84 mm[Hg] Gillian Satnam DO Work Phone: [facility] 12-28-2024 16:17-0500 Systolic blood pressure 120 mm[Hg] Gillian Satnam DO Work Phone: [facility] 12-08-2024 13:24-0500 Body mass index (BMI) [Ratio] 32.37 kg/m2 Gillian Satnam DO Work Phone: [facility] 12-08-2024 13:24-0500 Body weight 80.29 kg Gillian Satnam DO Work Phone: [facility] 12-08-2024 13:24-0500 Diastolic blood pressure 72 mm[Hg] Gillian Satnam DO Work Phone: [facility] 12-08-2024 13:24-0500 Systolic blood pressure 130 mm[Hg] Gillian Satnam DO Work Phone: [facility] 11-03-2024 15:57-0500 Body height 157.5 cm Savanah Reynoso WIRE COILER MACHINE OPERATOR Work Phone: [facility] 11-03-2024 15:57-0500 Body mass index (BMI) [Ratio] 31.97 kg/m2 Savanahjackelyn Reynoso WIRE COILER MACHINE OPERATOR Work Phone: [facility] 11-03-2024 15:57-0500 Body temperature 97.81 [degF] Savanah Angeles WIRE COILER MACHINE OPERATOR Work Phone: [facility] 11-03-2024 15:57-0500 Body weight 79.29 kg Savanah Angeles WIRE COILER MACHINE OPERATOR Work Phone: [facility] 11-03-2024 15:57-0500 Diastolic blood pressure 88 mm[Hg] Savanah Angeles WIRE COILER MACHINE OPERATOR Work Phone: [facility] 11-03-2024 15:57-0500 Heart rate 84 /min Savanah Aichholz WIRE COILER MACHINE OPERATOR Work Phone: [facility] 11-03-2024 15:57-0500 Respiratory rate 20 /min Savanah Tapanholz WIRE COILER MACHINE OPERATOR Work Phone: [facility] 11-03-2024 15:57-0500 SaO2% (BldA) [Mass fraction] 99 % Savanah Tapanholz WIRE COILER MACHINE OPERATOR Work Phone: [facility] 11-03-2024 15:57-0500 Systolic blood pressure 132 mm[Hg] Savanah Tapanholz WIRE COILER MACHINE OPERATOR Work Phone: [facility] 10-06-2024 15:48-0500 Body height 157.5 cm Savanah Tapanholz WIRE COILER MACHINE OPERATOR Work Phone: [facility] 10-06-2024 15:48-0500 Body mass index (BMI) [Ratio] 31.79 kg/m2 Savanah Tapanholz WIRE COILER MACHINE OPERATOR Work Phone: [facility] 10-06-2024 15:48-0500 Body temperature 98.01 [degF] Savanah Tapanholz WIRE COILER MACHINE OPERATOR Work Phone: [facility] 10-06-2024 15:48-0500 Body weight 78.83 kg Savanah Tapanholz WIRE COILER MACHINE OPERATOR Work Phone: [facility] 10-06-2024 15:48-0500 Diastolic blood pressure 84 mm[Hg] Savanah Tapanholz WIRE COILER MACHINE OPERATOR Work Phone: [facility] 10-06-2024 15:48-0500 Heart rate 78 /min Savanah Tapanholz WIRE COILER MACHINE OPERATOR Work Phone: [facility] 10-06-2024 15:48-0500 Respiratory rate 18 /min Savanah Aichholz WIRE COILER MACHINE OPERATOR Work Phone: [facility] 10-06-2024 15:48-0500 SaO2% (BldA) [Mass fraction] 98 % Savanah Lupillohholz WIRE COILER MACHINE OPERATOR Work Phone: [facility] 10-06-2024 15:48-0500 Systolic blood pressure 128 mm[Hg] Savanah Reynoso WIRE COILER MACHINE OPERATOR Work Phone: [facility] Encounters Encounter Date Encounter Type Care Provider Facility Start: 01-12-2025 End: 01-12-2025 Clinisync Result Encounter Generic External Data Provider [facility] Unsolicited Start: 01-12-2025 End: 01-12-2025 Clinisync Result Encounter Generic External Data Provider [facility] Unsolicited Start: 12-31-2024 End: 12-31-2024 Clinisync Result Encounter Generic External Data Provider [facility] Unsolicited Start: 12-31-2024 End: 12-31-2024 Clinisync Result Encounter Generic External Data Provider [facility] Unsolicited Start: 12-28-2024 End: 12-28-2024 Patient encounter procedure Gillian Satnam DO Work Phone: [facility] Comment on above: Pre-op examination; Menorrhagia with regular cycle; Abnormal uterine bleeding; Pelvic pain in female Start: 12-28-2024 End: 12-28-2024 Preprocedural examination done Gillian Satnam DO Work Phone: [facility] Start: 12-28-2024 End: 12-28-2024 ambulatory GILLIAN SATNAM Not Available Start: 12-28-2024 End: 12-28-2024 Departed Referred Gillian Satnam DO Work Phone: [facility] Start: 12-08-2024 End: 12-08-2024 Bamboo flowsheet [...] cycle Start: 12-08-2024 End: 12-08-2024 ambulatory GILLIAN HAY Not Available Start: 11-30-2024 End: 11-30-2024 ambulatory SAVANAH REYNOSO [facility] Start: 11-20-2024 End: 11-20-2024 ambulatory [facility] Start: 11-13-2024 End: 11-13-2024 ambulatory [facility] Start: 11-03-2024 End: 11-03-2024 Office outpatient visit 15 minutes Savanah Reynoso WIRE COILER MACHINE OPERATOR Work Phone: [facility] Comment on above: Iron deficiency anem ia, unspecified iron deficiency anemia type (Primary Dx); Vitamin D deficiency; Dizziness and giddiness Start: 11-03-2024 End: 11-03-2024 ambulatory SAVANAH REYNOSO Not Available Start: 11-03-2024 End: 11-03-2024 Bamboo flowsheet Savanah Reynoso WIRE COILER MACHINE OPERATOR Work Phone: [facility] Start: 11-03-2024 End: 11-03-2024 Bamboo flowsheet Savanah Reynoso WIRE COILER MACHINE OPERATOR Work Phone: [facility] Start: 10-20-2024 End: 10-20-2024 Refill Savanah Reynoso WIRE COILER MACHINE OPERATOR Work Phone: [facility] Comment on above: Acute cystitis witho ut hematuria (Primary Dx) Yeast infection of t he vagina (Primary Dx) Start: 10-19-2024 End: 10-19-2024 Orders Only Savanah Reynoso WIRE COILER MACHINE OPERATOR Work Phone: [facility] Comment on above: Iron deficiency anem ia, unspecified iron deficiency anemia type (Primary Dx); Asymptomatic microscopic hematuria; Vitamin D deficiency Start: 10-17-2024 End: 10-17-2024 External Result Encounter Savanah Reynoso NP Work Phone: [facility] Unsolicited Start: 10-17-2024 End: 10-17-2024 External Result Encounter Savanah Aichholz WIRE COILER MACHINE OPERATOR Work Phone: [facility] Unsolicited Start: 10-17-2024 End: 10-17-2024 [facility] Start: 10-06-2024 End: 10-06-2024 Office outpatient visit 25 minutes Savanah Reynoso WIRE COILER MACHINE OPERATOR Work Phone: [facility] Comment on above: Dizziness and giddin ess (Primary Dx); Other fatigue; Iron deficiency anemia, unspecified iron deficiency anemia type Start: 10-06-2024 End: 10-06-2024 ambulatory SAVANAH REYNOSO Not Available Start: 10-06-2024 End: 10-06-2024 Bamboo flowsheet Savanah Reynoso WIRE COILER MACHINE OPERATOR Work Phone: [facility] Start: 10-06-2024 End: 10-06-2024 Bamboo flowsheet Savanah Reynoso WIRE COILER MACHINE OPERATOR Work Phone: [facility] Start: 07-16-2024 End: 07-16-2024 ambulatory SAVANAH REYNOSO Not Available Start: 06-12-2024 End: 06-12-2024 ambulatory [facility] Start: 06-08-2024 End: 06-08-2024 ambulatory [facility] Start: 02-07-2024 End: 03-02-2024 ambulatory [facility] Start: 01-01-2024 End: 01-02-2024 ambulatory [facility] Start: 12-25-2023 End: 01-02-2024 ambulatory [facility] Start: 12-17-2023 End: 12-17-2023 ambulatory [facility] Start: 11-22-2022 End: 11-23-2022 ambulatory MD Alfredo Daly Facility:[facility] Start: 10-18-2022 End: 10-19-2022 ambulatory MD Dylan Fuentes Facility:[facility] Procedures Date Procedure Procedure Detail Performing Clinician Start: 01-12-2025 ALL CBC WITH AUTO DIFF Gillian Satnam DO Work Phone: Start: 12-31-2024 US PELVIS W/ TRANSVAGINAL Generic External Data Provider Start: 12-30-2024 Urine test visual color cmprsn meths Gillian Satnam DO Work Phone: Start: 10-17-2024 Complete blood count with white cell differential, automated Savanah Reynoso WIRE COILER MACHINE OPERATOR Work Phone: Start: 10-17-2024 Comprehensive metabo lic panel Savanah Reynoso WIRE COILER MACHINE OPERATOR Work Phone: Start: 10-17-2024 Lipid panel Savanah avila WIRE COILER MACHINE OPERATOR Work Phone: Start: 10-17-2024 Urnls dip stick/tabl et rgnt non-auto w/o micrscp Savanah Reynoso WIRE COILER MACHINE OPERATOR Work Phone: Start: 06-12-2024 Follow-up visit Follow-up AMELIA JARA Start: 05-10-2023 Mammography Savanah avila WIRE COILER MACHINE OPERATOR Work Phone: Plan of Treatment Date Care Activity Detail Author Start: 01-19-2025 End: 10-19-2025 25-hydroxyvitamin D3 [Mass/volume] in Serum or Plasma Vitamin D 25 hydroxy Lab Routine Vitamin D deficiency Expected: 01/19/2025 (Approximate), Expires: 10/19/2025 [facility] Comment on above: Expected: 01/19/2025 (Approximate), Expires: 10/19/2025 Start: 01-19-2025 End: 10-19-2025 CBC W Auto Differential panel - Blood CBC and differential Lab Routine Iron deficiency anemia, unspecified iron deficiency anemia type Expected: 01/19/2025 (Approximate), Expires: 10/19/2025 [facility] Comment on above: Expected: 01/19/2025 (Approximate), Expires: 10/19/2025 Start: 01-19-2025 End: 10-19-2025 Iron + transferrin + TIBC Iron + transferrin + TIBC Lab Routine Iron deficiency anemia, unspecified iron deficiency anemia type Expected: 01/19/2025 (Approximate), Expires: 10/19/2025 [facility] Comment on above: Expected: 01/19/2025 (Approximate), Expires: 10/19/2025 Start: 01-12-2025 End: 01-12-2025 Professional / ancillary services management 01/12/2025 9:30 AM EST Ancillary Procedure [facility] [address] [place] [address] [place] [address] [facility] Start: 01-06-2025 End: 01-06-2025 Patient encounter procedure 01/06/2025 6:00 PM EST Office Visit [facility] [address] [place] [address] Savanah Reynoso NP [address] [place] [address] [facility] Start: 12-21-2024 Screening for malign ant neoplasm of cervix [facility] Start: 12-08-2024 End: 12-08-2025 US Pelvis US Pelvis w/ TV Imaging Routine Menorrhagia with regular cycle Expected: 12/08/2024, Expires: 12/08/2025 [facility] Work Phone: Comment on above: Expected: 12/08/2024 , Expires: 12/08/2025 Start: 12-08-2024 End: 12-08-2024 Patient encounter procedure [facility] Comment on above: Perimenopausal sympt oms Start: 11-18-2024 End: 10-19-2025 Urinalysis complete panel - Urine Urinalysis with reflex microscopic (clean catch) Lab Routine Asymptomatic microscopic hematuria Expected: 11/18/2024 (Approximate), Expires: 10/19/2025 [facility] Work Phone: Comment on above: Expected: 11/18/2024 (Approximate), Expires: 10/19/2025 Start: 11-03-2024 End: 11-03-2024 Patient encounter procedure [facility] Comment on above: Vitamin D deficiency (Primary Dx); Dizziness and giddiness Start: 10-06-2024 End: 10-06-2024 Patient encounter procedure 10/06/2024 3:40 PM EST Office Visit [facility] [address] [place] [address] Savanah Reynoso NP [address] [place] [address] Arrived [facility] Comment on above: Arrived Start: 10-06-2024 End: 10-06-2025 25-hydroxyvitamin D3 [Mass/volume] in Serum or Plasma Vitamin D 25 hydroxy Lab Routine Other fatigue Dizziness and giddiness Expected: 10/06/2024 (Approximate), Expires: 10/06/2025 [facility] Comment on above: Expected: 10/06/2024 (Approximate), Expires: 10/06/2025 Start: 10-06-2024 End: 10-06-2025 CBC W Auto Differential panel - Blood CBC and differential Lab Routine Iron deficiency anemia, unspecified iron deficiency anemia type Expected: 10/06/2024 (Approximate), Expires: 10/06/2025 [facility] Work Phone: Comment on above: Expected: 10/06/2024 (Approximate), Expires: 10/06/2025 Start: 10-06-2024 End: 10-06-2025 Cobalamin (Vitamin B12) [Mass/volume] in Serum or Plasma Vitamin B12 Lab Routine Iron deficiency anemia, unspecified iron deficiency anemia type Expected: 10/06/2024 (Approximate), Expires: 10/06/2025 [facility] Comment on above: Expected: 10/06/2024 (Approximate), Expires: 10/06/2025 Start: 10-06-2024 End: 10-06-2025 Comprehensive metabolic 2000 panel - Serum or Plasma Comprehensive metabolic panel Lab Routine Other fatigue Dizziness and giddiness Expected: 10/06/2024 (Approximate), Expires: 10/06/2025 [facility] Comment on above: Expected: 10/06/2024 (Approximate), Expires: 10/06/2025 Start: 10-06-2024 End: 10-06-2025 Ferritin [Mass/volume] in Serum or Plasma Ferritin Lab Routine Iron deficiency anemia, unspecified iron deficiency anemia type Expected: 10/06/2024 (Approximate), Expires: 10/06/2025 [facility] Comment on above: Expected: 10/06/2024 (Approximate), Expires: 10/06/2025 Start: 10-06-2024 End: 10-06-2025 Iron + transferrin + TIBC Iron + transferrin + TIBC Lab Routine Iron deficiency anemia, unspecified iron deficiency anemia type Expected: 10/06/2024 (Approximate), Expires: 10/06/2025 [facility] Comment on above: Expected: 10/06/2024 (Approximate), Expires: 10/06/2025 Start: 10-06-2024 End: 10-06-2025 Lipid 1996 panel - Serum or Plasma Lipid panel Lab Routine Other fatigue Expected: 10/06/2024 (Approximate), Expires: 10/06/2025 [facility] Comment on above: Expected: 10/06/2024 (Approximate), Expires: 10/06/2025 Start: 10-06-2024 End: 10-06-2025 Magnesium [Mass/volume] in Serum or Plasma Magnesium Lab Routine Other fatigue Dizziness and giddiness Expected: 10/06/2024 (Approximate), Expires: 10/06/2025 [facility] Comment on above: Expected: 10/06/2024 (Approximate), Expires: 10/06/2025 Start: 10-06-2024 End: 10-06-2025 Thyrotropin [Units/volume] in Serum or Plasma TSH Lab Routine Other fatigue Dizziness and giddiness Expected: 10/06/2024 (Approximate), Expires: 10/06/2025 [facility] Comment on above: Expected: 10/06/2024 (Approximate), Expires: 10/06/2025 Start: 10-06-2024 End: 10-06-2025 Thyroxine (T4) free [Mass/volume] in Serum or Plasma T4, free Lab Routine Other fatigue Dizziness and giddiness Expected: 10/06/2024 (Approximate), Expires: 10/06/2025 [facility] Comment on above: Expected: 10/06/2024 (Approximate), Expires: 10/06/2025 Start: 10-06-2024 End: 10-06-2025 Urinalysis complete panel - Urine Urinalysis with reflex microscopic (clean catch) Lab Routine Other fatigue Iron deficiency anemia, unspecified iron deficiency anemia type Expected: 10/06/2024 (Approximate), Expires: 10/06/2025 [facility] Comment on above: Expected: 10/06/2024 (Approximate), Expires: 10/06/2025 Start: 05-10-2024 Screening for malign ant neoplasm of breast Mammogram [facility] Start: 2002 Screening for malign ant neoplasm of cervix Pap Smear [facility] Endometrial biopsy Endometrial b iopsy Procedures Routine Menorrhagia with regular cycle Abnormal uterine bleeding Pelvic pain in female Ordered: 12/28/2024 [facility] Work Phone: Comment on above: Ordered: 12/28/2024 Immunizations Immunization Date Immunization Notes Care Provider Vero bob 11-11-2022 Seasonal, quadrivale nt, recombinant, injectable influenza vaccine, preservative free Savanah Aichholz WIRE COILER MACHINE OPERATOR Work Phone: [facility] 12-09-2021 Seasonal, quadrivale nt, recombinant, injectable influenza vaccine, preservative free Savanah Aichholz WIRE COILER MACHINE OPERATOR Work Phone: [facility] 09-03-2019 influenza, injectabl e, quadrivalent, preservative free Savanah Aichholz WIRE COILER MACHINE OPERATOR Work Phone: [facility] 09-03-2018 seasonal influenza, intradermal, preservative free Savanah Aichholz WIRE COILER MACHINE OPERATOR Work Phone: [facility] 02-19-2011 tetanus toxoid, redu noemy diphtheria toxoid, and acellular pertussis vaccine, adsorbed Savanah Aichholz WIRE COILER MACHINE OPERATOR Work Phone: [facility] Payers Date Payer Category Payer Self-pay 2023 Unknown [id number] 2022 Private Health Insurance 1980 Unknown [id number] 2.16. [id number] 1980 Unknown [id number] 2.16. [id number] 1981 Unknown [id number] 2.16. [id number] 1981 Unknown [id number] 2.16.8 40.1.541502.3.579.2.6 1981 Unknown [id number] 2.16.8 40.1.665603.3.579.2.1285 1981 Unknown [id number] 2.16.8 40.1.533945.3.579.2.1285 1981 Unknown [id number] 2.16.8 40.1.584832.3.579.2.1285 1981 Unknown [id number] 2.16.8 40.1.565940.3.579.2.1285 1981 Unknown [id number] 2.16.8 40.1.546851.3.579.2.1285 1981 Unknown [id number] 2.16.8 40.1.107300.3.579.2.1285 1981 Unknown [id number] 2.16.8 40.1.337906.3.579.2.1285 1981 Unknown [id number] 2.16.84 0.1.148440.3.579.2.1285 1981 Unknown [id number] 2.16.84 0.1.413195.3.579.2.9 1981 Unknown [id number] 2.16.84 0.1.196669.3.579.2.9 1981 Unknown [id number] 2.16.84 0.1.760474.3.579.2.9 1981 Unknown [id number] 2.16.84 0.1.116126.3.579.2.9 1980 Unknown [id number] 2.16.84 0.1.010266.3.579.2.1259 Unknown MMO [id number] Social History Date Type Detail Facility Start: 10-08-2023 Tobacco smoking status NHIS Never smoked tobacco [facility] Start: 10-08-2023 Tobacco use and exposure Smokeless tobacco non-user [facility] Start: 07-16-2024 End: 12-28-2024 Alcoholic beverage intake Ex-drinker (finding) [facility] Start: 10-09-2023 End: 11-03-2024 History of Social function [facility] Start: 10-09-2023 End: 11-03-2024 Alcohol Use Disorder Identification Test - Consumption [AUDIT-C] [facility] How often to you hav e a drink containing alcohol? 2-4 times a month [facility] How many standard dr inks containing alcohol do you have on a typical day? 1 or 2 [facility] How often do you hav e 6 or more drinks on 1 occasion? Never [facility] Start: 1980 Sex assigned at Not on file [facility] Start: 02-13-2023 Gender identity Identifies as female gender (finding) [facility] Tobacco smoking stat us NHIS Unknown if ever smoked [facility] Work Phone: Start: 12-30-2024 Sex Female (finding) [facility] Start: 1980 Sex Assigned At Female [facility] Clinical Notes 06-07-2021 to 12-28-2024 Mary Beth Ngo - 12/28/2024 3:30 PM Simona Gomez LPN - 12/08/2024 1:10 PM Vero Reynoso NP - 11/03/2024 4:35 PM KARISHMA RMOERO - 11/03/2024 3:40 PM ESTPatient Instructions Note Date & Type Note Facility 12-28-2024 History of Present illness Narrative Reason for Appointment: Patient ID: Hillary Stern is a 44 y.o. female who presents for Pre-op Visit and Endometrial Biopsy Patient presents today for Pre Op appointment. Patient is scheduled to undergo Endometrial Ablation with Aurora on 01/22/[address] Hay at [facility]. MEDICATIONS Current Outpatient Medications Medication Instructions [...] nursing note reviewed. Exam conducted with a automation/controls manager present. Vitals: Estimated body mass index is [...] reviewed, and patient is to proceed to [facility] OR. Follow Up: Patient is to follow up between 1-2 weeks post op to assess proper healing and recovery from procedure. Documented by: Faye Ayala LPN on behalf of Gillian Hay D.O. documented in this encounter [facility] 12-08-2024 History of Present illness Narrative Reason [...] nursing note reviewed. Exam conducted with a automation/controls manager present. Vitals: Estimated body mass index is [...] Gillian Hay DO documented in this encounter [facility] 11-03-2024 History of Present illness Narrative Associated [...] used to take IV iron infusions at [facility] Would like a referral back to there. Also reports that she saw an ortho at [facility] in the past that said it looked [...] pt sign record release for [facility] in [place] to get records Vitamin D deficiency - Primary Level 10/17/24 24, started on supplement Associated Problem(s): Dizziness and giddiness No acute findings in labs to suggest cause of dizziness, does have some low iron Resolved Remote hx of possible abnormal MRI brain, will have pt sign record release for [facility] in [place] to get records Associated Problem(s): Vitamin D deficiency Level 10/17/24 24, started on supplement documented in this encounter [facility] 11-03-2024 Instructions Savanah Reynoso NP - 11/03/2024 3:40 PM EST Iron: will refer to Hematolgy at [facility] doctor Dr Jara Obtain copies of records from [facility], please sign a record release documented in this encounter [facility] 10-06-2024 History of Present illness Narrative Associated [...] a couple years ago at [facility] in [place] where she was told she had a [...] D 25 hydroxy documented in this encounter [facility] 06-27-2021 Note HNO ID: [id number] Author: ADRIAN Khan, [facility] Service: ? Author Type: Cattle Rancher Type: Progress Notes Filed: 06/27/2021 1:14 PM Note Text: Head and Neck Elverta HEARING AID CHECK Name: Hillary Stern [facility]#: [id number] Date of Service: 06/27/2021 Date of : 1980 Age: [age] year old RIGHT: AUDEO [id number] SN: [id number] Complaint Evaluation Officer/Dome: #2 small LEFT: CROS [id number] SN: [id number] Tubing/Dome: #2 small [employer]ERUSTOP Repair Warranty Expiration Date: ? Loss/Damage Expiration Date: ? 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 Hillary was taken to the Reservoir Engineering Manager to cover today's appointment fee of $50.00. Recommendations 1. Patient advised to wear the aid daily. 2. Return in 2-3 weeks for follow up HAC if needed. Betty Khan, [facility]/A Clinical Cattle Rancher [facility] 06-07-2021 Note HNO ID: [id number] Author: ADRIAN Mcneil Service: ? Author Type: Cattle Rancher Type: Progress Notes Filed: 06/07/2021 11:14 AM Note Text: Head and Neck Elverta AUDIOLOGIC EVALUATION REPORT Name: Hillary Stern [facility]#: [id number] Date of Service: 06/07/2021 Date of : 1980 Age: [age] year old Referred by: Antwon Sarah NP [id number] [facility] [id number] Referred for: Evaluation of the cause of [...] amplification. -- Annual audiologic evaluation Adrian Mcneil, [facility] Cattle Rancher TEIXEIRA Abbrev- iation Definition Degree of hearing sensitivity dB range WNL within normal limits WNL 0 - 20 SNHL sensorineural hearing loss Mild 20-40 CHL conductive hearing loss Moderate 40-55 MHL mixed hearing loss Moderately-Severe 55-70 WRS word recognition score Severe 70-90 ME middle ear Profound 90 + TM tympanic membrane [facility] Evaluation note Diagnosis Seasonal allergic rhinitis, unspecified trigger- Primary [...] female genital organs documented [facility] note[facility] assessment information [facility] Work Phone: Summary Purpose Family History No Family History [...] content) DATE CREATED AUTHOR 01/04/2022 [facility] DATE CREATED AUTHOR AUTHOR'S ORGANIZ ATION 11/29/2022 [facility] DATE CREATED AUTHOR AUTHOR'S ORGANIZ ATION 12/01/2024 [facility] DATE CREATED AUTHOR AUTHOR'S ORGANIZ ATION 12/29/2024 [facility] DATE CREATED AUTHOR AUTHOR'S ORGANIZ ATION 01/02/2025 [facility] y[facility] Care Teams (unrecognized sec tion and content) Siene Maker Relationship Specialty Start Date End Date Spencer Mane MD [address] [place] [address] PCP - General Family Medicine 07/16/24 Savanah Reynoso NP [address] [place] [address] Referring Physician Nurse Practitioner 06/28/23 Siene Maker Relationship Specialty Start Date End Date Spencer Mane MD [address] [place] [address] PCP - General Family Medicine 07/16/24 Savanah Reynoso NP [address] [place] [address] Referring Physician Nurse Practitioner 06/28/23 Siene Maker Relationship Specialty Start Date End Date Spencer Mane MD [address] [place] [address] PCP - General Family Medicine 07/16/24 Savanah Reynoso NP [address] [place] [address] Referring Physician Nurse Practitioner 06/28/23 Siene Maker Relationship Specialty Start Date End Date Spencer Mane MD [address] [place] [address] PCP - General Family Medicine 07/16/24 Savanah Reynoso NP [address] [place] [address] Referring Physician Nurse Practitioner 06/28/23 Siene Maker Relationship Specialty Start Date End Date Spencer Mane MD [address] [place] [address] PCP - General Family Medicine 07/16/24 Savanah Reynoso NP [address] [place] [address] Referring Physician Nurse Practitioner 06/28/23 Siene Maker Relationship Specialty Start Date End Date Spencer Mane MD [address] [place] [address] PCP - General Family Medicine 07/16/24 Savanah Reynoso NP [address] [place] [address] Referring Physician Nurse Practitioner 06/28/23 Siene Maker Relationship Specialty Start Date End Date Spencer Mane MD [address] [place] [address] PCP - General Family Medicine 07/16/24 Savanah Reynoso NP [address] [place] [address] Referring Physician Nurse Practitioner 06/28/23 Siene Maker Relationship Specialty Start Date End Date Spencer Mane MD [address] [place] [address] PCP - General Family Medicine 07/16/24 Savanah Reynoso NP [address] [place] [address] Referring Physician Nurse Practitioner 06/28/23 Siene Maker Relationship Specialty Start Date End Date Spencer Mane MD [address] [place] [address] PCP - General Family Medicine 07/16/24 Savanah Reynoso NP [address] [place] [address] Referring Physician Nurse Practitioner 06/28/23 Team Status: Inactive Member Role Status Dates Gillian Hay DO Attending Provider Active Start : December 28, 2024 End: December 28, 2024 Reason for Visit (unrecogniz ed section and content) Reason Comments Iron Deficiency Reason Comments Menopause Pt present today for perimenopausal symptoms Specialty Diagnoses / Procedures Referred By Nigel t Referred To Contact Obstetrics and Gynecology Diagnoses Perimenopausal symptoms Procedures [place] OFFICE/OUTPATIENT NEW HIGH MDM 60 MINUTES Savanah Reynoso, LOUANN [address] [place] [address] Phone: tel: fax: Gillian Hay, [address] [place] [address] Phone: tel: fax: Referral ID Status Reason Start Date Expiration Date V isits Requested Visits Authorized [id number] Closed Specialty Services Required 10/06/2024 04/04/2025 1 [...] BE BASED ON THE PRIMARY CLINICAL RECORDS. [employer] provides no warranty or guarantee of the accuracy or completeness of information in this document.
[2025-01-22 09:46] LABS: Basophils Absolute Auto 0.1 10^3/uL (0.0-0.1); Basophils Percent Auto 1.1 % (0.2-2.0); Eosinophils Absolute Auto 0.3 10^3/uL (0.0-0.7); Eosinophils Percent Auto 4.4 % (0.9-7.0); Hematocrit 43.2 % (36.0-48.0); Hemoglobin 14.8 g/dL (12.0-16.0); Immature Granulocytes Abs Auto 0.01 10^3/uL (0.00-0.03); Immature Granulocytes Pct Auto 0.2 % (0.0-0.5); Lymphocytes Absolute Auto 1.7 10^3/uL (1.2-3.8); Lymphocytes Percent Auto 27.4 % (20.5-60.0); Mean Corpuscular HGB Conc 34.3 g/dL (29.9-35.2); Mean Corpuscular Hemoglobin 32.7 pg (26.7-34.0); Mean Corpuscular Volume 95.4 fL (81.0-99.0); Mean Platelet Volume 10.3 fL (9.5-13.5); Monocytes Absolute Auto 0.6 10^3/uL (0.3-0.8); Monocytes Percent Auto 9.1 % (1.7-12.0); Neutrophils Absolute Auto 3.6 10^3/uL (1.4-6.5); Neutrophils Percent Auto 57.8 % (43.0-75.0); Platelet Count 262 10^3/uL (150-450); Red Blood Count 4.53 10^6/uL (4.20-5.40); White Blood Count 6.2 10^3/uL (4.0-11.0)
[2025-01-22 10:07] LABS: HCG Quantitative <1 mIU/mL
[2025-01-22] MEDS: LACTATED RINGER'S SOLUTION 1,000 ML 50 ML IV ×2 (10:10→12:30)
--- NOTE | 2025-01-22 12:05 | PM.ONB ---
Brief Operative Note Date of procedure: 01/22/25 Pre-op diagnosis general: menorrhagia Post-op diagnosis: same as pre-op Procedure: NAME OF PROCEDURE: [ ] Aurora endometrial ablation with hysteroscopy. PROCEDURE: The patient was taken back to the OR where she was prepped and draped in the normal sterile fashion after being placed in the dorsal lithotomy position, after being placed under general anesthesia without difficulty.? A weighted speculum was placed into the vagina. The anterior lip was grasped with a single tooth tenaculum. The patient was then sounded to approximated 8cm. The patient?s cervix was gently dilated using hegardilators. The hysteroscope was passed through the cervix into the uterus where both ostia were seen. No gross evidence of polyps, fibroids or malignancy. The cervical length was noted to be 4 cm. The total cavity length is 4cm.? The Aurora ablation apparatus was set to approximately 4cm in length. This was placed through the cervix and into the uterus. After the seal was tested, at that time the total ablation of 120 seconds was performed with the Aurora withoutdifficulty. All instruments were removed from the vagina. Excellent hemostasis noted.? Sponge and lap count correct times 2.? Patient taken to recovery in stable condition. Anesthesia: MAC Surgeon: Jesse Hay Estimated blood loss (mL): 5 Pathology: none sent Condition: stable Disposition: PACU Urinary Catheter Management Urinary Catheter Management Straight: Cath placed during this visit: no
== END 2025-01-22 13:50 | disposition home or self-care (01) ==
PROVIDERS: PCP Nurse Practitioner; Visit Provider Obstetrics & Gynecology
PROC: (CPT 952; principal; 2025-01-22 11:20)
DX: N92.0 Excessive and frequent menstruation with regular cycle (principal); N93.9 Abnormal uterine and vaginal bleeding, unspecified; R10.2 Pelvic and perineal pain; K21.9 Gastro-esophageal reflux disease without esophagitis
CPT/HCPCS: 58563; 36415; 84702; 85025; J1100; J1885; J2250; J2405; J2704; J3010

== ENCOUNTER 2025-05-17 13:07 | Outpatient (REF) | payer OTHER, SELFPAY ==
--- OUTSIDE RECORDS SUMMARY | 2025-05-17 13:11 | XMS_ITS | Encounter Summary ---
Author Organization [facility] tem Address [id number] [address] [place] [address] Care Team Providers Care Cook House Laborer Name Role Phone Savanah Reynoso APRN-INDUSTRIAL REAL ESTATE AGENT Primary Care Provider Encounter Details Date Type Department Care Team (Late st Contact Info) Description 01/11/2021 Orders Only [facility] [address] [place] [phone] External, Scanning Provider Social History Tobacco Use Types Packs/Day Years Used Date Smoking Tobacco: Never Smokeless Tobacco: Never Alcohol Use Standard Drinks/Week Comments Yes 0 (1 standard drink = 0.6 oz pur e alcohol) socially PHQ-2 Answer Date Recorded PHQ-2 Score 0 01/04/2021 Childcare Answer Date Recorded Childcare Unknown 01/04/2021 Employment Answer Date Recorded Employment Unknown 01/04/2021 Purpose - Life Answer Date Recorded Purpose and direction in life Unknown Comments No Sex and Gender Information Value Date Recorded Sex Assigned at Not on file Legal Sex Female 11:29 AM EDT Gender Identity Not on file Sexual Orientation Not on file COVID-19 Exposure Response Date Recorded In the last month, have you been in contact with someone who was confirmed or suspected to have Coronavirus / COVID-19? No / Unsure 01/04/2021 3:27 PM EST documented as of this encounter Plan of Treatment Not on file documented as of this encounter Procedures Procedure Name Priority Date/Time Associated Diagnosis Comments LIPID PROFILE Routine 12/21/2019 documented in this encounter Results * Lipid profile (12/21/2019) External Cholesterol 140 125 - 200 MANUALLY TRANSCRIBED RESULTS External Cholesterol:Hdl 3 MANUALLY TRANSCRIBED RESULTS External Hdl Cholesterol 53 >=40 MANUALLY TRANSCRIBED RESULTS External Ldl (Calc) 72 MANUALLY TRANSCRIBED RESULTS External Triglycerides 76 30 - 150 MANUALLY TRANSCRIBED RESULTS External Very Low Lipoprotein 15 MANUALLY TRANSCRIBED RESULTS 12/21/2019 us Scanning Provider External LAB BLOOD ORDERABLES Final Result MANUALLY TRANSCRIBED RESULTS documented in this encounter Visit Diagnoses Not on filedocumented in this encounter Additional Health Concerns Assessment Noted Time PHQ-9 Depression Total Score: 0 01/04/20 21 3:00 PM EST A Body Mass Index follow-up plan has been documented for the patient 01/04/2021 4:43 PM EST documented as of this encounter Care Teams Cook House Laborer Relationship Specialty Start Date End Date Savanah Reynoso, CORPORATE TRAVEL COUNSELOR-INDUSTRIAL REAL ESTATE AGENT PCP - General Nurse Practitioner 11/30/24 documented as of this encounter
--- OUTSIDE RECORDS SUMMARY | 2025-05-17 13:11 | XMS_ITS | Encounter Summary ---
Author Organization [facility] tem Address [id number] [address] [place] [address] Care Team Providers Care Director Career Name Role Phone Savanah Reynoso Primary Care Provider Encounter Details Date Type Department Care Team (Late st Contact Info) Description 03/03/2021 Telephone [facility] [address] [place] [address] [place] [phone] [facility] [address] [place] [address], [address] [place], [place] [id number] Social History Tobacco Use Types Packs/Day Years Used Date Smoking Tobacco: Never Smokeless Tobacco: Never Alcohol Use Standard Drinks/Week Comments Yes 0 (1 standard drink = 0.6 oz pur e alcohol) socially PHQ-2 Answer Date Recorded Total Score 0 03/02/2021 Childcare Answer Date Recorded Childcare Unknown 01/04/2021 [...] have Coronavirus / COVID-19? No / Unsure 03/06/2021 7:09 AM EDT documented as of this encounter Miscellaneous Notes * Telephone Encounter - Jennifer Washburn - 03/03/2021 10:36 AM EDT Received a referral for Hillary River.....[facility] for patient to call back and schedule appointment with gastroenterology. @10:34 03/03/21 CT documented in this encounter Plan of Treatment Not on file documented as of this encounter Visit Diagnoses Not on filedocumented in this encounter Additional Health Concerns Assessment Noted Time PHQ-9 Depression Total Score: 0 03/02/20 9:00 AM EDT A Body Mass Index follow-up plan has been documented for the patient 03/02/2021 10:21 AM EDT documented as of this encounter Care Teams Director Career Relationship Specialty Start Date End Date Savanah Reynoso, DIONY-MANAGER MECHANICAL PCP - General Nurse Practitioner 11/30/24 documented as of this encounter
--- OUTSIDE RECORDS SUMMARY | 2025-05-17 13:11 | XMS_ITS | Encounter Summary ---
Author Organization [facility] tem Address [id number] [address] [place] [address] Care Team Providers Care Manager Critical Care Unit Name Role Phone Savanah Reynoso APRN-PROJ MGR Primary Care Provider Encounter Details Date Type Department Care Team (Late st Contact Info) Description 01/11/2021 Orders Only [facility] [address] [place] [address] External, Scanning Provider Social History Tobacco Use [...] Procedure Name Priority Date/Time Associated Diagnosis Comments MULTIPLE LABS Routine 12/21/2019 documented in this encounter Results * Multiple labs (12/21/2019) 12/21/2019 us Scanning Provider External [place] IMAGING Final Result MANUALLY TRANSCRIBED RESULTS documented in this encounter Visit Diagnoses Not on filedocumented in this encounter Additional Health Concerns Assessment Noted Time PHQ-9 Depression Total Score: 0 01/04/20 21 3:00 PM EST A Body Mass Index follow-up plan has been documented for the patient 01/04/2021 4:43 PM EST documented as of this encounter Care Teams Manager Critical Care Unit Relationship Specialty Start Date End Date Savanah Reynoso, CADET DECK-PROJ MGR PCP - General Nurse Practitioner 11/30/24 documented as of this encounter
--- OUTSIDE RECORDS SUMMARY | 2025-05-17 13:11 | XMS_ITS | Clinical Summary ---
Author Organization [employer] [facility] tem Address [id number] [address] [place] [address] Care Team Providers Care Graphite Mill Operator Name Role Phone Savanah Reynoso APRN-ENGINEERING MODEL MAKER Primary Care Provider Allergies No known active allergies Medications cetirizine (ZyrTEC) 10 mg tablet Take 1 tablet (10 mg total) by mouth in the morning. Active azelastine (OPTIVAR) 0.05 % ophthalmic solution Administer 1 drop to both eyes in the morning and 1 drop before bedtime. Active triamcinolone (NASACORT) 55 mcg nasal inhaler Administer 2 sprays into each nostril in the morning. Active Active Problems Problem Noted Date Diagnosed Date Absolute anemia 12/13/2022 Iron deficiency anemia 12/13/2022 Allergic Deaf, left Encounters Date Type Department Care Team Description 04/09/2025 Travel from Last 3 Months Immunizations Immunization Administration Dates Next Due Influenza Split Preservative Free ID 09/03/2018 Influenza, Injectable, quadrivalent (PF) 019,09/03/2018 Influenza, Recombinant, Quad rivalent, Injectable, Preserv 12/09/2021 Tdap 02/19/2011 Family History Medical History Relation Name Comments Arthritis Father Heart disease Father Ulcers Maternal Grandmother Arthritis Mother Breast cancer Paternal Grandmother Hearing loss Sister Colon cancer Neg Hx Relation Name Status Comments Father Alive Maternal Grandmother Mother Alive Paternal Grandmother Sister Alive Social History Tobacco Use Types Packs/Day Years Used Date Smoking Tobacco: Never Smokeless Tobacco: Never Tobacco Cessation:Counseling Given: Not Answered Alcohol Use Standard Drinks/Week Comments Yes 0 (1 standard drink = 0.6 oz pur e alcohol) socially AUDIT-C Answer Date Recorded Q1: How often do you have a drink containing alc ohol? 2-4 times a month 05/08/2022 Q2: How many drinks containi ng alcohol do you have on a typical day when you are drinking? 1 or 2 05/08/2022 Q3: How often do you have si x or more drinks on one occasion? Never 05/08/2022 Overall Financial Resource Strain (CARDIA) Answe r Date Recorded How hard is it for you to pa y for the very basics like food, housing, medical care, and heating? Not hard at all 06/08/2024 PHQ-2 Answer Date Recorded Total Score 2 05/16/2023 PRAPARE - Transportation Answer Date Re corded In the past 12 months, has l ack of transportation kept you from medical appointments or from getting medications? No 07/2024 In the past 12 months, has l ack of transportation kept you from meetings, work, or from getting things needed for daily living? No 06/08/2024 Housing Instability Answer Date Recorde d Are you worried or concerned that in the next two months you may not have stable housing that you own, rent or stay in as a part of a household? No 06/08/2024 Childcare Answer Date Recorded Childcare Unknown 01/04/2021 Employment Answer Date Recorded Employment Unknown 01/04/2021 Hunger Screening Answer Date Recorded Within the past 12 months we worried whether our food would run out before we got money to buy more. Never True 06/08/2024 Within the past 12 months th e food we bought just didn't last and we didn't have money to get more. Never True 06/08/2024 Purpose - Life Answer Date Recorded Purpose and direction in life Unknown Comments No Sex and Gender Information Value Date Recorded Sex Assigned at Not on file Legal Sex Female 11:29 AM EDT Gender Identity Not on file Sexual Orientation Not on file Last Filed Vital Signs Vital Sign Reading Time Taken Comments Blood Pressure 117/62 11/20/2024 8:05 AM EST Pulse 73 11/20/2024 8:05 AM EST Temperature 36.2 C (97.2 F) 11/20/2024 8:05 AM EST Respiratory Rate 18 11/20/2024 8:05 AM EST Oxygen Saturation 100% 11/20/2024 8:05 AM EST Inhaled Oxygen Concentration - - Weight 79.6 kg (175 lb 6.4 oz) 11/20/2024 8:05 A M EST Height 157.5 cm (5' 2.01 ) 11/20/2024 8:05 AM ES T Body Mass Index 32.07 11/20/2024 8:05 AM EST Plan of Treatment Health Maintenance Due Date Last Done Comments DTaP,Tdap and Td Vaccines (2 - Td or Tdap) 02/19/2021 02/19/2011 Mammogram 05/10/2024 05/10/2023, 06/0 12/2021, 12/30/2019, Additional history exists Adult BMI Follow Up Plan 05/16/2024 05/16/2023 Depression Screening 05/16/2024 05/16/2023 COVID-19 Vaccine ( - 2023-2 5 season) 2024 12/09/2021, 02/18/2021, 01/28/2021 Pap Smear 05/08/2025 05/08/2022, 05/08/2022 Influenza Vaccine 08/02/2025 11/11/2022, , 09/03/2019, Additional history exists Adult BMI Screening 11/20/2025 11/20/2024 Tobacco Screening 11/20/2025 11/20/2024 Medical Devices Not on file Procedures Procedure Name Priority Date/Time Associated Diagnosis Comments FERRITIN Routine 04/09/2025 11:45 AM EDT Iron deficiency anemia due to chronic blood loss IRON AND TIBC Routine 04/09/2025 11:45 AM EDT Iron deficiency anemia due to chronic blood loss CBC WITH AUTO DIFFERENTIAL Routine 04/09/2025 11:45 AM EDT Iron deficiency anemia due to chronic blood loss MAMM SCREENING BILATERAL W CAD Routine 05/10/2023 11:48 AM EDT Encounter for screening mammogram for malignant neoplasm of breast PAP SMEAR Routine 05/08/2022 9:10 AM EDT Cervical smear, as part of routine gynecological examination from Last 3 Months or Most Recently Relevant to Health Maintenance Results * CBC auto differential (04/09/2025 11:45 AM EDT) WBC 6.4 4 - 11 x10E9/L 04/09/2025 6:14 PM EDT [facility] RBC Count 4.43 3.8 - 5.2 X10E12/L 04/09/2025 6:14 PM EDT [facility] Hemoglobin 14.6 11.7 - 15.5 g/dL 04/09/2025 6:14 PM EDT [facility] Hematocrit 41.9 35 - 47 % 04/09/2025 6:14 PM EDT [facility] MCV 95 80 - 100 fL 04/09/2025 6:14 PM EDT [facility] MCH 33.0 27 - 34 pg 04/09/2025 6:14 PM EDT [facility] MCHC 34.8 32 - 36 g/dL 04/09/2025 6:14 PM EDT [facility] RDW 13.1 11.5 - 15 % 04/09/2025 6:14 PM EDT [facility] Platelet Count 259 150 - 450 X10E9/L 04/09/2025 6:14 PM EDT [facility] MPV 9.1 7 - 12 fL 04/09/2025 6:14 PM EDT [facility] Neutrophils Relative 62.1 % 04/09/2025 6:14 PM EDT [facility] Lymphocytes Relative 23.6 % 04/09/2025 6:14 PM EDT [facility] Monocytes Relative 9.2 % 04/09/2025 6:14 PM EDT [facility] Eosinophils Relative 4.3 % 04/09/2025 6:14 PM EDT [facility] Basophils Relative 0.8 % 04/09/2025 6:14 PM EDT [facility] Neutrophils Absolute (A) 4.0 1.5 - 6.6 10*3/uL 04/09/2025 6:14 PM EDT [facility] Lymphocytes Absolute 1.5 1.0 - 3.5 10*3/uL 04/09/2025 6:14 PM EDT [facility] Monocytes Absolute 0.6 0.0 - 0.9 10*3/uL 04/09/2025 6:14 PM EDT [facility] Eosinophils Absolute 0.3 0.0 - 0.4 10*3/uL 04/09/2025 6:14 PM EDT [facility] Basophils Absolute 0.1 0.0 - 0.2 10*3/uL 04/09/2025 6:14 PM EDT [facility] Differential Type AUTOMATED DIFFERENTIAL 04/09/2025 6:14 PM EDT [facility] Blood Venipuncture / Unknown 04/09/2025 11:45 AM EDT 04/09/2025 11:45 AM EDT Matthew Jenkins MD LAB BLOOD ORDERABLES Final Resul t [facility] [address] [place] [address], [place] [phone] * Iron and TIBC (04/09/2025 11:45 AM EDT) IRON 123 50 - 170 ug/dL 04/09/2025 6:28 PM EDT [facility] TRANSFERRIN 231 168 - 336 mg/dL 04/09/2025 6:28 PM EDT [facility] IRON BINDING 323 250 - 425 ug/dL 04/09/2025 6:28 PM EDT [facility] IRON SATURATION 38 15 - 50 % SATURATION 04/09/2025 6:28 PM EDT [facility] Blood Venipuncture / Unknown 04/09/2025 11:45 AM EDT 04/09/2025 11:45 AM EDT us Matthew Jenkins MD LAB BLOOD ORDERABLES Final Resul t [facility] [address] [place] [address], * Ferritin (04/09/2025 11:45 AM EDT) FERRITIN 64 11 - 307 ng/mL 04/09/2025 6:39 PM EDT [facility] Blood Venipuncture / Unknown 04/09/2025 11:45 AM EDT 04/09/2025 11:45 AM EDT Matthew Jenkins MD LAB BLOOD ORDERABLES Final Resul t Performing Organization Address City/[facility]/ZIP Co de Phone Number [facility] [address] [place] [address], * Mammography screening bilateral with CAD (05/10/2023 11:48 AM EDT) Anatomical Region Laterality Modality Breast Bilateral Mammography 05/13/2023 9:37 AM EDT Narrative 05/13/2023 3:02 PM EDT MAMM SCREENING BILATERAL W CAD 3-D tomosynthesis images of bilateral breasts in CC and MLO projections are obtained. Synthetic C-views of bilateral breasts in CC and MLO projections. HISTORY: Screening. COMPARISON: Comparison FINDINGS: There are scattered areas of fibroglandular density. No suspicious masses, no architectural distortion, no suspicious calcifications in bilateral breasts. Computer-aided detection was used in the interpretation of this examination. IMPRESSION: Negative. No mammographic evidence for malignancy. BIRADS 1 - Negative. Normal interval follow-up in 12 months. OVERALL ASSESSMENT- Negative. A letter of notification will be sent to the patient regarding the results. Finalized by Ce Martinez MD on 05/13/2023 3:02 PM 1 b MAMM 1 YR Procedure Note Ce Martinez MD - 05/13/2023 MAMM SCREENING BILATERAL W CAD 3-D tomosynthesis images of bilateral breasts in CC and MLO projectionsare obtained. Synthetic C-views of bilateral breasts in CC and MLOprojections. HISTORY: Screening. COMPARISON: Comparison FINDINGS: There are scattered areas of fibroglandular density. No suspicious masses, no architectural distortion, no suspiciouscalcifications in bilateral breasts. Computer-aided detection was used in the interpretation of thisexamination. IMPRESSION: Negative. No mammographic evidence for malignancy. BIRADS 1 - Negative. Normal interval follow-up in 12 months. OVERALL ASSESSMENT- Negative. A letter of notification will be sent to the patient regarding theresults. Finalized by Ce Martinez MD on 05/13/2023 3:02 PM 1 b MAMM 1 YR Lizz Sarah APRN-ENGINEERING MODEL MAKER IMG MAMMOGRAPHY ORDER MARBIN Final Result * Pap Smear (05/08/2022 9:10 AM EDT) 05/08/2022 9:10 AM EDT 05/08/2022 9:13 AM EDT Narrative COPATH - 05/12/2022 3:25 PM EDT [facility] [address] [place] [address] Gynecologic Cytology Consultation Patient Name:HILLARY STERN:1980 (Age: 41)Gender:FTaken:2Reported:05/12/2022hysician(s):Bita Gomez CNM ([phone])Copy To: Rec. #:[id number]: #[id number] Final Cytologic Interpretation ThinPrep Pap Test (Cervical): Satisfactory for evaluation. A transformation zone component is present. NEGATIVE FOR INTRAEPITHELIAL LESION OR MALIGNANCY. lrd/05/12/2022 Interpretation performed at [facility] [place] [address], License number: [id number]. Electronically Signed Out By ÁNGEL Cruz, (ASCP) Date of Last Menstrual Period: 04/27/22 Other Clinical Conditions: Z01.419 Marketing Production Manager exam wo/abn findings Source of Specimen ThinPrep Pap Test (Cervical) Thin Prep Pap (DISPOSAL MAN) Fee Code(s): G0145 Bita Gomez APRN-CNM PATHOLOGY/CYTOLOGY ORDER MARBIN Final Result COPATH from Last 3 Months or Most Recently Relevant to Health Maintenance Insurance [employer] Care Teams Graphite Mill Operator Relationship Specialty Start Date End Date Savanah Reynoso, DIONY-ENGINEERING MODEL MAKER PCP - General Nurse Practitioner 11/30/24
--- OUTSIDE RECORDS SUMMARY | 2025-05-17 13:11 | XMS_ITS | Encounter Summary ---
Author Organization [employer] [facility] tem Address [id number] [address] [place] [address] Care Team Providers Care Truck Rental Manager Name Role Phone Savanah Reynoso APRN-EXCHANGE TELLER Primary Care Provider Encounter Details Date Type Department Care Team (Late st Contact Info) Description 06/08/2024 Orders Only Ifrah Orantes [facility] - Medical Oncology [address] [place] [address] Radhika Jin, JOSUÉ Social History Tobacco Use Types Packs/Day Years [...] on file Sexual Orientation Not on file documented as of this encounter Plan of Treatment Not on file documented as of this encounter Visit Diagnoses Not on filedocumented in this encounter Additional Health Concerns Assessment Noted Time PHQ-9 Depression Total Score: 2 05/16/20 23 8:39 AM EDT A Body Mass Index follow-up plan has been documented for the patient 05/16/2023 9:20 AM EDT documented as of this encounter Care Teams Truck Rental Manager Relationship Specialty Start Date End Date Savanah Reynoso, STRUCTURAL IRON ERECTOR-EXCHANGE TELLER PCP - General Nurse Practitioner 11/30/24 documented as of this encounter
--- OUTSIDE RECORDS SUMMARY | 2025-05-17 13:11 | XMS_ITS | Encounter Summary ---
Author Organization [facility] tem Address [facility][id number] [address] [place] [address] Care Team Providers Care Technical Services Librarian Name Role Phone Savanah Reynoso APRN-STEMHOLE BORER Primary Care Provider Encounter Details Date Type Department Care Team (Late st Contact Info) Description 05/28/2022 Orders Only [facility] [address] [place] [address] External, Scanning Provider Social History [...] more drinks on one occasion? Never 05/08/2022 PHQ-2 Answer Date Recorded Total Score 0 05/04/2022 Childcare Answer Date Recorded Childcare Unknown 01/04/2021 [...] Exposure Response Date Recorded In the last 10 days, have yo u been in contact with someone who was confirmed or suspected to have Coronavirus/COVID-19? No / Unsure 05/08/2022 12:58 PM EDT documented as of this encounter Plan of Treatment Not on file documented as of this encounter Procedures Procedure Name Priority Date/Time Associated Diagnosis Comments NERVE CONDUCTION STUDY Routine 05/24/2022 documented in this encounter Results * Nerve Conduction Study (NCV) (05/24/2022) 05/24/2022 us Scanning Provider External NEUROLOGY ORDERABLES Final Result MANUALLY TRANSCRIBED RESULTS documented in this encounter Visit Diagnoses Not on filedocumented in this encounter Additional Health Concerns Assessment Noted Time PHQ-9 Depression Total Score: 0 05/04/20 22 10:00 AM EDT A Body Mass Index follow-up plan has been documented for the patient 05/08/2022 2:37 PM EDT documented as of this encounter Care Teams Technical Services Librarian Relationship Specialty Start Date End Date Savanah Reynoso, TIGHTENING MACHINE OPERATOR-STEMHOLE BORER PCP - General Nurse Practitioner 11/30/24 documented as of this encounter
--- OUTSIDE RECORDS SUMMARY | 2025-05-17 13:11 | XMS_ITS | Encounter Summary ---
Author Organization [facility] tem Address [id number] [address] [place] [address] Care Team Providers Care Regrader Name Role Phone Savanah Reynoso APRNMARKETING PLANNING MANAGER Primary Care Provider Reason for Visit * Reason Comments Med Refill Encounter Details Date Type Department Care Team (Late st Contact Info) Description 11/19/2023 Refill [facility] [address] [place] [id number] Savanah Quiroz, CUSTOMS EXAMINER-MARKETING PLANNING MANAGER [address] [place], [place] [id number] Social History Tobacco Use Types Packs/Day Years [...] 05/08/2022 PHQ-2 Answer Date Recorded Total Score 2 05/16/2023 Childcare Answer Date Recorded Childcare Unknown 01/04/2021 Employment Answer Date Recorded Employment Unknown 01/04/2021 Hunger Screening Answer Date Recorded Within the past 12 months we worried whether our food would run out before we got money to buy more. Never True 05/16/2023 Within the past 12 months th e food we bought just didn't last and we didn't have money to get more. Never True 05/16/2023 Purpose - Life Answer Date Recorded Purpose and direction in life Unknown Comments No Sex and Gender Information Value Date Recorded Sex Assigned at Not on file Legal Sex Female 11:29 AM EDT Gender Identity Not on file Sexual Orientation Not on file documented as of this encounter Miscellaneous Notes * Telephone Encounter - IRWIN Mensah - 11/19/2023 6:38 AM EST Patient no showed for medication follow up on 07/10/23. No refills sent. documented in this encounter Plan of Treatment Not on file documented as of this encounter Visit Diagnoses Not on filedocumented in this encounter Additional Health Concerns Assessment Noted Time PHQ-9 Depression Total Score: 2 05/16/20 8:39 AM EDT A Body Mass Index follow-up plan has been documented for the patient 05/16/2023 9:20 AM EDT documented as of this encounter Care Teams Regrader Relationship Specialty Start Date End Date Savanah Reynoso APRN-CNP PCP - General Nurse Practitioner 11/30/24 documented as of this encounter
--- OUTSIDE RECORDS SUMMARY | 2025-05-17 13:11 | XMS_ITS | Clinical Summary ---
Author Organization [facility] Address [address] [place] [address] Care Team Providers Care Brim Stiffener Name Role Phone Lizz Sarah CNP Primary Care Provider [phone] Active Problems No known active problems Social History Tobacco Use Types Packs/Day Years Used Date Smoking Tobacco: Never Assessed Area Deprivation Index Answer Date Dean rded National Score (1-100), lower number is lower ri sk Not on file 06/07/2021 State Score (1-10), lower number is lower risk N ot on file 06/07/2021 Data from: https://www.neighborhoodatlas.medicine.[facility].edu/. Last address used for calculation Not on file 06/07/2021 Comments Unknown Sex and Gender Information Value Date Recorded Sex Assigned at Not on file Legal Sex Female 10:30 AM EST Gender Identity Not on file Sexual Orientation Not on file Plan of Treatment Health Maintenance Due Date Last Done Comments Anxiety Screening 1999 Depression Screening 1999 HIV Screening 1999 Hepatitis C Screening 1999 Hepatitis B Vaccine (1 of 3 - 19+ 3-dose series) 2000 Cervical Cancer Screening 2002 DTaP,Tdap,Td Vaccine (2 - Td or Tdap) 02/19/2021 Mammogram Screening 2021 Covid-19 Vaccine ( season) 2024 Influenza Vaccine (Season Ended) 2025 09/03/20 19, 09/03/2018 Insurance [employer] Care Teams Brim Stiffener Relationship Specialty Start Date End Date Lizz Sarah CNP PCP - General Family Medicine 05/18/21
--- OUTSIDE RECORDS SUMMARY | 2025-05-17 13:11 | XMS_ITS | Encounter Summary ---
Author Organization [facility] tem Address [id number] [address] [place] [address] Care Team Providers Care Mri Manager Name Role Phone Savanah [facility] Primary Care Provider Encounter Details Date Type Department Care Team (Late st Contact Info) Description 02/21/2021 [facility]phone [facility] [address] [place] [address] Lizz Sarah [facility] [address] [place], [place] [id number] Social History Tobacco Use Types Packs/Day Years [...] encounter Miscellaneous Notes * Telephone Encounter - Sunshine Romero - 02/21/2021 3:26 PM EDT Patient had her Wellness with you in January, she is now ready for you to order wellness labs for her * Telephone Encounter - IRWIN Amado - 02/21/2021 3:26 PM EDT I have labs already in the system for wellness, I also placed labs to recheck iron studies because she wanted it checked due to history documented in this encounter Plan of Treatment Not on file documented as of this encounter Visit Diagnoses Not on filedocumented in this encounter Additional Health Concerns Assessment Noted Time PHQ-9 Depression Total Score: 0 01/04/20 21 3:00 PM EST A Body Mass Index follow-up plan has been documented for the patient 01/04/2021 4:43 PM EST documented as of this encounter Care Teams Mri Manager Relationship Specialty Start Date End Date Savanah Reynoso APRN-CNP PCP - General Nurse Practitioner 11/30/24 documented as of this encounter
[2025-05-19 12:08] LABS: Age Gdln ACOG Testing Note (.); HPV Aptima Negative (Negative); IGP, Aptima HPV, rfx 16/18,45 Note (.)
== END 2025-05-17 13:08 | disposition home or self-care (01) ==
LOC: LAB 13:07
PROVIDERS: PCP Nurse Practitioner; Visit Provider Physician Assistant
DX: Z01.419 Encounter for gynecological examination (general) (routine) without abnormal findings (principal)
CPT/HCPCS: 87624; 88175

== ENCOUNTER 2025-05-21 11:11 | Outpatient (OUT) | payer OTHER, SELFPAY ==
--- OUTSIDE RECORDS SUMMARY | 2024-05-11 04:00 | XMS_ITS ---
Author Organization The [facility] in [place] Address [address] [place] [address] Care Team Providers Care Conductor And Engineer Name Role Phone Savanah Reynoso CNP Primary Care Provider Foreign Rosa [phone] REASON FOR VISIT RT EPF and gastroc Encounters Encounter Location Date Provider Diagnosis [facility] [address] [place] [phone] 05/11/2024 [place] Plan Of Treatment No Information Progress Notes * Ramón STERNOB:1980 (44 yo F)Acc No.[id number]:05/11/2024 UNLOCKED PROGRESS NOTE Patient: Hillary CUENCA Provider: Viviana Fields DPM, MS :1980 A ge:43 Y S ex:Female Date:05/11/2024 Address:[address] [place], [place] [phone] Pcp:Savanah Reynoso CNP Check Out:12:30 PM EST * * Electronic signature of Jass Fields DPM on 05/21/2025 at 11:13 AM EDT Sign off status: Pending Visit Status: Angel HK (Check Out) * Provider: Viviana Fields DPM, MS Date: 05/11/2024 Generated for Printi ng/Faxing/eTransmitting on: 05/21/2025 11:13 AM EDT
--- OUTSIDE RECORDS SUMMARY | 2024-06-02 07:00 | XMS_ITS ---
Author Organization The [facility] in [place] Address [address] [place] [address] Care Team Providers Care Bottler Helper Name Role Phone Savanah Reynoso CNP Primary Care Provider Héctor mery SaritaForeign sandhu Unavailable [phone] Allergies No Known Allergies REASON FOR VISIT PO #1 dos 05.11.2024 Medications Medication SIG (Take, Route, Fr equency, Duration) Notes Start Date End Date Status ZyrTEC 10 MG 1 tablet Orally Once a day Active Meloxicam 15 MG 1 tablet Orally Once a day for 30 days 12/03/2023 Active Social History Tobacco Use: Social History Observation Description Date Details (start date - stop date) Never Smoker NA - NA Tobacco Use/Smoking Question Answer Notes Patient is a nonsmoker Vital Signs Height 62 in 06/02/2024 Temperature 97.8 degrees Fahrenheit 06/02/20 24 Heart Rate 76 /min 06/02/2024 Oximetry 98 % 06/02/2024 Encounters Encounter Location Date Provider Diagnosis [facility] (PODIAT[facility]) [address] [place] [address] [place] [address] 06/02/2024 [facility] Plantar fasciitis of right foot M72.2 and Contracture, right ankle M24.571 Assessments Encounter Date Diagnosis (ICD Code) Assessment Notes Treatment Notes Treatment Clinical Notes Section Notes 06/02/2024 Plantar fasciitis of right foot (ICD-10 - M72.2) The patient is 3 weeks s/p right EPF and gastroc recession, DOS: 05/11/24. She is doing well. No evidence of infection or DVT on examination. Sutures were removed without incident. She may contiue to increase activities as symptoms allow. RICE therapy and OTC analgesia prn. Followup in 2-3 months, sooner if any issues arise. No XR at followup. 06/02/2024 Contracture, right ankle (ICD-10 - M24.571) Plan Of Treatment Treatment Notes Assessment Notes Plantar fasciitis of right foot The patient is 3 weeks s/p right EPF and gastroc recession, DOS: 05/11/24. She is doing well. No evidence of infection or DVT on examination. Sutures were removed without incident. She may contiue to increase activities as symptoms allow. RICE therapy and OTC analgesia prn. Followup in 2-3 months, sooner if any issues arise. No XR at followup. Progress Notes * STERN RamónOB:1980 (43 yo F)Acc No.[id number]:06/02/2024 Progress Note Patient: Hillary CUENCA Provider: Viviana Fields DPM, MS :1980 A ge:43 Y S ex:Female Date:06/02/2024 Address:[address] [place], [place] [id number] Pcp:Savanah Reynoso CNP Check In:11:09 AM ESTCheck O ut:11:24 AM EST Subjective: * Chief Complaints: * P O #1 dos 05.11.2024 * HPI: G eneral: Patient returns for post op visit s/p endoscopic plantar fasciotomy and Letty gastrocnemius recession to her right leg DOS: 05.11.2024. Patient doing well after procedure. Denies pain. States ready for these stitches to come out . Wearing crocs to accommodate post op wrap. * ROS: G eneral/Constitutional: Chills d enies. F ever d enies. W eight gain?denies. W eight loss d enies. S kin: Skin Ulcers d enies. S kin lesion(s) d enies. ? C ardiovascular: Difficulty breathing on exertion d enies. L eg cramps?denies. E aidee d enies. C hest pain d enies. R espiratory: Difficulty breathing d enies. D yspnea d enies.?Cough d enies. G astrointestinal: Diarrhea d enies. N ausea d enies. V omiting?denies. M usculoskeletal: Bone/Joint Symptoms d enies. C half-way Pain d enies.?Leg cramps d enies. N eurologic: Numbness d enies. T ingling d enies . G ait abnormality d enies. ? H ematology: Anemia D enies. E asy bruising d enies. ? A ll Other Systems: Review of Systems (ROS) S ee HPI for details,All others negative except those mentioned in HPI. * Active Problem List M24.571 Contracture, right a nkle Modified On:03/10/2024W/U Status:confirmed * Medical History: * Surgical History: b ilateral carpal tunnel * Hospitalization/Major Diagno stic Procedure: * Family History: F ather: diagnosed with Unspecified heart disease. family hx cancer, hypertension, deafness, stroke, diabetes. * Social History: T obacco Use: T obacco Use/Smoking P atient is a n onsmoker * Medications: T akingMeloxicam 15 MG Tablet 1 tablet Orally Once a day ZyrTEC(Cetirizine HCl) 10 MG Tablet Chewable 1 tablet Orally Once a day Medication List reviewed and reconciled with the patientTaking Meloxicam 15 MG Tablet 1 tablet Orally Once a day Taking ZyrTEC(Cetirizine HCl) 10 MG Tablet Chewable 1 tablet Orally Once a day Medication List reviewed and reconciled with the patient * Allergies: N .K.D.A.no[Allergies Verified] Objective: * Vitals: H t: 62 in, Temp:97.8F, HR:76/min, Pain scale:01-10, Oxygen sat %:98%, Ht-cm: 157.48 cm. * Examination: P odiatry Examination: I ncisions are well coapted. No signs of infection. Swelling consistent with postoperative status No calf pain on squeeze Strength and range of motion deferred. Assessment: * Assessment: 1. P lantar fasciitis of right foot - M72.2 (Primary) 2 . C ontracture, right ankle - M24.571 Plan: * Treatment: * Procedure Codes: * * Sign off status: Completed Visit Status: C HK (Check Out) true * Provider: Viviana Fields DPM, MS Date: 0 06/02/2024 Generated for Laura torres/Angella/Liliana on: 0 05/21/2025 11:13 AM EDT History and Physical Notes * Examination Category Sub-Category Detail Notes Category Not es Podiatry Examination Incisions are well coapted. No signs of infection. Swelling consistent with postoperative status No calf pain on squeeze Strength and range of motion deferred
--- OUTSIDE RECORDS SUMMARY | 2024-08-25 05:00 | XMS_ITS ---
Author Organization [facility] in [place] Address [address] [place] [address] Care Team Providers Care Commercial Drone Software Developer Name Role Phone Savanah Reynoso CNP Primary Care Provider Unavail [employer] [facility] Unavailable [phone] REASON FOR VISIT 2-3 month f/u DOS 05.11.2024 Medications Medication SIG (Take, Route, Fr [...] Notes Patient is a nonsmoker Vital Signs Weight 170 lbs 08/25/2024 Height 62 in 08/25/2024 Temperature 98.2 degrees Fahrenheit 08/25/20 Heart Rate 78 /min 08/25/2024 BMI 31.09 kg/m2 08/25/2024 Oximetry 98 % 08/25/2024 Encounters Encounter Location Date Provider Diagnosis [facility] (P[facility]RY) [address] [place] [address] [place] [address] 08/25/2024 [facility] Plantar fasciitis of right foot M72.2 and Contracture, right ankle M24.571 Assessments Encounter Date Diagnosis (ICD Code) Assessment Notes Treatment Notes Treatment Clinical Notes Section Notes 08/25/2024 Plantar fasciitis of right foot (ICD-10 - M72.2) Patient is over 3 months status post EPF and gastroc recession. She is back to performing impact exercise and is hoping to run a 5K in 6 months. I did discuss shoe modification, recommended OTC NSAIDs, RICE therapy and to closely monitor her symptoms. If they persist she should call for follow-up otherwise follow-up as needed 08/25/2024 Contracture, right ankle (ICD-10 - M24.571) Plan Of Treatment Treatment Notes Assessment Notes Plantar fasciitis of right foot Patient is over 3 months status post EPF and gastroc recession. She is back to performing impact exercise and is hoping to run a 5K in 6 months. I did discuss shoe modification, recommended OTC NSAIDs, RICE therapy and to closely monitor her symptoms. If they persist she should call for follow-up otherwise follow-up as needed Progress Notes * JARRED RamónOB:1980 (43 yo F)Acc No.[id number]:08/25/2024 Follow Up Patient: Hillary CUENCA Provider: Viviana Fields DPM, MS :1980 A ge:43 Y S ex:Female Date:08/25/2024 Address:[address] [place], [place] [id number] Pcp:Savanah Reynoso CNP Check In:08:51 AM BETSYCheck O ut:09:18 AM EST Subjective: * Chief Complaints: * 2 -3 month f/u DOS 05.11.2024 * HPI: G eneral: Patient returns for f/u from endoscopic plantar fasciotomy and Letty gastrocnemius recession to her right leg DOS: 05.11.2024. Patient recently started working out and doing high impact exercises. She c/o midfoot pain with prolonged activity which is mild and tolerable at this point. Not taking NSAID or using RICE therapy. She is currently trying to work her way up to running a 5k. She does c/o non supportive shoes and that may be the reason her foot is in pain. * Active Problem List M24.571 Contracture, right a nkle Modified On:03/10/2024W/U Status:confirmed * Medical History: * Surgical History: b ilateral carpal tunnel * Hospitalization/Major Diagno stic Procedure: N o Hospitalization History. * Family History: F ather: diagnosed with [...] and reconciled with the patient * Allergies: n o[Allergies Verified] Objective: * Vitals: W t:170lbs, Ht: 62 in, Temp:98.2F, HR:78/min, BMI:31.09Index, Oxygen sat %:98%, Ht-cm: 157.48 cm, Wt-k.11 kg. * Examination: P odiatry Examination: SKIN: s kin intact, n o sign of infection. MUSCULOSKELETAL: N o pain to palpation, N o gross deformity, S trength equal & symmetric. NEUROLOGICAL: l ight touch sensation intact, n egative tinel's sign. VASCULAR: P edal pulses palpable, C apillary refill is brisk to toe, D igital hair intact. Assessment: * Assessment: 1. P lantar fasciitis of right foot - M72.2 (Primary) 2 . C ontracture, right ankle - M24.571 Plan: * Treatment: * Procedure Codes: * * Sign off status: Completed Visit Status: C HK (Check Out) true * Provider: Viviana Fields DPM, MS Date: 0 08/25/2024 Generated for Laura torres/Angella/Liliana on: 05/21/2025 11:14 AM EDT History and Physical Notes * Examination Category Sub-Category Detail Notes Category Not es Podiatry Examination SKIN: skin intact, no sign of infection MUSCULOSKELETAL: No pain to palpation , No gross deformity, Strength equal & symmetric NEUROLOGICAL: light touch sensatio n intact, negative tinel's sign VASCULAR: Pedal pulses palpabl e, Capillary refill is brisk to toe, Digital hair intact
--- OUTSIDE RECORDS SUMMARY | 2025-05-17 09:00 | XMS_ITS | Encounter Summary ---
Author Organization [facility] Address [address] [facility] [place] [address] Care Team Providers Care Air Surveillance Operator Name Role Phone Savanah Reynoso NP Unavailable [phone] Spencer Mane MD Primary Care Provider [phone] Reason for Visit * Reason Comments Well Women Visit Encounter Details Date Type Department Care Team (Late st Contact Info) Description 05/17/2025 9:00 AM EDT Office Visit [facility] [address] [place] [id number] Ronna Orta PA [address] [place], [place] [address] Postmenopausal HRT (hormone replacement therapy) (Primary Dx); Well woman exam with routine gynecological exam; Encounter for screening mammogram for malignant neoplasm of breast; Perimenopausal symptoms Social History Tobacco Use Types Packs/Day Years Used Date Smoking Tobacco: Never Smokeless Tobacco: Never Alcohol Use Standard Drinks/Week Comments Not Currently 0 (1 standard drink = 0.6 oz pur e alcohol) AUDIT-C Answer Date Recorded Q1: How often do you have a drink containing alc ohol? 2-4 times a month 10/09/2023 Q2: How many drinks containi ng alcohol do you have on a typical day when you are drinking? 1 or 2 10/09/2023 Q3: How often do you have si x or more drinks on one occasion? Never 10/09/2023 Comments No Sex and Gender Information Value Date Recorded Sex Assigned at Not on file Legal Sex Female 7:39 PM EDT Gender Identity Female 02/13/2023 7:39 PM EDT Sexual Orientation Not on file documented as of this encounter Last Filed Vital Signs Vital Sign Reading Time Taken Comments Blood Pressure 122/90 05/17/2025 9:00 AM EDT Pulse - - Temperature - - Respiratory Rate - - Oxygen Saturation - - Inhaled Oxygen Concentration - - Weight 80.5 kg (177 lb 8 oz) 05/17/2025 9:00 AM EDT Height - - Body Mass Index 32.47 11/03/2024 3:57 PM EST documented in this encounter Progress Notes * WILLA Romeo - 05/17/2025 9:00 AM EDT Reason for Appointment: Patient ID: Hillary River is a 44 y.o. female who presents for Well Women Visit Patient presents today for Annual Exam. MEDICATIONS Current Outpatient Medications Medication Instructions azelastine [...] Laterality Date CARPAL TUNNEL RELEASE x 2 ENDOMETRIAL ABLATION 01/26/2025 REVIEW OF SYSTEMS Review of Systems: Review of Systems Constitutional: Positive for fatigue, night sweats, unexpected weight change and hot flashes. HENT: Negative. Eyes: Negative. Respiratory: Negative. Cardiovascular: Negative. Gastrointestinal: Negative. Genitourinary: Negative. Musculoskeletal: Negative. Skin: Negative. Neurological: Negative. Psychiatric/Behavioral: The patient is nervous/anxious. Insomnia All other systems reviewed and are negative. Hematological: Negative. Allergic/Immunologic: Negative. OBJECTIVE Objective: Physical Exam Constitutional: Appearance: Normal appearance. She is well-developed. Genitourinary: Vulva normal. Right Adnexa: not tender and no mass present. Left Adnexa: not tender and no mass present. No cervical discharge. Breasts: Breasts are soft. Right: Normal. Left: Normal. HENT: Head: Normocephalic. Nose: Nose normal. Mouth/Throat: Mouth: Mucous membranes are moist. Cardiovascular: Rate and Rhythm: Normal rate and regular rhythm. Pulmonary: Effort: Pulmonary effort is normal. Breath sounds: Normal breath sounds. Abdominal: General: Bowel sounds are normal. There is no distension. Palpations: Abdomen is soft. Tenderness: There is no abdominal tenderness. There is no guarding or rebound. Musculoskeletal: General: No swelling. Normal range of motion. Cervical back: Normal range of motion. Right lower leg: No edema. Left lower leg: No edema. Neurological: General: No focal deficit present. Mental Status: She is alert and oriented to person, place, and time. Skin: General: Skin is warm and dry. Psychiatric: Mood and Affect: Mood normal. Behavior: Behavior normal. Vitals and nursing note reviewed. Exam conducted with a expeditionary fighting vehicle crewman present. Vitals: Estimated body mass index is 32.47 kg/m?? as calculated from the following: Height as of 11/03/24: 5' 2 . Weight as of this encounter: 177 lb 8 oz. BP: 122/90 Patient's last menstrual period was 04/15/2025 (approximate). ASSESSMENT & PLAN ICD-10-CM 1. Well woman exam with routine gynecological exam Z01.419 THIN PREP TIS PAP AND HR HPV DNA 2. Encounter for screening mammogram for malignant neoplasm of breast Z12.31 Bilateral screening mammogram Bilateral screening mammogram Annual Exam: Patient presents today for an annual exam. Patient states she is doing well and has some complaintsof perimenopausal symptoms. Pap was obtained without difficulty. Orders Placed This Encounter Procedures Bilateral screening mammogram Patient is having menopausal symptoms including night sweats, hot flashes, heart racing and panic attack. We dicussed options and I believe patient will benefit from Bijuva, the estradiol micronized progesterone. We will send script to pharmacy. Patient also states having increased urinary frequency and some incontinence which may be estrogen related but we will send in urology referral. Follow Up: Patient is to return in one year for annual unless needed otherwise. Documented by Vero Wyatt NP on behalf of: WILLA Romeo documented in this encounter Plan of Treatment Scheduled Orders Name Type Priority Associated Diagnoses Orde r Schedule Bilateral screening mammogram Imaging Routine Encounter for screening mammogram for malignant neoplasm of breast Expected: 05/17/2025 (Approximate), Expires: 07/17/2026 THIN PREP TIS PAP AND HR HPV DNA Pathology and Cytology Routine Well woman exam with routine gynecological exam Ordered: 05/17/2025 documented as of this encounter Visit Diagnoses Diagnosis Postmenopausal HRT (hormone replacement therapy)- Primary Need for prophylactic hormone replacement therapy (postmenopausal) Well woman exam with routine gynecological exam Routine gynecological examination Encounter for screening mammogram for malignant neoplasm of breast Perimenopausal symptoms documented in this encounter Care Teams Air Surveillance Operator Relationship Specialty Start Date End Date Spencer Mane MD [address] [place] [address] PCP - General Family Medicine 07/16/24 Savanah Reynoso NP [address] [place] [address] Referring Physician Nurse Practitioner 06/28/23 documented as of this encounter
--- OUTSIDE RECORDS SUMMARY | 2025-05-21 11:13 | XMS_ITS | Encounter Summary ---
Author Organization [employer] [facility] tem Address [id number] [address] [place] [address] Care Team Providers Care Operating Room Registered Nurse Name Role Phone Savanah Reynoso APRN-SCREEN HANDLER Primary Care Provider Encounter Details Date Type Department Care Team (Late st Contact Info) Description 06/08/2024 Orders Only Ifrah Orantes [facility] - Medical Oncology [address] [place] [address] Radhika Jin, JOSUÉ Social History [...] documented as of this encounter Care Teams Operating Room Registered Nurse Relationship Specialty Start Date End Date Savanah Reynoso, HUMAN RESOURCES HR REPRESENTATIVE-SCREEN HANDLER PCP - General Nurse Practitioner 11/30/24 documented as of this encounter
--- OUTSIDE RECORDS SUMMARY | 2025-05-21 11:13 | XMS_ITS | Encounter Summary ---
Author Organization [facility] tem Address [id number] [address] [place] [address] Care Team Providers Care Wireless Operator Name Role Phone Savanah Reynoso APRN-BREAKFAST SUPERVISOR Primary Care Provider Encounter Details Date Type Department Care Team (Late st Contact Info) Description 05/28/2022 Orders Only [facility] [address] [place] [address] External, Scanning Provider Social History [...] documented as of this encounter Care Teams Wireless Operator Relationship Specialty Start Date End Date Savanah Reynoso, TOBACCO SAMPLE PULLER-BREAKFAST SUPERVISOR PCP - General Nurse Practitioner 11/30/24 documented as of this encounter
--- OUTSIDE RECORDS SUMMARY | 2025-05-21 11:13 | XMS_ITS | Encounter Summary ---
Author Organization [facility] Address [address] [place] [address] Care Team Providers Care Oil And Gas Superintendent Name Role Phone Savanah Reynoso NP Unavailable [phone] Spencer Mane MD Primary Care Provider [phone] Encounter Details Date Type Department Care Team (Late st Contact Info) Description 05/17/2025 Clinisync Result Encounter [facility] External Department Unsolicited Provider, Generic External Data Social History Tobacco Use Types Packs/Day Years [...] Procedure Name Priority Date/Time Associated Diagnosis Comments IGP,APTIMA HPV,AGE GDLN Routine 05/17/2025 8:50 AM EDT documented in this encounter Results * IGP,APTIMA HPV,AGE GDLN (05/17/2025 8:50 AM EDT) Pathologist [facility] AGE GDLN ACOG TESTING Note . [facility] Comment: TESTS RESULT FLAG UNITS REF RANGE LAB Clinician Provided Cytology Information Source.............Cervix;Endocervix No. of containers..01 ThinPrep Vial Age Algo ACOG Carmen... FLAG LEGEND: L-Low Normal,H-High Normal,LL-Alert Low,HH-Alert High <-Panic Low,>-Panic High,A-Abnormal,AA-Critical Abnormal Performed at: 01 =G [address] [address] Marce Kerns MD, IGP, APTIMA HPV, RFX [birth year]18[birth year] Note . [facility] Comment: TESTS RESULT FLAG UNITS REF RANGE LAB DIAGNOSIS: 02 NEGATIVE FOR INTRAEPITHELIAL LESION OR MALIGNANCY. Specimen adequacy: 02 Satisfactory for evaluation. Endocervical and/or squamous metaplastic cells (endocervical component) are present. Performed by: 02 David Dolan Accountant Auditor (ASCP) . 02 Note: Note 02 The Pap smear is a screening test designed to aid in the detection of premalignant and malignant conditions of the uterine cervix. It is not a diagnostic procedure and should not be used as the sole means of detecting cervical cancer. Both false-positive and false-negative reports do occur. Test Methodology: Note 02 This liquid based ThinPrep(R) pap test was screened with the use of an image guided system. HPV Genotype Reflex Note 02 Criteria not met, HPV Genotype not performed. FLAG LEGEND: L-Low Normal,H-High Normal,LL-Alert Low,HH-Alert High <-Panic Low,>-Panic High,A-Abnormal,AA-Critical Abnormal Performed at: [address] [address] Marce Kerns MD, HPV APTIMA Negative Negative TB Comment: This nucleic acid amplification test detects fourteen high- risk HPV types (16,18,31,33,35,39,45,51,52,56,58,59,66,68) without differentiation. Performed at: = - [address] [id number] Care Specialist: Marce Kerns MD, Phone: [phone] Performed at: [address] [id number] Care Specialist: Marce Kerns MD, Phone: [phone] 05/17/2025 8:50 AM EDT 05/17/2025 1:09 PM EDT Narrative [facility] - 05/19/2025 12:08 PM EDT BRUSH-SPATULA CERVIX ENDOCERVIX Ronna CROUCH LAB BLOOD ORDERABLES Final Resul t [facility] documented in this encounter Visit Diagnoses Not on filedocumented in this encounter Care Teams Oil And Gas Superintendent Relationship Specialty Start Date End Date Spencer Mane MD [address] [place] [address] PCP - General Family Medicine 07/16/24 Savanah Reynoso NP [address] [place] [address] Referring Physician Nurse Practitioner 06/28/23 documented as of this encounter
--- OUTSIDE RECORDS SUMMARY | 2025-05-21 11:13 | XMS_ITS | Encounter Summary ---
Author Organization [facility] tem Address [id number] [address] [place] [address] Care Team Providers Care Senior Restaurant Manager Name Role Phone Savanah Reynoso Primary Care Provider Encounter Details Date Type Department Care Team (Late st Contact Info) Description 03/03/2021 Telephone [facility] [address] [place] [address] [place] [id number] Consult[facility], [facility] [address] [place] [address], [address] [place], [place] [id number] Social History Tobacco Use Types Packs/Day Years [...] AM EDT Received a referral for [place] for patient to call back and schedule [...] documented as of this encounter Care Teams Senior Restaurant Manager Relationship Specialty Start Date End Date Savanah Reynoso, DIONY-MANAGER CREDIT PCP - General Nurse Practitioner 11/30/24 documented as of this encounter
--- OUTSIDE RECORDS SUMMARY | 2025-05-21 11:13 | XMS_ITS | Encounter Summary ---
Author Organization [facility] Address [address] [facility] [place] [address] Care Team Providers Care Speech Communication Professor Name Role Phone Savanah Reynoso COMBAT RIFLE CREWMEMBER Unavailable [phone] Spencer Mane MD Primary Care Provider [phone] Encounter Details Date Type Department Care Team (Late st Contact Info) Description 05/17/2025 Bamboo flowsheet [facility] [address] [place] [address] Ronna Orta PA [address] [place], [id number] Social History Tobacco Use Types Packs/Day Years [...] on filedocumented in this encounter Care Teams Speech Communication Professor Relationship Specialty Start Date End Date Spencer Mane MD [address] [place] [phone] PCP - General Family Medicine 07/16/24 Savanah Reynoso NP [address] [place] [address] Referring Physician Nurse Practitioner 06/28/23 documented as of this encounter
--- OUTSIDE RECORDS SUMMARY | 2025-05-21 11:13 | XMS_ITS | Clinical Summary ---
Author Organization [facility] Address [address] [place] [address] Care Team Providers Care Geoscientist Name Role Phone Savanah Reynoso NP Unavailable Spencer Mane MD Primary Care Provider Allergies No known active allergies Medications cetirizine (ZyrTEC) 10 MG tablet Take 10 mg by mouth in the morning. Active triamcinolone (Nasacort) 55 MCG/ACT nasal inhaler Administer 2 sprays into each nostril in the morning. Active azelastine (Optivar) 0.05 % ophthalmic solution Administer 1 drop into affected eye(s) in the morning and 1 drop in the evening. Active Estradiol-Proges terone (Bijuva) 0.5-100 MG capsuleIndicatio ns:Postmenopausa l HRT (hormone replacement therapy),Perimen opausal symptoms Take 1 capsule by mouth Daily 90 capsule 3 5 08/15/20 25 Active Active Problems Problem Noted Date Diagnosed Date Acute cystitis without hematuria 10/20/2024 Vitamin D deficiency 10/19/2024 Assessment & Plan (11/03/2024 7:32 AM EST): Level 10/17/24 24, started on supplement Asymptomatic microscopic hematuria 10/19/2024 Other fatigue 10/06/2024 Assessment & Plan (10/06/2024 4:49 PM EST): Check labs Dizziness and giddiness 10/06/2024 Assessment & Plan (11/03/2024 4:36 PM EST): No acute findings in labs to suggest cause of dizziness, does have some low iron Resolved Remote hx of possible abnormal MRI brain, will have pt sign record release for [facility] in [place] to get records Assessment & Plan (10/06/2024 4:49 PM EST): No clear etiology, and has grossly normal neuro exam Start with labs If normal, consider neuro Perimenopausal symptoms 10/06/2024 Assessment & Plan (10/06/2024 5:02 PM EST): Needs PAP Needs established with [facility] MERCERIZING MACHINE OPERATOR Encounter for screening mamm ogram for malignant neoplasm of breast 07/16/2024 Yeast infection of the vagina 02/27/2024 Acute right-sided low back pain with right-sided sciatica 10/08/2023 Allergic 10/08/2023 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, 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 Menorrhagia with regular cycle 10/08/2023 Microcytic hypochromic anemia 10/08/2023 Sciatica of right side 10/08/2023 Seasonal allergic rhinitis 10/08/2023 Assessment & Plan (07/16/2024 12:28 PM EDT): Suspect that her sinus pain and symptoms are more allergic and not infectious that would require an atb We will trial a medrol dose pack Will contact office next week if not better and will consider atb at that time Otherwise cont current allergy meds Sensorineural hearing loss (SNHL) 10/08/2023 Tinnitus 10/08/2023 Iron deficiency anemia 12/13/2022 Assessment & Plan (11/03/2024 4:35 PM EST): Would like referral to Hematology for possible iron infusion Assessment & Plan (10/06/2024 4:49 PM EST): No iron infusion for some time Check labs Resolved Problems Problem Noted Date Diagnosed Date Resolved Date Pap smear of cervix not needed 10/06/2024 10/06/2024 Other chronic pain 10/08/2023 3 Other disturbances of skin sensation 10/08/2023 10/08/2023 Skin tag 10/08/2023 10/08/2023 Uses hearing aid 10/08/2023 10/08/2023 Absolute anemia 12/13/2022 11/03/2024 Encounters Date Type Department Care Team Description 05/17/2025 9:00 AM EDT Office Visit [facility] [address] [place] [address] Ronna Orta PA Postmenopausal HRT (hormone replacement therapy) (Primary Dx); Well woman exam with routine gynecological exam; Encounter for screening mammogram for malignant neoplasm of breast; Perimenopausal symptoms 05/17/2025 Clinisync Result Encounter [facility] External Department Unsolicited Provider, Generic External Data 05/17/2025 Bamboo flowsheet [facility] [address] [place] [address] [place] [address] Ronna Orta PA from Last 3 Months Immunizations Immunization Administration Dates Next Due Influenza, injectable, quadrivalent, preservativ e free 09/03/2019 Influenza, recombinant, quad rivalent, injectable, preservative free 11/11/2022,12/09/2021 Influenza, seasonal, intradermal, preservative f ree 09/03/2018 Tdap 02/19/2011 Family History Medical History Relation Name Comments Asthma Child Deafness Child congenital, w/ cochlear implants Hirschsprung's disease Child Heart failure Father Hyperlipidemia Father Hypertension Father Heart disease Father's Brother Cancer Maternal Grandfather Heart disease Maternal Grandfather Brain cancer Maternal Grandmother Diabetes Maternal Grandmother Heart failure Maternal Grandmother Hypertension Maternal Grandmother Colon polyps Mother dysplastic Hearing loss Mother Hyperlipidemia Mother Hypertension Mother Deafness Mother's Sister Hypertension Mother's Sister Stroke Paternal Grandfather Breast cancer Paternal Grandmother Deafness Sister 1 No Known Problems Sister 2 Relation Name Status Comments Child Father Alive Father's Brother Maternal Grandfather Maternal Grandmother Mother Alive Mother's Sister Paternal Grandfather Paternal Grandmother Sister 1 Sister 2 Social History Tobacco Use Types Packs/Day Years Used Date Smoking Tobacco: Never Smokeless Tobacco: Never Tobacco Cessation:Counseling Given: Not Answered Alcohol Use Standard Drinks/Week Comments Not Currently [...] PM EDT Sexual Orientation Not on file Last Filed Vital Signs Vital Sign Reading Time Taken Comments Blood Pressure 122/90 05/17/2025 9:00 AM EDT Pulse 84 11/03/2024 3:57 PM EST Temperature 36.6 C (97.8 F) 11/03/2024 3:57 PM EST Respiratory Rate 20 11/03/2024 3:57 PM EST Oxygen Saturation 99% 11/03/2024 3:57 PM EST Inhaled Oxygen Concentration - - Weight 80.5 kg (177 lb 8 oz) 05/17/2025 9:00 AM EDT Height 157.5 cm (5' 2 ) 11/03/2024 3:57 PM EST Body Mass Index 32.47 11/03/2024 3:57 PM EST Plan of Treatment Health Maintenance Due Date Last Done Comments Pap Smear 2002 Mammogram 05/10/2024 05/10/2023, 06/0 12/2021, 12/30/2019, Additional history exists Cervical Cancer Screening 12/21/2024 HPV/Cotest 12/21/2024 12/21/2019, 06/12/2018 Influenza Vaccine Discontinued 11/11/2022, , 09/03/2019, Additional history exists Procedures Procedure Name Priority Date/Time Associated Diagnosis Comments IGP,APTIMA HPV,AGE GDLN Routine 05/17/2025 8:50 AM EDT BI MAMMOGRAM SCREENING TOMOSYNTHESIS BILATERAL Routine 12/30/2019 12:00 PM EST Encounter for screening for malignant neoplasm of cervix Family history of malignant neoplasm of breast Q - THINPREP(R) TIS AND HPV MRNA E6/E7 RFL HPV 16,18/45 Routine 12/21/2019 from Last 3 Months or Most Recently Relevant to Health Maintenance Results * IGP,APTIMA HPV,AGE GDLN (05/17/2025 8:50 AM EDT) [facility] AC TESTING Note . [facility] Comment: TESTS RESULT FLAG UNITS REF RANGE LAB Clinician Provided Cytology Information Source.............Cervix;Endocervix No. of containers..01 ThinPrep Vial Age [place] [facility] Carmen... 30-65 01 FLAG LEGEND: L-Low Normal,H-High Normal,LL-Alert Low,HH-Alert High <-Panic Low,>-Panic High,A-Abnormal,AA-Critical Abnormal Performed at: 01 [facility] [address] [place] [address] Marce Kerns MD, IGP, APTIMA HPV, RFX 16/18,45 Note . [facility] Comment: TESTS RESULT FLAG UNITS REF RANGE LAB DIAGNOSIS: 02 NEGATIVE FOR INTRAEPITHELIAL LESION OR MALIGNANCY. Specimen adequacy: 02 Satisfactory for evaluation. Endocervical and/or squamous metaplastic cells (endocervical component) are present. Performed by: 02 David Dolan Customer Contact Sales Associate ([facility]) . 02 Note: Note 02 The Pap [...] High <-Panic Low,>-Panic High,A-Abnormal,AA-Critical Abnormal Performed at: [address] [place] [id number] Marce Kerns MD, HPV APTIMA Negative Negative TB Comment: This nucleic acid amplification test detects fourteen high- risk HPV types (16,18,31,33,35,39,45,51,52,56,58,59,66,68) without differentiation. Performed at: = - [address] [id number] Staple Shear Operator: Marce Kerns MD, Phone: [phone] Performed at: [address] [id number] Staple Shear Operator: Marce Kerns MD, Phone: [phone] 05/17/2025 8:50 AM EDT 05/17/2025 1:09 PM EDT Narrative ROBYN - 05/19/2025 12:08 PM EDT BRUSH-SPATULA CERVIX ENDOCERVIX us Ronna CROUCH LAB BLOOD ORDERABLES Final Resul t [facility] * Bilateral screening mammogram with tomosynthesis (12/30/2019 12:00 PM EST) Anatomical Region Laterality Modality Breast Bilateral Mammography Narrative 12/30/2019 12:00 PM EST PERFORMED AT [facility] LOCATION:[id number] Negative Procedure Note Cisco Haque, LOUANN - 06/07/2023 PERFORMED AT [facility] LOCATION:[id number] Negative Cisco Haque NP IMG BI PROCEDURES Final Resul t * Q - THINPREP(R) TIS AND HPV MRNA E6/E7 RFL HPV 16,18/45 (12/21/2019) CLINICAL INFORMATION: None given [facility] LMP: None given [facility] PREV. PAP: None given [facility] PREV. BX: None given [facility] SOURCE: None given [facility] STATEMENT OF ADEQUACY: SEE NOTE [facility] Comment: Satisfactory for evaluation. Endocervical/transformation zone component absent. INTERPRETATION/RE SULT: Negative for intraepithelial lesion or malignancy. [facility] INFECTION: Fungal organisms morphologically consistent with Marsha spp. [facility] COMMENT: This Pap test has been evaluated with computer assisted technology. [facility] MEAT COUNTER WORKER: SEE NOTE NO [facility] Comment: LXT, CT(ASCP) CT screening location: [employer] [facility], [address] [place] [address]. COMMENT SEE NOTE [facility] Comment: EXPLANATORY NOTE: The Pap is a screening test for cervical cancer. It is not a diagnostic test and is subject to false negative and false positive results. It is most reliable when a satisfactory sample, regularly obtained, is submitted with relevant clinical findings and history, and when the Pap result is evaluated along with historic and current clinical information. HPV MRNA E6/E7 Not Detected Not Detected [facility] Comment: This test was performed using the APTIMA HPV Assay ([employer] This assay detects E6/E7 viral messenger RNA (mRNA) from 14 high-risk HPV types (16,18,31,33,35,39,45,51,52,56,58,59,66,68). The analytical performance characteristics of this assay have been determined by [employer]. The modifications have not been cleared or approved by the FDA. This assay has been validated pursuant to the CLIA regulations and is used for clinical purposes. 12/21/2019 Cisco Haque NP [facility] Final Result [facility] from Last 3 Months or Most Recently Relevant to Health Maintenance Insurance [employer] Care Teams Geoscientist Relationship Specialty Start Date End Date Spencer Mane MD [address] [place] [address] PCP - General Family Medicine 07/16/24 Savanah Reynoso NP [address] [place] [address] (work) Referring Physician Nurse Practitioner 06/28/23
--- OUTSIDE RECORDS SUMMARY | 2025-05-21 11:13 | XMS_ITS | Encounter Summary ---
Author Organization [facility] Address [address] [place] [address] Care Team Providers Care Payroll Manager Name Role Phone Savanah Reynoso HEALTHCARE ACCOUNT MANAGER Unavailable [phone] Spencer Mane MD Primary Care Provider [phone] Encounter Details Date Type Department Care Team (Late st Contact Info) Description 11/30/2024 Orders Only [facility] [address] [place] [address] Savanah Reynoso, HEALTHCARE ACCOUNT MANAGER [address] [place] [address] Social History Tobacco Use Types Packs/Day Years [...] drinks on one occasion? Never 10/09/2023 Comments Unknown Sex and Gender Information Value Date Recorded Sex Assigned at Not on file Legal Sex Female 7:39 PM EDT Gender Identity Female 02/13/2023 7:39 PM EDT Sexual Orientation Not on file documented as of this encounter Plan of Treatment Not on file documented as of this encounter Visit Diagnoses Not on filedocumented in this encounter Care Teams Payroll Manager Relationship Specialty Start Date End Date Spencer Mane MD [address] [place] [address] PCP - General Family Medicine 07/16/24 Savanah Reynoso NP [address] [place] [address] Referring Physician Nurse Practitioner 06/28/23 documented as of this encounter
--- OUTSIDE RECORDS SUMMARY | 2025-05-21 11:13 | XMS_ITS | Patient Health Record ---
Author Organization [facility] [place] Address [address] [place] [address] Care Team Providers Care Shape Brick Molder Name Role Phone Savanah Reynoso CNP Primary Care Provider Foreign Rosa Unavailable [phone] Allergies No Known Allergies Reason For Referral No Information Medications Medication SIG (Take, Route, Fr equency, [...] Question Answer Notes Patient is a nonsmoker Problems Problem Type SNOMED Code ICD Code Onset Dates Problem Status W/U Status Risk Notes Problem [id number] Contracture, right ankle (M24.571) Active confirmed Vital Signs Heart Rate 78 /min 08/25/2024 Temperature 98.2 degrees Fahrenheit 08/25/2024 Oximetry 98 % 08/25/2024 Height 62 in 08/25/2024 Weight 170 lbs 08/25/2024 BMI 31.09 kg/m2 08/25/2024 Encounters Encounter Location Date Provider Diagnosis [facility] ([facility]) [address] [place], [place] [address] [address] 08/25/2024 [facility] Plantar fasciitis of right foot M72.2 and Contracture, right ankle M24.571 [facility] ([facility]) [facility] [place] [address] 06/02/2024 [facility] Plantar fasciitis of right [...] 06/02/2024 Contracture, right ankle (ICD-10 - M24.571) 08/25/2024 Plantar fasciitis of right foot (ICD-10 [...] ankle (ICD-10 - M24.571) Plan Of Treatment No Information Insurance Providers Payer Name Payer Address Payer Phone Subscriber Number Group Number Insured Name Patient Relationship to Insured Coverage Start Date Coverage End Date [address] [place], [place] [id number] [place] Self - patient is the insured Medications Administered Medication Instructions Date of Administration Dosage Notes Celestone 6mg/mL 01/14/2024 1 mL Lidocaine HCl 01/14/2024 1 mL Medical (General) History Medical History History ICD Code Anemia D64.9 GERD (gastroesophageal reflux disease) K 21.9 left ear deafness Surgical History Surgery Date(Month/Year) bilateral carpal tunnel
--- OUTSIDE RECORDS SUMMARY | 2025-05-21 11:13 | XMS_ITS | Encounter Summary ---
Author Organization [facility] Address [address] [place] [address] Care Team Providers Care Automotive Service Writer Name Role Phone Spencer Mane MD Primary Care Provider [phone] Savanah Reynoso BULK SAUSAGE CASING TIER OFF Unavailable [phone] Spencer Mane MD Primary Care Provider [phone] Encounter Details Date Type Department Care Team (Late st Contact Info) Description 07/09/2018 Abstract [facility] [address] [place] [address] Sonja Connolly, [facility] [address] [place] [address] Social History Tobacco Use Types Packs/Day Years Used Date Smoking Tobacco: Never Assessed Comments Unknown Sex and Gender Information Value Date Recorded Sex Assigned at Not on file Legal Sex Female 7:39 PM EDT Gender Identity Female 02/13/2023 7:39 PM EDT Sexual Orientation Not on file documented as of this encounter Plan of Treatment Not on file documented as of this encounter Visit Diagnoses Not on filedocumented in this encounter Care Teams Automotive Service Writer Relationship Specialty Start Date End Date Spencer Mane MD PCP - General Family Medicine 06/28/23 07/15/24 Spencer Mane MD [address] [facility] [place] [address] PCP - General Family Medicine 07/16/24 Savanah Reynoso NP [address] [place] [address] Referring Physician Nurse Practitioner 06/28/23 documented as of this encounter
--- OUTSIDE RECORDS SUMMARY | 2025-05-21 11:13 | XMS_ITS | Encounter Summary ---
Author Organization [facility] Address [id number] [address] [place] [address] Care Team Providers Care Watch Parts Inspector Name Role Phone Savanah Reynoso APRN-AIR CONDITIONING INSTALLER SUPERVISOR Primary Care Provider Encounter Details Date Type Department Care Team (Late st Contact Info) Description 05/16/2022 Telephone [facility] [address] [address] Savanah William Social History Tobacco Use Types Packs/Day Years [...] PM EDT documented as of this encounter Miscellaneous Notes * Telephone Encounter - Savanah William - 05/16/2022 10:52 AM EDT Patient was returning call...figured it was about test results. * Telephone Encounter - Sindy Parekh LPN - 05/16/2022 10:52 AM EDT Called Pt, LM for Pt to call back. documented in this encounter Plan of Treatment Not on file documented as of this encounter Visit Diagnoses Not on filedocumented in this encounter Additional Health Concerns Assessment Noted Time PHQ-9 Depression Total Score: 0 05/04/20 22 10:00 AM EDT A Body Mass Index follow-up plan has been documented for the patient 05/08/2022 2:37 PM EDT documented as of this encounter Care Teams Watch Parts Inspector Relationship Specialty Start Date End Date Savanah Reynoso, AGRICULTURE RESEARCH DIRECTOR-AIR CONDITIONING INSTALLER SUPERVISOR PCP - General Nurse Practitioner 11/30/24 documented as of this encounter
--- OUTSIDE RECORDS SUMMARY | 2025-05-21 11:13 | XMS_ITS | Encounter Summary ---
Author Organization [facility] Address [address] [place] [address] Care Team Providers Care Dinkey Operator Slate Name Role Phone Spencer Mane MD Primary Care Provider [phone] Savanah Reynoso MACHINE HEEL BUILDER Unavailable [phone] Spencer Mane MD Primary Care Provider [phone] Encounter Details Date Type Department Care Team (Late st Contact Info) Description 06/14/2009 Abstract [facility] [address] [place] [address] Sonja Connolly, [facility] [address] [place] [address] Social History Tobacco Use Types Packs/Day Years [...] on filedocumented in this encounter Care Teams Dinkey Operator Slate Relationship Specialty Start Date End Date Spencer Mane MD PCP - General Family Medicine 06/28/23 07/15/24 Spencer Mane MD [address] [place] [address] PCP - General Family Medicine 07/16/24 Savanah Reynoso NP [address] [place] [address] Referring Physician Nurse Practitioner 06/28/23 documented as of this encounter
--- NOTE | 2025-05-21 11:14 | MM_ITS ---
Patient Name: EZRA STERN MR#: [id number] : 1980 Exam Date: 05/21/2025 Ordering Doctor: TONI SANCHEZ CNP RADIOLOGY REPORT PROCEDURE: MM TOMOSYNTHESIS SCREENING BI COMPARISON: MM TOMOSYNTHESIS SCREENING BI, 05/10/2023. MM TOMOSYNTHESIS SCREENING BI, 05/02/2022. INDICATIONS: Screening for malignant neoplasm Calculator Name NCI Breast Cancer Risk Assessment Tool 5 Year Breast Cancer Risk 0.60% Lifetime Breast Cancer Risk 8.00% Personal Breast Cancer No Personal Ovarian Cancer No Treatments None Family Cancers Grandmother-maternal with unknown cancer at age 80. LOCATION: [facility] BREAST COMPOSITION: There are scattered areas of fibroglandular density. FINDINGS: DIAGNOSTIC CATEGORY 1--NEGATIVE. RIGHT BREAST: No significant suspicious finding. LEFT BREAST: No significant suspicious finding. RECOMMENDATIONS: ROUTINE MAMMOGRAM AND CLINICAL EVALUATION IN 12 MONTHS. PLEASE NOTE: A NORMAL MAMMOGRAM DOES NOT EXCLUDE THE POSSIBILITY OF BREAST CANCER. A CLINICALLY SUSPICIOUS PALPABLE LUMP SHOULD BE BIOPSIED. Dictated by: Rodney Landeros DO on 05/21/2025 at 16:00 Approved by: Rodney Landeros DO on 05/21/2025 at 16:02
--- OUTSIDE RECORDS SUMMARY | 2025-05-21 11:14 | XMS_ITS | Clinical Summary ---
Author Organization [facility] tem Address [id number] [address] [place] [address] Care Team Providers Care Political Science Research Assistant Name Role Phone Savanah Reynoso APRN-WET PROCESS TECHNICIAN Primary Care Provider Allergies No known active [...] - 11 x10E9/L 04/09/2025 6:14 PM EDT [facility] RBC Count 4.43 3.8 - 5.2 X10E12/L 04/09/2025 6:14 PM EDT [facility] Hemoglobin 14.6 11.7 - 15.5 g/dL 04/09/2025 6:14 PM EDT [facility] Hematocrit 41.9 35 - 47 % 04/09/2025 6:14 PM EDT [facility] MCV 95 80 - 100 fL 04/09/2025 6:14 PM EDT [facility] MCH 33.0 27 - 34 pg 04/09/2025 6:14 PM EDT [facility] MCHC 34.8 32 - 36 g/dL 04/09/2025 6:14 PM EDT [facility] RDW 13.1 11.5 - 15 % 04/09/2025 6:14 PM EDT [facility] Platelet Count 259 150 - 450 X10E9/L 04/09/2025 6:14 PM EDT [facility] MPV 9.1 7 - 12 fL 04/09/2025 6:14 PM EDT [facility] Neutrophils Relative 62.1 % 04/09/2025 6:14 PM EDT [facility] Lymphocytes Relative 23.6 % 04/09/2025 6:14 PM EDT [facility] Monocytes Relative 9.2 % 04/09/2025 6:14 PM EDT [facility] Eosinophils Relative 4.3 % 04/09/2025 6:14 PM EDT [facility] Basophils Relative 0.8 % 04/09/2025 6:14 PM EDT [facility] Neutrophils Absolute (A) 4.0 1.5 - 6.6 10*3/uL 04/09/2025 6:14 PM EDT [facility] Lymphocytes Absolute 1.5 1.0 - 3.5 10*3/uL 04/09/2025 6:14 PM EDT [facility] Monocytes Absolute 0.6 0.0 - 0.9 10*3/uL 04/09/2025 6:14 PM EDT [facility] Eosinophils Absolute 0.3 0.0 - 0.4 10*3/uL 04/09/2025 6:14 PM EDT [facility] Basophils Absolute 0.1 0.0 - 0.2 10*3/uL 04/09/2025 6:14 PM EDT [facility] Differential Type AUTOMATED DIFFERENTIAL 04/09/2025 6:14 PM EDT [facility] Blood Venipuncture / Unknown 04/09/2025 11:45 AM EDT 04/09/2025 11:45 AM EDT Matthew Jenkins MD LAB BLOOD ORDERABLES Final Resul t [facility] [address] [place] [address], [place] [phone] * Iron and TIBC (04/09/2025 11:45 AM EDT) IRON 123 50 - 170 ug/dL 04/09/2025 6:28 PM EDT [facility] TRANSFERRIN 231 168 - 336 mg/dL 04/09/2025 6:28 PM EDT [facility] IRON BINDING 323 250 - 425 ug/dL 04/09/2025 6:28 PM EDT [facility] IRON SATURATION 38 15 - 50 % SATURATION 04/09/2025 6:28 PM EDT [facility] Blood Venipuncture / Unknown 04/09/2025 11:45 AM EDT 04/09/2025 11:45 AM EDT us Matthew Jenkins MD LAB BLOOD ORDERABLES Final Resul t [facility] [address] [place] [address], * Ferritin (04/09/2025 11:45 AM EDT) FERRITIN 64 11 - 307 ng/mL 04/09/2025 6:39 PM EDT [facility] Blood Venipuncture / Unknown 04/09/2025 11:45 AM EDT 04/09/2025 11:45 AM EDT Matthew Jenkins MD LAB BLOOD ORDERABLES Final Resul t Performing Organization Address City/[facility] [address]/ZIP Co de Phone Number [facility] [address] [place] [address], * Mammography screening bilateral with CAD (05/10/2023 [...] 1 b MAMM 1 YR Lizz Sarah APRN-WET PROCESS TECHNICIAN IMG MAMMOGRAPHY ORDER MARBIN Final Result * Pap Smear (05/08/2022 9:10 AM EDT) 05/08/2022 9:10 AM EDT 05/08/2022 9:13 AM EDT Narrative [facility] - 05/12/2022 3:25 PM EDT [facility] [address] [place] [address] Gynecologic Cytology Consultation Patient Name:HILLARY STERN:1980 (Age: 41)Gender:FTaken:2Reported:05/12/2022hysician(s):Bita Gomez CNM ([phone])Copy To: Rec. #:[id number]: #[id number] Final Cytologic Interpretation ThinPrep Pap Test (Cervical): Satisfactory for evaluation. A transformation zone component is present. NEGATIVE FOR INTRAEPITHELIAL LESION OR MALIGNANCY. lrd/05/12/2022 [place] [address], License number: [id number]. Electronically Signed Out By ÁNGEL Cruz, (ASCP) Date of Last Menstrual Period: 04/27/22 Other Clinical Conditions: Z01.419 Aircraft Powertrain Repairer exam wo/abn findings Source of Specimen ThinPrep Pap Test (Cervical) Thin Prep Pap (DISTANCE LEARNING PROGRAM COORDINATOR) Fee Code(s): G0145 Bita Gomez APRN-CNM PATHOLOGY/CYTOLOGY ORDER MARBIN Final Result [facility] from Last 3 Months or Most Recently Relevant to Health Maintenance [place] [address] Care Teams Political Science Research Assistant Relationship Specialty Start Date End Date Savanah Reynoso, DIONY-WET PROCESS TECHNICIAN PCP - General Nurse Practitioner 11/30/24
--- OUTSIDE RECORDS SUMMARY | 2025-05-21 11:14 | XMS_ITS | Encounter Summary ---
Author Organization [facility] Address [address] [place] [address] Care Team Providers Care Phlebotomy Program Coordinator Name Role Phone Spencer Mane MD Primary Care Provider [phone] Savanah Reynoso NP Unavailable [phone] Spencer Mane MD Primary Care Provider [phone] Encounter Details Date Type Department Care Team (Late st Contact Info) Description 12/04/2023 Clinisync Result Encounter [facility] External Department Unsolicited [...] Procedure Name Priority Date/Time Associated Diagnosis Comments XR ANKLE LT MIN 3V 12/04/2023 8: 06 AM EST documented in this encounter Results * XR ANKLE LT MIN 3V (12/04/2023 8:06 AM EST) Anatomical Region Laterality Modality Other 12/04/2023 8:06 AM EST Narrative 12/04/2023 8:09 AM EST [address] [address] XRay Report Signed Patient: HILLARY STERN MR#: [id number] : 1980 Acct:[id number] Age/Sex: 43 / F ADM Date: 12/03/23 Loc: [facility] Attending Dr: Miladys Cook Ordering Physician: Miladys Cook Date of Service: 12/03/23 Procedure(s): XR ankle LT min 3V Accession Number(s): [id number] cc: Savanah Reynoso NP; Miladys Cook [place] [address] Patient Name: HILLARY STERN MRN: [id number] date: 1980 Sex: F Assigned Patient Location: [facility] Current Patient Location: Accession/Order Number: [id number] Exam Date: 12/03/2023 15:10 Report Date: 12/04/2023 08:06 At the request of: MILADYS COOK Procedure: XR ankle LT min 3V EXAMINATION: XR foot ISMAEL min 3V, XR ankle LT min 3V HISTORY: BILAT FOOT PAIN COMPARISON: No relevant comparison available. FINDINGS: RIGHT FOOT FINDINGS: BONES: No acute fracture or dislocation. Mild enthesopathic spurring plantar calcaneus SOFT TISSUES: Negative. No visible soft tissue swelling. OTHER: Negative. LEFT FOOT AND ANKLE FINDINGS: BONES: No acute fracture or dislocation. Mild enthesopathic spurring plantar calcaneus SOFT TISSUES: Lateral ankle soft tissue swelling OTHER: Negative. XR/XR ankle LT min 3V IMPRESSION: RIGHT CONCLUSION: Mild calcaneal enthesopathy LEFT CONCLUSION: Mild calcaneal enthesopathy, lateral ankle soft tissue swelling Electronically authenticated by: SHER LO Date: 12/04/2023 08:06 Dictated By: Sher Lo M.D. Signed By: 12/04/23808 DD/ 5 TD/TT: Environmental Protection Forester: Procedure Note Radiology, Radiologist, MD [place] 12/04/2023 [place] [address] XRay Report Signed Patient: ABA STERNNMR#: [id number] : 1980Acct:[id number] Age/Sex: 43 / FADM Date: 12/03/23 Loc: RAD Attending Dr: Miladys Cook Ordering Physician: Miladys Cook Date of Service: 12/03/23 Procedure(s): XR ankle LT min 3V Accession Number(s): [id number] cc: Savanah Reynoso WELDER ASSEMBLER; Miladys Cook [place] [address] Patient Name: HILLARY STERN MRN: [id number] date: 1980 Sex: F Assigned Patient Location: [facility] Current Patient Location: Accession/Order Number: [id number] Exam Date: 12/03/2023 15:10 Report Date: 12/04/2023 08:06 At the request of: MILADYS COOK Procedure: XR ankle LT min 3V EXAMINATION: XR foot ISMAEL min 3V, XR ankle LT min 3V HISTORY: BILAT FOOT PAIN COMPARISON: No relevant comparison available. FINDINGS: RIGHT FOOT FINDINGS: BONES: No acute fracture or dislocation. Mild enthesopathic spurringplantar calcaneus SOFT TISSUES: Negative. No visible soft tissue swelling. OTHER: Negative. LEFT FOOT AND ANKLE FINDINGS: BONES: No acute fracture or dislocation. Mild enthesopathic spurringplantar calcaneus SOFT TISSUES: Lateral ankle soft tissue swelling OTHER: Negative. XR/XR ankle LT min 3V IMPRESSION: RIGHT CONCLUSION: Mild calcaneal enthesopathy LEFT CONCLUSION: Mild calcaneal enthesopathy, lateral ankle soft tissue swelling Electronically authenticated by: SHER LO Date: 12/04/2023 08:06 Dictated By: Sher Lo M.D. Signed By:12/04/23808 DD/ 5 TD/TT: Environmental Protection Forester: Generic External Data Provider [facility] Final Result documented in this encounter Visit Diagnoses Not on filedocumented in this encounter Care Teams Phlebotomy Program Coordinator Relationship Specialty Start Date End Date Spencer Mane MD PCP - General Family Medicine 06/28/23 07/15/24 Spencer Mane MD [address] [place] [address] PCP - General Family Medicine 07/16/24 Savanah Reynoso NP [address] [place] [address] Referring Physician Nurse Practitioner 06/28/23 documented as of this encounter
--- OUTSIDE RECORDS SUMMARY | 2025-05-21 11:14 | XMS_ITS | Encounter Summary ---
Author Organization [facility] Address [address] [place] [address] Care Team Providers Care Technical Sales Advisor Name Role Phone Savanah Reynoso SHED WORKERS SUPERVISOR Unavailable [phone] Spencer Mane MD Primary Care Provider [phone] Encounter Details Date Type Department Care Team (Late st Contact Info) Description 01/08/2025 Abstract [facility] [address] [place] [phone] Jesse Hay, DO [address] Delisa Drake, [facility] Social History Tobacco Use Types Packs/Day Years [...] on filedocumented in this encounter Care Teams Technical Sales Advisor Relationship Specialty Start Date End Date Spencer Mane MD [address] [place] [address] PCP - General Family Medicine 07/16/24 Savanah Reynoso NP [address] [place] [address] Referring Physician Nurse Practitioner 06/28/23 documented as of this encounter
--- OUTSIDE RECORDS SUMMARY | 2025-05-21 11:14 | XMS_ITS | Encounter Summary ---
Author Organization [facility] Address [address] [facility] [place] [place] [address] Care Team Providers Care Digital Media Intern Name Role Phone Savanah Reynoso COOKING CHEF Unavailable [phone] Spencer Mane MD Primary Care Provider [phone] Encounter Details Date Type Department Care Team (Late st Contact Info) Description 01/22/2025 Abstract [facility] OB [address] [place] [phone] Jesse Hay, DO [address] [facility] [address] Delisa Drake, [facility]11 Social History Tobacco Use Types Packs/Day [...] on filedocumented in this encounter Care Teams Digital Media Intern Relationship Specialty Start Date End Date Spencer Mane MD [address] [place] [address] PCP - General Family Medicine 07/16/24 Savanah Reynoso NP [address] [place] [address] Referring Physician Nurse Practitioner 06/28/23 documented as of this encounter
--- OUTSIDE RECORDS SUMMARY | 2025-05-21 11:14 | XMS_ITS | Encounter Summary ---
Author Organization [facility] tem Address [id number] [address] [place] [address] Care Team Providers Care Geophysical Manager Name Role Phone Savanah Reynoso APRN-RETAIL COORDINATOR Primary Care Provider Encounter Details Date Type Department Care Team (Late st Contact Info) Description 01/11/2021 Orders Only [facility] [address] [place] [address] External, Scanning Provider Social History [...] labs (12/21/2019) 12/21/2019 us Scanning Provider External [place] [facility] Final Result MANUALLY TRANSCRIBED RESULTS documented in this encounter Visit Diagnoses Not on filedocumented in this encounter Additional Health Concerns Assessment Noted Time PHQ-9 Depression Total Score: 0 01/04/20 21 3:00 PM EST A Body Mass Index follow-up plan has been documented for the patient 01/04/2021 4:43 PM EST documented as of this encounter Care Teams Geophysical Manager Relationship Specialty Start Date End Date Savanah Reynoso, ECD-RETAIL COORDINATOR PCP - General Nurse Practitioner 11/30/24 documented as of this encounter
--- OUTSIDE RECORDS SUMMARY | 2025-05-21 11:14 | XMS_ITS | Encounter Summary ---
Author Organization [facility] tem Address [id number] [address] [place] [address] Care Team Providers Care Installment Account Checker Name Role Phone Savanah Reynoso APRNPCU RN Primary Care Provider Reason for Visit * Reason Comments Med Refill Encounter Details Date Type Department Care Team (Late st Contact Info) Description 11/19/2023 Refill [facility] [address] [place] [address] Savanah Quiroz, RETORT FORKER-PCU RN [address] [place], [place] [id number] Social History Tobacco Use Types Packs/Day Years [...] documented as of this encounter Care Teams Installment Account Checker Relationship Specialty Start Date End Date Savanah Reynoso APRN-CNP PCP - General Nurse Practitioner 11/30/24 documented as of this encounter
--- OUTSIDE RECORDS SUMMARY | 2025-05-21 11:14 | XMS_ITS | Encounter Summary ---
Author Organization [facility] Address [address] [place] [address] Care Team Providers Care Logistics/Shipper Name Role Phone Spencer Mane MD Primary Care Provider [phone] Savanah Reynoso NP Unavailable [phone] Spencer Mane MD Primary Care Provider [phone] Encounter Details Date Type Department Care Team (Late st Contact Info) Description 10/08/2023 Abstract [facility] [address] [place] [address] Christina Velasquez, JOSUÉ [address] [facility] [address] [place] [address] Social History Tobacco Use Types Packs/Day Years [...] on file documented as of this encounter Functional Status * Audit-C Score Answer Date of Assessment Author 2 10/09/2023 10:45 AM [place] * Question Answer Date of Assessment Author Q1: How often do you have a drink containing alcohol? 2-4 times a month 10/09/2023 10:45 AM [place] Q2: How many drinks containing alcohol do you have on a typical day when you are drinking? 1 or 2 10/09/2023 10:45 AM [place] Q3: How often do you have six or more drinks on one occasion? Never 10/09/2023 10:45 AM [place] documented as of this encounter Plan of Treatment Not on file documented as of this encounter Visit Diagnoses Not on filedocumented in this encounter Care Teams Logistics/Shipper Relationship Specialty Start Date End Date Spencer Mane MD PCP - General Family Medicine 06/28/23 07/15/24 Spencer Mane MD [address] [place] [address] PCP - General Family Medicine 07/16/24 Savanah Reynoso NP [address] [place] [address] Referring Physician Nurse Practitioner 06/28/23 documented as of this encounter
--- OUTSIDE RECORDS SUMMARY | 2025-05-21 11:14 | XMS_ITS | Encounter Summary ---
Author Organization [facility] Address [address] [place] [address] Care Team Providers Care Control Panel Operator Crude Unit Name Role Phone Spencer Mane MD Primary Care Provider [phone] Savanah Reynoso NP Unavailable [phone] Spencer Mane MD Primary Care Provider [phone] Encounter Details Date Type Department Care Team (Late st Contact Info) Description 02/26/2024 Clinisync Result Encounter [facility] External Department Unsolicited [...] Procedure Name Priority Date/Time Associated Diagnosis Comments MR ANKLE RIGHT WO IV CONTRAST 02/26/2024 12:45 PM EDT documented in this encounter Results * MR ankle right wo IV contrast (02/26/2024 12:45 PM EDT) Anatomical Region Laterality Modality Lower Extremities, Ankle Right Magneti c Resonance 02/26/2024 12:4 5 PM EDT Narrative 02/26/2024 12:48 PM EDT [address] [address] Magnetic Resonance Report Signed Patient: HILLARY STERN MR#: [id number] : 1980 Acct:[id number] Age/Sex: 43 / F ADM Date: 02/26/24 Loc: MRI Attending Dr: Miladys Cook Ordering Physician: Miladys Cook Date of Service: 02/26/24 Procedure(s): MR ankle RT wo con Accession Number(s): [id number] cc: Savanah Reynoso NP; Miladys Cook [place] [id number] Patient Name: HILLARY STERN MRN: [id number] date: 1980 Sex: F Assigned Patient Location: MRI Current Patient Location: MRI Accession/Order Number: [id number] Exam Date: 02/26/2024 08:45 Report Date: 02/26/2024 12:45 At the request of: MILADYS COOK Procedure: MR ankle RT wo con EXAM: MR ankle RT wo con REASON FOR EXAM: Plantar Fascial Fibromatosis M72.2. TECHNIQUE: Multiplanar, multisequence imaging of the right ankle was performed without contrast COMPARISON: Radiographs 12/03/2023. FINDINGS: There is fusiform thickening and intermediate signal of the Achilles tendon consistent with tendinosis. No tear identified. There is moderate thickening and intermediate signal involving the medial cord of the plantar fascia with mild surrounding edema. A discrete tear not identified. Inferior calcaneal spur is noted. No masslike thickening of the plantar fascia identified to suggest plantar fibromatosis. Laterally, the peroneal tendons demonstrate grossly normal thickness and signal without tendinosis or tear. The superficial peroneal retinaculum is intact. Lateral ligaments are grossly intact. Medially, the medial flexor tendons demonstrate normal thickness and signal without tendinosis or tear. The deep deltoid ligament is intact. The spring ligament is intact. Anteriorly, the anterior extensor tendons demonstrate normal thickness and signal without tendinosis or tear. The bone marrow signal is without fracture or displaced fracture. There is bone marrow edema involving the third metatarsal base and proximal diaphysis. This could potentially reflect a low-grade stress response due to altered biomechanics. The talar dome appears congruent. The subtalar joints intact. The sinus tarsi is mildly edematous. The midfoot is congruent with mild joint space narrowing marginal osteophytes of the talonavicular joint. The plantar musculature demonstrates normal bulk and signal. Remaining soft tissues are unremarkable. MR/MR ankle RT wo con IMPRESSION: 1. Moderate chronic plantar fasciopathy without evidence of acute tear. No masslike thickening identified to suggest fibromatosis. 2. Partially imaged bone marrow edema involving the proximal third metatarsal, this could be degenerative or could reflect a low-grade stress response potentially due to altered biomechanics. 3. Achilles tendinosis without tear. 4. Mild midfoot osteoarthritis Electronically authenticated by: LISET GARCIA Date: 02/26/2024 12:45 Dictated By: Liset Garcia M.D. Signed By: 02/26/24 1248 DD/ 1245 TD/TT: Technical Trainer: Procedure Note Radiology, Radiologist, MD - 02/26/2024 [place] [address] Magnetic Resonance Report Signed Patient: ABA STERNIDR#: [id number] : 1980Acct:[id number] Age/Sex: 43 / FADM Date: 02/26/24 Loc: MRI Attending Dr: Miladys Cook Ordering Physician: Miladys Cook Date of Service: 02/26/24 Procedure(s): MR ankle RT wo con Accession Number(s): [id number] cc: Savanah Reynoso NP; Miladys Cook [address] [place] [id number] Patient Name: HILLARY STERN MRN: [id number] date: 1980 Sex: F Assigned Patient Location: MRI Current Patient Location: MRI Accession/Order Number: [id number] Exam Date: 02/26/2024 08:45 Report Date: 02/26/2024 12:45 At the request of: MILADYS COOK Procedure: MR ankle RT wo con EXAM: MR ankle RT wo con REASON FOR EXAM: Plantar Fascial Fibromatosis M72.2. TECHNIQUE: Multiplanar, multisequence imaging of the right ankle wasperformed without contrast COMPARISON: Radiographs 12/03/2023. FINDINGS: There is fusiform thickening and intermediate signal of the Achillestendon consistent with tendinosis. No tear identified. There is moderatethickening and intermediate signal involving the medial cord of the plantar fasciawith mild surrounding edema. A discrete tear not identified. Inferior calcaneal spur is noted. No masslike thickening of the plantar fascia identified tosuggest plantar fibromatosis. Laterally, the peroneal tendons demonstrate grossly normal thickness and signal without tendinosis or tear. The superficial peroneal retinaculum isintact. Lateral ligaments are grossly intact. Medially, the medial flexor tendons demonstrate normal thickness andsignal without tendinosis or tear. The deep deltoid ligament is intact. Thespring ligament is intact. Anteriorly, the anterior extensor tendons demonstrate normal thickness and signal without tendinosis or tear. The bone marrow signal is without fracture or displaced fracture. There is bone marrow edema involving the third metatarsal base and proximal diaphysis.This could potentially reflect a low-grade stress response due to altered biomechanics. The talar dome appears congruent. The subtalar jointsintact. The sinus tarsi is mildly edematous. The midfoot is congruent with mild joint space narrowing marginal osteophytes of the talonavicular joint. The plantar musculature demonstrates normal bulk and signal. Remaining soft tissuesare unremarkable. MR/MR ankle RT wo con IMPRESSION: 1. Moderate chronic plantar fasciopathy without evidence of acute tear. No masslike thickening identified to suggest fibromatosis. 2. Partially imaged bone marrow edema involving the proximal thirdmetatarsal, this could be degenerative or could reflect a low-grade stress response potentially due to altered biomechanics. 3. Achilles tendinosis without tear. 4. Mild midfoot osteoarthritis Electronically authenticated by: LISET GARCIA Date: 02/26/2024 12:45 Dictated By: Liset Garcia M.D. Signed By:02/26/24 1248 DD/ 1245 TD/TT: Technical Trainer: us Generic External Data Provider IMG MRI PROCEDURE S Final Result documented in this encounter Visit Diagnoses Not on filedocumented in this encounter Care Teams Control Panel Operator Crude Unit Relationship Specialty Start Date End Date Spencer Mane MD PCP - General Family Medicine 06/28/23 07/15/24 Spencer Mane MD [address] [place] [address] PCP - General Family Medicine 07/16/24 Savanah Reynoso NP [address] [place] [address] Referring Physician Nurse Practitioner 06/28/23 documented as of this encounter
--- OUTSIDE RECORDS SUMMARY | 2025-05-21 11:14 | XMS_ITS | Encounter Summary ---
Author Organization [facility] tem Address [id number] [address] [place] [address] Care Team Providers Care Resp Therapist Name Role Phone Savanah Reynoso APRN-SAP SPECIALIST Primary Care Provider Encounter Details Date Type Department Care Team (Late st Contact Info) Description 01/11/2021 Orders Only [facility] [address] [place] [address] External, Scanning Provider Social History Tobacco Use [...] documented as of this encounter Care Teams Resp Therapist Relationship Specialty Start Date End Date Savanah Reynoso, CITY LIBRARY DIRECTOR-SAP SPECIALIST PCP - General Nurse Practitioner 11/30/24 documented as of this encounter
--- OUTSIDE RECORDS SUMMARY | 2025-05-21 11:14 | XMS_ITS | Clinical Summary ---
Author Organization [facility] Address [address] [place] [address] Care Team Providers Care Environmental Remediation Engineer Name Role Phone Lizz Sarah CNP Primary Care Provider [phone] Active Problems No known active problems Social History Tobacco Use Types Packs/Day Years Used Date Smoking Tobacco: Never Assessed Area Deprivation Index Answer Date Dean rded National Score (1-100), lower number is lower ri sk Not on file 06/07/2021 State Score (1-10), lower number is lower risk N ot on file 06/07/2021 Data from: https://www.neighborhoodatlas.medicine.[facility].edu/. Last address used for calculation Not on [...] 09/03/20 19, 09/03/2018 Insurance [employer] PPO [facility] PPO TPA Care Teams Environmental Remediation Engineer Relationship Specialty Start Date End Date Lizz Sarah CNP PCP - General Family Medicine 05/18/21
--- OUTSIDE RECORDS SUMMARY | 2025-05-21 11:14 | XMS_ITS | Encounter Summary ---
Author Organization [facility] Address [address] [place] [address] Care Team Providers Care Tile Designer Name Role Phone Spencer Mane MD Primary Care Provider [phone] Savanah Reynoso NP Unavailable [phone] Spencer Mane MD Primary Care Provider [phone] Encounter Details Date Type Department Care Team [...] Name Priority Date/Time Associated Diagnosis Comments XR FOOT ISMAEL MIN 3 VIEWS 12/04/2023 8:06 AM EST documented in this encounter Results * XR FOOT ISMAEL MIN 3 VIEWS (12/04/2023 8:06 AM EST) Anatomical Region Laterality Modality Other 12/04/2023 8:06 AM EST Narrative 12/04/2023 8:09 AM EST [address] [address] XRay Report Signed Patient: HILLARY STERN MR#: [id number] : 1980 Acct:[id number] Age/Sex: 43 / F ADM Date: 12/03/23 Loc: [facility] Attending Dr: Miladys Cook Ordering Physician: Miladys Cook Date of Service: 12/03/23 Procedure(s): XR foot ISMAEL min 3V Accession Number(s): [id number] cc: Savanah Reynoso NP; Miladys Cook [place] [address] Patient Name: HILLARY STERN MRN: [id number] date: 1980 Sex: F Assigned Patient Location: [facility] Current Patient Location: Accession/Order Number: [id number] Exam Date: 12/03/2023 15:10 Report Date: 12/04/2023 08:06 At the request of: MILADYS COOK Procedure: XR foot ISMAEL min 3V EXAMINATION: XR foot ISMAEL min [...] ankle soft tissue swelling OTHER: Negative. XR/XR foot ISMAEL min 3V IMPRESSION: RIGHT CONCLUSION: Mild calcaneal enthesopathy LEFT CONCLUSION: Mild calcaneal enthesopathy, lateral ankle soft tissue swelling Electronically authenticated by: SHER LO Date: 12/04/2023 08:06 Dictated By: Sher Lo M.D. Signed By: 12/04/23808 DD/ 5 TD/TT: Hydroelectric Mechanic: Procedure Note Radiology, Radiologist, [facility] 12/04/2023 [place] [address] XRay Report Signed Patient: ABA STERNNMR#: [id number] : 1980Acct:[id number] Age/Sex: 43 / FADM Date: 12/03/23 Loc: [facility] Attending Dr: Miladys Cook Ordering Physician: Miladys Cook Date of Service: 12/03/23 Procedure(s): XR foot ISMAEL min 3V Accession Number(s): [id number] cc: Savanah Reynoso ARTIFICIAL STONE SETTER; Miladys Cook [place] [address] Patient Name: HILLARY STERN MRN: [id number] date: 1980 Sex: F Assigned Patient Location: [facility] Current Patient Location: Accession/Order Number: [id number] Exam Date: 12/03/2023 15:10 Report Date: 12/04/2023 08:06 At the request of: MILADYS COOK Procedure: XR foot ISMAEL min 3V EXAMINATION: XR foot ISMAEL min [...] ankle soft tissue swelling OTHER: Negative. XR/XR foot ISMAEL min 3V IMPRESSION: RIGHT CONCLUSION: Mild calcaneal enthesopathy LEFT CONCLUSION: Mild calcaneal enthesopathy, lateral ankle soft tissue swelling Electronically authenticated by: SHER LO Date: 12/04/2023 08:06 Dictated By: Sher Lo M.D. Signed By:12/04/23808 DD/ 5 TD/TT: Hydroelectric Mechanic: Generic External Data Provider [facility] Final Result documented in this encounter Visit Diagnoses Not on filedocumented in this encounter Care Teams Tile Designer Relationship Specialty Start Date End Date Spencer Mane MD PCP - General Family Medicine 06/28/23 07/15/24 Spencer Mane MD [address] [place] [phone] PCP - General Family Medicine 07/16/24 Savanah Reynoso NP [address] [place] [address] Referring Physician Nurse Practitioner 06/28/23 documented as of this encounter
--- OUTSIDE RECORDS SUMMARY | 2025-05-21 11:14 | XMS_ITS | Encounter Summary ---
Author Organization [facility] tem Address [id number] [address] [place] [address] Care Team Providers Care Pharmacy Cashier Name Role Phone [facility] Primary Care Provider Encounter Details Date Type Department Care Team (Late st Contact Info) Description [facility] [address] [place] [address] Lizz Sarah [facility] [address] [place], [place] [id number] Social History Tobacco Use Types Packs/Day Years [...] documented as of this encounter Care Teams Pharmacy Cashier Relationship Specialty Start Date End Date Savanah Reynoso APRN-CNP PCP - General Nurse Practitioner 11/30/24 documented as of this encounter
--- OUTSIDE RECORDS SUMMARY | 2025-05-21 11:14 | XMS_ITS | Encounter Summary ---
Author Organization [facility] Address [address] [facility] [place] [address] Care Team Providers Care Orange Picking Supervisor Name Role Phone Savanah Reynoso SERVICE MEMBER Unavailable [phone] Spencer Mane MD Primary Care Provider [phone] Encounter Details Date Type Department Care Team (Late st Contact Info) Description 01/08/2025 Abstract [facility] [address] [place] [phone] Jesse Hay, DO [address] [place], [id number] Social History Tobacco Use Types Packs/Day Years [...] on filedocumented in this encounter Care Teams Orange Picking Supervisor Relationship Specialty Start Date End Date Spencer Mane MD [address] [place] [phone] PCP - General Family Medicine 07/16/24 Savanah Reynoso NP [address] [place] [address] Referring Physician Nurse Practitioner 06/28/23 documented as of this encounter
--- OUTSIDE RECORDS SUMMARY | 2025-05-21 11:14 | XMS_ITS | Encounter Summary ---
Author Organization [facility] Address [address] [facility] [place] [address] Care Team Providers Care Certified Driver Examiner Name Role Phone Savanah Reynoso SOCIAL MEDIA CONTENT SPECIALIST Unavailable [phone] Spencer Mane MD Primary Care Provider [phone] Encounter Details Date Type Department Care Team (Late st Contact Info) Description 12/28/2024 Abstract [facility] [address] [place] [phone] Jesse Hay, DO [address] [place], [facility] Social History Tobacco Use Types Packs/Day [...] on filedocumented in this encounter Care Teams Certified Driver Examiner Relationship Specialty Start Date End Date Spencer Mane MD [address] [place] [phone] PCP - General Family Medicine 07/16/24 Savanah Reynoso NP [address] [place] [address] Referring Physician Nurse Practitioner 06/28/23 documented as of this encounter
== END 2025-05-21 11:12 | disposition home or self-care (01) ==
LOC: MAMMO 11:11
PROVIDERS: PCP Nurse Practitioner; Visit Provider Nurse Practitioner
DX: Z12.31 Encounter for screening mammogram for malignant neoplasm of breast (principal); Z80.8 Family history of malignant neoplasm of other organs or systems
CPT/HCPCS: 77063; 77067